=== PATIENT | female | born 1970 | race Caucasian/White ===

== ENCOUNTER 2020-07-01 17:31 | Emergency (ER) | payer MEDICAID, SELFPAY ==
--- NOTE | ~2020-07-01 | US_ITS ---
Examination: US transvaginal, US pelvic complete Indication: bleeding, large clots for 9 days, cm tenderness Comparison: No pertinent prior studies are currently available for comparison. Technique: Sonographic transabdominal and endovaginal views the pelvis were obtained. Endovaginal images were needed to better assess the anatomy. Findings: Uterus is retroverted measuring 8.6 x 4.8 x 4.9 cm in size with a 0.9 cm endometrial stripe. A small fundal fibroid measuring up to 1.5 cm in diameter is noted. Nabothian cysts seen in the cervix. The right ovary measures 4.0 x 2.8 x 2.2 cm for a volume of 12.9 mL with a slightly complex 2.1 cm follicle noted. The left ovary measures 3.4 x 3.2 x 2.1 cm for a volume of 12.0 mL. Likely complex follicle measuring up to 3.1 cm in maximal diameter. No significant fluid in the cul-de-sac. US/US transvaginal Impression: No definitive acute abnormality seen. Endometrial stripe measures 0.9 cm which is within normal limits for menstruating female.
--- NOTE | ~2020-07-01 | US_ITS ---
Examination: US transvaginal, US pelvic complete Indication: bleeding, large clots for 9 days, cm tenderness Comparison: No pertinent prior studies are currently available for comparison. Technique: Sonographic transabdominal and endovaginal views the pelvis were obtained. Endovaginal images were needed to better assess the anatomy. Findings: Uterus is retroverted measuring 8.6 x 4.8 x 4.9 cm in size with a 0.9 cm endometrial stripe. A small fundal fibroid measuring up to 1.5 cm in diameter is noted. Nabothian cysts seen in the cervix. The right ovary measures 4.0 x 2.8 x 2.2 cm for a volume of 12.9 mL with a slightly complex 2.1 cm follicle noted. The left ovary measures 3.4 x 3.2 x 2.1 cm for a volume of 12.0 mL. Likely complex follicle measuring up to 3.1 cm in maximal diameter. No significant fluid in the cul-de-sac. US/US pelvic complete Impression: No definitive acute abnormality seen. Endometrial stripe measures 0.9 cm which is within normal limits for menstruating female.
[2020-07-01 17:40] VITALS: BP 141/76; PULSE 107; RESP 16; O2SAT 96; BMI 29.2
--- NOTE | 2020-07-01 17:50 | ECG_ITS ---
Test Reason : DIZZYNESS Blood Pressure : / mmHG Vent. Rate : 098 BPM Atrial Rate : 098 BPM P-R Int : 138 ms QRS Dur : 084 ms QT Int : 346 ms P-R-T Axes : 038 061 047 degrees QTc Int : 441 ms Normal sinus rhythm Normal ECG When compared with ECG of 13-JAN-2020 18:25, No significant change was found Referred By: Анна Peñaloza Electronically Signed By:Toni Lopez
--- NOTE | 2020-07-01 17:50 | ED.FEMALEGU ---
HPI - Female Genitourinary General Chief complaint: Vaginal Bleeding Stated complaint: high bp, vaginal bleeding Source: patient Mode of arrival: ambulatory Limitations: language barrier History of Present Illness HPI Narrative: [age] year Czech female speaks some Greek with past medical history of diabetes, fibromyalgia, hypertension, and appendectomy presents with 9 days of lower abdominal and suprapubic pain accompanied by abnormal vaginal bleeding with large clots, going through at her heaviest x4 pads per hour. She was referred to emergency department by another provider for further evaluation. She states to be dizzy, nauseous, fatigued, and concerned about the large amount of bleeding. She does not describe chest pain or pressure, palpitations, abdominal distention, dysuria, hematuria, constipation, diarrhea, fevers or chills. MD elicited complaint: vaginal bleeding and pelvic pain Related Data Previous Rx's Medication Instructions Recorded ibuprofen 600 mg PO Q6H PRN #30 tab 07/01/20 oxycodone 5 mg PO Q8H PRN #4 tab 07/01/20 Allergies Allergy/AdvReac Type Severity Reaction Status Date / Time tramadol [TRAMADOL] Allergy Unknown RASH , rash Verified 07/01/20 17:44 Review of Systems Review of Systems: Constitutional: No Fever, No Chills ENT/Mouth: No sore throat, No Rhinorrhea Eyes: No Eye Pain, No Redness Cardiovascular: No Chest Pain, No SOB Respiratory: No Cough, No Sputum, No Wheezing Gastrointestinal: positive Nausea, No Vomiting, No Diarrhea, positive abdominal pain, Genitourinary: positive irregular bleeding, No Dysuria, No Urinary Frequency, positive pelvic pain Musculoskeletal: No Myalgias Skin: No rash Neuro: No Weakness, No Headache Psych: No Anxiety/Panic, No Depression Heme/Lymph: No bruising, No Lymphadenopathy Endocrine: No Polyuria, No Polydipsia Yes all other systems are reviewed and are negative [facility], LAT[facility] Past Medical History Attestation statement: The following information was validated with the patient. Source: old records reviewed Medical History (Updated 07/02/20 @ 00:01 by Frank Lee) Cholecystitis Diabetes Fibromyalgia HTN (hypertension) Surgical History (Updated 07/01/20 @ 18:44 by Анна Peñaloza NP) History of appendectomy Social History Social History Alcohol intake: never Smoking Status: Never smoker Use of substances other than those prescribed or required for medical reasons: No Advance Directives: No Advance Directives Information Provided: No Physical Exam Vital Signs: Vital Signs: Last Vital Signs Pulse 85 07/01/20 20:00 Resp 18 07/01/20 20:00 BP 110/80 07/01/20 20:00 Pulse Ox 97 07/01/20 20:00 Body Mass Index 29.2 Appearance: Alert. Oriented X3. Mild distress. Skin is slightly pale Eyes: Pupils equal, round and reactive to light. EOMI, sclera nonicteric, conjunctiva pale ENT: Pharynx normal. Moist mucous membranes tongue midline Neck: Normal inspection. Neck supple. CVS: Tachycardic heart rate and rhythm. Pulses normal. Respiratory: No respiratory distress. Breath sounds normal. Abdomen: Soft and suprapubic tenderness to palpation Skin: Skin warm and dry. Normal skin color. Normal skin turgor. Extremities: No lower extremity edema. Neuro: No motor deficit. No sensory deficit. Strength 5/5 to all extremities, cranial nerves 2 through 12 intact : General: Yes Bimanual renal exam normal bilaterally External Female Exam: normal external appearance and normal appearance of the urethra Speculum Exam - Vagina: normal appearance of the vagina, normal palpation, vaginal bleeding and No tissue present in vagina Speculum Exam - Cervix: normal appearance of the cervix and Cervical tenderness present Bimanual exam- vagina & uterus: normal palpation, Cervical tenderness present and cervical motion tenderness Bimanual Exam- Adnexa, other: normal adnexae and no masses OB/external & speculum: vaginal bleeding; no tissue noted in vagina Course Course Course Narrative: 50-year-old female with past medical history diabetes, fibromyalgia, hypertension, and appendectomy presents with 9 days of abnormal vaginal bleeding with large clots, suprapubic and lower abdominal pain. 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 Plan of care is for CBC, Chem 7, pelvic ultrasound, and EKG. Pelvic ultrasound shows uterine fibroids, CBC is unremarkable H&H 11.3/34.5 which is slightly lower than her normal values but not within the range needing emergent intervention or blood transfusion. Plan of care to discharge home, live truck operator utilized for all correspondence. Google translate utilized for discharge instructions. [facility] - Female Genitourinary MDM Narrative Medical decision making narrative: Fibroids Differential Diagnosis Differential diagnosis: Likely ovarian cyst, ruptured ovarian cyst and dysmenorrhea Medical Records Attestation: I reviewed the patient's medical records. Lab Data Attestation: I reviewed the patient's lab results. Result diagrams: 07/01/20 18:11 07/01/20 18:11 Labs: Lab Results 07/01/20 07/01/20 07/01/20 Range/Units 18:11 18:11 18:11 WBC 9.8 (4.8-10.8) X10*3/uL RBC 3.77 L (4.20-5.50) X10*6/uL Hgb 11.3 L (12.0-16.0) g/dl Hct 34.5 L (37-47) % MCV 91.5 (80-98) fL MCH 30.0 (27.0-33.0) pg MCHC 32.8 (31.0-35.0) g/dl RDW 14.2 (11.0-16.0) % Plt Count 346 (160-400) X10*3/uL MPV 11.5 (9.4-12.3) fL Immature Gran % (Auto) 0.2 (0.0-0.4) % Neut % (Auto) 58.0 (45-73) % Lymph % (Auto) 32.0 (20-40) % [place] % (Auto) 8.1 (2-11) % Eos % (Auto) 1.0 (0-4) % Baso % (Auto) 0.7 (0-2) % Lymph # (Auto) 3.1 (1.2-4.9) X10*3/uL [place] # (Auto) 0.8 (0.1-1.2) X10*3/uL Eos # (Auto) 0.1 (0.0-0.4) X10*3/uL Baso # (Auto) 0.1 (0.0-0.2) X10*3/uL Abs Immat Gran (auto) 0.02 (0.00-0.03) X10*3/uL Absolute Neuts (auto) 5.7 (2.0-8.3) X10*3/uL Absolute Nucleated RBC 0.000 (0.0-0.012) X10*3/uL Nucleated RBC % (auto) 0.0 (0.0-0.2) /100WBC PT 10.9 (10.8-13.0) SEC INR 0.9 (0.9-1.1) APTT 33.0 (24.1-38.0) SEC Sodium 140 (135-145) mmol/L Potassium 4.1 (3.3-5.1) mmol/L Chloride 104 (96-108) mmol/L Carbon Dioxide 26 (22-29) mmol/L Anion Gap 14 (12-20) BUN 10 (9-16) mg/dL Creatinine 0.68 (0.5-1.4) mg/dL Estim Creat Clear Calc 79.7 Estimated GFR > 60 Random Glucose 151 H (60-115) mg/dL Calcium 9.8 (8.4-10.2) mg/dL Magnesium 1.9 (1.6-2.6) mg/dL Troponin I High Sens (<3.5-17.0) ng/L 07/01/20 Range/Units 18:11 WBC (4.8-10.8) X10*3/uL RBC (4.20-5.50) X10*6/uL Hgb (12.0-16.0) g/dl Hct (37-47) % MCV (80-98) fL MCH (27.0-33.0) pg MCHC (31.0-35.0) g/dl RDW (11.0-16.0) % Plt Count (160-400) X10*3/uL MPV (9.4-12.3) fL Immature Gran % (Auto) (0.0-0.4) % Neut % (Auto) (45-73) % Lymph % (Auto) (20-40) % [place] % (Auto) (2-11) % Eos % (Auto) (0-4) % Baso % (Auto) (0-2) % Lymph # (Auto) (1.2-4.9) X10*3/uL [place] # (Auto) (0.1-1.2) X10*3/uL Eos # (Auto) (0.0-0.4) X10*3/uL Baso # (Auto) (0.0-0.2) X10*3/uL Abs Immat Gran (auto) (0.00-0.03) X10*3/uL Absolute Neuts (auto) (2.0-8.3) X10*3/uL Absolute Nucleated RBC (0.0-0.012) X10*3/uL Nucleated RBC % (auto) (0.0-0.2) /100WBC PT (10.8-13.0) SEC INR (0.9-1.1) APTT (24.1-38.0) SEC Sodium (135-145) mmol/L Potassium (3.3-5.1) mmol/L Chloride (96-108) mmol/L Carbon Dioxide (22-29) mmol/L Anion Gap (12-20) BUN (9-16) mg/dL Creatinine (0.5-1.4) mg/dL Estim Creat Clear Calc Estimated GFR Random Glucose (60-115) mg/dL Calcium (8.4-10.2) mg/dL Magnesium (1.6-2.6) mg/dL Troponin I High Sens < 3.5 (<3.5-17.0) ng/L Imaging Data Pelvic ultrasound: Attestation: I personally reviewed and interpreted this imaging study as follows: ECG Data Attestation: I personally reviewed and interpreted this ECG as follows: ECG interpretation date: 07/01/20 ECG interpretation time: 18:10 Prior ECG tracings: available for review Interpretation: Vent. rate 98 BPM MS interval 138 ms QRS duration 84 ms QT/QTc 346/441 ms P-R-T axes 38 61 47 Normal sinus rhythm Normal ECG When compared with ECG of 13-JAN-2020 18:25, No significant change was found Discharge Plan Discharge Clinical Impression: Vaginal bleeding Patient Disposition: Home, Self-Care Instructions: Dysfunctional Uterine Bleeding (ED) Additional Instructions: Te evaluaron para detectar sangrado vaginal anormal. La ecograf?a p?lvica muestra fibromas uterinos. Por favor, simin un seguimiento con OBGYN para mayor atenci?n. Llame al Dr. Jiang y solicite krys keshawn. Para el manejo del dolor, el ibuprofeno es el mejor medicamento para judge afecci?n. Prescribimos ibuprofeno 600 mg cada 6-8 horas seg?n sea necesario. Utilice ibuprofeno antes de usar oxicodona. Prescribimos pocos comprimidos de oxicodona para el dolor intenso. Pebbles medicamento es un narc?madelyn y tiene un alto riesgo de adicci?n y abuso. No conduzca ni opere maquinaria mientras tome pebbles medicamento. Pebbles medicamento puede aumentar el riesgo de ca?sigala, causar somnolencia y estre?imiento. Valentina abundantes l?quidos para usar MiraLax y/o Colace seg?n sea necesario para ayudar a suavizar las heces. Michaela por elegir pebbles departamento de emergencias para judge evaluaci?n. Por favor, simin un seguimiento con el m?dico de atenci?n primaria seg?n sea necesario. Regrese al servicio de emergencias para cualquier s?ntoma nuevo, preocupante o que empeore. You were evaluated for abnormal vaginal bleeding. Pelvic ultrasound shows uterine fibroids. Please follow-up with OBGYN for further care. Call Dr Jiang and request an appointment. For pain management, ibuprofen is the best medication for your condition. We prescribed ibuprofen 600 mg every 6-8 hours as needed. Please use ibuprofen before using oxycodone. We prescribed few tablets of oxycodone for severe pain. This medication is a narcotic and has high risk for addiction and abuse. Do not drive or operate machinery while taking this medication. This medication can increase risk for falls, cause drowsiness, and constipation. Drink plenty of fluids use MiraLax and/or Colace as needed to help soften stools. Thank you for choosing this emergency department for evaluation. Please follow-up with primary care physician as needed. Return to the emergency department for any new, concerning, or worsening symptoms. Prescriptions: New oxycodone 5 mg tablet 5 mg PO Q8H PRN (Reason: pain) Qty: 4 RF: 0 ibuprofen 600 mg tablet 600 mg PO Q6H PRN (Reason: pain) Qty: 30 RF: 0 Referrals: Joseph Jiang MD [Physician] - 2 days (Uterine fibroids, abnormal vaginal bleeding) Interventions: ED Discharge Assessment Last Done: 07/01/20 20:32 Discharge Date/Time: 07/01/20 20:33
[2020-07-01 18:12] VITALS: BP 108/83; PULSE 100; RESP 18; O2SAT 97
[2020-07-01] MEDS: 0.9 % Sodium Chloride 1,000 ML 999 ML IVCONT (18:15)
[2020-07-01 19:06] LABS: MANUAL DIFF FLAG NO
[2020-07-01 19:08] LABS: Basophils Absolute Auto 0.1 X10*3/uL (0.0-0.2); Basophils Percent Auto 0.7 % (0-2); Eosinophils Absolute Auto 0.1 X10*3/uL (0.0-0.4); Hematocrit 34.5 % (37-47); Hemoglobin 11.3 g/dl (12.0-16.0); Imm Gran Abs Auto 0.02 X10*3/uL (0.00-0.03); Imm Gran Pct Auto 0.2 % (0.0-0.4); Lymphocytes Absolute Auto 3.1 X10*3/uL (1.2-4.9); Mean Corpuscular HGB Conc 32.8 g/dl (31.0-35.0); Mean Corpuscular Volume 91.5 fL (80-98); Mean Platelet Volume 11.5 fL (9.4-12.3); Monocytes Absolute Auto 0.8 X10*3/uL (0.1-1.2); Monocytes Percent Auto 8.1 % (2-11); Neutrophils Absolute Auto 5.7 X10*3/uL (2.0-8.3); Platelet Count 346 X10*3/uL (160-400); Red Blood Count 3.77 X10*6/uL (4.20-5.50); Red Cell Distribution Width 14.2 % (11.0-16.0); White Blood Count 9.8 X10*3/uL (4.8-10.8)
[2020-07-01 19:15] LABS: INTERNATIONAL NORM RATIO 0.9 (0.9-1.1); Prothrombin Time 10.9 SEC (10.8-13.0)
--- NOTE | 2020-07-01 19:23 | PC.NURSE ---
family updated. Family states pt called and is having problem expressing herself and having a lot of pain and feeling anxiety. interpretor in room for re-eval of pt. will continue to monitor pt,
[2020-07-01 19:34] LABS: Anion Gap 14 (12-20); Blood Urea Nitrogen 10 mg/dL (9-16); Calcium 9.8 mg/dL (8.4-10.2); Carbon Dioxide 26 mmol/L (22-29); Chloride 104 mmol/L (96-108); Creatinine Clr Calc Pharmacy 79.7; Estimated Glomerular Filt Rate > 60; Glucose Random 151 mg/dL (60-115); Magnesium 1.9 mg/dL (1.6-2.6); Potassium 4.1 mmol/L (3.3-5.1); Sodium 140 mmol/L (135-145)
[2020-07-01 19:39] LABS: Troponin-I High Sensitivity < 3.5 ng/L (<3.5-17.0)
[2020-07-01 20:00] VITALS: BP 110/80; PULSE 85; RESP 18; O2SAT 97
--- NOTE | 2020-07-01 20:05 | PC.NURSE ---
PT'S FAMILY CONTINUES TO CALL AND STATE MY MOM IS IN PAIN SUSANNA LUTZ AWARE X 2.
== END 2020-07-01 20:33 | disposition home or self-care (01) ==
PROVIDERS: Nurse Practitioner Family; Emergency Provider Emergency Medicine; PCP Pediatrics
DX: N93.8 Other specified abnormal uterine and vaginal bleeding (principal); N92.0 Excessive and frequent menstruation with regular cycle; R10.10 Upper abdominal pain, unspecified; R42 Dizziness and giddiness; I10 Essential (primary) hypertension; Z79.899 Other long term (current) drug therapy
CPT/HCPCS: 36415; 76830; 76856; 80048; 83735; 84484; 85025; 85610; 85730; 93005; 96360; 99284

== ENCOUNTER 2020-07-02 14:14 | Outpatient (REF) | payer MEDICAID, SELFPAY ==
[2020-07-02 16:22] LABS: Hematocrit 32.2 % (37-47); Hemoglobin 10.3 g/dl (12.0-16.0); Mean Corpuscular Hemoglobin 29.3 pg (27.0-33.0); Mean Corpuscular Volume 91.7 fL (80-98); Mean Platelet Volume 11.4 fL (9.4-12.3); Platelet Count 338 X10*3/uL (160-400); Red Blood Count 3.51 X10*6/uL (4.20-5.50); Red Cell Distribution Width 14.2 % (11.0-16.0); White Blood Count 9.3 X10*3/uL (4.8-10.8)
[2020-07-02 17:12] LABS: HCG Quantitative < 2 mIU/mL; Thyroid Stimulating Hormone 1.83 uIU/mL (0.32-4.0)
[2020-07-03 09:56] LABS: CT PCR NOT DETECTED (Not Detect.); NG PCR NOT DETECTED (Not Detect.)
[2020-07-08 19:02] LABS: HPV mRNA E6/E7 rflx Not Detected (Not Detected)
== END 2020-07-02 14:15 | disposition home or self-care (01) ==
LOC: HO.LAB 14:14
PROVIDERS: PCP Pediatrics; Visit Provider Obstetrics & Gynecology
DX: N92.0 Excessive and frequent menstruation with regular cycle (principal); R10.2 Pelvic and perineal pain; Z11.51 Encounter for screening for human papillomavirus (HPV)
CPT/HCPCS: 36415; 84443; 84702; 85027; 87491; 87591; 87624; 88142; 99202

== ENCOUNTER 2020-07-03 01:37 | Emergency (ER) | payer MEDICAID, SELFPAY | END 2020-07-03 02:11 | disposition left against medical advice (07) | PROVIDERS: Emergency Provider Emergency Medicine | DX: N93.9 Abnormal uterine and vaginal bleeding, unspecified (principal) ==

== ENCOUNTER 2020-07-03 11:57 | Outpatient (REF) | payer MEDICAID, SELFPAY | END 2020-07-03 11:58 | disposition home or self-care (01) | LOC: HO.LAB 11:57 | PROVIDERS: Visit Provider Obstetrics & Gynecology | DX: Z13.89 Encounter for screening for other disorder (principal) ==

== ENCOUNTER 2020-07-08 15:45 | Outpatient (REF) | payer MEDICAID, SELFPAY | END 2020-07-08 15:46 | disposition home or self-care (01) | LOC: HO.US 15:45 | PROVIDERS: Visit Provider Obstetrics & Gynecology | DX: Z13.89 Encounter for screening for other disorder (principal) ==

== ENCOUNTER 2020-07-22 16:17 | Outpatient (REF) | payer MEDICAID, SELFPAY | END 2020-07-22 16:18 | disposition home or self-care (01) | LOC: HO.MAMMO 16:17 | PROVIDERS: Visit Provider Obstetrics & Gynecology | DX: Z13.89 Encounter for screening for other disorder (principal) ==

== ENCOUNTER 2020-11-08 19:29 | Emergency (ER) | payer MEDICAID, SELFPAY ==
--- NOTE | ~2020-11-08 | XR_ITS ---
EXAMINATION: XR CHEST CLINICAL INFORMATION: Shortness of breath. COMPARISON: None TECHNIQUE: Frontal view of the chest was obtained. FINDINGS: The lungs are clear. The cardiomediastinal silhouette is normal in size. There is no pleural effusion or pneumothorax. No acute osseous abnormality. XR/XR chest 1V IMPRESSION: No acute cardiopulmonary findings.
[2020-11-08 20:00] VITALS: BP 131/78; PULSE 123; RESP 20; TEMP 37.6; O2SAT 97; BMI 28.3
[2020-11-08 20:30] LABS: COVID-19 Test Negative (Negative)
[2020-11-08 21:22] VITALS: BP 135/78; PULSE 112; RESP 24; TEMP 36.9; O2SAT 96
--- NOTE | 2020-11-08 21:39 | ED.SOB ---
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 Patient states that she is only been using nebulizer treatments and only twice a day at that. Related Data Home Medications Medication Instructions Recorded Confirmed albuterol (refill) 90 mcg INHALATION 07/02/20 mcg/actuation aerosol inhaler cholecalciferol (vitamin D3) 10 10 mcg PO DAILY 07/02/20 mcg (400 unit) capsule naproxen 500 mg tablet 500 mg PO BID 07/02/20 omeprazole 20 mg capsule,delayed 20 mg PO DAILY 07/02/20 release pramipexole 0.25 mg tablet 0.25 mg PO BEDTIME 07/02/20 pregabalin 100 mg capsule 100 mg PO BID 07/02/20 Previous Rx's Medication Instructions Recorded ibuprofen 600 mg PO Q6H PRN #30 tab 07/01/20 oxycodone 5 mg PO Q8H PRN #4 tab 07/01/20 prednisone 40 mg PO DAILY 4 Days #8 tab 11/08/20 Allergies Allergy/AdvReac Type Severity Reaction Status Date / Time tramadol [TRAMADOL] Allergy Unknown RASH , rash Verified 11/08/20 20:00 Review of Systems Review of Systems: Pertinent positives and negatives as stated in HPI 10 point review of systems otherwise negative. [facility] Past Medical History Source: nursing notes reviewed Medical History Asthma Cholecystitis Diabetes Fibromyalgia HTN (hypertension) Surgical History History of appendectomy Social History Social History Alcohol intake: never Advance Directives: No Advance Directives Information Provided: No Gender identity: female Physical Exam Vital Signs: Vital Signs: Last Vital Signs Temp 98.5 F 11/08/20 21:22 Pulse 106 H 11/08/20 21:44 Resp 24 H 11/08/20 21:22 BP 135/78 11/08/20 21:22 Pulse Ox 96 11/08/20 21:22 Body Mass Index 28.3 VITAL SIGNS: Reviewed. GENERAL: Well developed, well nourished, in no acute distress. HEAD: Normocephalic/atraumatic EYES: PERRLA, EOMI OROPHARYNX: no oral lesions noted, posterior pharynx clear LUNGS: Trace expiratory wheeze, no rhonchi, tachypneic. SpO2<96> CARDIOVASCULAR: Regular rate and rhythm without noted murmurs, no JVD or lower extremity edema. ABDOMEN: Soft, non-tender, non-distended with bowel sounds. SKIN: Inspection of the skin reveals no rashes NEUROLOGIC: Alert and oriented x 4. Strength and sensation to light touch were grossly intact x 4. Course Course Course Narrative: 50-year-old female with history and clinical presentation suggestive of mild asthma exacerbation, low suspicion for COVID-19 and doubt pneumonia. Review of all investigations negative for acute findings other than likely mild asthma exacerbation. MDM - SOB/Dyspnea Lab Data Labs: Lab Results 11/08/20 Range/Units 20:08 COVID-19 (FRANKY) Negative (Negative) COVID-19 Clin Com See Note Discharge Plan Discharge Clinical Impression: Asthma exacerbation Patient Disposition: Home, Self-Care Instructions: Asthma (ED) Additional Instructions: 1. Reanude todos los medicamentos caseros seg?n lo prescrito. 2. Se le maradiaga administrado un ciclo corto de esteroides y esto aumentar? judge presi?n arterial, aumentar? ash niveles de az?car y aumentar? la producci?n de ?cido. 3. Realice un seguimiento con judge proveedor de atenci?n primaria en los pr?ximos 2-3 d?as para krys reevaluaci?n y un tratamiento ambulatorio adicional. 4. Beth las pr?ximas 24 horas, use judge inhalador de rescate cada 4 a 6 horas para un control continuo de judge asma. Regrese a la fernie de emergencias por un empeoramiento you de los s?ntomas. Prescriptions: New prednisone 20 mg tablet 40 mg PO DAILY 4 Days Qty: 8 RF: 0 No Action oxycodone 5 mg tablet 5 mg PO Q8H PRN (Reason: pain) Qty: 4 RF: 0 ibuprofen 600 mg tablet 600 mg PO Q6H PRN (Reason: pain) Qty: 30 RF: 0 pramipexole 0.25 mg tablet 0.25 mg PO BEDTIME RF: 0 albuterol (refill) 90 mcg/actuation aerosol inhalation RF: 0 pregabalin 100 mg capsule 100 mg PO BID RF: 0 naproxen 500 mg tablet 500 mg PO BID RF: 0 omeprazole 20 mg capsule,delayed release(DR/EC) 20 mg PO DAILY RF: 0 cholecalciferol (vitamin D3) 10 mcg (400 unit) capsule 10 mcg PO DAILY RF: 0 Referrals: Nikki Crain MD [Primary Care Provider] - 2 days (Re-evaluation for asthma) Print Language: Portuguese
[2020-11-08] MEDS: Acetaminophen 325 MG TABLET 650 MG PO (21:42)
[2020-11-08] MEDS: predniSONE 20 MG TABLET 40 MG PO (21:42)
[2020-11-08] MEDS: Acetaminophen 325 MG TABLET PO (21:43)
[2020-11-08 21:44] VITALS: PULSE 106; O2SAT 96
[2020-11-08 23:06] VITALS: BP 117/78; PULSE 107; RESP 22; O2SAT 96
== END 2020-11-08 23:07 | disposition home or self-care (01) ==
PROVIDERS: Emergency Provider Student in an Organized Health Care Education/Training Program; PCP Pediatrics
DX: J45.901 Unspecified asthma with (acute) exacerbation (principal); E11.9 Type 2 diabetes mellitus without complications; I10 Essential (primary) hypertension; Z79.899 Other long term (current) drug therapy; Z20.822 Contact with and (suspected) exposure to COVID-19
CPT/HCPCS: 36415; 71045; 87635; 94640; 99284

== ENCOUNTER 2021-05-18 19:48 | Emergency (ER) | payer MEDICAID, SELFPAY ==
[2021-05-18 20:00] VITALS: BP 116/71; PULSE 98; RESP 16; TEMP 36.9; O2SAT 98; BMI 28.3
[2021-05-18 20:25] LABS: COVID-19 Test Positive (Negative)
--- NOTE | 2021-05-18 20:43 | PC.NURSE ---
Called for patient in waiting room at 2029 and 2044 with no answers .
--- NOTE | 2021-05-18 21:06 | PC.NURSE ---
PT CALLED FOR 3RD TIME. NOT IN MWR. NOT OUTSIDE. NOT IN BR. LWT.
== END 2021-05-18 21:08 | disposition left against medical advice (07) ==
PROVIDERS: Emergency Provider Emergency Medicine
DX: U07.1 COVID-19 (principal); J02.9 Acute pharyngitis, unspecified; J45.909 Unspecified asthma, uncomplicated; I10 Essential (primary) hypertension; E11.9 Type 2 diabetes mellitus without complications
CPT/HCPCS: 87635; 99281; 99283

== ENCOUNTER 2021-10-14 14:51 | Outpatient (REF) | payer MEDICAID, SELFPAY ==
--- NOTE | ~2021-10-14 | MR_ITS ---
EXAMINATION: MR LUMBAR SPINE WITHOUT CONTRAST CLINICAL INFORMATION: 51-year-old with self-reported chronic low back pain and right leg pain. Intervertebral disc disorders with myelopathy. COMPARISON: None TECHNIQUE: MRI of the lumbar spine was obtained using routine sequences without contrast. FINDINGS: Coronal Alignment: Normal. Sagittal Alignment: Trace retrolisthesis at L3-L4. Otherwise normal lumbosacral alignment in the sagittal plane. Lumbosacral Junction: Normal. Five nonrib-bearing lumbar-type vertebral bodies. Vertebral Bodies: Normal height. Disc Spaces and Endplates: The intervertebral disc space heights are well maintained throughout the lumbar spine. [id number] degrees of disc desiccation are noted, most prominent at L4-L5 and L5-S1. Endplates appear intact. No significant spondylosis. Spinal Canal: No abnormal developmental findings. Bone Marrow: No marrow edema. Slightly heterogeneously low T1 signal throughout the osseous structures which is nonspecific. Conus Medullaris: Terminates at L1. Morphology and signal is normal. Intradural Nerve Roots: Within normal limits. L5-S1: Minor annular bulging noted with a tiny right lateral annular fissure without thecal sac or neural impingement. Minor facet arthrosis noted without significant canal or neural foraminal stenosis. L4-L5: Minor annular bulging noted with a tiny right lateral annular fissure. Mild facet arthropathy noted bilaterally with ligamentum flavum thickening with no significant canal or neural foraminal stenosis. L3-L4: Trace retrolisthesis, with no significant disc bulge or herniation. No significant facet arthrosis, canal or neural foraminal stenosis. L2-L3: Normal disc contour. No facet arthrosis, canal or neural foraminal stenosis. L1-L2: Normal disc contour. No facet arthrosis, canal or neuroforaminal stenosis. Paraspinal/Retroperitoneal: The paravertebral soft tissues are grossly unremarkable. MR/MR lumbar spine wo con IMPRESSION: 1. Minimal retrolisthesis at L3-L4 and [id number] disc desiccation at L4-L5 and L5-S1. 2. Minor annular bulging at L4-L5 and L5-S1 with tiny right lateral annular fissures at these levels without significant canal or neural foraminal stenosis. No neural impingement. Mild degrees of facet arthrosis are noted at L4-L5 and L5-S1. 3. Slightly heterogeneously low T1 signal throughout the osseous structures, which is a nonspecific finding. Suggest correlation with CBC and clinical history.
== END 2021-10-14 14:52 | disposition home or self-care (01) ==
LOC: HO.MRI 14:51
PROVIDERS: Visit Provider Pediatrics
DX: M51.06 Intervertebral disc disorders with myelopathy, lumbar region (principal)
CPT/HCPCS: 72148

== ENCOUNTER 2022-01-27 09:07 | Emergency (ER) | payer MEDICAID, SELFPAY ==
[2022-01-27 09:24] VITALS: BP 131/86; PULSE 112; RESP 19; TEMP 36.6; O2SAT 98; BMI 27.8
== END 2022-01-27 14:28 | disposition left against medical advice (07) ==
PROVIDERS: Emergency Provider Emergency Medicine
DX: R10.9 Unspecified abdominal pain (principal)
CPT/HCPCS: 99281

== ENCOUNTER 2022-07-03 09:46 | Emergency (ER) | payer MEDICAID, SELFPAY ==
--- NOTE | ~2022-07-03 | XR_ITS ---
EXAMINATION: XR WRIST, LEFT CLINICAL INFORMATION: Pain, patient states no injury. COMPARISON: None TECHNIQUE: Four views of the left wrist. FINDINGS: There is a 5 x 3 mm calcification/ossification in between the radial styloid process and the scaphoid. This has a chronic appearance. This could reflect sequela of remote trauma, loose body, dystrophic calcification. No acute fracture or dislocation is otherwise seen. Ulna negative variance. Joint spaces are maintained. XR/XR wrist LT 2V IMPRESSION: No radiographic evidence of acute fracture. Chronic appearing 5 x 3 mm density in between the radial styloid process-scaphoid, could be related to old trauma, loose body, dystrophic calcification/ossification. Clinically correlate.
[2022-07-03 09:50] VITALS: BP 151/92; PULSE 98; RESP 18; TEMP 36.2; O2SAT 98; BMI 31.3
--- NOTE | 2022-07-03 11:22 | ED_ITS ---
HPI - Extremity Problem General Chief complaint: Extremity Injury, Upper Stated complaint: L hand pain Time Seen by Provider: 07/03/22 10:40 Source: patient Mode of arrival: ambulatory Limitations: language barrier History of Present Illness HPI Narrative: 52 y.o female with a PMHx of arthritis, fibromyalgia, and diabetes on insulin, presents to the ED c/o L sided wrist pain/swelling x2 days without any known tra pricila/injury. Reports limited ROM due to pain, and some joint stiffness. Denies recent wounds, fevers, chills, numbness/tingling. Has taken OTC pain relievers without relief. MD Complaint: extremity pain Onset (ago): day(s) Related Data Home Medications Medication Instructions Recorded Confirmed albuterol (refill) 90 mcg inhalation 07/02/20 mcg/actuation aerosol inhaler cholecalciferol (vitamin D3) 10 10 mcg PO DAILY 07/02/20 mcg (400 unit) capsule naproxen 500 mg tablet 500 mg PO BID 07/02/20 omeprazole 20 mg capsule,delayed 20 mg PO DAILY 07/02/20 release pramipexole 0.25 mg tablet 0.25 mg PO BEDTIME 07/02/20 pregabalin 100 mg capsule 100 mg PO BID 07/02/20 Previous Rx's Medication Instructions Recorded ibuprofen 600 mg tablet 600 mg PO Q6H PRN pain #30 tabs 07/01/20 oxycodone 5 mg tablet 5 mg PO Q8H PRN pain #4 tabs 07/01/20 prednisone 20 mg tablet 40 mg PO DAILY 4 days #8 tabs 11/08/20 acetaminophen 500 mg tablet 500 mg PO Q6H PRN fever or pain 07/03/22 (Tylenol Extra Strength) #14 tabs naproxen 500 mg tablet 500 mg PO BID PRN pain 10 days #20 07/03/22 tabs Allergies Allergy/AdvReac Type Severity Reaction Status Date / Time tramadol [TRAMADOL] Allergy Unknown RASH , rash Verified 05/18/21 20:00 Review of Systems Review of Systems: Constitutional: No Fever, No Chills, ENT/Mouth: No sore throat, No Rhinorrhea, No Swallowing Difficulty Eyes: No Vision Changes Cardiovascular: No Chest Pain, No SOB, No Dyspnea Respiratory: No Cough, No Sputum Gastrointestinal: No Nausea, No Vomiting, No Diarrhea, No Constipation, No Abdominal pain Musculoskeletal: +joint pain L wrist, + Joint Swelling Skin: No Skin Lesions, No rash Neuro: No Weakness, No Numbness, No Paresthesias Yes all other systems are reviewed and are negative Constitutional: Constitutional: Reports as per [facility] Past Medical History Attestation statement: The following information was validated with the patient. Medical History Asthma Cholecystitis Diabetes Fibromyalgia HTN (hypertension) Surgical History History of appendectomy Social History Social History Alcohol intake: never Advance Directives: No Advance Directives Information Provided: Yes Gender identity: Female Physical Exam Vital Signs: Vital Signs: Last Vital Signs Temp 97.2 F 07/03/22 09:50 Pulse 98 07/03/22 09:50 Resp 18 07/03/22 09:50 BP 151/92 H 07/03/22 09:50 Pulse Ox 98 07/03/22 09:50 O2 Del Method 07/03/22 09:50 BMI result Body Mass Index 31.3 Const: General: cooperative, healthy appearing and no acute distress Orientation/consciousness: patient oriented x3 Limitations: no limitations HEENT: Head: Yes normal to inspection Ears: hearing grossly normal bilaterally General nose exam: Normal external nose present Face and sinus: Yes normal facial exam Eyes: General: appearance normal, both eyes and all related structures EOM: EOMs intact bilaterally Neck: Neck: Yes normal visual inspection and Yes no meningeal signs Resp: Effort & Inspection: normal respiratory effort Cardio: Rate: regular rate Heart sounds: S1 normal heart sound present and S2 normal heart sound present Peripheral pulses: radial pulses present and ulnar radial pulses present GI: Inspection: Yes normal to inspection Skin: Rashes: no rashes Wounds: no wounds Neuro: General: patient oriented x3, gait normal, tone normal and no meningeal signs Gait exam (Neuro): Normal gait present Extrem: Other: Mild swelling to left wrist and proximal thumb/MCP. +TTP to dorsal radial aspect of wrist with +snuffbox tenderness. No eccymosis or erythema. Finger to thumb opposition intact. NV intact General: Yes normal to inspection Left upper extremity: ROM limited (ROM limited to pain ) Course Course Course Narrative: XR wrist LT 2V IMPRESSION: No radiographic evidence of acute fracture. ? Chronic appearing 5 x 3 mm density in between the radial styloid process-scaphoid, could be related to old trauma, loose body, dystrophic calcification/ossification. Clinically correlate. ? >> thumb spica wrist splint applied due to patient's scaphoid tenderness, patient is to follow-up with orthopedics Results discussed with patient including worrisome signs and symptoms and strict return precautions, and when to return to the emergency department. They verbalized understanding and feel safe for discharge at this time. Medications Administered Discontinued Medications Generic Name Dose Route Start Last Admin Trade Name Freq PRN Reason Stop Dose Admin Ketorolac Tromethamine 30 mg 07/03/22 11:54 07/03/22 11:59 Ketorolac Tromethamine 30 Mg/Ml Vial IM 07/03/22 11:55 30 mg ONCE ONE Administration Medical Decision Making Medical Decision Making MDM Narrative: 52 y.o female with a PMHx of arthritis, fibromyalgia, and diabetes on insulin, presents to the ED c/o L sided wrist pain/swelling x2 days without any known trauma/injury. On physical exam patient is well-appearing with NAD, VSS. L wrist has limited ROS secondary to pain, mild swelling without erythema or warmth, and +ttp to radial aspect w/+snuffbox tenderness. Negative tinel test. Sensation and radial pulse intact. Concern for wrist sprain/strain/fracture vs scaphoid fracture vs arthritic pain. Low suspicion for carpal tunnel syndrome or septic joint/arthritis Plan: XR, thumb spica splint, Toradol for pain. Please refer to course for remaining clinical decision making, interpretation of labs/imaging results, and discussions with consultants and/or family members. Differential Diagnosis Differential Diagnoses: The differential diagnosis associated with the presentation includes as above Radiology Impression Discussion of test interpretation with radiology: I have reviewed the radiologist's reading. Prescription Management I considered prescription management with: Pain Medication Procedures Orthopedic Splinting/Casting Injury #1: Side: left Upper Extremity Immobilizer: thumb spica Discharge Plan Discharge Clinical Impression: Acute wrist pain Patient Disposition: Home, Self-Care Instructions: Wrist Injury (ED), Scapular Fracture (ED) Additional Instructions: Your x-rays did not show any acute findings. However due to where you are having pain please keep wrist splint on until you follow-up with wildland fire operations specialist, you may only take it off to shower. Ice and elevate Naproxen as an anti-inflammatory/pain medication, take with food. In addition take Tylenol If symptoms persist or worsen return to the ED Prescriptions: New acetaminophen [Tylenol Extra Strength] 500 mg tablet 500 mg PO Q6H PRN (Reason: fever or pain) Qty: 14 0RF naproxen 500 mg tablet 500 mg PO BID PRN (Reason: pain) 10 Days Qty: 20 0RF No Action prednisone 20 mg tablet 40 mg PO DAILY 4 Days Qty: 8 0RF oxycodone 5 mg tablet 5 mg PO Q8H PRN (Reason: pain) Qty: 4 0RF ibuprofen 600 mg tablet 600 mg PO Q6H PRN (Reason: pain) Qty: 30 0RF pramipexole 0.25 mg tablet 0.25 mg PO BEDTIME albuterol (refill) 90 mcg/actuation aerosol inhalation pregabalin 100 mg capsule 100 mg PO BID naproxen 500 mg tablet 500 mg PO BID omeprazole 20 mg capsule,delayed release(DR/EC) 20 mg PO DAILY cholecalciferol (vitamin D3) 10 mcg (400 unit) capsule 10 mcg PO DAILY Referrals: [facility] [place] [Provider Group] - 1 week Interventions: ED Discharge Assessment Last Done: 07/03/22 12:35 Discharge Date/Time: 07/03/22 12:35
[2022-07-03] MEDS: Ketorolac Tromethamine 30 MG/ML VIAL IM (11:59)
== END 2022-07-03 12:35 | disposition home or self-care (01) ==
PROVIDERS: Emergency Provider Emergency Medicine; PCP Pediatrics
DX: M25.532 Pain in left wrist (principal); E11.9 Type 2 diabetes mellitus without complications; Z79.4 Long term (current) use of insulin; I10 Essential (primary) hypertension
CPT/HCPCS: 29125; 73100; 96372; 99283; 99284; J1885

== ENCOUNTER → 2022-07-22 12:21 | Outpatient (BNVA) | payer MEDICAID, SELFPAY | PROVIDERS: PCP Pediatrics; Visit Provider Physician Assistant | DX: M18.12 Unilateral primary osteoarthritis of first carpometacarpal joint, left hand (principal) | CPT/HCPCS: 99202 ==

== ENCOUNTER → 2022-08-18 12:36 | Outpatient (BNVA) | payer MEDICAID, SELFPAY | PROVIDERS: PCP Pediatrics; Visit Provider Physician Assistant | DX: M18.12 Unilateral primary osteoarthritis of first carpometacarpal joint, left hand (principal); M18.11 Unilateral primary osteoarthritis of first carpometacarpal joint, right hand | CPT/HCPCS: 99212 ==

== ENCOUNTER 2022-09-03 10:00 | Outpatient (RCR) | payer MEDICAID, SELFPAY ==
--- NOTE | 2022-08-10 09:43 | MHC.OT.EP ---
[address] [phone] Occupational Therapy Plan of Care Patient Name: Esperanza Werner Date of Evaluation: 08/06/22 Diagnosis: OA CMC joint of left thumb Pain Location: 3-8 left thumb basal joint Pain Score: 8 Pain Scale Used: Numeric (0 - 10) Aggravating Factors: Left hand gripping and pinching Alleviating Factors: Brace Assessment: Pt is a 52 yo female with a recent onset of left thumb basal joint pain carrying something to her basement. She was seen in the ED , by her PCP , [facility] and now referred to OT for left thumb CMC OA. She reports benefit from the Cool Comfort thumb spica issued by Ortho. Pt has a ho IDDM, osteoporosis, Fibromyalgia and chronic back pain not improved with PT. She has 4 hours a day GRAIN SPOUTER support , 7 days a week due to back pain. Her GRAIN SPOUTER does the heavy housekeeping including cooking and shopping. Submax bilateral podiatric surgeon strength noted on testing She enjoys crafting [place]ña and reading the Bible. Frequency and Duration: The patient will be seen 2x wk x 4 wks Short Term Goals: Dec complaint of thumb pain with use of hand based thumb spica Demo indep in self ROM and thenar muscle strengthening Indep with use of thermal modalities for joint pain Dec complaint of pain to < 6/10 at worst with use of thumb protection techniques as needed Report awareness of AD for OA jt protection Asbestos Removal Supervisor Goals: Demo independence with self care techniques for hand OA jt pain Dec complaint of left thumb pain to occasional with use of jt protection as needed Left podiatric surgeon strength to 35 lb Treatment Plan: Therapeutic Exercise Therapeutic Activity Home Exercise Program Splinting Patient Education ADL Training Ultrasound Paraffin MHP Cold Packs Joint Mobilization Electronically Signed By: Sharon Nevarez OT CHT CLT Please Sign and return to therapist. Thank you once again for your referral.
== END 2022-10-05 15:33 | disposition home or self-care (01) ==
LOC: HO.OT 10:00
PROVIDERS: PCP Pediatrics; Visit Provider Physician Assistant
DX: M18.12 Unilateral primary osteoarthritis of first carpometacarpal joint, left hand (principal); M18.11 Unilateral primary osteoarthritis of first carpometacarpal joint, right hand
CPT/HCPCS: 97035; 97110; 97166

== ENCOUNTER 2022-12-01 10:07 | Outpatient (AMB) | payer MEDICAID, SELFPAY ==
[2022-12-01 11:08] VITALS: BMI 28.3
--- NOTE | 2022-12-01 11:08 | MHC.OFFVIS ---
Intake Vital Signs 12/01/22 11:08 Height 4 ft 11 in Weight 140 lb BMI 28.3 Intake Visit Reasons: o/v Arthritis of carpometacarpal rt thumb Intake Note: Esperanza 52 yr old femalep resents today for her B/L thumb CMC O.A pain. Last seen with Jeremy Mcmahan who gave pt B/L comfort cool brace and Rx'ed her O.T . Patient states she has completed her O.T with no improvement. States she continues to have pain radiating to her elbow. At times she has swelling by her CMC joint. Also mentioned she has numbness and tingling that worsens at night time and in the mornings. Allergies tramadol [TRAMADOL] Allergy (Unknown, Verified 12/01/22 11:14) RASH , rash HPI o/v Arthritis of carpometacarpal rt thumb HPI Details Esperanza is a 52 year old right hand dominant Croatian speaking woman who presents to discuss her bilateral basal joint OA. She has had pain in her left thumb and wrist for ~2 years now. She has been seen by SUSANNA Mcmahan, declined injections, and was fitted for bilateral comfort cool braces before being referred to OT. She complains of pain in the base of her thumbs, worse with pinching and gripping activities. She says her pain radiates rom the radial aspect of her wrist, up her arms and into her shoulders, and at times she has swelling at the base of her thumbs. She says she has completed OT without much improvement, and has been taking NSAIDs for pain relief. She also complains of numbness in her hands. Symptoms intermittent, but daily, worse at night. She has locking of the right middle finger [facility] Medical History Asthma Cholecystitis Diabetes Fibromyalgia HTN (hypertension) Surgical History History of appendectomy Social History Alcohol intake: never Gender identity: Female Female Reproductive History Menstrual Age of Menarche: 10 Review of Systems Const All systems reviewed & are unremarkable except as noted in HPI and below Physical Exam Vital Signs: BMI result Body Mass Index 28.3 Const General: cooperative, healthy appearing and no acute distress Orientation/consciousness: patient oriented x3 HEENT Head: Yes normocephalic and Yes atraumatic Eyes EOM: EOMs intact bilaterally Resp Effort & Inspection: normal respiratory effort and able to speak in complete sentences Cardio Jugular venous distension: no JVD Skin General skin exam: turgor normal Rashes: no rashes Neuro General: patient oriented x3 Extrem Other: Evaluation of Right Upper Extremity: The patient is alert, oriented, and in no acute distress Neuro: Median, Ulnar, Radial nerves motor and sensory grossly intact Vascular: Cap refill brisk ROM: She can make a fist and extend all her digits Visible and palpable locking and catching fo the middle finger Tender over the a1 ale of the middle finger Skin: No lacerations or abrasions. General: No Ecchymosis. No Erythema or evidence of infection. Mild tenderness over the right thumb MCP joint Mild tenderness in the 1st dorsal compartment More tender over the basal joint of the right thumb No tenderness over the a1 ale of the thumb Negative Devin test Radiographs: 3 views of the right hand were taken and viewed by me today in clinic. They show early basal joint OA with some peaking of the articular surface Psych Appearance: grossly normal Affect: normal affect Attitude: cooperative Office Procedures Fracture Care Details: No fracture, injection Fracture Billing Code: Fracture Billing Code Results Reviewed Results Reviewed: 12/01/22 11:32 Lidocaine HCl 1 % [Xylocaine 1 %] 2 ml .ROUTE .STK-MED ONE 12/01/22 11:33 methylPREDNISolone acetate [DEPO-MedroL] 40 mg .ROUTE .STK-MED ONE Assessment & Plan Assessment & Plan (1) Arthritis of carpometacarpal (CMC) joint of right thumb: Code(s): M18.11 - Unilateral primary osteoarthritis of first carpometacarpal joint, right hand (2) Arthritis of carpometacarpal (CMC) joint of left thumb: Code(s): M18.12 - Unilateral primary osteoarthritis of first carpometacarpal joint, left hand (3) Bilateral hand numbness: Code(s): R20.0 - Anesthesia of skin (4) Trigger finger, right middle finger: Code(s): M65.331 - Trigger finger, right middle finger Plan Assessment & Plan: 1. Right basal joint OA I educated her about these conditions I discussed operative and non-operative treatment options The patient would like to proceed with an injection, beginning with her right side today I discussed activity modification, she is to limit or avoid any heavy or repetitive pinching or gripping activities She will continue to wear her comfort cool splints with daily activity Injection #1 : The risks and benefits of a steroid injection including but not limited to risk of damage to blood vessels, nerve, tendon, infection, skin bleaching, persistent or worsening pain, and failure to improve symptoms were discussed with the patient and they wish to proceed with the steroid injection. Once consent was obtained the skin over the dorsum of the right basal joint was sterilely prepped. The joint was then injected with a combination of 1 mL of (40 mg/ml} Depo-Medrol and 1% plain Lidocaine. The patient appears to have tolerated the procedure well and with no complications. She had good early relief before leaving clinic today. She knows that they may not have another steroid injection into this joint for least 4 months. 2. Bilateral hand numbness Symptoms intermittent, but daily, worse at night I ordered a NCS to assess for peripheral neuropathy vs cervical radiculopathy She will follow up when completes for review 3. Right middle finger trigger finger No treatment today She may follow up to discuss treatment at a later date Please note that greater than 30 minutes was spent with this patient going over the history, evaluating the patient and radiographs, formulating possible treatment options, discussing them with the patient, and documenting the visit. Scribed for Angeles Resendez MD by Lenny Malik, director of graduate medical education, on 12/01/22 at 11:30 AM, EST. Orders: Orders XR hand RT min 3V Today M79.641 - Pain in right hand NE nerve conduction velocity Today R20.0 - Anesthesia of skin, R20.2 - Paresthesia of skin Coding Level of Care Code New Pt Level 3 (73609) Diagnoses Arthritis of carpometacarpal (CMC) joint of right thumb M18.11 Arthritis of carpometacarpal (CMC) joint of left thumb M18.12 Bilateral hand numbness R20.0 Trigger finger, right middle finger M65.331 CPT Codes Fracture Care - Fracture Billing Code: Fracture Billing Code ([id number])
== END 2022-12-01 11:54 | disposition home or self-care (01) ==
PROVIDERS: PCP Pediatrics; Visit Provider Orthopaedic Surgery
DX: M18.10 Unilateral primary osteoarthritis of first carpometacarpal joint, unspecified hand (principal); M65.331 Trigger finger, right middle finger; R20.0 Anesthesia of skin
CPT/HCPCS: 20600; 99214

== ENCOUNTER 2022-12-01 12:44 | Outpatient (REF) | payer MEDICAID, SELFPAY ==
--- NOTE | ~2022-12-01 | XR_ITS ---
EXAMINATION: XR HAND, RIGHT CLINICAL INFORMATION: Pain COMPARISON: None available. TECHNIQUE: PA, lateral, and oblique views of the right hand. FINDINGS: There is mild loss of PIP and DIP joint spaces without bony erosive changes. No loose bodies or soft tissue swelling. No visible acute fracture or dislocation seen. XR/XR hand RT min 3V IMPRESSION: Mild degenerative changes PIP and DIP joints. No visible acute fracture or dislocation seen.
== END 2022-12-01 12:45 | disposition home or self-care (01) ==
LOC: HO.HOSX 12:44
PROVIDERS: Visit Provider Orthopaedic Surgery
DX: M19.041 Primary osteoarthritis, right hand (principal); M65.331 Trigger finger, right middle finger; R20.0 Anesthesia of skin
CPT/HCPCS: 20600; 73130; J1020

== ENCOUNTER 2022-12-05 20:00 | Inpatient (IN) | payer MEDICAID, SELFPAY ==
--- NOTE | ~2022-12-05 | CT_ITS ---
EXAMINATION: CT ANGIOGRAM OF THE CHEST WITH AND WITHOUT CONTRAST (CT PULMONARY ANGIOGRAM FOR PE) CLINICAL INFORMATION: Dizzy, tachycardic, + dimer COMPARISON: None available. TECHNIQUE: Prior to contrast administration, noncontrast localization images were obtained. Subsequently, multidetector volumetric imaging was performed from the thoracic inlet to below the diaphragms following the administration of 80 mL Omnipaque 350 intravenous contrast. No contrast reaction reported Sagittal, coronal, and MIP oblique sagittal reformatted images were obtained on the CT workstation, uploaded to PACS, and reviewed. This CT examination was performed using dose optimization techniques as appropriate, variously including the following: *Automated exposure control *Adjustment of mA and/or kV according to patient size (this includes techniques or standardized protocols for targeted exams where dose is matched to indication/reason for exam; i.e. extremities or head) *Use of iterative reconstruction technique Total exam dose-length product 219 mGy-cm FINDINGS: QUALITY OF STUDY/CONTRAST BOLUS: Satisfactory. PULMONARY ARTERIES: No pulmonary emboli. THORACIC AORTA: No aneurysm. LUNG: There is posterior lung interstitial thickening/coarsening with associated groundglass opacities. The lungs are otherwise clear. PLEURA: No pleural effusion or pneumothorax. MEDIASTINUM: Normal heart size. No pericardial effusion. No hilar or mediastinal lymphadenopathy. No evidence of septal bowing or right heart strain. CORONARY ARTERY CALCIFICATION: None visualized on this study. CHEST WALL/AXILLA: No axillary or internal mammary lymphadenopathy. There is a 3.5 cm lipoma associated with the left scapula. OSSEOUS STRUCTURES: No acute or suspicious osseous abnormality. UPPER ABDOMEN: The liver is of diminished attenuation. No reflux of contrast into the hepatic veins to suggest elevated right heart pressures. CT/CT angio chest PE protocol IMPRESSION: No evidence for pulmonary embolism. Posterior interstitial prominence/coarsening with associated groundglass opacities possibly mild interstitial lung disease. No focal consolidation or pleural effusion. VTE: Negative for pulmonary embolism.
--- NOTE | ~2022-12-05 | XR_ITS ---
EXAMINATION: XR CHEST CLINICAL INFORMATION: Elevated white blood cells. COMPARISON: 11/08/2020 chest radiograph. TECHNIQUE: 2 views of the chest were obtained. FINDINGS: No significant abnormality is noted involving the heart, lungs, mediastinum, bony thorax or soft tissues. XR/XR chest 2V IMPRESSION: No acute cardiopulmonary process.
--- NOTE | ~2022-12-05 | CT_ITS ---
EXAMINATION: CT HEAD WITHOUT CONTRAST CT SINUS WITHOUT CONTRAST CLINICAL INFORMATION: Pain. COMPARISON: None available. TECHNIQUE: Contiguous axial imaging was performed from the skull base to vertex without intravenous administration of contrast. This CT examination was performed using dose optimization techniques as appropriate, variously including the following: *Automated exposure control *Adjustment of mA and/or kV according to patient size (this includes techniques or standardized protocols for targeted exams where dose is matched to indication/reason for exam; i.e. extremities or head) *Use of iterative reconstruction technique DLP: 645 mGy-cm FINDINGS: HEAD: The lateral, third and fourth ventricles are normally outlined. The cortical sulci and basal cisterns are normally outlined as well. There is no acute territorial defect, hemorrhage or midline shift. The extra-axial spaces are unremarkable. Calvarium: Intact. SINUSES: The maxillofacial sinuses are clear. The orbital structures are unremarkable. The bony structures and soft tissues are unremarkable. CT/CT head/brain wo IV con IMPRESSION: No significant abnormality seen.
--- NOTE | ~2022-12-05 | CT_ITS ---
EXAMINATION: CT ABDOMEN AND PELVIS WITHOUT CONTRAST CLINICAL INFORMATION: Periumbilical pain, diarrhea COMPARISON: Pelvic ultrasound 07/01/2020, renal ultrasound 08/23/2017 TECHNIQUE: Multidetector volumetric imaging was performed from the superior aspect of the liver through the pubic symphysis. Sagittal and coronal reformatted images were obtained on the technologist's workstation. This CT examination was performed using dose optimization techniques as appropriate, variously including the following: *Automated exposure control *Adjustment of mA and/or kV according to patient size (this includes techniques or standardized protocols for targeted exams where dose is matched to indication/reason for exam; i.e. extremities or head) *Use of iterative reconstruction technique DLP: 501 mGy-cm FINDINGS: LUNG BASES: Dependent bibasilar atelectasis. ABDOMINAL AND PELVIC WALL: Unremarkable. LIVER AND BILIARY TREE: Hypoattenuating hepatic parenchyma compatible with hepatic steatosis. Liver is enlarged measuring 18.9 cm in span. GALLBLADDER: Status post cholecystectomy. PANCREAS: Unremarkable. SPLEEN: Unremarkable. ADRENAL GLANDS: Unremarkable. KIDNEYS AND URETERS: Retained contrast is noted in the bilateral renal collecting systems. Bilateral nonobstructing renal stones measuring up to 6 mm in the right midpole. GASTROINTESTINAL TRACT: Colon is fluid-filled compatible with a diarrheal state. The ascending colon is decompressed though appears to be at least mildly thick-walled with significant surrounding pericolonic inflammatory stranding suspicious for colitis. Lack of intravenous contrast limits assessment for bowel wall enhancement. No pneumatosis or portal venous gas. VASCULAR: Circumaortic left renal vein. LYMPH NODES/PERITONEUM: No lymphadenopathy. FREE FLUID: None. BLADDER: Retained excreted contrast is noted in the urinary bladder. PELVIC VISCERA: Unremarkable. OSSEOUS STRUCTURES: Unremarkable. CT/CT abdomen pelvis wo IV con IMPRESSION: 1. The ascending colon is decompressed though appears to be at least mildly thick-walled with significant surrounding pericolonic inflammatory stranding suspicious for colitis, which may be infectious or inflammatory with ischemic not excluded as lack of intravenous contrast limits assessment for bowel wall enhancement. No pneumatosis or portal venous gas. Colon is fluid-filled compatible with a diarrheal state. 2. Bilateral nonobstructing renal stones measuring up to 6 mm in the right midpole. 3. Hepatic steatosis and hepatomegaly.
--- NOTE | ~2022-12-05 | CT_ITS ---
EXAMINATION: CT HEAD WITHOUT CONTRAST CT SINUS WITHOUT CONTRAST CLINICAL INFORMATION: Pain. COMPARISON: None available. TECHNIQUE: Contiguous axial imaging was performed from the skull base to vertex without intravenous administration of contrast. This CT examination was performed using dose optimization techniques as appropriate, variously including the following: *Automated exposure control *Adjustment of mA and/or kV according to patient size (this includes techniques or standardized protocols for targeted exams where dose is matched to indication/reason for exam; i.e. extremities or head) *Use of iterative reconstruction technique DLP: 645 mGy-cm FINDINGS: HEAD: The lateral, third and fourth ventricles are normally outlined. The cortical sulci and basal cisterns are normally outlined as well. There is no acute territorial defect, hemorrhage or midline shift. The extra-axial spaces are unremarkable. Calvarium: Intact. SINUSES: The maxillofacial sinuses are clear. The orbital structures are unremarkable. The bony structures and soft tissues are unremarkable. CT/CT sinus wo IV con IMPRESSION: No significant abnormality seen.
[2022-12-05 20:12] VITALS: BP 111/75; PULSE 125; RESP 18; TEMP 36.2; O2SAT 97; BMI 29.3
--- NOTE | 2022-12-05 20:16 | ECG_ITS ---
Test Reason : DIZZINESS Blood Pressure : / mmHG Vent. Rate : 126 BPM Atrial Rate : 126 BPM P-R Int : 134 ms QRS Dur : 080 ms QT Int : 302 ms P-R-T Axes : 033 074 040 degrees QTc Int : 437 ms Sinus tachycardia Otherwise normal ECG When compared with ECG of 01-JUL-2020 18:10, No significant change was found Referred By: Onofre Murray Electronically Signed By:MI ZEPEDA MD
--- NOTE | 2022-12-05 20:23 | ED.GENADULT ---
HPI - General Adult General Chief complaint: Headache Stated complaint: headache on temples Time Seen by Provider: 12/05/22 21:02 History of Present Illness HPI narrative: Seen by Dr. Duque Related Data Home Medications Medication Instructions Recorded Confirmed albuterol (refill) 90 mcg inhalation 07/02/20 mcg/actuation aerosol inhaler cholecalciferol (vitamin D3) 10 10 mcg PO DAILY 07/02/20 mcg (400 unit) capsule naproxen 500 mg tablet 500 mg PO BID 07/02/20 omeprazole 20 mg capsule,delayed 20 mg PO DAILY 07/02/20 release pramipexole 0.25 mg tablet 0.25 mg PO BEDTIME 07/02/20 pregabalin 100 mg capsule 100 mg PO BID 07/02/20 Previous Rx's Medication Instructions Recorded ibuprofen 600 mg tablet 600 mg PO Q6H PRN pain #30 tabs 07/01/20 oxycodone 5 mg tablet 5 mg PO Q8H PRN pain #4 tabs 07/01/20 prednisone 20 mg tablet 40 mg PO DAILY 4 days #8 tabs 11/08/20 acetaminophen 500 mg tablet 500 mg PO Q6H PRN fever or pain 07/03/22 (Tylenol Extra Strength) #14 tabs naproxen 500 mg tablet 500 mg PO BID PRN pain 10 days #20 07/03/22 tabs Allergies Allergy/AdvReac Type Severity Reaction Status Date / Time tramadol [TRAMADOL] Allergy Unknown RASH , rash Verified 12/01/22 11:14 PMFSH Past Medical History Medical History Asthma Cholecystitis Diabetes Fibromyalgia HTN (hypertension) Surgical History History of appendectomy Social History Social History Alcohol intake: current Alcohol intake frequency: holidays/special occasions only Smoked in Last 30 Days: No Use of substances other than those prescribed or required for medical reasons: No Advance Directives: No Advance Directives Information Provided: Yes Gender identity: Female Physical Exam ED Vital Signs: Vital Signs - 24 hr 12/05/22 20:12 12/05/22 22:46 12/05/22 22:54 Temperature 97.2 F 97.6 F Pulse Rate 125 H 110 H 112 H Respiratory Rate 18 15 Blood Pressure 111/75 97/57 L 97/58 L Pulse Oximetry 97 96 Oxygen Delivery Method Room Air Room Air 12/05/22 22:54 12/05/22 22:54 12/05/22 23:33 Temperature Pulse Rate 112 H 117 H 114 H Respiratory Rate 25 H Blood Pressure 98/62 94/61 103/62 Pulse Oximetry 93 Oxygen Delivery Method Room Air 12/06/22 00:34 12/06/22 00:49 12/06/22 02:32 Temperature Pulse Rate 112 H 110 H 121 H Respiratory Rate 16 24 H 17 Blood Pressure 102/60 110/63 126/77 Pulse Oximetry 94 93 97 Oxygen Delivery Method Room Air Room Air Room Air 12/06/22 07:26 12/06/22 09:13 12/06/22 11:56 Temperature Pulse Rate 124 H 135 H 136 H Respiratory Rate 15 22 H 21 H Blood Pressure 98/58 L 116/67 Pulse Oximetry 98 94 Oxygen Delivery Method Room Air Room Air BMI result Body Mass Index 29.3 Course Course Course Narrative: RME: 52 yold female presents to the ED for headace since this morning. patient feels fatigue also. Patient states no chest pain or Shortness of breath. Tachycardia on vitals. EKG and labs ordered. negative or any neuro deficits. Medications Administered Discontinued Medications Generic Name Dose Route Start Last Admin Trade Name Freq PRN Reason Stop Dose Admin Acetaminophen 650 mg 12/06/22 03:09 12/06/22 03:17 Acetaminophen 325 Mg Tablet PO 12/06/22 03:10 650 mg ONCE ONE Administration Diphenhydramine HCl 25 mg 12/05/22 21:09 12/05/22 21:31 Diphenhydramine Hcl 50 Mg/Ml Vial IVPUSH 12/05/22 21:10 25 mg ONCE ONE Administration Sodium Chloride 1,000 mls @ 999 mls/hr 12/05/22 21:09 12/05/22 22:43 Ns IVCONT 12/05/22 22:09 Infused .Q1H1M ONE Infusion Sodium Chloride 2,000 mls @ 999 mls/hr 12/05/22 23:45 12/06/22 02:14 Ns IV 12/06/22 01:45 Infused .Q2H1M SHERRIE Infusion Ceftriaxone Sodium 1 gm/ 50 mls @ 100 mls/hr 12/06/22 07:09 12/06/22 10:03 Sodium Chloride IV 12/06/22 07:38 Infused ONCE ONE Infusion Promethazine HCl 25 mg/ Sodium 51 mls @ 204 mls/hr 12/06/22 08:16 12/06/22 09:06 Chloride IV 12/06/22 08:17 Infused ONCE ONE Infusion Iohexol 75 ml 12/06/22 04:19 12/06/22 04:20 Iohexol 350 Mg/Ml 100 Ml Infus..Btl IV 12/06/22 04:20 75 ml ONCE ONE Administration Ketorolac Tromethamine 30 mg 12/05/22 21:09 12/05/22 21:32 Ketorolac Tromethamine 30 Mg/Ml Vial IVPUSH 12/05/22 21:10 30 mg ONCE ONE Administration Ketorolac Tromethamine 30 mg 12/06/22 08:16 12/06/22 08:24 Ketorolac Tromethamine 30 Mg/Ml Vial IVPUSH 12/06/22 08:17 30 mg ONCE ONE Administration Metoclopramide HCl 10 mg 12/05/22 21:09 12/05/22 21:32 Metoclopramide Hcl 10 Mg/2 Ml Vial IVPUSH 12/05/22 21:10 10 mg ONCE ONE Administration Morphine Sulfate 4 mg 12/06/22 06:17 12/06/22 06:34 Morphine Sulfate 4 Mg/Ml Cartridge IVPUSH 12/06/22 06:18 4 mg ONCE ONE Administration Protocol Medical Decision Making Medical Decision Making MDM Narrative: -patient's white blood cell count elevated 21.1. Chemistry unremarkable, ALT and alk-phos minimally elevated, patient does not have right upper quadrant pain or epigastric pain. -type is pending -patient came in complaining primarily of headache. Patient still having significant headache. -my interpretation of CT scan of the head: No intracranial abnormality or bleed It was noted patient is tachycardic despite 3 L of fluid. D-dimer positive, CT scan for pulmonary embolism negative. -discussed with the patient that given that she still has significant headache, elevated white blood cell count, we will go ahead a lumbar puncture -patient given IV morphine -meningitis not suspected at this time, patient has normal range of motion, no neck pain or rigidity Differential Diagnosis Differential Diagnoses: The differential diagnosis associated with the presentation includes (Tension headache, migraine headache, encephalitis, meningitis) Admission/Observation Consideration of admission/observation: Escalation of care including admission/observation considered (Admission has been considered given the above-mentioned differentials) Lab Data 12/05/22 20:47 12/05/22 20:47 Labs: Lab Results 12/05/22 12/05/22 12/05/22 Range/Units 20:47 20:47 20:47 WBC 21.1 H (4.8-10.8) X10*3/uL RBC 4.97 (4.20-5.50) X10*6/uL Hgb 14.5 (12.0-16.0) g/dl Hct 44.6 (37.0-47.0) % MCV 89.7 (80.0-98.0) fL MCH 29.2 (27.0-33.0) pg MCHC 32.5 (31.0-35.0) g/dl RDW 13.2 (11.0-16.0) % Plt Count 382 (160-400) X10*3/uL MPV 11.2 (9.4-12.3) fL Immature Gran % (Auto) 0.5 H (0.0-0.4) % Neut % (Auto) 87.5 H (45-73) % Lymph % (Auto) 8.2 L (20-40) % [place] % (Auto) 3.4 (2-11) % Eos % (Auto) 0.1 (0-4) % Baso % (Auto) 0.3 (0-2) % Lymph # (Auto) 1.7 (1.2-4.9) X10*3/uL [place] # (Auto) 0.7 (0.1-1.2) X10*3/uL Eos # (Auto) 0.0 (0.0-0.4) X10*3/uL Baso # (Auto) 0.1 (0.0-0.2) X10*3/uL Abs Immat Gran (auto) 0.10 H (0.00-0.03) X10*3/uL Absolute Neuts (auto) 18.4 H (2.0-8.3) x10*3/uL Absolute Nucleated RBC 0.000 (0.0-0.012) X10*3/uL Nucleated RBC % (auto) 0.0 (0.0-0.2) /100WBC PT 9.4 L (11.1-13.3) SEC INR 0.8 L (0.9-1.1) APTT 33.6 (26.0-36.4) SEC D-Dimer High Sensitivty NG/ML Sodium 141 (135-145) mmol/L Potassium 4.1 (3.3-5.1) mmol/L Chloride 104 (96-108) mmol/L Carbon Dioxide 25 (22-29) mmol/L Anion Gap 16 (12-20) BUN 13 (9-16) mg/dL Creatinine 0.64 (0.5-1.4) mg/dL Estim Creat Clear Calc 82.8 Estimated GFR > 60 Random Glucose 103 (60-115) mg/dL Calcium 10.0 (8.4-10.2) mg/dL Total Bilirubin 0.4 (0.0-1.0) mg/dL AST 18 (5-31) U/L ALT 32 H (0-31) U/L Alkaline Phosphatase 131 H (39-117) U/L Troponin I High Sens (<3.5-17.0) ng/L Total Protein 7.5 (6.5-8.0) g/dL Albumin 4.4 (3.5-5.0) g/dL Lipase 52 (8-78) U/L CSF Tube Number CSF Volume ML CSF Appearance CSF Color CSF WBC MM*3 CSF RBC MM*3 CSF Lymphocytes % CSF Appearance (b) CSF Glucose mg/dL CSF Total Protein (15-45) mg/dL COVID-19 (FRANKY) (Negative) COVID-19 Clin Com Influenza Type A (JEANNE) (Negative) Influenza Type B (JEANNE) (Negative) Influenza A & B Note 12/05/22 12/05/22 12/05/22 Range/Units 20:47 20:47 21:30 WBC (4.8-10.8) X10*3/uL RBC (4.20-5.50) X10*6/uL Hgb (12.0-16.0) g/dl Hct (37.0-47.0) % MCV (80.0-98.0) fL MCH (27.0-33.0) pg MCHC (31.0-35.0) g/dl RDW (11.0-16.0) % Plt Count (160-400) X10*3/uL MPV (9.4-12.3) fL Immature Gran % (Auto) (0.0-0.4) % Neut % (Auto) (45-73) % Lymph % (Auto) (20-40) % [place] % (Auto) (2-11) % Eos % (Auto) (0-4) % Baso % (Auto) (0-2) % Lymph # (Auto) (1.2-4.9) X10*3/uL [place] # (Auto) (0.1-1.2) X10*3/uL Eos # (Auto) (0.0-0.4) X10*3/uL Baso # (Auto) (0.0-0.2) X10*3/uL Abs Immat Gran (auto) (0.00-0.03) X10*3/uL Absolute Neuts (auto) (2.0-8.3) x10*3/uL Absolute Nucleated RBC (0.0-0.012) X10*3/uL Nucleated RBC % (auto) (0.0-0.2) /100WBC PT (11.1-13.3) SEC INR (0.9-1.1) APTT (26.0-36.4) SEC D-Dimer High Sensitivty NG/ML Sodium (135-145) mmol/L Potassium (3.3-5.1) mmol/L Chloride (96-108) mmol/L Carbon Dioxide (22-29) mmol/L Anion Gap (12-20) BUN (9-16) mg/dL Creatinine (0.5-1.4) mg/dL Estim Creat Clear Calc Estimated GFR Random Glucose (60-115) mg/dL Calcium (8.4-10.2) mg/dL Total Bilirubin (0.0-1.0) mg/dL AST (5-31) U/L ALT (0-31) U/L Alkaline Phosphatase (39-117) U/L Troponin I High Sens < 2.7 (<3.5-17.0) ng/L Total Protein (6.5-8.0) g/dL Albumin (3.5-5.0) g/dL Lipase (8-78) U/L CSF Tube Number CSF Volume ML CSF Appearance CSF Color CSF WBC MM*3 CSF RBC MM*3 CSF Lymphocytes % CSF Appearance (b) CSF Glucose mg/dL CSF Total Protein (15-45) mg/dL COVID-19 (FRANKY) Negative (Negative) COVID-19 Clin Com See Note Influenza Type A (JEANNE) Negative (Negative) Influenza Type B (JEANNE) Negative (Negative) Influenza A & B Note See Note 12/06/22 12/06/22 12/06/22 Range/Units 03:07 06:55 06:55 WBC (4.8-10.8) X10*3/uL RBC (4.20-5.50) X10*6/uL Hgb (12.0-16.0) g/dl Hct (37.0-47.0) % MCV (80.0-98.0) fL MCH (27.0-33.0) pg MCHC (31.0-35.0) g/dl RDW (11.0-16.0) % Plt Count (160-400) X10*3/uL MPV (9.4-12.3) fL Immature Gran % (Auto) (0.0-0.4) % Neut % (Auto) (45-73) % Lymph % (Auto) (20-40) % [place] % (Auto) (2-11) % Eos % (Auto) (0-4) % Baso % (Auto) (0-2) % Lymph # (Auto) (1.2-4.9) X10*3/uL [place] # (Auto) (0.1-1.2) X10*3/uL Eos # (Auto) (0.0-0.4) X10*3/uL Baso # (Auto) (0.0-0.2) X10*3/uL Abs Immat Gran (auto) (0.00-0.03) X10*3/uL Absolute Neuts (auto) (2.0-8.3) x10*3/uL Absolute Nucleated RBC (0.0-0.012) X10*3/uL Nucleated RBC % (auto) (0.0-0.2) /100WBC PT (11.1-13.3) SEC INR (0.9-1.1) APTT (26.0-36.4) SEC D-Dimer High Sensitivty 832 NG/ML Sodium (135-145) mmol/L Potassium (3.3-5.1) mmol/L Chloride (96-108) mmol/L Carbon Dioxide (22-29) mmol/L Anion Gap (12-20) BUN (9-16) mg/dL Creatinine (0.5-1.4) mg/dL Estim Creat Clear Calc Estimated GFR Random Glucose (60-115) mg/dL Calcium (8.4-10.2) mg/dL Total Bilirubin (0.0-1.0) mg/dL AST (5-31) U/L ALT (0-31) U/L Alkaline Phosphatase (39-117) U/L Troponin I High Sens (<3.5-17.0) ng/L Total Protein (6.5-8.0) g/dL Albumin (3.5-5.0) g/dL Lipase (8-78) U/L CSF Tube Number 4 2 CSF Volume 1.0 ML CSF Appearance CLEAR CSF Color COLORLESS CSF WBC 4 MM*3 CSF RBC 16 MM*3 CSF Lymphocytes 100 % CSF Appearance (b) Clear, Colorless CSF Glucose 73 mg/dL CSF Total Protein (15-45) mg/dL COVID-19 (FRANKY) (Negative) COVID-19 Clin Com Influenza Type A (JEANNE) (Negative) Influenza Type B (JEANNE) (Negative) Influenza A & B Note 12/06/22 12/06/22 Range/Units 06:55 10:04 WBC 14.0 H (4.8-10.8) X10*3/uL RBC 4.32 (4.20-5.50) X10*6/uL Hgb 12.7 (12.0-16.0) g/dl Hct 38.6 (37.0-47.0) % MCV 89.4 (80.0-98.0) fL MCH 29.4 (27.0-33.0) pg MCHC 32.9 (31.0-35.0) g/dl RDW 13.4 (11.0-16.0) % Plt Count 304 (160-400) X10*3/uL MPV 10.8 (9.4-12.3) fL Immature Gran % (Auto) 0.4 (0.0-0.4) % Neut % (Auto) 85.6 H (45-73) % Lymph % (Auto) 9.7 L (20-40) % [place] % (Auto) 3.8 (2-11) % Eos % (Auto) 0.1 (0-4) % Baso % (Auto) 0.4 (0-2) % Lymph # (Auto) 1.4 (1.2-4.9) X10*3/uL [place] # (Auto) 0.5 (0.1-1.2) X10*3/uL Eos # (Auto) 0.0 (0.0-0.4) X10*3/uL Baso # (Auto) 0.1 (0.0-0.2) X10*3/uL Abs Immat Gran (auto) 0.05 H (0.00-0.03) X10*3/uL Absolute Neuts (auto) 12.0 H (2.0-8.3) x10*3/uL Absolute Nucleated RBC 0.000 (0.0-0.012) X10*3/uL Nucleated RBC % (auto) 0.0 (0.0-0.2) /100WBC PT (11.1-13.3) SEC INR (0.9-1.1) APTT (26.0-36.4) SEC D-Dimer High Sensitivty NG/ML Sodium (135-145) mmol/L Potassium (3.3-5.1) mmol/L Chloride (96-108) mmol/L Carbon Dioxide (22-29) mmol/L Anion Gap (12-20) BUN (9-16) mg/dL Creatinine (0.5-1.4) mg/dL Estim Creat Clear Calc Estimated GFR Random Glucose (60-115) mg/dL Calcium (8.4-10.2) mg/dL Total Bilirubin (0.0-1.0) mg/dL AST (5-31) U/L ALT (0-31) U/L Alkaline Phosphatase (39-117) U/L Troponin I High Sens (<3.5-17.0) ng/L Total Protein (6.5-8.0) g/dL Albumin (3.5-5.0) g/dL Lipase (8-78) U/L CSF Tube Number 2 CSF Volume ML CSF Appearance CSF Color CSF WBC MM*3 CSF RBC MM*3 CSF Lymphocytes % CSF Appearance (b) Clear, Colorless CSF Glucose mg/dL CSF Total Protein 32.3 (15-45) mg/dL COVID-19 (FRANKY) (Negative) COVID-19 Clin Com Influenza Type A (JEANNE) (Negative) Influenza Type B (JEANNE) (Negative) Influenza A & B Note Discharge Plan Discharge Clinical Impression: Acute intractable headache, Tachycardia Patient Disposition: Still a Patient Prescriptions: No Action prednisone 20 mg tablet 40 mg PO DAILY 4 Days Qty: 8 0RF oxycodone 5 mg tablet 5 mg PO Q8H PRN (Reason: pain) Qty: 4 0RF ibuprofen 600 mg tablet 600 mg PO Q6H PRN (Reason: pain) Qty: 30 0RF acetaminophen [Tylenol Extra Strength] 500 mg tablet 500 mg PO Q6H PRN (Reason: fever or pain) Qty: 14 0RF naproxen 500 mg tablet 500 mg PO BID PRN (Reason: pain) 10 Days Qty: 20 0RF pramipexole 0.25 mg tablet 0.25 mg PO BEDTIME albuterol (refill) 90 mcg/actuation aerosol inhalation pregabalin 100 mg capsule 100 mg PO BID naproxen 500 mg tablet 500 mg PO BID omeprazole 20 mg capsule,delayed release(DR/EC) 20 mg PO DAILY cholecalciferol (vitamin D3) 10 mcg (400 unit) capsule 10 mcg PO DAILY
[2022-12-05 20:54] LABS: MANUAL DIFF FLAG NO
[2022-12-05 21:03] LABS: Basophils Absolute Auto 0.1 X10*3/uL (0.0-0.2); Basophils Percent Auto 0.3 % (0-2); Eosinophils Percent Auto 0.1 % (0-4); Hematocrit 44.6 % (37.0-47.0); Hemoglobin 14.5 g/dl (12.0-16.0); Imm Gran Pct Auto 0.5 % (0.0-0.4); Lymphocytes Absolute Auto 1.7 X10*3/uL (1.2-4.9); Lymphocytes Percent Auto 8.2 % (20-40); Mean Corpuscular HGB Conc 32.5 g/dl (31.0-35.0); Mean Corpuscular Hemoglobin 29.2 pg (27.0-33.0); Mean Corpuscular Volume 89.7 fL (80.0-98.0); Mean Platelet Volume 11.2 fL (9.4-12.3); Monocytes Absolute Auto 0.7 X10*3/uL (0.1-1.2); Monocytes Percent Auto 3.4 % (2-11); Neutrophils Absolute Auto 18.4 x10*3/uL (2.0-8.3); Neutrophils Percent Auto 87.5 % (45-73); Platelet Count 382 X10*3/uL (160-400); Red Blood Count 4.97 X10*6/uL (4.20-5.50); Red Cell Distribution Width 13.2 % (11.0-16.0); White Blood Count 21.1 X10*3/uL (4.8-10.8)
[2022-12-05 21:10] LABS: Alanine Aminotransferase 32 U/L (0-31); Albumin Level 4.4 g/dL (3.5-5.0); Alkaline Phosphatase 131 U/L (39-117); Anion Gap 16 (12-20); Aspartate Amino Transferase 18 U/L (5-31); Bilirubin Total 0.4 mg/dL (0.0-1.0); Blood Urea Nitrogen 13 mg/dL (9-16); Carbon Dioxide 25 mmol/L (22-29); Chloride 104 mmol/L (96-108); Creatinine Clr Calc Pharmacy 82.8; Estimated Glomerular Filt Rate > 60; Glucose Random 103 mg/dL (60-115); INTERNATIONAL NORM RATIO 0.8 (0.9-1.1); Potassium 4.1 mmol/L (3.3-5.1); Prothrombin Time 9.4 SEC (11.1-13.3); Sodium 141 mmol/L (135-145); Total Protein 7.5 g/dL (6.5-8.0)
--- NOTE | 2022-12-05 21:10 | ED_ITS ---
HPI - Headache General Chief Complaint: Headache Stated Complaint: headache on temples Time Seen by Provider: 12/05/22 21:02 Source: patient Mode of arrival: ambulatory Limitations: no limitations History of Present Illness HPI Narrative: Patient comes to the emergency room complaining headache and sinus pressure that started this morning. Patient states that she took naproxen, Tylenol without any relief. Patient denies fever chills. Patient denies any upper respiratory infections, no abdominal pain, nausea vomiting or UTI symptoms. Patient states that the pain is very intense, patient does have history of migraines. Patient denies neck rigidity MD elicited complaint: headache Related Data Home Medications Medication Instructions Recorded Confirmed albuterol (refill) 90 mcg inhalation 07/02/20 mcg/actuation aerosol inhaler cholecalciferol (vitamin D3) 10 10 mcg PO DAILY 07/02/20 mcg (400 unit) capsule naproxen 500 mg tablet 500 mg PO BID 07/02/20 omeprazole 20 mg capsule,delayed 20 mg PO DAILY 07/02/20 release pramipexole 0.25 mg tablet 0.25 mg PO BEDTIME 07/02/20 pregabalin 100 mg capsule 100 mg PO BID 07/02/20 Previous Rx's Medication Instructions Recorded ibuprofen 600 mg tablet 600 mg PO Q6H PRN pain #30 tabs 07/01/20 oxycodone 5 mg tablet 5 mg PO Q8H PRN pain #4 tabs 07/01/20 prednisone 20 mg tablet 40 mg PO DAILY 4 days #8 tabs 11/08/20 acetaminophen 500 mg tablet 500 mg PO Q6H PRN fever or pain 07/03/22 (Tylenol Extra Strength) #14 tabs naproxen 500 mg tablet 500 mg PO BID PRN pain 10 days #20 07/03/22 tabs Allergies Allergy/AdvReac Type Severity Reaction Status Date / Time tramadol [TRAMADOL] Allergy Unknown RASH , rash Verified 12/01/22 11:14 Review of Systems Review of Systems: Constitutional : No Weight loss, No Fever, No Chills, No Night Sweats, No Fatigue, No Malaise ENT/Mouth : No Hearing loss, No Ear Pain, No Nasal Congestion, No Sinus Pain, No Hoarseness, No sore throat, No Rhinorrhea, No Swallowing Difficulty Eyes: No Eye Pain, No Swelling, No Redness, No Foreign Body, No Discharge, No Vision Changes Cardiovascular : No Chest Pain, No SOB, No Dyspnea on Exertion, No Orthopnea, No Edema, No Palpitations Respiratory : No Cough, No Sputum, No Wheezing, No Smoke Exposure, No Dyspnea Gastrointestinal : No Nausea, No Vomiting, No Diarrhea, No Constipation, No abdominal Pain, No Hematochezia, No Melena Genitourinary : no irregular bleeding, No Dysuria, No Urinary Frequency, No Hematuria, No Urinary Incontinence, No Urgency, No Flank Pain, No Urinary Flow Changes, No Hesitancy Musculoskeletal : No joint pain, No Myalgias, No Joint Swelling Skin : No Skin Lesions, No rash Neuro : No Weakness, No Numbness, No Paresthesias, No Loss of Consciousness, No Dizziness, complaining of severe Headache Psych : No Anxiety/Panic, No Depression, No SI/HI/AH/VH, No Social Issues, Heme/Lymph: No Bruising, No Bleeding,No Lymphadenopathy Endocrine : No Polyuria, No Polydipsia, No Temperature Intolerance [facility] Past Medical History Medical History Asthma Cholecystitis Diabetes Fibromyalgia HTN (hypertension) Surgical History History of appendectomy Social History Social History Alcohol intake: current Alcohol intake frequency: holidays/special occasions only Smoked in Last 30 Days: No Use of substances other than those prescribed or required for medical reasons: No Advance Directives: No Advance Directives Information Provided: Yes Gender identity: Female Physical Exam Vital Signs: Vital Signs: Last Vital Signs Temp 97.6 F 12/05/22 22:46 Pulse 124 H 12/06/22 07:26 Resp 15 12/06/22 07:26 BP 98/58 L 12/06/22 07:26 Pulse Ox 98 12/06/22 07:26 O2 Del Method Room Air 12/06/22 07:26 BMI result Body Mass Index 29.3 Const: Other: Appearance: Alert. Oriented X3. No acute distress. Eyes: Pupils equal, round and reactive to light. No photophobia ENT: Pharynx normal. No exudates, no abscesses, no pain to palpation over the facial sinuses, Neck: Normal inspection. Neck supple. No lymph nodes noted. No crepitus, no neck rigidity, no pain with flexion extension, normal range of motion CVS: Normal heart rate and rhythm. Pulses normal. Normal S1 and S2 Respiratory: No respiratory distress. Breath sounds normal. No Wheezing. No rales Abdomen: Soft and nontender. No rigidity. No distention. Skin: Skin warm and dry. Normal skin color. Normal skin turgor. Extremities: No lower extremity edema. No Lacerations. No Rash Neuro: Oriented X 3. No motor deficit. No sensory deficit. Moving all extremities. No slurred speech. CN 2 through 12 grossly intact Psych: calm, cooperative, normal affect Course Course Course Narrative: -patient receiving IV fluids, Zofran, Toradol Medications Administered Discontinued Medications Generic Name Dose Route Start Last Admin Trade Name Freq PRN Reason Stop Dose Admin Acetaminophen 650 mg 12/06/22 03:09 12/06/22 03:17 Acetaminophen 325 Mg Tablet PO 12/06/22 03:10 650 mg ONCE ONE Administration Diphenhydramine HCl 25 mg 12/05/22 21:09 12/05/22 21:31 Diphenhydramine Hcl 50 Mg/Ml Vial IVPUSH 12/05/22 21:10 25 mg ONCE ONE Administration Sodium Chloride 1,000 mls @ 999 mls/hr 12/05/22 21:09 12/05/22 22:43 Ns IVCONT 12/05/22 22:09 Infused .Q1H1M ONE Infusion Sodium Chloride 2,000 mls @ 999 mls/hr 12/05/22 23:45 12/06/22 02:14 Ns IV 12/06/22 01:45 Infused .Q2H1M SHERRIE Infusion Iohexol 75 ml 12/06/22 04:19 12/06/22 04:20 Iohexol 350 Mg/Ml 100 Ml Infus..Btl IV 12/06/22 04:20 75 ml ONCE ONE Administration Ketorolac Tromethamine 30 mg 12/05/22 21:09 12/05/22 21:32 Ketorolac Tromethamine 30 Mg/Ml Vial IVPUSH 12/05/22 21:10 30 mg ONCE ONE Administration Metoclopramide HCl 10 mg 12/05/22 21:09 12/05/22 21:32 Metoclopramide Hcl 10 Mg/2 Ml Vial IVPUSH 12/05/22 21:10 10 mg ONCE ONE Administration Morphine Sulfate 4 mg 12/06/22 06:17 12/06/22 06:34 Morphine Sulfate 4 Mg/Ml Cartridge IVPUSH 12/06/22 06:18 4 mg ONCE ONE Administration Protocol Medical Decision Making Medical Decision Making [facility] Narrative: -patient's white blood cell count 21.1. Patient does not have a fever. There is no clear source of infection. -mentor position head CT: No intracranial abnormality, no intracranial bleed -CT scan of the head and neck and sinuses did not show any abnormality -patient remains tachycardic in the 120 is despite 3 L normal saline. Still no clear source of infection. D-dimer was ordered, positive, CT scan was ordered. -my interpretation of CTA for pulmonary embolism: No obvious pulmonary embolism, radiology report: Negative for PE -patient keeps complaining of severe headache. Patient has had a dose of Toradol and morphine. -urinalysis negative -initially patient started feeling better with IV medications, however, the headache returned again. Discussed with the patient that the next best option is to do a lumbar puncture, the procedure was explained to the patient, patient agreeable, consent signed. -although this may be a viral infection, low chance of this being bacterial Meningitis, patient was given prophylactic ceftriaxone IV -lumbar puncture CSF fluid results pending -sepsis is not suspected -sign-out given to Dr. Soto, unlikely that the patient will need to be admitted Differential Diagnosis Differential Diagnoses: The differential diagnosis associated with the presentation includes (Tension headache, migraine headache, encephalitis, meningitis) Admission/Observation Consideration of admission/observation: Escalation of care including admission/observation considered (Admission has been considered. Patient has intractable headache) Lab Data [facility] Lab Attestation statement: I reviewed the patient's lab results. 12/05/22 20:47 12/05/22 20:47 Labs: Lab Results 12/05/22 12/05/22 12/05/22 Range/Units 20:47 20:47 20:47 WBC 21.1 H (4.8-10.8) X10*3/uL RBC 4.97 (4.20-5.50) X10*6/uL Hgb 14.5 (12.0-16.0) g/dl Hct 44.6 (37.0-47.0) % MCV 89.7 (80.0-98.0) fL MCH 29.2 (27.0-33.0) pg MCHC 32.5 (31.0-35.0) g/dl RDW 13.2 (11.0-16.0) % Plt Count 382 (160-400) X10*3/uL MPV 11.2 (9.4-12.3) fL Immature Gran % (Auto) 0.5 H (0.0-0.4) % Neut % (Auto) 87.5 H (45-73) % Lymph % (Auto) 8.2 L (20-40) % [place] % (Auto) 3.4 (2-11) % Eos % (Auto) 0.1 (0-4) % Baso % (Auto) 0.3 (0-2) % Lymph # (Auto) 1.7 (1.2-4.9) X10*3/uL [place] # (Auto) 0.7 (0.1-1.2) X10*3/uL Eos # (Auto) 0.0 (0.0-0.4) X10*3/uL Baso # (Auto) 0.1 (0.0-0.2) X10*3/uL Abs Immat Gran (auto) 0.10 H (0.00-0.03) X10*3/uL Absolute Neuts (auto) 18.4 H (2.0-8.3) x10*3/uL Absolute Nucleated RBC 0.000 (0.0-0.012) X10*3/uL Nucleated RBC % (auto) 0.0 (0.0-0.2) /100WBC PT 9.4 L (11.1-13.3) SEC INR 0.8 L (0.9-1.1) APTT 33.6 (26.0-36.4) SEC D-Dimer High Sensitivty NG/ML Sodium 141 (135-145) mmol/L Potassium 4.1 (3.3-5.1) mmol/L Chloride 104 (96-108) mmol/L Carbon Dioxide 25 (22-29) mmol/L Anion Gap 16 (12-20) BUN 13 (9-16) mg/dL Creatinine 0.64 (0.5-1.4) mg/dL Estim Creat Clear Calc 82.8 Estimated GFR > 60 Random Glucose 103 (60-115) mg/dL Calcium 10.0 (8.4-10.2) mg/dL Total Bilirubin 0.4 (0.0-1.0) mg/dL AST 18 (5-31) U/L ALT 32 H (0-31) U/L Alkaline Phosphatase 131 H (39-117) U/L Troponin I High Sens (<3.5-17.0) ng/L Total Protein 7.5 (6.5-8.0) g/dL Albumin 4.4 (3.5-5.0) g/dL Lipase 52 (8-78) U/L COVID-19 (FRANKY) (Negative) COVID-19 Clin Com Influenza Type A (JEANNE) (Negative) Influenza Type B (JEANNE) (Negative) Influenza A & B Note 12/05/22 12/05/22 12/05/22 Range/Units 20:47 20:47 21:30 WBC (4.8-10.8) X10*3/uL RBC (4.20-5.50) X10*6/uL Hgb (12.0-16.0) g/dl Hct (37.0-47.0) % MCV (80.0-98.0) fL MCH (27.0-33.0) pg MCHC (31.0-35.0) g/dl RDW (11.0-16.0) % Plt Count (160-400) X10*3/uL MPV (9.4-12.3) fL Immature Gran % (Auto) (0.0-0.4) % Neut % (Auto) (45-73) % Lymph % (Auto) (20-40) % [place] % (Auto) (2-11) % Eos % (Auto) (0-4) % Baso % (Auto) (0-2) % Lymph # (Auto) (1.2-4.9) X10*3/uL [place] # (Auto) (0.1-1.2) X10*3/uL Eos # (Auto) (0.0-0.4) X10*3/uL Baso # (Auto) (0.0-0.2) X10*3/uL Abs Immat Gran (auto) (0.00-0.03) X10*3/uL Absolute Neuts (auto) (2.0-8.3) x10*3/uL Absolute Nucleated RBC (0.0-0.012) X10*3/uL Nucleated RBC % (auto) (0.0-0.2) /100WBC PT (11.1-13.3) SEC INR (0.9-1.1) APTT (26.0-36.4) SEC D-Dimer High Sensitivty NG/ML Sodium (135-145) mmol/L Potassium (3.3-5.1) mmol/L Chloride (96-108) mmol/L Carbon Dioxide (22-29) mmol/L Anion Gap (12-20) BUN (9-16) mg/dL Creatinine (0.5-1.4) mg/dL Estim Creat Clear Calc Estimated GFR Random Glucose (60-115) mg/dL Calcium (8.4-10.2) mg/dL Total Bilirubin (0.0-1.0) mg/dL AST (5-31) U/L ALT (0-31) U/L Alkaline Phosphatase (39-117) U/L Troponin I High Sens < 2.7 (<3.5-17.0) ng/L Total Protein (6.5-8.0) g/dL Albumin (3.5-5.0) g/dL Lipase (8-78) U/L COVID-19 (FRANKY) Negative (Negative) COVID-19 Clin Com See Note Influenza Type A (JEANNE) Negative (Negative) Influenza Type B (JEANNE) Negative (Negative) Influenza A & B Note See Note 12/06/22 Range/Units 03:07 WBC (4.8-10.8) X10*3/uL RBC (4.20-5.50) X10*6/uL Hgb (12.0-16.0) g/dl Hct (37.0-47.0) % MCV (80.0-98.0) fL MCH (27.0-33.0) pg MCHC (31.0-35.0) g/dl RDW (11.0-16.0) % Plt Count (160-400) X10*3/uL MPV (9.4-12.3) fL Immature Gran % (Auto) (0.0-0.4) % Neut % (Auto) (45-73) % Lymph % (Auto) (20-40) % [place] % (Auto) (2-11) % Eos % (Auto) (0-4) % Baso % (Auto) (0-2) % Lymph # (Auto) (1.2-4.9) X10*3/uL [place] # (Auto) (0.1-1.2) X10*3/uL Eos # (Auto) (0.0-0.4) X10*3/uL Baso # (Auto) (0.0-0.2) X10*3/uL Abs Immat Gran (auto) (0.00-0.03) X10*3/uL Absolute Neuts (auto) (2.0-8.3) x10*3/uL Absolute Nucleated RBC (0.0-0.012) X10*3/uL Nucleated RBC % (auto) (0.0-0.2) /100WBC PT (11.1-13.3) SEC INR (0.9-1.1) APTT (26.0-36.4) SEC D-Dimer High Sensitivty 832 NG/ML Sodium (135-145) mmol/L Potassium (3.3-5.1) mmol/L Chloride (96-108) mmol/L Carbon Dioxide (22-29) mmol/L Anion Gap (12-20) BUN (9-16) mg/dL Creatinine (0.5-1.4) mg/dL Estim Creat Clear Calc Estimated GFR Random Glucose (60-115) mg/dL Calcium (8.4-10.2) mg/dL Total Bilirubin (0.0-1.0) mg/dL AST (5-31) U/L ALT (0-31) U/L Alkaline Phosphatase (39-117) U/L Troponin I High Sens (<3.5-17.0) ng/L Total Protein (6.5-8.0) g/dL Albumin (3.5-5.0) g/dL Lipase (8-78) U/L COVID-19 (FRANKY) (Negative) COVID-19 Clin Com Influenza Type A (JEANNE) (Negative) Influenza Type B (JEANNE) (Negative) Influenza A & B Note Independent Interpretation I performed an independent interpretation of an: CT Scan Interpretation: CTA of the chest: IMPRESSION: No evidence for pulmonary embolism. ? Posterior interstitial prominence/coarsening with associated groundglass opacities possibly mild interstitial lung disease. ? No focal consolidation or pleural effusion. ? VTE: Negative for pulmonary embolism. Head CT and sinus CT: HEAD:? The lateral, third and fourth ventricles are normally outlined. The cortical sulci and basal cisterns are normally outlined as well. There is no acute territorial defect, hemorrhage or midline shift. The extra-axial spaces are unremarkable. Calvarium: Intact. SINUSES: The maxillofacial sinuses are clear. The orbital structures are unremarkable. The bony structures and soft tissues are unremarkable. ? CT/CT sinus wo IV con IMPRESSION: No significant abnormality seen. Radiology Impression Discussion of test interpretation with radiology: I have reviewed the radiologist's reading. Independent Historian Clinical information obtained from an independent historian. History obtained from or confirmed by: Spouse (Patient's has been contributing to history) Critical Care Time Critical Care Time Critical Care Time: Yes Total Critical Care Time: 75 Attestation: I have personally provided critical care time. Time includes review of lab data, radiology results, discussion with consultants, and monitoring for potential decompensation. Intervention performed as documented. Discharge Plan Discharge Clinical Impression: Acute intractable headache, Tachycardia Patient Disposition: Still a Patient Prescriptions: No Action prednisone 20 mg tablet 40 mg PO DAILY 4 Days Qty: 8 0RF oxycodone 5 mg tablet 5 mg PO Q8H PRN (Reason: pain) Qty: 4 0RF ibuprofen 600 mg tablet 600 mg PO Q6H PRN (Reason: pain) Qty: 30 0RF acetaminophen [Tylenol Extra Strength] 500 mg tablet 500 mg PO Q6H PRN (Reason: fever or pain) Qty: 14 0RF naproxen 500 mg tablet 500 mg PO BID PRN (Reason: pain) 10 Days Qty: 20 0RF pramipexole 0.25 mg tablet 0.25 mg PO BEDTIME albuterol (refill) 90 mcg/actuation aerosol inhalation pregabalin 100 mg capsule 100 mg PO BID naproxen 500 mg tablet 500 mg PO BID omeprazole 20 mg capsule,delayed release(DR/EC) 20 mg PO DAILY cholecalciferol (vitamin D3) 10 mcg (400 unit) capsule 10 mcg PO DAILY
[2022-12-05 21:13] LABS: Partial Thromboplastin Time 33.6 SEC (26.0-36.4)
[2022-12-05 21:16] LABS: COVID-19 Test Negative (Negative); IDNOW Serial# 08D9AD1C
[2022-12-05 21:25] LABS: Troponin-I High Sensitivity < 2.7 ng/L (<3.5-17.0)
[2022-12-05] MEDS: diphenhydrAMINE HCL 50 MG/ML VIAL 25 MG IVPUSH (21:31)
[2022-12-05] MEDS: Metoclopramide HCl 10 MG/2 ML VIAL IVPUSH (21:32)
[2022-12-05] MEDS: Ketorolac Tromethamine 30 MG/ML VIAL IVPUSH (21:32)
[2022-12-05] MEDS: 0.9 % Sodium Chloride 1,000 ML 999 ML IVCONT (21:32)
[2022-12-05 22:24] LABS: IDNOW Serial# 6674DD1D; Influenza A Negative (Negative); Influenza B2 Negative (Negative)
[2022-12-05 22:46] VITALS: BP 97/57; PULSE 110; RESP 15; TEMP 36.4; O2SAT 96
[2022-12-05 22:54] VITALS: BP 94/61; BP 97/58; BP 98/62; PULSE 112; PULSE 117
[2022-12-05 23:33] VITALS: BP 103/62; PULSE 114; RESP 25; O2SAT 93
[2022-12-05] MEDS: 0.9 % Sodium Chloride 2,000 ML 999 ML IV (23:35)
[2022-12-06] VITALS (15 sets, daily range): BP systolic 95–132; BP diastolic 56–77; PULSE 110–142; RESP 15–36; TEMP 36.8–38.7; O2SAT 91–98
--- NOTE | 2022-12-06 01:08 | MHC.EDTECH ---
pt soiled linens, all linens changed by t/w.
[2022-12-06] MEDS: Acetaminophen 325 MG TABLET 650 MG PO ×2 (03:17→22:16)
[2022-12-06 03:20] LABS: D Dimer High Sensitivity 832 NG/ML
[2022-12-06] MEDS: iohexoL 350 MG/ML 100 ML INFUS..BTL 75 ML IV (04:20)
[2022-12-06] MEDS: Morphine Sulfate 4 MG/ML CARTRIDGE IVPUSH (06:34)
[2022-12-06 06:48] LABS: Lipase 52 U/L (8-78)
--- NOTE | 2022-12-06 07:27 | PC.NURSE ---
Dr. vincent performed LP, patient tolerated well. Pt is now lying on back, respirations even and unlabored, skin pwd, no apparent distress. report given to HORACE Bhatt
--- NOTE | 2022-12-06 08:18 | PC.NURSE ---
Addendum entered by Dafne Garcia RN 12/06/22 08:36: awaiting blood cultures to be drawn before starting IV abx Original Note: assumed care of pt at 0700. pt a&o x4, pleasant, calm, and cooperative. pt mostly mac[place] speaking only. at bedside assists with interpreting. pt repositioned to back post lumbar puncture. pt reporting 9/10 pain to head and neck, no relief from morphine. provider aware, new orders in jun. rr even/unlabored. call khan within reach
[2022-12-06 08:19] LABS: CSF Appearance Clear, Colorless; CSF Tube # 2
[2022-12-06 08:20] LABS: CSF Appearance Clear, Colorless; CSF Tube # 2
[2022-12-06] MEDS: Ketorolac Tromethamine 30 MG/ML VIAL IVPUSH (08:24)
[2022-12-06 08:25] LABS: Appearance CSF CLEAR; CSF Tube # 4; Color CSF COLORLESS; Lymphocytes CSF 100 %; Red Blood Cell CSF 16 MM*3; White Blood Cell CSF 4 MM*3
[2022-12-06 08:37] LABS: Glucose CSF 73 mg/dL
[2022-12-06 08:42] LABS: Total Protein CSF 32.3 mg/dL (15-45)
[2022-12-06] MEDS: cefTRIAXone sodium 1 GM in 0.9 % Sodium Chloride 50 ML IV (09:11)
[2022-12-06 10:07] LABS: MANUAL DIFF FLAG NO
[2022-12-06 10:09] LABS: Basophils Absolute Auto 0.1 X10*3/uL (0.0-0.2); Basophils Percent Auto 0.4 % (0-2); Eosinophils Percent Auto 0.1 % (0-4); Hematocrit 38.6 % (37.0-47.0); Hemoglobin 12.7 g/dl (12.0-16.0); Imm Gran Abs Auto 0.05 X10*3/uL (0.00-0.03); Imm Gran Pct Auto 0.4 % (0.0-0.4); Lymphocytes Absolute Auto 1.4 X10*3/uL (1.2-4.9); Lymphocytes Percent Auto 9.7 % (20-40); Mean Corpuscular HGB Conc 32.9 g/dl (31.0-35.0); Mean Corpuscular Hemoglobin 29.4 pg (27.0-33.0); Mean Corpuscular Volume 89.4 fL (80.0-98.0); Mean Platelet Volume 10.8 fL (9.4-12.3); Monocytes Absolute Auto 0.5 X10*3/uL (0.1-1.2); Monocytes Percent Auto 3.8 % (2-11); Neutrophils Percent Auto 85.6 % (45-73); Platelet Count 304 X10*3/uL (160-400); Red Blood Count 4.32 X10*6/uL (4.20-5.50); Red Cell Distribution Width 13.4 % (11.0-16.0)
[2022-12-06 12:05] LABS: Appearance Urine Clear; Color Urine Yellow; Glucose Urine UA Negative (Negative); Leukocyte Esterase Urine Small (1+) (Negative); Nitrite Urine Negative (Negative); PH 5.5 (5.0-9.0); Specific Gravity - Urine >= 1.030 (1.005-1.025); UMIC TRIGGER UACC YES; Urine Blood Negative (Negative); Urine Ketones Negative (Negative); Urine Protein Negative (Neg-Trace)
[2022-12-06 12:20] LABS: Bacteria Urine None Seen (None Seen); Hyaline Casts Urine 0-2 /LPF (0-2); RBC Urine 0-2 /HPF (0-2); Squamous Epithelial Cell Urine 0-2 /HPF (0-2); UACC Culture Trigger YES
--- NOTE | 2022-12-06 12:38 | ECG_ITS ---
Test Reason : tachycardia Blood Pressure : / mmHG Vent. Rate : 142 BPM Atrial Rate : 142 BPM P-R Int : 134 ms QRS Dur : 080 ms QT Int : 268 ms P-R-T Axes : 038 060 032 degrees QTc Int : 412 ms Sinus tachycardia Otherwise normal ECG When compared with ECG of 05-DEC-2022 20:40, No significant change was found Referred By: Vivek Soto Electronically Signed By:MI ZEPEDA MD
[2022-12-06] MEDS: 0.9 % Sodium Chloride 1,000 ML 500 ML IVCONT (12:50)
[2022-12-06] MEDS: Azithromycin 500 MG in 0.9 % Sodium Chloride 250 ML 125 MG IV (13:01)
--- NOTE | 2022-12-06 13:12 | PC.NURSE ---
pt HR in 140s, BP stable. provider notified and ordered fluids/meds. pt medicated per jun. rr even/unlabored. family at bedside. awaiting admit orders. call khan within pt reach. all needs met at this time
--- NOTE | 2022-12-06 14:06 | P.HPHOSP_ITS ---
History of Present Illness Date of Service: 12/06/22 <SUSANNA Wren - Last Filed: 12/06/22 15:10> Attending physician on admission: Antony Fontanez <SUSANNA Wren - Last Filed: 12/06/22 15:10> Chief Complaint: headache <SUSANNA Wren - Last Filed: 12/06/22 15:10> 52-year-old female with history hypertension, [id number] type 2 diabetes, fibromyalgia, mild persistent asthma, and restless leg syndrome presented to the ED last night for evaluation of severe 10/10 headache with associated blurred vision. She has no also complaining of periumbilical pain and has had 3 episodes of watery diarrhea today. She denies any fevers at home, chills, sore throat, nasal congestion, sinus pressure, nausea, vomiting, urinary symptoms, melena, hematochezia, cough, shortness of breath, chest pain. Denies any sick contacts. No recent antibiotic use, bad foods, or recent travel. On arrival, patient afebrile but tachycardic to 125. Blood pressure is soft with systolic pressures in the 90s and low 100s. Patient has developed fever since arrival to 101.7 is tachycardic to 140. She is tachypneic to 24. No hypoxia or hypotension. On arrival had a leukocytosis of 21 which was repeated after IV fluids with improvement to 14. Renal function normal, electrolyte levels normal. Urinalysis showed 1+ leukocytes with some urinary sediment but no bacteria or nitrites. Given concern for meningitis with the severe headache, jayson mbar puncture was performed without abnormal finding. She is negative for COVID-19 and influenza. Chest x-ray negative for acute cardiopulmonary process. D-dimer was elevated greater than 800 so chest CTA was ordered and was negative for PE. There were posterior interstitial prominence/coarsening with associated ground-glass opacities possibly mild interstitial lung disease. There are no focal consolidations or pleural effusions. Head CT negative for any acute intracranial abnormality. CT of the sinuses also negative. CT abdomen/pelvis pending. In the ED, given IV ceftriaxone and azitrhomycin as well as morphine and tylenol and IVF. <SUSANNA Wren - Last Filed: 12/06/22 15:10> Review of Systems Review of Systems: General: No fevers, malaise, unintentional weight loss HEENT: No blurred vision, diplopia. No sore throat, nasal congestion, rhinorrhea, sinus pain, ear pain Cardiovascular: No chest pain, palpitations, or leg edema Respiratory: No shortness of breath, wheezing, cough GI: +abd pain, +diarrhea. No nausea, vomiting, constipation, melena, hemat ochezia : No dysuria, hematuria, increased urinary frequency, decreased urinary output MSK: No myalgia, back pain Neuro: No weakness, paresthesias. +headache Skin: No rashes or lesions <SUSANNA Wren - Last Filed: 12/06/22 15:10> [facility] Medical History: Medical History Asthma Cholecystitis Diabetes Fibromyalgia HTN (hypertension) Restless leg syndrome <SUSANNA Wren - Last Filed: 12/06/22 15:10> Surgical History: Surgical History History of appendectomy <SUSANNA Wren - Last Filed: 12/06/22 15:10> Social History: Social History Alcohol intake: current Alcohol intake frequency: holidays/special occasions only Smoked in Last 30 Days: No Use of substances other than those prescribed or required for medical reasons: No Advance Directives: No Advance Directives Information Provided: Yes Gender identity: Female <SUSANNA Wren - Last Filed: 12/06/22 15:10> Meds Allergies/Adverse reactions: Allergies Allergy/AdvReac Type Severity Reaction Status Date / Time tramadol [TRAMADOL] Allergy Unknown RASH , rash Verified 12/01/22 11:14 <SUSANNA Wren - Last Filed: 12/06/22 15:10> Active Medications: Current Medications Azithromycin 500 mg/ Sodium (Chloride) 250 mls @ 125 mls/hr IV ONCE ONE Stop: 12/06/22 14:41 Last Admin: 12/06/22 13:01 Dose: 125 mls/hr Sodium Chloride (Ns) 1,000 mls @ 500 mls/hr IVCONT .Q2H SHERRIE Stop: 12/06/22 14:44 Last Admin: 12/06/22 12:50 Dose: 500 mls/hr Pharmacy Consult (Consult Rx Perform Med Rec) 1 each MISCELLANE ONCE PRN PRN Reason: Consult order <SUSANNA Wren - Last Filed: 12/06/22 15:10> Home medications: Home Medications Medication Instructions Recorded Confirmed Last Taken Type albuterol sulfate 2.5 mg/3 mL 2.5 mg inhalation TID PRN 12/06/22 12/06/22 Unknown History (0.083 %) solution for nebulization Shortness Of Breath Or Wheezing albuterol sulfate 90 mcg/actuation 2 puff inhalation QID PRN 12/06/22 12/06/22 Unknown History aerosol inhaler (Ventolin HFA) Shortness Of Breath Or Wheezing ascorbic acid (vitamin C) 1,000 mg 1,000 mg PO BID 12/06/22 12/06/22 Unknown History tablet cholecalciferol (vitamin D3) 50 50 mcg PO BID 12/06/22 12/06/22 Unknown History mcg (2,000 unit) capsule dicyclomine 10 mg capsule 10 mg PO TID 12/06/22 12/06/22 Unknown History ferrous sulfate 325 mg (65 mg 325 mg PO QAM 12/06/22 12/06/22 Unknown History iron) tablet (FeroSul) fluticasone propionate 220 1 puff inhalation BID 12/06/22 12/06/22 Unknown History mcg/actuation HFA aerosol inhaler (Flovent HFA) glimepiride 4 mg tablet 4 mg PO QPM 12/06/22 12/06/22 Unknown History metformin 500 mg tablet,extended 1,000 mg PO BID 12/06/22 12/06/22 Unknown History release 24 hr naproxen 500 mg tablet 500 mg PO BID PRN Pain 12/06/22 12/06/22 Unknown History omeprazole 40 mg capsule,delayed 40 mg PO QAM 12/06/22 12/06/22 Unknown History release pramipexole 0.5 mg tablet 0.5 mg PO BEDTIME 12/06/22 12/06/22 Unknown History pregabalin 200 mg capsule 200 mg PO TID 12/06/22 12/06/22 Unknown History semaglutide 0.25 mg or 0.5 mg (2 0.5 mg subcut FR 12/06/22 12/06/22 12/03/22 History mg/3 mL) subcutaneous pen injector (Ozempic) <SUSANNA Wren - Last Filed: 12/06/22 15:10> Physical Exam Vital Signs and Narrative: Vital Signs: Last Vital Signs Temp 99.1 F 12/06/22 12:49 Pulse 142 H 12/06/22 12:49 Resp 21 H 12/06/22 12:49 BP 132/74 12/06/22 12:49 Pulse Ox 94 12/06/22 11:56 O2 Del Method Room Air 12/06/22 12:49 BMI result Body Mass Index 29.3 <SUSANNA Wren - Last Filed: 12/06/22 15:10> Constitutional - Awake and Alert, No apparent distress Eyes - PERRLA, EOMI Cardiovascular - S1S2, RRR, No edema Respiratory - Normal lung expansion, Normal respiratory effort, No respiratory distress, CTA bilaterally Gastrointestinal - RLQ/LLQ ttp without rebound or guarding. ND; +BS Extremities - no calf tenderness bilaterally, no swelling Skin - Warm/Dry Neurological - Alert & oriented x3, CN II-XII in tact, 5/5 strength BUE and BLE Psychological - Appropriate affect <SUSANNA Wren - Last Filed: 12/06/22 15:10> Results Labs CBC and Chem 7: 12/06/22 10:04 12/05/22 20:47 <SUSANNA Wren - Last Filed: 12/06/22 15:10> Labs: Laboratory Results - last 24 hr 12/05/22 12/05/22 12/05/22 20:47 20:47 20:47 MCV 89.7 MCH 29.2 MCHC 32.5 RDW 13.2 Plt Count 382 MPV 11.2 Immature Gran % (Auto) 0.5 H Neut % (Auto) 87.5 H Lymph % (Auto) 8.2 L [place] % (Auto) 3.4 Eos % (Auto) 0.1 Baso % (Auto) 0.3 Lymph # (Auto) 1.7 [place] # (Auto) 0.7 Eos # (Auto) 0.0 Baso # (Auto) 0.1 Abs Immat Gran (auto) 0.10 H Absolute Neuts (auto) 18.4 H Absolute Nucleated RBC 0.000 Nucleated RBC % (auto) 0.0 PT 9.4 L INR 0.8 L APTT 33.6 D-Dimer High Sensitivty Anion Gap 16 Estim Creat Clear Calc 82.8 Estimated GFR > 60 Random Glucose 103 Calcium 10.0 Total Bilirubin 0.4 AST 18 ALT 32 H Alkaline Phosphatase 131 H Total Protein 7.5 Albumin 4.4 Lipase 52 Urine Color Urine Appearance Urine pH Ur Specific [place] Urine Protein Urine Glucose (UA) Urine Ketones Urine Blood Urine Nitrite Ur Leukocyte Esterase Urine RBC Urine WBC Ur Squamous Epith Cells Urine Bacteria Hyaline Casts CSF Tube Number CSF Volume CSF Appearance CSF Color CSF WBC CSF RBC CSF Lymphocytes CSF Appearance (b) CSF Glucose CSF Total Protein COVID-19 (FRANKY) COVID-19 Clin Com Influenza Type A (JEANNE) Influenza Type B (JEANNE) Influenza A & B Note 12/05/22 12/05/22 12/06/22 20:47 21:30 03:07 MCV MCH MCHC RDW Plt Count MPV Immature Gran % (Auto) Neut % (Auto) Lymph % (Auto) [place] % (Auto) Eos % (Auto) Baso % (Auto) Lymph # (Auto) [place] # (Auto) Eos # (Auto) Baso # (Auto) Abs Immat Gran (auto) Absolute Neuts (auto) Absolute Nucleated RBC Nucleated RBC % (auto) PT INR APTT D-Dimer High Sensitivty 832 Anion Gap Estim Creat Clear Calc Estimated GFR Random Glucose Calcium Total Bilirubin AST ALT Alkaline Phosphatase Total Protein Albumin Lipase Urine Color Urine Appearance Urine pH Ur Specific [place] Urine Protein Urine Glucose (UA) Urine Ketones Urine Blood Urine Nitrite Ur Leukocyte Esterase Urine RBC Urine WBC Ur Squamous Epith Cells Urine Bacteria Hyaline Casts CSF Tube Number CSF Volume CSF Appearance CSF Color CSF WBC CSF RBC CSF Lymphocytes CSF Appearance (b) CSF Glucose CSF Total Protein COVID-19 (FRANKY) Negative COVID-19 Clin Com See Note Influenza Type A (JEANNE) Negative Influenza Type B (JEANNE) Negative Influenza A & B Note See Note 12/06/22 12/06/22 12/06/22 06:55 06:55 06:55 MCV MCH MCHC RDW Plt Count MPV Immature Gran % (Auto) Neut % (Auto) Lymph % (Auto) [place] % (Auto) Eos % (Auto) Baso % (Auto) Lymph # (Auto) [place] # (Auto) Eos # (Auto) Baso # (Auto) Abs Immat Gran (auto) Absolute Neuts (auto) Absolute Nucleated RBC Nucleated RBC % (auto) PT INR APTT D-Dimer High Sensitivty Anion Gap Estim Creat Clear Calc Estimated GFR Random Glucose Calcium Total Bilirubin AST ALT Alkaline Phosphatase Total Protein Albumin Lipase Urine Color Urine Appearance Urine pH Ur Specific [place] Urine Protein Urine Glucose (UA) Urine Ketones Urine Blood Urine Nitrite Ur Leukocyte Esterase Urine RBC Urine WBC Ur Squamous Epith Cells Urine Bacteria Hyaline Casts CSF Tube Number 4 2 2 CSF Volume 1.0 CSF Appearance CLEAR CSF Color COLORLESS CSF WBC 4 CSF RBC 16 CSF Lymphocytes 100 CSF Appearance (b) Clear, Colorless Clear, Colorless CSF Glucose 73 CSF Total Protein 32.3 COVID-19 (FRANKY) COVID-19 Clin Com Influenza Type A (JEANNE) Influenza Type B (JEANNE) Influenza A & B Note 12/06/22 12/06/22 10:04 11:58 MCV 89.4 MCH 29.4 MCHC 32.9 RDW 13.4 Plt Count 304 MPV 10.8 Immature Gran % (Auto) 0.4 Neut % (Auto) 85.6 H Lymph % (Auto) 9.7 L [place] % (Auto) 3.8 Eos % (Auto) 0.1 Baso % (Auto) 0.4 Lymph # (Auto) 1.4 [place] # (Auto) 0.5 Eos # (Auto) 0.0 Baso # (Auto) 0.1 Abs Immat Gran (auto) 0.05 H Absolute Neuts (auto) 12.0 H Absolute Nucleated RBC 0.000 Nucleated RBC % (auto) 0.0 PT INR APTT D-Dimer High Sensitivty Anion Gap Estim Creat Clear Calc Estimated GFR Random Glucose Calcium Total Bilirubin AST ALT Alkaline Phosphatase Total Protein Albumin Lipase Urine Color Yellow Urine Appearance Clear Urine pH 5.5 Ur Specific [place] >= 1.030 H Urine Protein Negative Urine Glucose (UA) Negative Urine Ketones Negative Urine Blood Negative Urine Nitrite Negative Ur Leukocyte Esterase Small (1+) H Urine RBC 0-2 Urine WBC 11-20 H Ur Squamous Epith Cells 0-2 Urine Bacteria None Seen Hyaline Casts 0-2 CSF Tube Number CSF Volume CSF Appearance CSF Color CSF WBC CSF RBC CSF Lymphocytes CSF Appearance (b) CSF Glucose CSF Total Protein COVID-19 (FRANKY) COVID-19 Clin Com Influenza Type A (JEANNE) Influenza Type B (JEANNE) Influenza A & B Note <SUSANNA Wren - Last Filed: 12/06/22 15:10> Imaging Radiologist's Impressions: Impressions Head CT 12/06/22 00:00 IMPRESSION: No significant abnormality seen. Sinuses CT 12/06/22 00:00 IMPRESSION: No significant abnormality seen. Chest CTA 12/06/22 04:15 IMPRESSION: No evidence for pulmonary embolism. Posterior interstitial prominence/coarsening with associated groundglass opacities possibly mild interstitial lung disease. No focal consolidation or pleural effusion. VTE: Negative for pulmonary embolism. Chest X-Ray 12/06/22 10:30 IMPRESSION: No acute cardiopulmonary process. <SUSANNA Wren - Last Filed: 12/06/22 15:10> Assessment and Plan (1) Acute intractable headache: Status: Acute <SUSANNA Wren - Last Filed: 12/06/22 15:10> (2) Sepsis: Status: Acute <SUSANNA Wren - Last Filed: 12/06/22 15:10> 52-year-old female with history hypertension, [id number] type 2 diabetes, fibromyalgia, mild persistent asthma, and restless leg syndrome to be admitted for sepsis of unclear etiology. #Sepsis of unclear etiology -leukocytosis 21, febrile to 101.7, tachycardic to 140, tachypneic to 28. Lactic acid pending. No other evidence of end-organ damage -CXR negative, CTA chest negative for focal abnormality, UA not indicative of unfection. Lumbar puncture not indicative of meningitis, but CSF gram stain/culture pending -?Viral etiology- negative for covid and influenza. Full viral respiratory panel pending -GI panel and CDiff PCR pending -given IV ceftriaxone, azithromycin -continue IVF -admit to telemetry # acute headache -question viral etiology -head CT negative # [id number]-[id number]-[id number] type 2 diabetes -Humalog on sliding scale -POC glucose -diabetic diet -hold oral antihyperglycemics # mild persistent asthma -continue Flovent, albuterol p.r.n. # fibromyalgia/restless leg syndrome -continue home meds DVT prophylaxis-Lovenox Full code Patient requires inpatient stay at least 2 midnights for management of sepsis with unclear etiology <SUSANNA Wren - Last Filed: 12/06/22 15:10> 52-year-old female with history hypertension, [id number] type 2 diabetes, fibromyalgia, mild persistent asthma, and restless leg syndrome to be admitted for sepsis of unclear etiology. #Sepsis of unclear etiology -leukocytosis 21, febrile to 101.7, tachycardic to 140, tachypneic to 28. Lactic acid pending. No other evidence of end-organ damage -CXR negative, CTA chest negative for focal abnormality, UA not indicative of unfection. Lumbar puncture not indicative of meningitis, but CSF gram stain/culture pending -?Viral etiology- negative for covid and influenza. Full viral respiratory panel pending -GI panel and CDiff PCR pending -given IV ceftriaxone, azithromycin -continue IVF -admit to telemetry # acute headache -question viral etiology -head CT negative # [id number]-[id number] type 2 diabetes -Humalog on sliding scale -POC glucose -diabetic diet -hold oral antihyperglycemics # mild persistent asthma -continue Flovent, albuterol p.r.n. # fibromyalgia/restless leg syndrome -continue home meds DVT prophylaxis-Lovenox Full code Patient requires inpatient stay at least 2 midnights for management of sepsis with unclear etiology Chart reviewed/patient examined. Agree with history and physical/assessment and plan as documented by Ms. Sharp. Aggressive volume repletion with good response to hemodynamic status. Will complete 4 L of normal saline and follow output. Broad-spectrum antibiotics and continue volume repletion. Further plan s based on forthcoming clinical data <Antony Fontanez DO - Last Filed: 12/06/22 16:29> Time Spent With Patient Time: Total time managing care of this patient today ____ minutes. <SUSANNA Wren - Last Filed: 12/06/22 15:10> Quality Stroke Does the patient have a stroke diagnosis?: No <SUSANNA Wren - Last Filed: 12/06/22 15:10> VTE Prior VTE?: No <SUSANNA Wren Last Filed: 12/06/22 15:10> VTE Risk Level:: Medical - moderate - high <SUSANNA Wren Last Filed: 12/06/22 15:10> VTE Device Contraindication: Treatment Not Indicated <SUSANNA Wren - Last Filed: 12/06/22 15:10> VTE Drug Contraindication: N/A - Med Ordered <SUSANNA Wren - Last Filed: 12/06/22 15:10>
[2022-12-06] MEDS: Acetaminophen 325 MG TABLET 975 MG PO (14:46)
[2022-12-06] MEDS: Morphine Sulfate 2 MG/ML CARTRIDGE IVPUSH ×3 (14:47→22:15)
[2022-12-06] MEDS: Enoxaparin Sodium 40 MG/0.4 ML SYRINGE SUBCUT (14:48)
--- NOTE | 2022-12-06 14:50 | PHA.MEDREC ---
Pharmacy Consult ? Medication Reconciliation Pharmacy has completed the medication reconciliation. spoke with patient to confirm medications.
[2022-12-06] MEDS: 0.9 % Sodium Chloride 1,000 ML 999 ML IV (15:00)
--- NOTE | 2022-12-06 15:31 | MHC.EDTECH ---
THIS PCT ASSUMED CARE OF PATIENT AT 1500 ,VITALS SIGN TAKEN AND LACTIC ACID DRAWN AND SENT TO LAB .
--- NOTE | 2022-12-06 15:42 | MHC.EDTECH ---
PATIENT BELONGING LIST DINE .
[2022-12-06] MEDS: Omeprazole 40 MG CAPSULE.DR PO (15:50)
[2022-12-06] MEDS: Ferrous Sulfate 324 MG TABLET.DR PO (15:50)
[2022-12-06] MEDS: Dicyclomine HCl 10 MG CAPSULE PO ×2 (15:50→19:53)
[2022-12-06 16:08] LABS: CDiff Gene PCR NEGATIVE (Negative)
[2022-12-06 16:19] LABS: Adenovirus PCR Not Detected (Not Detect.); Bordetella parapertussis PCR Not Detected (Not Detect.); Bordetella pertussis PCR Not Detected (Not Detect.); Chlamydia pneumoniae PCR Not Detected (Not Detect.); Coronavirus 229E PCR Not Detected (Not Detect.); Coronavirus HKU1 PCR Not Detected (Not Detect.); Coronavirus NL63 PCR Not Detected (Not Detect.); Coronavirus OC43 PCR Not Detected (Not Detect.); Human metapneumovirus PCR Not Detected (Not Detect.); Influenza A PCR Not Detected (Not Detect.); Influenza B PCR Not Detected (Not Detect.); Mycoplasma pneumoniae PCR Not Detected (Not Detect.); Parainfluenza 1 PCR Not Detected (Not Detect.); Parainfluenza 2 PCR Not Detected (Not Detect.); Parainfluenza 3 PCR Not Detected (Not Detect.); Parainfluenza 4 PCR Not Detected (Not Detect.); RSV PCR Not Detected (Not Detect.); Rhino/Enterovirus PCR Not Detected (Not Detect.); SARS-CoV-2 PCR Not Detected (Not Detect.)
[2022-12-06] MEDS: vancomycin HCL 1,000 MG, vancomycin HCL 750 MG in 0.9 % Sodium Chloride 500 ML 267.5 MG IV (16:56)
--- NOTE | 2022-12-06 17:05 | PHA.PROG ---
Admission Date/Time: December 06, 2022 14:36 Indication: Sepsis Weight in k.7 kg Adjusted body weight in Kg: [place] body weight in Kg: Obesity Dosing Indication % IBW: Serum Creatinine - Last 168 Hours 12/05/22 20:47 Creatinine 0.64 Estimated CrCl and GFR - Last 168 Hours 12/05/22 20:47 Estim Creat Clear Calc 82.8 Estimated GFR > 60 Vancomycin Loading Dose: 1750 mg Current Vancomycin Dosing Regimen: 1000 mg Q12H Date and Time for next Vancomycin Level to be drawn: 12/07 @ 1500 Pharmacist Comments on Vancomycin Plan: Patient received an adequate load dose for weight in the ER 12/06 @ 1657 Maintenance dose vancomycin 1000 mg Q12H is scheduled to start 12/07 @ 0500. Expected AUC 498 with a trough of 14.9 Level is be drawn prior to 3rd dose to have in house pharmacy evaluate for safety and efficacy Pharmacy will monitor renal fucntion daily Aster Hughes PharmD Vancomycin dosing will take advantage of [employer] as a clinical decision support tool that uses Bayesian modeling to calculate individual patient's pharmacokinetic parameters and forecast the patient's drug concentration time course with the target goal AUC 24 range of 400 - 600 mg/L/hr.
--- NOTE | 2022-12-06 17:06 | PC.NURSE ---
pt medicated per jun. resting on stretcher, sleeping. Lyrica not available in [facility], pharmacy notified and aware. report given to HORACE Gil. awaiting transport to pt room. Louise aware to give Lyrica once on floor
[2022-12-06 17:16] LABS: Glucose, Whole Blood 120 mg/dL (60-115)
[2022-12-06 17:44] LABS: Lactic Acid 1.9 mmol/L (0.5-2.0)
[2022-12-06] MEDS: Pregabalin 200 MG CAPSULE PO ×2 (18:35→19:53)
[2022-12-06] MEDS: Piperacillin Sodium/Tazobactam 4.5 GM in 0.9 % Sodium Chloride 100 ML IV (19:51)
[2022-12-06] MEDS: Cholecalciferol (Vitamin D3) 25 MCG TABLET 50 MCG PO (19:53)
[2022-12-06] MEDS: Ascorbic Acid 500 MG TABLET 1000 MG PO (19:53)
[2022-12-06] MEDS: Pramipexole Di-HCL 0.25 MG TABLET 0.5 MG PO (19:53)
[2022-12-06] MEDS: 0.9 % Sodium Chloride Flush 3 ML SYRINGE IVFLUSH (20:06)
[2022-12-06 20:19] LABS: Glucose, Whole Blood 153 mg/dL (60-115)
[2022-12-07] VITALS (13 sets, daily range): BP systolic 97–111; BP diastolic 58–68; PULSE 87–106; RESP 14–20; TEMP 36.2–36.9; O2SAT 92–99
[2022-12-07] MEDS: Piperacillin Sodium/Tazobactam 4.5 GM in 0.9 % Sodium Chloride 100 ML IV ×4 (00:27→17:09)
[2022-12-07] MEDS: Morphine Sulfate 2 MG/ML CARTRIDGE IVPUSH ×6 (01:19→20:32)
[2022-12-07] MEDS: vancomycin HCL 1,000 MG in 0.9 % Sodium Chloride 250 ML 270 MG IV (04:52)
[2022-12-07 05:49] LABS: MANUAL DIFF FLAG NO
[2022-12-07 05:52] LABS: Basophils Absolute Auto 0.1 X10*3/uL (0.0-0.2); Basophils Percent Auto 0.6 % (0-2); Eosinophils Percent Auto 0.3 % (0-4); Hematocrit 33.2 % (37.0-47.0); Hemoglobin 10.8 g/dl (12.0-16.0); Imm Gran Abs Auto 0.02 X10*3/uL (0.00-0.03); Imm Gran Pct Auto 0.2 % (0.0-0.4); Lymphocytes Absolute Auto 1.6 X10*3/uL (1.2-4.9); Lymphocytes Percent Auto 17.5 % (20-40); Mean Corpuscular HGB Conc 32.5 g/dl (31.0-35.0); Mean Corpuscular Hemoglobin 29.3 pg (27.0-33.0); Mean Corpuscular Volume 90.2 fL (80.0-98.0); Mean Platelet Volume 11.2 fL (9.4-12.3); Monocytes Absolute Auto 0.7 X10*3/uL (0.1-1.2); Monocytes Percent Auto 7.9 % (2-11); Neutrophils Absolute Auto 6.7 x10*3/uL (2.0-8.3); Neutrophils Percent Auto 73.5 % (45-73); Platelet Count 255 X10*3/uL (160-400); Red Blood Count 3.68 X10*6/uL (4.20-5.50); White Blood Count 9.1 X10*3/uL (4.8-10.8)
[2022-12-07] MEDS: Omeprazole 40 MG CAPSULE.DR PO (06:04)
[2022-12-07 06:15] LABS: Anion Gap 10 (12-20); Blood Urea Nitrogen 5 mg/dL (9-16); Calcium 8.2 mg/dL (8.4-10.2); Carbon Dioxide 21 mmol/L (22-29); Chloride 111 mmol/L (96-108); Creatinine Clr Calc Pharmacy 91.4; Estimated Glomerular Filt Rate > 60; Glucose Random 130 mg/dL (60-115); Sodium 139 mmol/L (135-145)
[2022-12-07] MEDS: Fluticasone Propionate 250 MCG BLST.W.DEV 1 PUFF INHALE ×2 (07:33→19:07)
[2022-12-07 07:43] LABS: Glucose, Whole Blood 115 mg/dL (60-115)
--- NOTE | 2022-12-07 08:47 | MHC.CM.PN ---
CM met with Patient and 2 family members at bedside. Patient lives in a house with her 30 year old Son and she required no DME [employer]. Home/resume [facility] 4 hours/day is the goal and CM has initiated and will follow for dc planning. PCP is Dr. Nikki Crain.
[2022-12-07] MEDS: Ascorbic Acid 500 MG TABLET 1000 MG PO ×2 (09:25→21:41)
[2022-12-07] MEDS: Cholecalciferol (Vitamin D3) 25 MCG TABLET 50 MCG PO ×2 (09:26→21:41)
[2022-12-07] MEDS: Acetaminophen 325 MG TABLET 650 MG PO ×2 (09:26→17:06)
[2022-12-07] MEDS: Ferrous Sulfate 324 MG TABLET.DR PO (09:26)
[2022-12-07] MEDS: Pregabalin 200 MG CAPSULE PO ×3 (09:26→21:40)
[2022-12-07] MEDS: Dicyclomine HCl 10 MG CAPSULE PO ×3 (09:26→21:41)
[2022-12-07] MEDS: 0.9 % Sodium Chloride Flush 3 ML SYRINGE IVFLUSH ×3 (09:27→21:41)
--- NOTE | 2022-12-07 10:24 | HO.PM.IMPN ---
Subjective Subjective Date of Service: 12/07/22 Interval History: has headache and abdominal discomfort, reviewed CT of abd and there is evidence of colitis Physical Exam Vital Signs: Vital Signs: Last Vital Signs Temp 97.6 F 12/07/22 07:13 Pulse 104 H 12/07/22 07:35 Resp 16 12/07/22 07:35 BP 111/67 12/07/22 07:13 Pulse Ox 96 12/07/22 07:13 O2 Del Method Room Air 12/07/22 07:13 BMI result Body Mass Index 29.3 Const: Other: General: AO X 3, no acute distress Resp: CTA bilateral CVS: S1,S2,RRR GI: +BS,mild tenderness, no distention Skin: No rash Neuro: motor grossly intact Psych: appropriate affect Objective Data Active Medications Acetaminophen (Acetaminophen 325 Mg Tablet) 650 mg PO Q6H PRN PRN Reason: Pain, Mild (Pain Scale 1-3) Last Admin: 12/07/22 09:26 Dose: 650 mg Documented By: LEXI Albuterol Sulfate (Albuterol Sulfate (0.083%) 2.5 Mg/3 Ml Vial.Neb) 2.5 mg INHALE TID PRN PRN Reason: Shortness Of Breath Or Wheezing Albuterol Sulfate (Albuterol Sulfate 90 Mcg 8 Gm Inhaler) 2 puff INHALE QID PRN PRN Reason: Shortness Of Breath Or Wheezing Ascorbic Acid (Ascorbic Acid 500 Mg Tablet) 1,000 mg PO BID [facility] Last Admin: 12/07/22 09:25 Dose: 1,000 mg Documented By: LEXI Dextrose (Dextrose 50 % 25 Gm/50 Ml Syringe) 25 gm IVPUSH Q15M PRN; Protocol PRN Reason: per Hypoglycemia Standing Ord. Dicyclomine HCl (Dicyclomine Hcl 10 Mg Capsule) 10 mg PO TID [facility] Last Admin: 12/07/22 09:26 Dose: 10 mg Documented By: LEXI Docusate Sodium (Docusate Sodium 100 Mg Capsule) 100 mg PO DAILY PRN PRN Reason: Constipation Enoxaparin Sodium (Enoxaparin Sodium 40 Mg/0.4 Ml Syringe) 40 mg SUBCUT Q24H [facility] Last Admin: 12/06/22 14:48 Dose: 40 mg Documented By: HODAN Ferrous Sulfate (Ferrous Sulfate 324 Mg Tablet.) 324 mg PO DAILY [facility] Last Admin: 12/07/22 09:26 Dose: 324 mg Documented By: LEXI Fluticasone Propionate (Fluticasone Propionate 250 Mcg Blst.W.Dev) 1 puff INHALE RBID [facility] Last Admin: 12/07/22 07:33 Dose: 1 puff Documented By: BERNADINE Glucose (Glucose Gel 15 Gm Gel..Gram.) 15 gm PO Q15M PRN; Protocol PRN Reason: per Hypoglycemia Standing Ord. Vancomycin HCl 1,000 mg/ (Sodium Chloride) 270 mls @ 270 mls/hr IV Q12H [facility] Last Infusion: 12/07/22 06:15 Dose: 0 mls/hr Documented By: OZZIE Piperacillin Sod/Tazobactam (Sod 4.5 gm/ Sodium Chloride) 100 mls @ 200 mls/hr IV Q6H [facility] Last Infusion: 12/07/22 06:46 Dose: 0 mls/hr Documented By: OZZIE Insulin Human Lispro (Insulin Lispro 100 Unit/Ml 3 Ml Vial) 0 unit SUBCUT QIDACHS [facility]; Protocol Last Admin: 12/07/22 09:25 Dose: Not Given Documented By: LEXI Non-Admin Reason: No Insulin Coverage Morphine Sulfate (Morphine Sulfate 2 Mg/Ml Cartridge) 2 mg IVPUSH Q2H PRN; Protocol PRN Reason: Pain, Severe (Pain Scale 7-10) Last Admin: 12/07/22 04:53 Dose: 2 mg Documented By: MIRIAM Omeprazole (Omeprazole 40 Mg Capsule.) 40 mg PO DAILY@0630 [facility] Last Admin: 12/07/22 06:04 Dose: 40 mg Documented By: OZZIE Ondansetron HCl (Ondansetron Hcl 4 Mg/2 Ml Vial) 4 mg IVPUSH Q8H PRN PRN Reason: Nausea and Vomiting Pharmacy Consult (Consult Rx Perform Med Rec) 1 each MISCELLANE ONCE PRN PRN Reason: Consult order Pharmacy Consult (Consult Rx Vancomycin Dosing) 1 each MISCELLANE DAILY PRN PRN Reason: Consult order Pramipexole Dihydrochloride (Pramipexole Di-Hcl 0.25 Mg Tablet) 0.5 mg PO BEDTIME [facility] Last Admin: 12/06/22 19:53 Dose: 0.5 mg Documented By: OZZIE Pregabalin (Pregabalin 200 Mg Capsule) 200 mg PO TID [facility] Last Admin: 12/07/22 09:26 Dose: 200 mg Documented By: LEXI Sodium Chloride (0.9 % Sodium Chloride Flush 3 Ml Syringe) 3 ml IVFLUSH QSHIFT [facility] Last Admin: 12/07/22 09:27 Dose: 3 ml Documented By: LEXI Vitamin D (Cholecalciferol (Vitamin D3) 25 Mcg Tablet) 50 mcg PO BID [facility] Last Admin: 12/07/22 09:26 Dose: 50 mcg Documented By: LEXI Labs 12/07/22 05:37 12/07/22 05:37 Labs: Laboratory Results - last 24 hr 12/06/22 12/06/22 12/06/22 11:58 13:01 14:03 MCV MCH MCHC RDW Plt Count MPV Immature Gran % (Auto) Neut % (Auto) Lymph % (Auto) Kimble % (Auto) Eos % (Auto) Baso % (Auto) Lymph # (Auto) Kimble # (Auto) Eos # (Auto) Baso # (Auto) Abs Immat Gran (auto) Absolute Neuts (auto) Absolute Nucleated RBC Nucleated RBC % (auto) Anion Gap Estim Creat Clear Calc Estimated GFR POC Glucose Random Glucose Lactic Acid Calcium Urine Color Yellow Urine Appearance Clear Urine pH 5.5 Ur Specific Guthrie >= 1.030 H Urine Protein Negative Urine Glucose (UA) Negative Urine Ketones Negative Urine Blood Negative Urine Nitrite Negative Ur Leukocyte Esterase Small (1+) H Urine RBC 0-2 Urine WBC 11-20 H Ur Squamous Epith Cells 0-2 Urine Bacteria None Seen Hyaline Casts 0-2 Respiratory Panel Martin See Note Adenovirus (Rapid PCR) Not Detected B.pert (TEM-PCR) Not Detected B.parapertussis DNA PCR Not Detected C. pneumoniae DNA (PCR) Not Detected C. difficile Tox B Gene NEGATIVE Coronavirus OC43 (PCR) Not Detected Coronavirus HKU1 (PCR) Not Detected Coronavirus 229E (PCR) Not Detected Coronavirus NL63 (PCR) Not Detected Human Metapneumovir PCR Not Detected Influenza A (RT-PCR) Not Detected Influenza B (RT-PCR) Not Detected M. pneumoniae (PCR) Not Detected Parainfluenza 1 (PCR) Not Detected Parainfluenza 2 (PCR) Not Detected Parainfluenza 3 (PCR) Not Detected Parainfluenza 4 (PCR) Not Detected RSV (PCR) Not Detected Entero/Rhino (PCR) Not Detected SARS-CoV-2 RNA (RT-PCR) Not Detected 12/06/22 12/06/22 12/06/22 15:17 17:08 20:16 MCV MCH MCHC RDW Plt Count MPV Immature Gran % (Auto) Neut % (Auto) Lymph % (Auto) Kimble % (Auto) Eos % (Auto) Baso % (Auto) Lymph # (Auto) Kimble # (Auto) Eos # (Auto) Baso # (Auto) Abs Immat Gran (auto) Absolute Neuts (auto) Absolute Nucleated RBC Nucleated RBC % (auto) Anion Gap Estim Creat Clear Calc Estimated GFR POC Glucose 120 H 153 H Random Glucose Lactic Acid 1.9 Calcium Urine Color Urine Appearance Urine pH Ur Specific Guthrie Urine Protein Urine Glucose (UA) Urine Ketones Urine Blood Urine Nitrite Ur Leukocyte Esterase Urine RBC Urine WBC Ur Squamous Epith Cells Urine Bacteria Hyaline Casts Respiratory Panel Martin Adenovirus (Rapid PCR) B.pert (TEM-PCR) B.parapertussis DNA PCR C. pneumoniae DNA (PCR) C. difficile Tox B Gene Coronavirus OC43 (PCR) Coronavirus HKU1 (PCR) Coronavirus 229E (PCR) Coronavirus NL63 (PCR) Human Metapneumovir PCR Influenza A (RT-PCR) Influenza B (RT-PCR) M. pneumoniae (PCR) Parainfluenza 1 (PCR) Parainfluenza 2 (PCR) Parainfluenza 3 (PCR) Parainfluenza 4 (PCR) RSV (PCR) Entero/Rhino (PCR) SARS-CoV-2 RNA (RT-PCR) 12/07/22 12/07/22 12/07/22 05:37 05:37 07:34 MCV 90.2 MCH 29.3 MCHC 32.5 RDW 14.0 Plt Count 255 MPV 11.2 Immature Gran % (Auto) 0.2 Neut % (Auto) 73.5 H Lymph % (Auto) 17.5 L Kimble % (Auto) 7.9 Eos % (Auto) 0.3 Baso % (Auto) 0.6 Lymph # (Auto) 1.6 Kimble # (Auto) 0.7 Eos # (Auto) 0.0 Baso # (Auto) 0.1 Abs Immat Gran (auto) 0.02 Absolute Neuts (auto) 6.7 Absolute Nucleated RBC 0.000 Nucleated RBC % (auto) 0.0 Anion Gap 10 L Estim Creat Clear Calc 91.4 Estimated GFR > 60 POC Glucose 115 Random Glucose 130 H Lactic Acid Calcium 8.2 L D Urine Color Urine Appearance Urine pH Ur Specific Guthrie Urine Protein Urine Glucose (UA) Urine Ketones Urine Blood Urine Nitrite Ur Leukocyte Esterase Urine RBC Urine WBC Ur Squamous Epith Cells Urine Bacteria Hyaline Casts Respiratory Panel Martin Adenovirus (Rapid PCR) B.pert (TEM-PCR) B.parapertussis DNA PCR C. pneumoniae DNA (PCR) C. difficile Tox B Gene Coronavirus OC43 (PCR) Coronavirus HKU1 (PCR) Coronavirus 229E (PCR) Coronavirus NL63 (PCR) Human Metapneumovir PCR Influenza A (RT-PCR) Influenza B (RT-PCR) M. pneumoniae (PCR) Parainfluenza 1 (PCR) Parainfluenza 2 (PCR) Parainfluenza 3 (PCR) Parainfluenza 4 (PCR) RSV (PCR) Entero/Rhino (PCR) SARS-CoV-2 RNA (RT-PCR) Microbiology Microbiology Results: Microbiology 12/06/22 06:55 Gram Stain - Final Cerebrospinal Fluid CSF Examination - Final Fluid Description - Final Assessment and Plan (1) Sepsis: Status: Acute (2) Colitis: Status: Acute Plan 52-year-old female with history hypertension, [id number] type 2 diabetes, fibromyalgia, mild persistent asthma, and restless leg syndrome to be admitted for sepsis of unclear etiology. #Sepsis due to colitis, clinically improving, fever resolved, continue Zosyn, stop Vanco # headache -question viral etiology -head CT negative, analgesic PRN # [id number] type 2 diabetes -Humalog on sliding scale -POC glucose -diabetic diet -hold oral antihyperglycemics # mild persistent asthma, no exacerbation -continue Flovent, albuterol p.r.n. # fibromyalgia/restless leg syndrome -continue home meds DVT prophylaxis-Lovenox Full code need for inpatient Time Spent With Patient Time: Total time managing care of this patient today ____ minutes. Quality Stroke Does the patient have a stroke diagnosis?: No VTE Prior VTE?: No VTE Risk Level:: Medical - moderate - high VTE Device Contraindication: Treatment Not Indicated VTE Drug Contraindication: N/A - Med Ordered
[2022-12-07 11:30] LABS: Glucose, Whole Blood 148 mg/dL (60-115)
[2022-12-07] MEDS: Enoxaparin Sodium 40 MG/0.4 ML SYRINGE SUBCUT (14:33)
[2022-12-07 15:53] LABS: Vancomycin Random 6.3 mcg/mL (15-20)
[2022-12-07 15:54] LABS: Glucose, Whole Blood 153 mg/dL (60-115)
[2022-12-07] MEDS: Insulin Lispro 100 UNIT/ML 3 ML VIAL SUBCUT (17:07)
[2022-12-07 21:19] LABS: Glucose, Whole Blood 110 mg/dL (60-115)
[2022-12-07] MEDS: Pramipexole Di-HCL 0.25 MG TABLET 0.5 MG PO (21:41)
[2022-12-08] VITALS (8 sets, daily range): BP systolic 101–135; BP diastolic 59–80; PULSE 68–96; RESP 16–20; TEMP 36–36.8; O2SAT 93–98
[2022-12-08] MEDS: Piperacillin Sodium/Tazobactam 4.5 GM in 0.9 % Sodium Chloride 100 ML IV ×4 (00:45→18:24)
[2022-12-08] MEDS: Morphine Sulfate 2 MG/ML CARTRIDGE IVPUSH ×2 (01:29→08:17)
[2022-12-08 06:14] LABS: Creatinine Clr Calc Pharmacy 86.9; Estimated Glomerular Filt Rate > 60
[2022-12-08] MEDS: Omeprazole 40 MG CAPSULE.DR PO (06:26)
[2022-12-08 07:26] LABS: Glucose, Whole Blood 143 mg/dL (60-115)
[2022-12-08] MEDS: Acetaminophen 325 MG TABLET 650 MG PO ×2 (07:36→15:46)
[2022-12-08] MEDS: Fluticasone Propionate 250 MCG BLST.W.DEV 1 PUFF INHALE ×2 (07:36→20:05)
[2022-12-08] MEDS: 0.9 % Sodium Chloride Flush 3 ML SYRINGE IVFLUSH ×2 (08:09→17:18)
[2022-12-08] MEDS: Dicyclomine HCl 10 MG CAPSULE PO ×3 (08:09→20:29)
[2022-12-08] MEDS: Pregabalin 200 MG CAPSULE PO ×3 (08:09→20:28)
[2022-12-08] MEDS: Ascorbic Acid 500 MG TABLET 1000 MG PO ×2 (08:09→20:29)
[2022-12-08] MEDS: Ferrous Sulfate 324 MG TABLET.DR PO (08:09)
[2022-12-08] MEDS: Cholecalciferol (Vitamin D3) 25 MCG TABLET 50 MCG PO ×2 (08:10→20:25)
--- NOTE | 2022-12-08 10:45 | HO.PM.IMPN ---
Subjective Subjective Date of Service: 12/08/22 Interval History: Persistent heqadache, no fever, no nuchal rigidity, abdominal pain, no n/v Physical Exam Vital Signs: Vital Signs: Last Vital Signs Temp 97.3 F 12/08/22 07:09 Pulse 84 12/08/22 07:38 Resp 16 12/08/22 07:38 BP 135/80 12/08/22 07:09 Pulse Ox 95 12/08/22 07:09 O2 Del Method Room Air 12/08/22 07:09 BMI result Body Mass Index 29.3 Const: Other: General: AO X 3, no acute distress Resp: CTA bilateral CVS: S1,S2,RRR GI: +BS,mild tenderness, no distention Skin: No rash Neuro: motor grossly intact Psych: appropriate affect Objective Data Active Medications Acetaminophen (Acetaminophen 325 Mg Tablet) 650 mg PO Q6H PRN PRN Reason: Pain, Mild (Pain Scale 1-3) Last Admin: 12/08/22 07:36 Dose: 650 mg Documented By: EDI Acetaminophen/Butalbital/Caffeine (Butalb/Acetamin/Caff 50/325/40 Tablet) 1 tab PO Q4H PRN PRN Reason: Headache Albuterol Sulfate (Albuterol Sulfate (0.083%) 2.5 Mg/3 Ml Vial.Neb) 2.5 mg INHALE TID PRN PRN Reason: Shortness Of Breath Or Wheezing Albuterol Sulfate (Albuterol Sulfate 90 Mcg 8 Gm Inhaler) 2 puff INHALE QID PRN PRN Reason: Shortness Of Breath Or Wheezing Ascorbic Acid (Ascorbic Acid 500 Mg Tablet) 1,000 mg PO BID [facility] Last Admin: 12/08/22 08:09 Dose: 1,000 mg Documented By: LADI Dextrose (Dextrose 50 % 25 Gm/50 Ml Syringe) 25 gm IVPUSH Q15M PRN; Protocol PRN Reason: per Hypoglycemia Standing Ord. Dicyclomine HCl (Dicyclomine Hcl 10 Mg Capsule) 10 mg PO TID [facility] Last Admin: 12/08/22 08:09 Dose: 10 mg Documented By: LADI Docusate Sodium (Docusate Sodium 100 Mg Capsule) 100 mg PO DAILY PRN PRN Reason: Constipation Enoxaparin Sodium (Enoxaparin Sodium 40 Mg/0.4 Ml Syringe) 40 mg SUBCUT Q24H [facility] Last Admin: 12/07/22 14:33 Dose: 40 mg Documented By: EVA Ferrous Sulfate (Ferrous Sulfate 324 Mg Tablet.) 324 mg PO DAILY [facility] Last Admin: 12/08/22 08:09 Dose: 324 mg Documented By: LADI Fluticasone Propionate (Fluticasone Propionate 250 Mcg Blst.W.Dev) 1 puff INHALE RBID [facility] Last Admin: 12/08/22 07:36 Dose: 1 puff Documented By: BERNADINE Glucose (Glucose Gel 15 Gm Gel..Gram.) 15 gm PO Q15M PRN; Protocol PRN Reason: per Hypoglycemia Standing Ord. Hydromorphone HCl (Hydromorphone Hcl 0.5 Mg/0.5 Ml Syringe) 0.5 mg IVPUSH Q4H PRN; Protocol PRN Reason: Pain, Severe (Pain Scale 7-10) Piperacillin Sod/Tazobactam (Sod 4.5 gm/ Sodium Chloride) 100 mls @ 200 mls/hr IV Q6H [facility] Last Infusion: 12/08/22 08:21 Dose: 0 mls/hr Documented By: LADI Insulin Human Lispro (Insulin Lispro 100 Unit/Ml 3 Ml Vial) 0 unit SUBCUT QIDACHS [facility]; Protocol Last Admin: 12/08/22 08:09 Dose: Not Given Documented By: LADI Non-Admin Reason: No Insulin Coverage Omeprazole (Omeprazole 40 Mg Capsule.) 40 mg PO DAILY@0630 [facility] Last Admin: 12/08/22 06:26 Dose: 40 mg Documented By: LILA Ondansetron HCl (Ondansetron Hcl 4 Mg/2 Ml Vial) 4 mg IVPUSH Q8H PRN PRN Reason: Nausea and Vomiting Pharmacy Consult (Consult Rx Perform Med Rec) 1 each MISCELLANE ONCE PRN PRN Reason: Consult order Pharmacy Consult (Consult Rx Vancomycin Dosing) 1 each MISCELLANE DAILY PRN PRN Reason: Consult order Pramipexole Dihydrochloride (Pramipexole Di-Hcl 0.25 Mg Tablet) 0.5 mg PO BEDTIME [facility] Last Admin: 12/07/22 21:41 Dose: 0.5 mg Documented By: LILA Pregabalin (Pregabalin 200 Mg Capsule) 200 mg PO TID [facility] Last Admin: 12/08/22 08:09 Dose: 200 mg Documented By: LADI Sodium Chloride (0.9 % Sodium Chloride Flush 3 Ml Syringe) 3 ml IVFLUSH QSHIFT [facility] Last Admin: 12/08/22 08:09 Dose: 3 ml Documented By: LADI Vitamin D (Cholecalciferol (Vitamin D3) 25 Mcg Tablet) 50 mcg PO BID [facility] Last Admin: 12/08/22 08:10 Dose: 50 mcg Documented By: LADI Labs 12/07/22 05:37 12/08/22 05:40 Labs: Laboratory Results - last 24 hr 12/06/22 12/07/22 12/07/22 14:03 11:25 15:04 Estim Creat Clear Calc Estimated GFR POC Glucose 148 H Stl C. cayetanensis PCR Cancelled Stool Rotavirus A PCR Cancelled Stl Adenov F PCR Cancelled Stool Astrovirus (PCR) Cancelled Stool Campylobacter PCR Cancelled Stool Cryptosporidium PCR Cancelled Stl Sh Tox Pr E STEC PCR Cancelled Stool E coli O157 PCR Cancelled Stl Enterotoxigenic E PCR Cancelled Stool EPEC (PCR) Cancelled Stool EAEC (PCR) Cancelled Stl E. histolytica PCR Cancelled Stool Giardia Lamblia PCR Cancelled Stl P. shigelloides PCR Cancelled Stool Salmonella PCR Cancelled Stool Sapovirus (PCR) Cancelled Stl Shigella/EIEC PCR Cancelled St Y.enterocolitica PCR Cancelled Stool Vibrio (PCR) Cancelled Stl Vibrio cholerae PCR Cancelled Stl Norovirus GI/GII PCR Cancelled Random Vancomycin 6.3 L 12/07/22 12/07/22 12/08/22 15:42 21:11 05:40 Estim Creat Clear Calc 86.9 Estimated GFR > 60 POC Glucose 153 H 110 Stl C. cayetanensis PCR Stool Rotavirus A PCR Stl Adenov F PCR Stool Astrovirus (PCR) Stool Campylobacter PCR Stool Cryptosporidium PCR Stl Sh Tox Pr E STEC PCR Stool E coli O157 PCR Stl Enterotoxigenic E PCR Stool EPEC (PCR) Stool EAEC (PCR) Stl E. histolytica PCR Stool Giardia Lamblia PCR Stl P. shigelloides PCR Stool Salmonella PCR Stool Sapovirus (PCR) Stl Shigella/EIEC PCR St Y.enterocolitica PCR Stool Vibrio (PCR) Stl Vibrio cholerae PCR Stl Norovirus GI/GII PCR Random Vancomycin 12/08/22 07:19 Estim Creat Clear Calc Estimated GFR POC Glucose 143 H Stl C. cayetanensis PCR Stool Rotavirus A PCR Stl Adenov F 40/41 PCR Stool Astrovirus (PCR) Stool Campylobacter PCR Stool Cryptosporidium PCR Stl Sh Tox Pr E STEC PCR Stool E coli O157 PCR Stl Enterotoxigenic E PCR Stool EPEC (PCR) Stool EAEC (PCR) Stl E. histolytica PCR Stool Giardia Lamblia PCR Stl P. shigelloides PCR Stool Salmonella PCR Stool Sapovirus (PCR) Stl Shigella/EIEC PCR St Y.enterocolitica PCR Stool Vibrio (PCR) Stl Vibrio cholerae PCR Stl Norovirus GI/GII PCR Random Vancomycin Microbiology Microbiology Results: Microbiology 12/06/22 08:33 Blood Culture - Preliminary Blood - Venous No growth after 48 hours. 12/06/22 06:55 Gram Stain - Final Cerebrospinal Fluid CSF Examination - Final Fluid Description - Final CSF Culture - Preliminary No growth after 2 days 12/06/22 Unknown Urine Culture - Final Urine clean catch - Urine frederick top No growth. 12/06/22 08:47 Blood Culture - Preliminary Blood - Venous No growth after 24 hours. Assessment and Plan (1) Colitis: Status: Acute (2) Sepsis: Status: Acute Plan 52-year-old female with history hypertension, [id number] type 2 diabetes, fibromyalgia, mild persistent asthma, and restless leg syndrome to be admitted for sepsis of unclear etiology. #Sepsis due to colitis, clinically improving, fever resolved, continue Zosyn, stop Vanco # headache -question viral etiology -head CT negative, analgesic PRN # [id number] type 2 diabetes -Humalog on sliding scale -POC glucose -diabetic diet -hold oral antihyperglycemics # mild persistent asthma, no exacerbation -continue Flovent, albuterol p.r.n. # fibromyalgia/restless leg syndrome -continue home meds DVT prophylaxis-Lovenox Full code need for inpatient Time Spent With Patient Time: Total time managing care of this patient today ____ minutes. Quality Stroke Does the patient have a stroke diagnosis?: No VTE Prior VTE?: No VTE Risk Level:: Medical - moderate - high VTE Device Contraindication: Treatment Not Indicated VTE Drug Contraindication: N/A - Med Ordered
--- NOTE | 2022-12-08 10:52 | HO.PM.IMPN ---
Subjective Subjective Date of Service: 12/08/22 Interval History: Persistent heqadache, no fever, no nuchal rigidity, abdominal pain, no n/v--says not better since yesterday Physical Exam Vital Signs: Vital Signs: Last Vital Signs Temp 97.3 F 12/08/22 07:09 Pulse 84 12/08/22 07:38 Resp 16 12/08/22 07:38 BP 135/80 12/08/22 07:09 Pulse Ox 95 12/08/22 07:09 O2 Del Method Room Air 12/08/22 07:09 BMI result Body Mass Index 29.3 Const: Other: General: AO X 3, no acute distress heent: no nuchal rigidity Resp: CTA bilateral CVS: S1,S2,RRR GI: +BS,mild tenderness, no distention Skin: No rash Neuro: motor grossly intact Psych: appropriate affect Objective Data Active Medications Acetaminophen (Acetaminophen 325 Mg Tablet) 650 mg PO Q6H PRN PRN Reason: Pain, Mild (Pain Scale 1-3) Last Admin: 12/08/22 07:36 Dose: 650 mg Documented By: EDI Acetaminophen/Butalbital/Caffeine (Butalb/Acetamin/Caff 50/325/40 Tablet) 1 tab PO Q4H PRN PRN Reason: Headache Albuterol Sulfate (Albuterol Sulfate (0.083%) 2.5 Mg/3 Ml Vial.Neb) 2.5 mg INHALE TID PRN PRN Reason: Shortness Of Breath Or Wheezing Albuterol Sulfate (Albuterol Sulfate 90 Mcg 8 Gm Inhaler) 2 puff INHALE QID PRN PRN Reason: Shortness Of Breath Or Wheezing Ascorbic Acid (Ascorbic Acid 500 Mg Tablet) 1,000 mg PO BID [facility] Last Admin: 12/08/22 08:09 Dose: 1,000 mg Documented By: LADI Dextrose (Dextrose 50 % 25 Gm/50 Ml Syringe) 25 gm IVPUSH Q15M PRN; Protocol PRN Reason: per Hypoglycemia Standing Ord. Dicyclomine HCl (Dicyclomine Hcl 10 Mg Capsule) 10 mg PO TID [facility] Last Admin: 12/08/22 08:09 Dose: 10 mg Documented By: LADI Docusate Sodium (Docusate Sodium 100 Mg Capsule) 100 mg PO DAILY PRN PRN Reason: Constipation Enoxaparin Sodium (Enoxaparin Sodium 40 Mg/0.4 Ml Syringe) 40 mg SUBCUT Q24H [facility] Last Admin: 12/07/22 14:33 Dose: 40 mg Documented By: EVA Ferrous Sulfate (Ferrous Sulfate 324 Mg Tablet.) 324 mg PO DAILY [facility] Last Admin: 12/08/22 08:09 Dose: 324 mg Documented By: LADI Fluticasone Propionate (Fluticasone Propionate 250 Mcg Blst.W.Dev) 1 puff INHALE RBID [facility] Last Admin: 12/08/22 07:36 Dose: 1 puff Documented By: BERNADINE Glucose (Glucose Gel 15 Gm Gel..Gram.) 15 gm PO Q15M PRN; Protocol PRN Reason: per Hypoglycemia Standing Ord. Hydromorphone HCl (Hydromorphone Hcl 0.5 Mg/0.5 Ml Syringe) 0.5 mg IVPUSH Q4H PRN; Protocol PRN Reason: Pain, Severe (Pain Scale 7-10) Piperacillin Sod/Tazobactam (Sod 4.5 gm/ Sodium Chloride) 100 mls @ 200 mls/hr IV Q6H [facility] Last Infusion: 12/08/22 08:21 Dose: 0 mls/hr Documented By: LADI Insulin Human Lispro (Insulin Lispro 100 Unit/Ml 3 Ml Vial) 0 unit SUBCUT QIDACHS [facility]; Protocol Last Admin: 12/08/22 08:09 Dose: Not Given Documented By: LADI Non-Admin Reason: No Insulin Coverage Omeprazole (Omeprazole 40 Mg Capsule.) 40 mg PO DAILY@0630 [facility] Last Admin: 12/08/22 06:26 Dose: 40 mg Documented By: LILA Ondansetron HCl (Ondansetron Hcl 4 Mg/2 Ml Vial) 4 mg IVPUSH Q8H PRN PRN Reason: Nausea and Vomiting Pharmacy Consult (Consult Rx Perform Med Rec) 1 each MISCELLANE ONCE PRN PRN Reason: Consult order Pharmacy Consult (Consult Rx Vancomycin Dosing) 1 each MISCELLANE DAILY PRN PRN Reason: Consult order Pramipexole Dihydrochloride (Pramipexole Di-Hcl 0.25 Mg Tablet) 0.5 mg PO BEDTIME [facility] Last Admin: 12/07/22 21:41 Dose: 0.5 mg Documented By: LILA Pregabalin (Pregabalin 200 Mg Capsule) 200 mg PO TID [facility] Last Admin: 12/08/22 08:09 Dose: 200 mg Documented By: LADI Sodium Chloride (0.9 % Sodium Chloride Flush 3 Ml Syringe) 3 ml IVFLUSH QSHIFT [facility] Last Admin: 12/08/22 08:09 Dose: 3 ml Documented By: LADI Vitamin D (Cholecalciferol (Vitamin D3) 25 Mcg Tablet) 50 mcg PO BID [facility] Last Admin: 12/08/22 08:10 Dose: 50 mcg Documented By: LADI Labs 12/07/22 05:37 12/08/22 05:40 Labs: Laboratory Results - last 24 hr 12/06/22 12/07/22 12/07/22 14:03 11:25 15:04 Estim Creat Clear Calc Estimated GFR POC Glucose 148 H Stl C. cayetanensis PCR Cancelled Stool Rotavirus A PCR Cancelled Stl Adenov F PCR Cancelled Stool Astrovirus (PCR) Cancelled Stool Campylobacter PCR Cancelled Stool Cryptosporidium PCR Cancelled Stl Sh Tox Pr E STEC PCR Cancelled Stool E coli O157 PCR Cancelled Stl Enterotoxigenic E PCR Cancelled Stool EPEC (PCR) Cancelled Stool EAEC (PCR) Cancelled Stl E. histolytica PCR Cancelled Stool Giardia Lamblia PCR Cancelled Stl P. shigelloides PCR Cancelled Stool Salmonella PCR Cancelled Stool Sapovirus (PCR) Cancelled Stl Shigella/EIEC PCR Cancelled St Y.enterocolitica PCR Cancelled Stool Vibrio (PCR) Cancelled Stl Vibrio cholerae PCR Cancelled Stl Norovirus GI/GII PCR Cancelled Random Vancomycin 6.3 L 12/07/22 12/07/22 12/08/22 15:42 21:11 05:40 Estim Creat Clear Calc 86.9 Estimated GFR > 60 POC Glucose 153 H 110 Stl C. cayetanensis PCR Stool Rotavirus A PCR Stl Adenov F PCR Stool Astrovirus (PCR) Stool Campylobacter PCR Stool Cryptosporidium PCR Stl Sh Tox Pr E STEC PCR Stool E coli O157 PCR Stl Enterotoxigenic E PCR Stool EPEC (PCR) Stool EAEC (PCR) Stl E. histolytica PCR Stool Giardia Lamblia PCR Stl P. shigelloides PCR Stool Salmonella PCR Stool Sapovirus (PCR) Stl Shigella/EIEC PCR St Y.enterocolitica PCR Stool Vibrio (PCR) Stl Vibrio cholerae PCR Stl Norovirus GI/GII PCR Random Vancomycin 12/08/22 07:19 Estim Creat Clear Calc Estimated GFR POC Glucose 143 H Stl C. cayetanensis PCR Stool Rotavirus A PCR Stl Adenov F 40/41 PCR Stool Astrovirus (PCR) Stool Campylobacter PCR Stool Cryptosporidium PCR Stl Sh Tox Pr E STEC PCR Stool E coli O157 PCR Stl Enterotoxigenic E PCR Stool EPEC (PCR) Stool EAEC (PCR) Stl E. histolytica PCR Stool Giardia Lamblia PCR Stl P. shigelloides PCR Stool Salmonella PCR Stool Sapovirus (PCR) Stl Shigella/EIEC PCR St Y.enterocolitica PCR Stool Vibrio (PCR) Stl Vibrio cholerae PCR Stl Norovirus GI/GII PCR Random Vancomycin Microbiology Microbiology Results: Microbiology 12/06/22 08:47 Blood Culture - Preliminary Blood - Venous No growth after 48 hours. 12/06/22 08:33 Blood Culture - Preliminary Blood - Venous No growth after 48 hours. 12/06/22 06:55 Gram Stain - Final Cerebrospinal Fluid CSF Examination - Final Fluid Description - Final CSF Culture - Preliminary No growth after 2 days 12/06/22 Unknown Urine Culture - Final Urine clean catch - Urine frederick top No growth. Assessment and Plan (1) Colitis: Status: Acute Plan 52-year-old female with history hypertension, [id number] type 2 diabetes, fibromyalgia, mild persistent asthma, and restless leg syndrome to be admitted for sepsis of unclear etiology. #Sepsis due to colitis, clinically improving, fever resolved, continue Zosyn, gi consult # headache -question viral etiology -head CT negative, analgesic PRN, neurology consult; if pesists neuro consult # [id number] type 2 diabetes -Humalog on sliding scale -POC glucose -diabetic diet -hold oral antihyperglycemics # mild persistent asthma, no exacerbation -continue Flovent, albuterol p.r.n. # fibromyalgia/restless leg syndrome -continue home meds DVT prophylaxis-Lovenox Full code need for inpatient colitis on iv Abx Time Spent With Patient Time: Total time managing care of this patient today ____ minutes. Quality Stroke Does the patient have a stroke diagnosis?: No VTE Prior VTE?: No VTE Risk Level:: Medical - moderate - high VTE Device Contraindication: Treatment Not Indicated VTE Drug Contraindication: N/A - Med Ordered
[2022-12-08 11:18] LABS: Glucose, Whole Blood 153 mg/dL (60-115)
[2022-12-08] MEDS: Butalb/Acetamin/Caff 50/325/40 TABLET 1 TAB PO ×2 (12:56→18:25)
[2022-12-08] MEDS: HYDROmorphone HCl 0.5 MG/0.5 ML SYRINGE IVPUSH ×2 (12:56→18:26)
[2022-12-08] MEDS: Insulin Lispro 100 UNIT/ML 3 ML VIAL SUBCUT ×2 (12:57→20:30)
--- NOTE | 2022-12-08 14:02 | PM.NEUROCN ---
History of Present Illness Data of Consult Service Date: 12/08/22 Primary Care Provider: Nikki Crain MD [facility] Reason for consult: Headache 52 years old woman with previous diagnosis of hypertension diabetes and fibromyalgia came to hospital with severe headache and blurred vision. She said that she did not have such headaches in the past. This was going on for few days. Initial evaluation also was suggestive of urinary tract infection. Now she was feeling better and when I saw her she was listening to loud music. Review of Systems Review of Systems: Blurred vision. [facility] Past Medical History Medical History Asthma Cholecystitis Diabetes Fibromyalgia HTN (hypertension) Restless leg syndrome Surgical History Surgical History History of appendectomy Social History Social History Alcohol intake: current Alcohol intake frequency: holidays/special occasions only Patient Tobacco Use Status: Never used Tobacco service: No Gender identity: Female Meds Allergies Allergy/AdvReac Type Severity Reaction Status Date / Time tramadol [TRAMADOL] Allergy Unknown RASH , rash Verified 12/01/22 11:14 Active Medications: Current Medications Acetaminophen (Acetaminophen 325 Mg Tablet) 650 mg PO Q6H PRN PRN Reason: Pain, Mild (Pain Scale 1-3) Last Admin: 12/08/22 07:36 Dose: 650 mg Acetaminophen/Butalbital/Caffeine (Butalb/Acetamin/Caff 50/325/40 Tablet) 1 tab PO Q4H PRN PRN Reason: Headache Last Admin: 12/08/22 12:56 Dose: 1 tab Albuterol Sulfate (Albuterol Sulfate (0.083%) 2.5 Mg/3 Ml Vial.Neb) 2.5 mg INHALE TID PRN PRN Reason: Shortness Of Breath Or Wheezing Albuterol Sulfate (Albuterol Sulfate 90 Mcg 8 Gm Inhaler) 2 puff INHALE QID PRN PRN Reason: Shortness Of Breath Or Wheezing Ascorbic Acid (Ascorbic Acid 500 Mg Tablet) 1,000 mg PO BID [facility] Last Admin: 12/08/22 08:09 Dose: 1,000 mg Dextrose (Dextrose 50 % 25 Gm/50 Ml Syringe) 25 gm IVPUSH Q15M PRN; Protocol PRN Reason: per Hypoglycemia Standing Ord. Dicyclomine HCl (Dicyclomine Hcl 10 Mg Capsule) 10 mg PO TID [facility] Last Admin: 12/08/22 08:09 Dose: 10 mg Docusate Sodium (Docusate Sodium 100 Mg Capsule) 100 mg PO DAILY PRN PRN Reason: Constipation Enoxaparin Sodium (Enoxaparin Sodium 40 Mg/0.4 Ml Syringe) 40 mg SUBCUT Q24H [facility] Last Admin: 12/07/22 14:33 Dose: 40 mg Ferrous Sulfate (Ferrous Sulfate 324 Mg Tablet.) 324 mg PO DAILY [facility] Last Admin: 12/08/22 08:09 Dose: 324 mg Fluticasone Propionate (Fluticasone Propionate 250 Mcg Blst.W.Dev) 1 puff INHALE RBID [facility] Last Admin: 12/08/22 07:36 Dose: 1 puff Glucose (Glucose Gel 15 Gm Gel..Gram.) 15 gm PO Q15M PRN; Protocol PRN Reason: per Hypoglycemia Standing Ord. Hydromorphone HCl (Hydromorphone Hcl 0.5 Mg/0.5 Ml Syringe) 0.5 mg IVPUSH Q4H PRN; Protocol PRN Reason: Pain, Severe (Pain Scale 7-10) Last Admin: 12/08/22 12:56 Dose: 0.5 mg Piperacillin Sod/Tazobactam (Sod 4.5 gm/ Sodium Chloride) 100 mls @ 200 mls/hr IV Q6H [facility] Last Infusion: 12/08/22 13:39 Dose: Infused Insulin Human Lispro (Insulin Lispro 100 Unit/Ml 3 Ml Vial) 0 unit SUBCUT QIDACHS [facility]; Protocol Last Admin: 12/08/22 12:57 Dose: 2 unit Omeprazole (Omeprazole 40 Mg Capsule.) 40 mg PO DAILY@0630 [facility] Last Admin: 12/08/22 06:26 Dose: 40 mg Ondansetron HCl (Ondansetron Hcl 4 Mg/2 Ml Vial) 4 mg IVPUSH Q8H PRN PRN Reason: Nausea and Vomiting Pharmacy Consult (Consult Rx Perform Med Rec) 1 each MISCELLANE ONCE PRN PRN Reason: Consult order Pharmacy Consult (Consult Rx Vancomycin Dosing) 1 each MISCELLANE DAILY PRN PRN Reason: Consult order Pramipexole Dihydrochloride (Pramipexole Di-Hcl 0.25 Mg Tablet) 0.5 mg PO BEDTIME [facility] Last Admin: 12/07/22 21:41 Dose: 0.5 mg Pregabalin (Pregabalin 200 Mg Capsule) 200 mg PO TID [facility] Last Admin: 12/08/22 08:09 Dose: 200 mg Sodium Chloride (0.9 % Sodium Chloride Flush 3 Ml Syringe) 3 ml IVFLUSH QSHIFT [facility] Last Admin: 12/08/22 08:09 Dose: 3 ml Vitamin D (Cholecalciferol (Vitamin D3) 25 Mcg Tablet) 50 mcg PO BID [facility] Last Admin: 12/08/22 08:10 Dose: 50 mcg Home Medications Medication Instructions Recorded Confirmed Last Taken Type albuterol sulfate 2.5 mg/3 mL 2.5 mg inhalation TID PRN 12/06/22 12/06/22 Unknown History (0.083 %) solution for nebulization Shortness Of Breath Or Wheezing albuterol sulfate 90 mcg/actuation 2 puff inhalation QID PRN 12/06/22 12/06/22 Unknown History aerosol inhaler (Ventolin HFA) Shortness Of Breath Or Wheezing ascorbic acid (vitamin C) 1,000 mg 1,000 mg PO BID 12/06/22 12/06/22 Unknown History tablet cholecalciferol (vitamin D3) 50 50 mcg PO BID 12/06/22 12/06/22 Unknown History mcg (2,000 unit) capsule dicyclomine 10 mg capsule 10 mg PO TID 12/06/22 12/06/22 Unknown History ferrous sulfate 325 mg (65 mg 325 mg PO QAM 12/06/22 12/06/22 Unknown History iron) tablet (FeroSul) fluticasone propionate 220 1 puff inhalation BID 12/06/22 12/06/22 Unknown History mcg/actuation HFA aerosol inhaler (Flovent HFA) glimepiride 4 mg tablet 4 mg PO QPM 12/06/22 12/06/22 Unknown History metformin 500 mg tablet,extended 1,000 mg PO BID 12/06/22 12/06/22 Unknown History release 24 hr naproxen 500 mg tablet 500 mg PO BID PRN Pain 12/06/22 12/06/22 Unknown History omeprazole 40 mg capsule,delayed 40 mg PO QAM 12/06/22 12/06/22 Unknown History release pramipexole 0.5 mg tablet 0.5 mg PO BEDTIME 12/06/22 12/06/22 Unknown History pregabalin 200 mg capsule 200 mg PO TID 12/06/22 12/06/22 Unknown History semaglutide 0.25 mg or 0.5 mg (2 0.5 mg subcut FR 12/06/22 12/06/22 12/03/22 History mg/3 mL) subcutaneous pen injector (Ozempic) Physical Exam Vital Signs: Vital Signs: Last Vital Signs Temp 97.4 F 12/08/22 11:09 Pulse 80 12/08/22 11:09 Resp 18 12/08/22 11:09 BP 124/79 12/08/22 11:09 Pulse Ox 95 12/08/22 11:09 O2 Del Method Room Air 12/08/22 11:09 BMI result Body Mass Index 29.3 Neuro: Other: She is alert and awake with normal spontaneity of speech fluency comprehension and affect. Visual maldonado are full to confrontation. Face is symmetrical. Neck is supple. Deep tendon reflexes are trace to absent with flexor plantars. Speech is normal. Results Labs 12/07/22 05:37 12/08/22 05:40 Labs: BMP 12/08/22 05:40 Creatinine 0.[address] was unremarkable Microbiology Microbiology Results: Microbiology 12/06/22 08:47 Blood - Venous Blood Culture - Preliminary No growth after 48 hours. 12/06/22 08:33 Blood - Venous Blood Culture - Preliminary No growth after 48 hours. 12/06/22 06:55 Cerebrospinal Fluid Gram Stain - Final 12/06/22 06:55 Cerebrospinal Fluid CSF Examination - Final 12/06/22 06:55 Cerebrospinal Fluid Fluid Description - Final 12/06/22 06:55 Cerebrospinal Fluid CSF Culture - Preliminary No growth after 2 days 12/06/22 Unknown Urine clean catch - Urine frederick top Urine Culture - Final No growth. Assessment and Plan (1) Acute intractable headache: Status: Acute 52 years old woman with severe headache probably related to infection or urinary tract infection. She might have underlying history of migraine but she was denying that but at the same time she carried diagnosis of fibromyalgia. In any case, my recommendation is to treat this headache with sumatriptan as needed. Time Spent With Patient Time: Total time managing care of this patient today ____ minutes. Procedures Date of Service Date of Service: 12/08/22
[2022-12-08] MEDS: Enoxaparin Sodium 40 MG/0.4 ML SYRINGE SUBCUT (15:45)
[2022-12-08 16:04] LABS: Glucose, Whole Blood 113 mg/dL (60-115)
--- NOTE | 2022-12-08 19:16 | PM.EVENT ---
Event Note Date of Service: 12/08/22 Event Note: GI Consult-Full note dictated-History from the patient with and daughter helping to interpret, as well as from the EMR Imp/Recs: I suspect her presentation with her systemic illness and abnormal CT scan not long after eating at a [employer] is most suggestive of an infectious colitis. I don't think this represents IBD nor Ischemic colitis. At this time I would continue supportive care, stop antibiotics as there does not appear to be a specific infection that has been isolated, advance diet as tolerated, and observe. I don't think a colonoscopy is presently required. If diarrhea and problems persist please try to obtain a specimen for culture and let me know. I did review with her that she should obtain a referral to see me from her PCP such that we can follow up in the office and discuss a screening colonoscopy. The patient and her family were comfortable with this plan. Thanks Time Spent With Patient Time: Total time managing care of this patient today ____ minutes.
[2022-12-08 19:43] LABS: Glucose, Whole Blood 175 mg/dL (60-115)
[2022-12-08] MEDS: Pramipexole Di-HCL 0.25 MG TABLET 0.5 MG PO (20:29)
--- NOTE | 2022-12-08 21:57 | CONS_ITS ---
DATE OF SERVICE: 12/08/2022 REASON FOR CONSULTATION: Diarrhea, abdominal pain, and abnormal CT scan of colon. HISTORY OF PRESENT ILLNESS: This has been obtained from the patient, as well as from her and daughter who helped with some interpreting, and from the medical record. The patient is a 52-year-old female who describes that she was in her usual state of health up until about 2 days before admission when she ate a meal at a [employer]. She describes that within 24 hours, she began having some low-grade headaches, abdominal discomfort, and some loose stool. This increased in severity the following day, and prompted her to come to the hospital. Prior to this episode, she really did not have any particular GI complaints. She typically has a good appetite without any significant heartburn or dysphagia. Her bowel movements are usually fairly regular and without any signs of bleeding. She has never had a colonoscopy. She denies any known family history of inflammatory bowel disease nor GI malignancy. Upon arrival at the hospital she was having a fairly severe headache and gave a history of some abdominal discomfort with associated loose stools. Her workup here in the hospital has thus far been negative for any specific infection. She does report that her symptoms have perhaps improved a little bit, but really she is still not feeling particularly well. However, she was able to tolerate some food today. She has been afebrile over at least the past 24 hours. She does report that she is still having some mid-abdominal discomfort with loose stools, upwards of about 5 times today. She denies any hematochezia nor melena. She has had no nausea nor vomiting. There has been no obvious jaundice. Her workup in the hospital has thus far revealed negative cultures of urine and blood. She did have a lumbar puncture due to the headache and fever. This was negative for any sign of infection as well. A stool for C diff was negative. COVID was negative. MEDICATIONS: At home include albuterol, vitamin, dicyclomine, iron, Flovent, glimepiride, metformin, naproxen, pramipexole, pregabalin and Ozempic. Medications here in the hospital include acetaminophen, albuterol, vitamin C, vitamin D, dicyclomine, Colace, Lovenox, iron, Flonase, Dilaudid p.r.n., insulin, omeprazole, Zofran, IV Zosyn, pramipexole, pregabalin and vancomycin. PAST MEDICAL HISTORY: Cholecystectomy and appendectomy. Fibromyalgia. Diabetes mellitus. Asthma. Restless legs syndrome. SOCIAL HISTORY: She is . She does not smoke nor use any significant amounts of alcohol. FAMILY HISTORY: Negative for GI malignancy nor inflammatory bowel disease. REVIEW OF SYSTEMS: CONSTITUTIONAL: Prior to becoming ill, she was feeling well with good energy and good appetite, although she does have some fibromyalgia causing fatigue at times. Since becoming ill she has had some anorexia, headaches, and overall not feeling well. SKIN: No rash. No pruritus. CARDIAC: No chest pain. PULMONARY: No coughing or hemoptysis. GI: As above. Urinary: No dysuria. No hematuria. NEUROLOGIC: No seizures, but she has had headaches. PHYSICAL EXAMINATION: GENERAL: The patient is a pleasant, alert, comfortable-appearing female in no distress. SKIN: Warm and dry. HEENT: Anicteric sclerae. NECK: Supple. CHEST: Clear. CARDIAC: Normal S1, S2. ABDOMEN: Soft, nondistended. Normal bowel sounds. She does have some mild diffuse tenderness but without mass, rebound, or guarding. EXTREMITIES: Without edema. NEUROLOGIC: She is alert and oriented. LABORATORY DATA: As above. White blood cell count was 14,000 two days ago and yesterday was 9.1. Initial white blood cell count was 21,000. Hemoglobin 10.8, platelets 255,000. Potassium yesterday was 3.0. BUN 5, creatinine 0.6. Lactic acid level was 1.9 on admission. Total bilirubin 0.4, AST 18, ALT 32, alkaline phosphatase 131, albumin 4.4. Lipase 52. Stool for C. diff was negative. She had a CT scan of her abdomen and pelvis from 2 days ago, describing a somewhat thickened wall of the ascending colon with some surrounding inflammatory changes, suspicious for colitis. There was no sign of any bowel obstruction nor free air. There were some small nonobstructing kidney stones. There is fatty liver. IMPRESSION: In regard to the patient's GI history, this seems consistent with a probable infectious colitis given her description of having been feeling well prior to her meal in the restaurant. Subsequent to that, she began having some systemic symptoms including diarrhea, fever, headache, and abdominal discomfort. Given the CT scan findings and her clinical history, I would think we are dealing with some type of infectious enteritis. Her abdominal exam seems to be benign at the present time, and for the most part she does seem stable and does seem to be improving. Her white blood cell count has been normal as of yesterday, and her fever has also resolved. At this point, I do not think this represents anything such as inflammatory bowel disease nor ischemic colitis. I do not think she requires a colonoscopy on an urgent basis during the hospitalization at this time. At this point, I would continue supportive care, advance her diet, and if all cultures remain negative, I would try to stop her antibiotics. I did review with her that if things continue to improve, then I do not think she would need any intervention on my part. However, we did review that given her age and never having had a colonoscopy, she should speak with her primary care provider for a referral to see me such that we can schedule her for an elective screening colonoscopy. At this point, I do not see any stool cultures that were sent, and at this point I would hold off on doing that as she has already been on antibiotics and the infection started about 4 or 5 days ago. Thank you for the consultation. MD ED Moncada/SARAY / [phone] HILARIA
[2022-12-09] MEDS: Piperacillin Sodium/Tazobactam 4.5 GM in 0.9 % Sodium Chloride 100 ML IV ×2 (00:37→06:23)
[2022-12-09 03:44] VITALS: BP 124/80; PULSE 74; RESP 18; TEMP 37; O2SAT 95
[2022-12-09] MEDS: HYDROmorphone HCl 0.5 MG/0.5 ML SYRINGE IVPUSH (06:23)
[2022-12-09] MEDS: Omeprazole 40 MG CAPSULE.DR PO (06:23)
[2022-12-09] MEDS: Butalb/Acetamin/Caff 50/325/40 TABLET 1 TAB PO (06:23)
[2022-12-09 07:06] VITALS: BP 125/67; PULSE 76; RESP 20; TEMP 36.2; O2SAT 94
[2022-12-09] MEDS: Fluticasone Propionate 250 MCG BLST.W.DEV 1 PUFF INHALE (07:38)
[2022-12-09 07:39] VITALS: PULSE 63; RESP 16; O2SAT 96
[2022-12-09 07:40] LABS: Glucose, Whole Blood 142 mg/dL (60-115)
--- NOTE | 2022-12-09 08:15 | P.DS_ITS ---
DS: Providers Provider Date of Service: 12/09/22 Date of admission: 12/06/22 14:36 Primary care physician: Nikki Crain MD Consults: 12/08/22 10:13 Consult to Gastroenterology Routine Consulting Provider: Neil Khanna Reason for consultation: colitis Has provider been notified: No Consult to Neurology Routine Consulting Provider: [facility] Reason for consultation: Headache Has provider been notified: No DS: Diagnosis Discharge Diagnosis (1) Acute intractable headache: Status: Acute DS: Summary Hospital Course Hospital Course: 52-year-old female with history hypertension, ceg-qxcfkzj-auqjdoive type 2 diabetes, fibromyalgia, mild persistent asthma, and restless leg syndrome presented to the ED last night for evaluation of severe 10/10 headache with associated blurred vision.? She has no also complaining of periumbilical pain and has had 3 episodes of watery diarrhea today.? She denies any fevers at home, chills, sore throat, nasal congestion, sinus pressure, nausea, vomiting, urinary symptoms, melena, hematochezia, cough, shortness of breath, chest pain.? Denies any sick contacts.? No recent antibiotic use, bad foods, or recent travel.? On arrival, patient afebrile but tachycardic to 125.? Blood pressure is soft with systolic pressures in the 90s and low 100s.? Patient has developed fever since arrival to 101.7 is tachycardic to 140.? She is tachypneic to 24.? No hypoxia or hypotension.? On arrival had a leukocytosis of 21 which was repeated after IV fluids with improvement to 14.? Renal function normal, electrolyte levels normal.? Urinalysis showed 1+ leukocytes with some urinary sediment but no bacteria or nitrites.? Given concern for meningitis with the severe headache, lumbar puncture was performed without abnormal finding.? She is negative for COVID-19 and influenza.? Chest x-ray negative for acute cardiopulmonary process.? D-dimer was elevated greater than 800 so chest CTA was ordered and was negative for PE.? There were posterior interstitial prominence/coarsening with associated ground-glass opacities possibly mild interstitial lung disease.? There are no focal consolidations or pleural effusions.? Head CT negative for any acute intracranial abnormality.? CT of the sinuses also negative.? CT abdomen/pelvis pending.? In the ED, given IV ceftriaxone and azitrhomycin as well as morphine and tylenol and IVF. Patient was admitted for what appeared to be sepsis due to colitis and was initiated on Zosyn, and IVF and pain medical by the next day fever resolved and WBC was normal, she was seen by serging machine operator and believed that she likely suffered acute food poisoning, pain is better and recommended stopping Abx, she is tolerating regular diet. As for her headache there were no meningeal sings, Neurologist saw her and recommended Sumatriptin if needed but has not needed, she does not complaint of headache this morning Time Spent with Patient Time attestation: Total time managing care of this patient today ____ minutes. Discharge coordination time: Greater than 30 minutes Quality: Safe Use of Opioids Does Pt have an Active Cancer Diagnosis on the Problem List?: No Quality: Stroke Does the patient have a stroke diagnosis?: No Physical Exam Vital Signs: Vital Signs: Last Vital Signs Temp 97.2 F 12/09/22 07:06 Pulse 63 12/09/22 07:39 Resp 16 12/09/22 07:39 BP 125/67 12/09/22 07:06 Pulse Ox 94 12/09/22 07:06 O2 Del Method Room Air 12/09/22 07:06 BMI result Body Mass Index 29.3 General: AO X 3, no acute distress Resp: CTA bilateral CVS: S1,S2,RRR GI: +BS, NT, no distention Skin: No rash Neuro: motor grossly intact Psych: appropriate affect DS: Data Data Completed and Pending Labs on day of discharge: Laboratory Results - last 24 hr 12/08/22 12/08/22 12/08/22 11:12 15:59 19:36 POC Glucose 153 H 113 175 H 12/09/22 07:32 POC Glucose 142 H Preliminary micro results at discharge 12/06/22 08:47 Blood Culture - Preliminary Blood - Venous No growth after 48 hours. 12/06/22 08:33 Blood Culture - Preliminary Blood - Venous No growth after 48 hours. Discharge Plan Discharge Anticipated Discharge Date/Time: 12/09/22 08:12 Patient Disposition: Home, Self-Care Discharge Diagnosis: Acute food poisoning Referrals: Nikki Crain MD [Primary Care Provider] - 1 Week Discharge Medications: Continued ascorbic acid (vitamin C) 1,000 mg tablet 1,000 mg PO BID albuterol sulfate 2.5 mg /3 mL (0.083 %) solution for nebulization 2.5 mg inhalation TID PRN (Reason: Shortness Of Breath Or Wheezing) omeprazole 40 mg capsule,delayed release(DR/EC) 40 mg PO QAM pramipexole 0.5 mg tablet 0.5 mg PO BEDTIME ferrous sulfate [FeroSul] 325 mg (65 mg iron) tablet 325 mg PO QAM glimepiride 4 mg tablet 4 mg PO QPM fluticasone propionate [Flovent HFA] 220 mcg/actuation HFA aerosol inhaler 1 puff INHALATION BID albuterol sulfate [Ventolin HFA] 90 mcg/actuation HFA aerosol inhaler 2 puff inhalation QID PRN (Reason: Shortness Of Breath Or Wheezing) metformin 500 mg tablet extended release 24 hr 1,000 mg PO BID dicyclomine 10 mg capsule 10 mg PO TID naproxen 500 mg tablet 500 mg PO BID PRN (Reason: Pain) Rx Instructions: take with food pregabalin 200 mg capsule 200 mg PO TID cholecalciferol (vitamin D3) 50 mcg (2,000 unit) capsule 50 mcg PO BID Ozempic 0.25 mg or 0.5 mg (2 mg/3 mL) pen injector 0.5 mg subcut FR Discharge Orders: Discharge Order (Routine); Ordered 12/09/22 Ordered By: Justin Muir Diet: Advance to usual diet Activity on Discharge: As tolerated Stand Alone Forms: Patient Portal Discharge page Care Plan Goals: recovery from abdominal pain, colitis, headache Health Concerns: food poisoning Plan of Treatment: There is nothing furthr treatment indicated, the condition is expected to resolved on its own, stay well, hydrated and follow up with your Doctor in a week to 2 Assessment: as above
--- NOTE | 2022-12-09 08:41 | MHC.CM.PN ---
Patient has been medically cleared for dc to home today, self care.
[2022-12-09] MEDS: Pregabalin 200 MG CAPSULE PO (09:03)
[2022-12-09] MEDS: Cholecalciferol (Vitamin D3) 25 MCG TABLET 50 MCG PO (09:03)
[2022-12-09] MEDS: Dicyclomine HCl 10 MG CAPSULE PO (09:03)
[2022-12-09] MEDS: Ascorbic Acid 500 MG TABLET 1000 MG PO (09:03)
[2022-12-09] MEDS: 0.9 % Sodium Chloride Flush 3 ML SYRINGE IVFLUSH (09:03)
[2022-12-09] MEDS: Ferrous Sulfate 324 MG TABLET.DR PO (09:03)
[2022-12-09 11:15] LABS: Glucose, Whole Blood 140 mg/dL (60-115)
== END 2022-12-09 13:12 | disposition home or self-care (01) | DRG 720 ==
LOC: HO.ED 12-06 12:00 → HO.EDOVER 12-06 14:43 → HO.IMC 12-06 16:25
PROVIDERS: Emergency Medicine; Hospitalist; Physician Assistant; Admitting Provider Physician Assistant; Emergency Provider Emergency Medicine; PCP Pediatrics; Visit Provider Internal Medicine
DX: A41.9 Sepsis, unspecified organism (principal); A09 Infectious gastroenteritis and colitis, unspecified; E11.9 Type 2 diabetes mellitus without complications; R51.9 Headache, unspecified; J45.30 Mild persistent asthma, uncomplicated; M79.7 Fibromyalgia; G25.81 Restless legs syndrome; Z20.822 Contact with and (suspected) exposure to COVID-19; Z79.51 Long term (current) use of inhaled steroids; Z79.84 Long term (current) use of oral hypoglycemic drugs; Z79.85 Long-term (current) use of injectable non-insulin antidiabetic drugs; Z79.899 Other long term (current) drug therapy
CPT/HCPCS: 36415; 70450; 70486; 71046; 71275; 74176; 80048; 80053; 80202; 81001; 81003; 82565; 82945; 82947; 83605; 83690; 84157; 84484; 85025; 85379; 85610; 85730; 87015; 87040; 87070; 87086; 87205; 87493; 87502; 87507; 87633; 87635; 89051; 93005; 94640; 99285; J0456; J0696; J1170; J1200; J1650; J1885; J2270; J2543; J2550; J2765; J3370; Q9967

== ENCOUNTER → 2022-12-05 20:16 | Outpatient (BNV) | payer MEDICAID, SELFPAY | PROVIDERS: Emergency Provider Emergency Medicine; PCP Pediatrics; Visit Provider Internal Medicine Cardiovascular Disease | DX: R00.0 Tachycardia, unspecified (principal) | CPT/HCPCS: 93010 ==

== ENCOUNTER → 2022-12-06 12:38 | Outpatient (BNV) | payer MEDICAID, SELFPAY | PROVIDERS: Admitting Provider Physician Assistant; Emergency Provider Emergency Medicine; PCP Pediatrics; Visit Provider Internal Medicine Cardiovascular Disease | DX: R00.0 Tachycardia, unspecified (principal) | CPT/HCPCS: 93010 ==

== ENCOUNTER → 2022-12-06 14:36 | Outpatient (BNV) | payer MEDICAID, SELFPAY | PROVIDERS: Admitting Provider Physician Assistant; Emergency Provider Emergency Medicine; PCP Pediatrics; Visit Provider Physician Assistant | DX: R51.9 Headache, unspecified (principal) | CPT/HCPCS: 99223; 99232; 99239 ==

== ENCOUNTER 2022-12-24 09:09 | Outpatient (REF) | payer MEDICAID, SELFPAY ==
--- NOTE | 2022-12-24 09:12 | EMG_ITS ---
Chief complaint: Bilateral hand numbness Reason for referral: Evaluate for Carpal Tunnel Syndrome Referred by: Dr. Resendez Procedure done: Bilateral upper extremities NCS/EMG Precautions and/or limitations: None The limb temperature was monitored continuously and remained between 32-36 degrees C during the performance of the NCS. Nerve Conduction Studies Anti Sensory Summary Table ?Stim Site NR Onset (ms) Norm Onset (ms) Peak (ms) Norm Peak (ms) O-P Amp (?V) Norm O-P Amp Site1 Site2 Delta-0 (ms) Dist (cm) Demario (m/s) Norm Demario (m/s) Left Median Anti Sensory Run (2nd Digit) Wrist ? 2.8 3.9 <3.6 61.1 >10 Wrist 2nd Digit 2.8 14.0 50 Right Median Anti Sensory (2nd Digit) Wrist ? 3.0 3.8 <3.6 52.1 >10 Wrist 2nd Digit 3.0 14.0 47 Right Radial Anti Sensory (Thumb) Forearm ? 1.9 2.3 <3.1 0.7 Forearm Thumb 1.9 0.0 Left Ulnar Anti Sensory (5th Digit) Wrist ? 2.7 3.5 <3.7 24.4 >15.0 Wrist 5th Digit 2.7 14.0 52 Right Ulnar Anti Sensory (5th Digit) Wrist ? 2.9 3.5 <3.7 18.1 >15.0 Wrist 5th Digit 2.9 14.0 48 Motor Summary Table ?Stim Site NR Onset (ms) Norm Onset (ms) O-P Amp (mV) Norm O-P Amp iAmp (mV) Amp (1st) (%) Site1 Site2 Delta-0 (ms) Dist (cm) Demario (m/s) Norm Demario (m/s) Left Median Motor (Abd Poll Brev) Wrist ? 4.5 <3.9 5.6 >4.5 7.4 100.0 Elbow Wrist 3.2 17.5 55 >45 Elbow ? 7.7 5.4 7.0 96.4 Right Median Motor (Abd Poll Brev) Wrist ? 4.0 <3.9 10.3 >4.5 12.6 100.0 Elbow Wrist 3.3 17.0 52 >45 Elbow ? 7.3 9.4 11.4 91.3 Left Ulnar Motor (Abd Dig Minimi) Wrist ? 2.6 <3.0 7.4 >5 7.4 100.0 B Elbow Wrist 3.0 16.5 55 >45 B Elbow ? 5.6 7.0 7.2 94.6 A Elbow B Elbow 1.6 10.0 62 >45 A Elbow ? 7.2 6.6 6.8 89.2 Right Ulnar Motor (Abd Dig Minimi) Wrist ? 3.0 <3.0 6.2 >5 6.7 100.0 B Elbow Wrist 2.9 16.5 57 >45 B Elbow ? 5.9 6.0 6.4 96.8 A Elbow B Elbow 1.4 10.0 71 >45 A Elbow ? 7.3 5.8 6.2 93.5 EMG ?Side Muscle Nerve Root Ins Act Fibs Psw Amp Dur Poly Recrt Int Pat Comment Right 1stDorInt Ulnar C8-T1 Nml Nml Nml Nml Nml 0 Nml Complete Right FlexCarRad Median C6-7 Nml Nml Nml Nml Nml 0 Nml Complete Right Biceps Musculocut C5-6 Nml Nml Nml Nml Nml 0 Nml Complete Right Triceps Radial C6-7-8 Nml Nml Nml Nml Nml 0 Nml Complete Right Deltoid Axillary C5-6 Nml Nml Nml Nml Nml 0 Nml Complete Left 1stDorInt Ulnar C8-T1 Nml Nml Nml Nml Nml 0 Nml Complete Left FlexCarRad Median C6-7 Nml Nml Nml Nml Nml 0 Nml Complete Left Biceps Musculocut C5-6 Nml Nml Nml Nml Nml 0 Nml Complete Left Triceps Radial C6-7-8 Nml Nml Nml Nml Nml 0 Nml Complete Left Deltoid Axillary C5-6 Nml Nml Nml Nml Nml 0 Nml Complete FINDINGS: Bilateral median motor nerves showed prolonged distal latency, normal amplitude and normal conduction velocity. Bilateral median sensory nerves showed prolonged peak latency. All other nerves tested were within normal. Concentric needle EMG was performed in selected muscles of the bilateral upper extremities. Study did not reveal signs of electric abnormalities as shown in the table below. IMPRESSION: 1. This is an abnormal study. 2. There is electrodiagnostic evidence for bilateral moderate-severe median neuropathy at the wrists, consistent with carpal tunnel syndrome. 3. There is no electrodiagnostic evidence for ulnar neuropathy, brachial plexopathy, or cervical radiculopathy. Thank you for your kind referral. Oliva Santiago MD, MILI Board Certified, [place] Board [employer] and Rehabilitation (ABPMR) Board Certified, [place] Board of Electrodiagnostic Medicine (ABEM) Codin [id number] x 2 MTDD
== END 2022-12-24 09:10 | disposition home or self-care (01) ==
LOC: HO.NEURO 09:09
PROVIDERS: PCP Pediatrics; Visit Provider Orthopaedic Surgery
DX: R20.0 Anesthesia of skin (principal); R20.2 Paresthesia of skin
CPT/HCPCS: 95886; 95911

== ENCOUNTER → 2022-12-24 09:12 | Outpatient (BNV) | payer MEDICAID, SELFPAY | PROVIDERS: PCP Pediatrics; Visit Provider Physical Medicine & Rehabilitation | DX: R20.2 Paresthesia of skin (principal); R20.0 Anesthesia of skin | CPT/HCPCS: 95886; 95911 ==

== ENCOUNTER 2023-02-01 08:52 | Outpatient (AMB) | payer MEDICAID, SELFPAY ==
--- NOTE | 2023-02-01 08:55 | MHC.OFFVIS ---
Intake Intake Visit Reasons: ov- EMG review Intake Note: Esperanza 52 yr old right hand dominant female presents today her follow up visit for her Arthritis of carpometacarpal (CMC) in bilateral hands S/P Right basal injection from 12/01/22 and for her EMG review of bilateral hands. States injection helped and would like to have injection in her left hand. Allergies tramadol [TRAMADOL] Allergy (Unknown, Verified 02/01/23 08:59) RASH , rash HPI ov- EMG review HPI Details Esperanza is a 53 year old right hand dominant Hungarian speaking woman who presents for a NCS review. She has Fibromyalgia and is currently out of work on Disability. She continues to complain of numbness in the median nerve distribution bilaterally, she says her hands feel swollen at times. Her symptoms are intermittent, but daily, worse at night. She has bilateral basal joint OA, she received a right basal joint injection on 12/01/22 which she says was very helpful. She also complains of bilateral radial-sided wrist pain, L>R. She says this pain in her right wrist improved following her basal joint injection. On the left side, she notes that she has more pain in the radial aspect of her wrist than the base of her thumb. She also continues to have locking and catching of her right middle finger, and complains of new locking of her left middle finger. [facility] Medical History (Updated 02/01/23 @ 09:35 by Lenny Malik) Restless leg syndrome Asthma Cholecystitis Fibromyalgia Diabetes HTN (hypertension) Surgical History History of appendectomy Social History (Reviewed 02/01/23 @ 08:59 by Beata Ann [facility]) Alcohol intake: current Alcohol intake frequency: holidays/special occasions only Patient Tobacco Use Status: Never used Tobacco service: No Gender identity: Female Female Reproductive History Menstrual Age of Menarche: 10 Physical Exam Const General: cooperative, healthy appearing and no acute distress Orientation/consciousness: patient oriented x3 HEENT Head: Yes normocephalic and Yes atraumatic Eyes EOM: EOMs intact bilaterally Resp Effort & Inspection: normal respiratory effort and able to speak in complete sentences Cardio Jugular venous distension: no JVD Skin General skin exam: turgor normal Rashes: no rashes Neuro General: patient oriented x3 Extrem Other: Evaluation of Bilateral Upper Extremity: The patient is alert, oriented, and in no acute distress Neuro: Median, Ulnar, Radial nerves motor and sensory intact and sensation is normal to the tips of all digits No thenar or intrinsic wasting Good APB muscle belly firing and good finger cross Vascular: Cap refill brisk ROM: She can make a fist and extend all her digits Visible and palpable locking and catching of the middle fingers bilaterally Tender over the a1 ale of the middle fingers bilaterally Tender over the left 1st dorsal compartment as it passes over the radial styloid Positive Devin test on the left Patient complains of similar pain on the right, but this was not tested on exam today Nerve Conduction Study: IMPRESSION: 1. This is an abnormal study. 2. There is electrodiagnostic evidence for bilateral moderate-severe median neuropathy at the wrists, consistent with carpal tunnel syndrome. 3. There is no electrodiagnostic evidence for ulnar neuropathy, brachial plexopathy, or cervical radiculopathy. Thank you for your kind referral. Oliva Santiago MD, MILI 12/24/22 Psych Appearance: grossly normal Affect: normal affect Attitude: cooperative Office Procedures Fracture Care Details: No fracture, injection Fracture Billing Code: Fracture Billing Code Results Reviewed Results Reviewed: 02/01/23 09:08 Lidocaine HCl 1 % [Xylocaine 1 %] 2 ml .ROUTE .STK-MED ONE methylPREDNISolone acetate [DEPO-MedroL] 40 mg .ROUTE .STK-MED ONE 02/01/23 09:21 Lidocaine HCl 1 % [Xylocaine 1 %] 2 ml .ROUTE .STK-MED ONE 02/01/23 09:31 Lidocaine HCl 1 % [Xylocaine 1 %] 2 ml .ROUTE .STK-MED ONE dexAMETHasone sod phosphate [Decadron] 4 mg .ROUTE .STK-MED ONE Assessment & Plan Assessment & Plan (1) Arthritis of carpometacarpal (CMC) joint of right thumb: Code(s): M18.11 - Unilateral primary osteoarthritis of first carpometacarpal joint, right hand (2) Arthritis of carpometacarpal (CMC) joint of left thumb: Code(s): M18.12 - Unilateral primary osteoarthritis of first carpometacarpal joint, left hand (3) Trigger finger, right middle finger: Code(s): M65.331 - Trigger finger, right middle finger (4) Trigger finger, left middle finger: Code(s): M65.332 - Trigger finger, left middle finger (5) Carpal tunnel syndrome of right wrist: Code(s): G56.01 - Carpal tunnel syndrome, right upper limb (6) Carpal tunnel syndrome of left wrist: Code(s): G56.02 - Carpal tunnel syndrome, left upper limb (7) De Quervain's tenosynovitis, right: Code(s): M65.4 - Radial styloid tenosynovitis [de Quervain] (8) De Quervain's tenosynovitis, left: Code(s): M65.4 - Radial styloid tenosynovitis [de Quervain] (9) Diabetes: Code(s): E11.9 - Type 2 diabetes mellitus without complications (10) Fibromyalgia: Code(s): M79.7 - Fibromyalgia Plan Assessment & Plan: 1. Left Carpal tunnel syndrome, mod-severe Symptoms intermittent, but daily, worse at night 2. Left middle finger trigger finger I educated her about these conditions I discussed operative and non-operative treatment options The patient would like to proceed with surgery, beginning with her right side The risks and benefits of operative treatment were discussed with the patient and the patient wishes to proceed with surgery. These risks include, but are not limited to risk of damage to blood vessels, nerves, tendons, infection, recurrence, incomplete relief of preoperative symptoms, persistent pain, possible need for further surgery and the risks associated with regional blocks and anesthesia. The plan is to take the patient to the operating room sometime in the next few weeks for the following procedures: 1. Left Carpal tunnel release, under local 2. Left middle trigger finger release, under local All of the preoperative paperwork including the consent was filled out today. All the patient's questions were answered. The patient understands that they will be contacted by our cops soon to schedule this procedure She denies blood thinners, asthma, heart, lung, kidney issues She is a Diabetic and says this is well-controlled. She says her recent HgA1c from last month was ~7.0%. 3. Right Carpal tunnel syndrome, mod-severe Symptoms intermittent, but daily, worse at night She will follow up to discuss treatment when she recovers from surgery 4. Left De Quervains Tenosynovitis Positive Devin test 5. Right De Quervains Tenosynovitis I educated her about this condition I discussed operative and non-operative treatment options The patient would like to proceed with an injection I discussed activity modification, she is to limit or avoid any heavy or repetitive pinching and gripping activities She will continue to wear her comfort cool braces with daily activity Injection #1: The risks and benefits of a steroid injection including but not limited to risk of damage to blood vessels, nerves, tendons, infection, skin bleaching, failure to improve symptoms, increased pain, and possible need for further injections or other intervention were discussed with the patient and the patient wishes to proceed with the steroid injection. Once consent was obtained, I sterilely prepped the area over the left 1st dorsal compartment . I then injected the 1st dorsal compartment with a combination of 1 mL of dexamethasone (4mg/ml), and 1% lidocaine. The patient tolerated the procedure well with no complications and good resolution of their symptoms prior to leaving clinic. She asked if this injection would help her pain she has just distal to the left lateral epicondyle. I explained this is not likely to help. She may also have lateral epicondylitis. If the patient continues to have pain 6-8 weeks following this injection, they may call to schedule appointment to discuss alternative treatment options 6. Right Basal joint OA, S/P injection Date of Injection: 12/01/22 With good relief following her injection 7. Left basal joint OA No complaints today 8. Right middle finger trigger finger We may address this at the same time as her right carpal tunnel if still symptomatic. Scribed for Angeles Resendez MD by Lenny Malik medical records coder, on 02/01/23 at 9:35 AM, EST. Coding Level of Care Code Est Pt Level 4 (83325) Diagnoses Arthritis of carpometacarpal (CMC) joint of right thumb M18.11 Arthritis of carpometacarpal (CMC) joint of left thumb M18.12 Trigger finger, right middle finger M65.331 Trigger finger, left middle finger M65.332 Carpal tunnel syndrome of right wrist G56.01 Carpal tunnel syndrome of left wrist G56.02 De Quervain's tenosynovitis, right M65.4 De Quervain's tenosynovitis, left M65.4 Diabetes E11.9 Fibromyalgia M79.7 CPT Codes Fracture Care - Fracture Billing Code: Fracture Billing Code ([id number])
== END 2023-02-01 09:43 | disposition home or self-care (01) ==
PROVIDERS: PCP Pediatrics; Visit Provider Orthopaedic Surgery
DX: M18.0 Bilateral primary osteoarthritis of first carpometacarpal joints (principal); M65.331 Trigger finger, right middle finger; M65.332 Trigger finger, left middle finger; G56.03 Carpal tunnel syndrome, bilateral upper limbs; M65.4 Radial styloid tenosynovitis [de Quervain]; E11.9 Type 2 diabetes mellitus without complications; M79.7 Fibromyalgia
CPT/HCPCS: 20550; 99214

== ENCOUNTER → 2023-02-01 08:52 | Outpatient (BNVA) | payer MEDICAID, SELFPAY | PROVIDERS: PCP Pediatrics; Visit Provider Orthopaedic Surgery | DX: M65.4 Radial styloid tenosynovitis [de Quervain] (principal); M18.0 Bilateral primary osteoarthritis of first carpometacarpal joints; M65.332 Trigger finger, left middle finger; M65.331 Trigger finger, right middle finger; G56.03 Carpal tunnel syndrome, bilateral upper limbs; E11.9 Type 2 diabetes mellitus without complications; M79.7 Fibromyalgia | CPT/HCPCS: 20550; 99212; J1020; J1100 ==

== ENCOUNTER 2023-03-10 10:57 | Day surgery (SDC) | payer MEDICAID, SELFPAY ==
[2023-03-10 11:47] VITALS: BP 127/77; PULSE 98; RESP 16; TEMP 36.6; O2SAT 97
[2023-03-10 11:58] VITALS: BMI 28.3
--- NOTE | 2023-03-10 12:45 | PC.NURSE ---
Addendum entered by Castro Kenny RN 03/10/23 13:25: patient denies chest pain upon reassessment, states I am more relaxed now . Dr. Resendez at bedside. Procedure to be done as scheduled. Original Note: patient complaining of 5/10 chest pain in burning sensation and palptations which is radiating to right arm, also c/o SOB. Dr. Resendez aware and Dr. Mcgee also at bedside to evaluate patient.
--- NOTE | 2023-03-10 14:16 | P.OP_ITS ---
Operative Note Operative Note Date of Service: 03/10/23 Narrative: Preop diagnosis: 1. left Carpal tunnel syndrome 2. Left middle finger trigger finger Postop diagnosis: same Procedure: 1. left Carpal tunnel release 2. Left middle finger A1 ale release Surgeon: Angeles Resendez MD Anesthesia: local block using 1% lidocaine with epinephrine Findings: Thickened transverse carpal ligament. EBL: Less than 5 mL Specimens: None Complications: None Disposition: Brought to recovery room in stable condition Plan: Follow-up for 10-14 days for wound check and suture removal Indications: The patient is 53 years old, with left carpal tunnel syndrome and a left middle finger that have been unresponsive to nonoperative management. The risks and benefits of operative treatment including but not limited to risk of damage to blood vessels, nerves, tendons, infection, persistent pain, persistent symptoms, or possible need for additional surgery were discussed with the patient and the patient wishes to proceed with surgery. Procedure: Once consent was obtained a local block was performed using a combination of 1% lidocaine with epinephrine. she was quite anxious and worried that she was having chest pain verses her heart beating fast. She was seen by Anesthesia and was found to be in normal sinus rhythm. We gave her little bit more time, as we thought it was likely the lidocaine with epinephrine making her a little tachycardic. She said she then felt fine and was happy to proceed with the procedure. The patient was then brought back to the operating suite and placed on the operative table in supine position. The Left upper e xtremity was prepped and draped in a standard surgical fashion. Once assured that we had a good block, a 2.0 cm longitudinal incision was made centered over the carpal tunnel. The incision was made through the skin to the subcutaneous tissues using a #15 blade. Dissection was made down to the level of the transverse carpal ligament with care being taken to protect the palmar cutaneous nerve. Once the transverse carpal ligament was clearly visualized, a longitudinal incision was made in the transverse carpal ligament 1st using a #15 blade, then using tenotomy scissors under direct visualization. Care was taken to look for and protect the motor branch of the median nerve. Once assured that we had a good block, a 1.5 cm oblique incision was made centered over the A1 ale of the Left middle finger . The incision was made through the skin to the subcutaneous tissues using a #15 blade. Careful dissection was made down to the level of the A1 ale using tenotomy scissors, with care being taken to protect the nearby neurovascular structures. A longitudinal incision was made in the A1 ale 1st using a #15 blade, then using tenotomy scissors under direct visualization. The A1 ale was noted to be thickened. Following our A1 ale release, we no longer saw any locking or catching of the digit with flexion and extension. Once satisfied with our carpal tunnel release and trigger release the wounds werecopiously irrigated with normal saline and hemostasis was obtained with a brief period of local pressure. The skin edges were reapproximated with some 5.0 nylon suture material and a sterile dressing was applied. The patient appears to have tolerated the procedure well and with no complications. All digits were well vascularized at the conclusion of the case.
--- NOTE | 2023-03-10 14:16 | MHC.SHP ---
Pre-Procedural Eval Section A Date of Service: 03/10/23 The patient is an INPATIENT: No Changes since office visit: No Cold of Flu in the past 2 weeks, No New Medical Problems, No Changes in Medication and No Patient answered all questions The History & Physical has been completed within 30 days and I have reviewed it.: Yes Section B Chief Complaint: Carpal tunnel syndrome, left upper limb Middle fi Allergies: Allergies Allergy/AdvReac Type Severity Reaction Status Date / Time tramadol [TRAMADOL] Allergy Unknown RASH , rash Verified 02/01/23 08:59 Plan I have reviewed the history and physical and performed a pertinent physical examination on my patient. No changes have occurred unless specified. Time Spent With Patient Time: Total time managing care of this patient today ____ minutes.
[2023-03-10 14:23] VITALS: BP 122/79; PULSE 100; RESP 18; O2SAT 95
== END 2023-03-10 14:36 | disposition home or self-care (01) ==
PROVIDERS: PCP Pediatrics; Visit Provider Orthopaedic Surgery
PROC: (CPT 64721; principal; 2023-03-10 12:30)
PROC: (CPT 26055; 2023-03-10 12:30)
DX: G56.02 Carpal tunnel syndrome, left upper limb (principal); M65.332 Trigger finger, left middle finger; E11.9 Type 2 diabetes mellitus without complications; I10 Essential (primary) hypertension; J45.909 Unspecified asthma, uncomplicated; M79.7 Fibromyalgia
CPT/HCPCS: 64721; 26055; J0171; J2795

== ENCOUNTER → 2023-03-10 10:57 | Outpatient (BNV) | payer MEDICAID, SELFPAY | PROVIDERS: PCP Pediatrics; Visit Provider Orthopaedic Surgery | DX: G56.02 Carpal tunnel syndrome, left upper limb (principal); M65.332 Trigger finger, left middle finger | CPT/HCPCS: 26055; 64721 ==

== ENCOUNTER 2023-03-11 10:18 | Outpatient (AMB) | payer MEDICAID, SELFPAY ==
--- NOTE | 2023-03-11 10:33 | MHC.OFFVIS ---
Intake Vital Signs 03/11/23 10:37 Height 4 ft 11 in Weight 140 lb BMI 28.3 Intake Visit Reasons: PO- LT MF trig release, CTR Intake Note: Esperanza a 53 year old male presents today for a post operative left MF and CTR, DOS 03/10/23. Patient reports painful blister at the tip of her middle finger. Allergies tramadol [TRAMADOL] Allergy (Unknown, Verified 03/11/23 10:37) RASH , rash HPI PO- LT MF trig release, CTR HPI Details 53 yo female returns to the office today s/p Left middle finger and left carpal tunnel release with Dr Resendez on 03/10/23. She states she got home from surgery around 2-230pm yesterday. The block was slightly active. She states around 5pm she noticed severe pain in the tip of the left middle finger. Around 9pm she noticed something that looked like a blister that appeared on the tip on the finger. She states the pain continued to worsen. She tried a warm compress to the finger to see if it would help but noticed no relief. She was moving the fingers in an attempt to find relief without success. This morning she contacted our office with concerns and presents to [facility] Medical History (Updated 03/11/23 @ 11:42 by Lety King PA-C) Restless leg syndrome Asthma Cholecystitis Fibromyalgia Diabetes HTN (hypertension) Surgical History History of appendectomy Social History Alcohol intake: current Alcohol intake frequency: holidays/special occasions only Patient Tobacco Use Status: Never used Tobacco service: No Gender identity: Female Female Reproductive History Menstrual Age of Menarche: 10 Review of Systems Const All systems reviewed & are unremarkable except as noted in HPI and below Physical Exam Vital Signs: BMI result Body Mass Index 28.3 Extrem Other: Left hand incisions are clean, dry and intact. There is an area along the distal half of the DIP of the left middle finger that is tense and has a demarcation of color. There is significant tenderness to palpation over this area. The skin proximal to this is warm and of good color. There is good cap refill which is consistent with the rest of her digits. There is good temperature. She is able to extend all digits, but can only flex the middle finger 90 mcp, 45 pip. She is NVI. Assessment & Plan Assessment & Plan (1) Carpal tunnel syndrome of left wrist: Code(s): G56.02 - Carpal tunnel syndrome, left upper limb (2) Trigger finger, left middle finger: Code(s): M65.332 - Trigger finger, left middle finger (3) Blister of finger: Code(s): S60.429A - Blister (nonthermal) of unspecified finger, initial encounter Qualifiers: Encounter type: initial encounter Qualified Code(s): S60.429A - Blister (nonthermal) of unspecified finger, initial encounter Plan I am uncertain the etiology of the discoloration to the finger. I did have a lengthy discussion with Dr Resendez over the phone while with the patient. One thought is the block that was used during surgery did contain epinephrine; therefore, it could have caused some vasoconstriction of the finger. At this time, the decision was made to send her to the ED for further evaluation and possible injection to help with vasodilatation. Reassurance was given to the patient there is good temperature and good cap refill . ED was directly made aware patient was on her way and they will contact Dr Resendez via cell phone once she arrives to discuss further care. Coding Level of Care Code Global (57080) Diagnoses Carpal tunnel syndrome of left wrist G56.02 Trigger finger, left middle finger M65.332 Blister of finger, initial encounter S60.429A Encounter type: initial encounter
[2023-03-11 10:37] VITALS: BMI 28.3
== END 2023-03-11 11:41 | disposition home or self-care (01) ==
PROVIDERS: PCP Pediatrics; Visit Provider Physician Assistant
DX: G56.02 Carpal tunnel syndrome, left upper limb (principal); M65.332 Trigger finger, left middle finger
CPT/HCPCS: 99024

== ENCOUNTER → 2023-03-11 10:18 | Outpatient (BNVA) | payer MEDICAID, SELFPAY | PROVIDERS: PCP Pediatrics; Visit Provider Physician Assistant ==

== ENCOUNTER 2023-03-11 11:35 | Emergency (ER) | payer MEDICAID, SELFPAY ==
[2023-03-11 11:44] VITALS: BP 137/89; PULSE 88; RESP 20; TEMP 36.6; O2SAT 99; BMI 29.3
--- NOTE | 2023-03-11 11:44 | ED.UPPEXIN ---
HPI - Extremity Injury (Upper) General Chief Complaint: Skin/Abscess/Foreign Body Stated Complaint: L Hand Finger Lac Swelling 03/10/23 Time Seen by Provider: 03/11/23 11:57 Source: patient and weather observer Limitations: language barrier History of Present Illness HPI narrative: Patient is a 53-year-old Maltese-speaking female presenting to the emergency department with complaint of left wrist pain and discoloration/swelling to distal tip of left 3rd finger which began last night. Patient had a left middle finger release and carpal tunnel release with Dr. Resendez on 03/10. Patient did contact the orthopedic office and was evaluated there this morning by jerry Davidson. Lety contacted Dr. Resendez and had discussion about patient's symptoms and patient was referred to the ED for further evaluation. States she has only taken Tylenol prior to arrival. She did use a warm compress without change in symptoms. complaint: injury to: left and finger Other Extremity Injury: left: fingers (3rd) Handedness: right Severity: severe Relieving factors: none Exacerbating factors: movement of extremity and other (palpation) Context: other (surgery ) Associated symptoms: denies other symptoms Treatments prior to arrival: other (Tylenol) Related Data Home Medications Medication Instructions Recorded Confirmed albuterol sulfate 2.5 mg/3 mL 2.5 mg inhalation TID PRN 12/06/22 12/06/22 (0.083 %) solution for nebulization Shortness Of Breath Or Wheezing albuterol sulfate 90 mcg/actuation 2 puff inhalation QID PRN 12/06/22 12/06/22 aerosol inhaler (Ventolin HFA) Shortness Of Breath Or Wheezing ascorbic acid (vitamin C) 1,000 mg 1,000 mg PO BID 12/06/22 12/06/22 tablet cholecalciferol (vitamin D3) 50 50 mcg PO BID 12/06/22 12/06/22 mcg (2,000 unit) capsule dicyclomine 10 mg capsule 10 mg PO TID 12/06/22 12/06/22 ferrous sulfate 325 mg (65 mg 325 mg PO QAM 12/06/22 12/06/22 iron) tablet (FeroSul) fluticasone propionate 220 1 puff inhalation BID 12/06/22 12/06/22 mcg/actuation HFA aerosol inhaler (Flovent HFA) glimepiride 4 mg tablet 4 mg PO QPM 12/06/22 12/06/22 metformin 500 mg tablet,extended 1,000 mg PO BID 12/06/22 12/06/22 release 24 hr naproxen 500 mg tablet 500 mg PO BID PRN Pain 12/06/22 12/06/22 omeprazole 40 mg capsule,delayed 40 mg PO QAM 12/06/22 12/06/22 release pramipexole 0.5 mg tablet 0.5 mg PO BEDTIME 12/06/22 12/06/22 pregabalin 200 mg capsule 200 mg PO TID 12/06/22 12/06/22 semaglutide 0.25 mg or 0.5 mg (2 0.5 mg subcut FR 12/06/22 12/06/22 mg/3 mL) subcutaneous pen injector (Ozempic) Previous Rx's Medication Instructions Recorded oxycodone-acetaminophen 5 mg-325 1 tab PO Q6H PRN pain #8 tabs 03/10/23 mg tablet cephalexin 500 mg capsule 500 mg PO TID 7 days #21 caps 03/11/23 Allergies Allergy/AdvReac Type Severity Reaction Status Date / Time tramadol [TRAMADOL] Allergy Unknown RASH , rash Verified 03/11/23 10:37 Review of Systems Review of Systems: As per HPI. Yes all other systems are reviewed and are negative Constitutional: Constitutional: Reports as per HPI [facility] Past Medical History Medical History (Updated 03/11/23 @ 13:51 by Drea Ramirez NP) Restless leg syndrome Asthma Cholecystitis Fibromyalgia Diabetes HTN (hypertension) Surgical History History of appendectomy Social History Social History Alcohol intake: current Alcohol intake frequency: holidays/special occasions only Patient Tobacco Use Status: Never used Tobacco Advance Directives: No Advance Directives Information Provided: Yes service: No Gender identity: Female Physical Exam Vital Signs: Vital Signs: Last Vital Signs Temp 98 F 03/11/23 11:44 Pulse 88 03/11/23 11:44 Resp 20 03/11/23 11:44 BP 137/89 03/11/23 11:44 Pulse Ox 99 03/11/23 11:44 O2 Del Method Room Air 03/11/23 11:44 BMI result Body Mass Index 29.3 Vital signs have been reviewed and appear to be correct. Blood pressure normal. Heart rate normal. Respiratory rate normal. Temperature normal. Oxygen saturation normal. Const: General: cooperative, healthy appearing and no acute distress Orientation/consciousness: oriented to person, oriented to place, oriented to time and patient oriented x3 Limitations: no limitations HEENT: Head: Yes normocephalic and Yes atraumatic Ears: external ears normal General nose exam: Normal external nose present Face and sinus: Yes face symmetric Mouth: oropharynx normal and moist mucous membranes Throat: Yes uvula midline Eyes: Pupils: Equal, round and reactive pupils present Neck: Neck: Yes normal visual inspection and Yes supple Resp: Effort & Inspection: normal respiratory effort and able to speak in complete sentences Auscultation: clear to auscultation bilaterally Cardio: Rate: regular rate Rhythm: regular rhythm Heart sounds: S1 normal heart sound present and S2 normal heart sound present GI: Palpation (GI): Soft to palpation and nontender Auscultation: normoactive bowel sounds : General: Yes no CVA tenderness Back/Spine/Pelvis: Back: no CVA tenderness Skin: General skin exam: elasticity normal and turgor normal Neuro: General: oriented to person, oriented to place, oriented to time, patient oriented x3, moves all extremities, no focal motor deficits and CN's II-XI intact bilaterally Cranial nerves: Yes Equal, round and reactive pupils present Cognition (Neuro): normal cognition Extrem: Other: General: Yes full ROM, Yes no pedal edema and Yes no calf tenderness Left upper extremity: wrist (bandaged) and hand Details: abnormal to inspection Details: other (see pictures), normal capillary refill, tenderness Location: of the 3rd digit Location: at the distal phalanx and abnormal ROM of finger Details: unable to flex Location: of the 3rd digit Hand/finger images: 1. mild swelling and blueish discoloration to distal tip of 3rd finger Psych: Mental Status: mental status grossly normal Affect: normal affect Thought process: Normal thought process present Course Course Course Narrative: This is an RME: Additional HPI, ROS, PE not included below will be deferred to primary provider. This is a [id number]-female presenting to the ER with complaints of left third finger pain and discoloration status post having surgery (trigger finger release, carpal tunnel surgery) yesterday. Expect with called in. I spoke to Dr. Resendez who is requesting pharmacy to obtain 5% phentolemine in the department. She is willing to come into the emergency room. I spoke and talked to pharmacist will reach out to Dr. Resendez to ensure we are able to obtain medication DEVON. Further ER evaluation needed. Medications Administered Discontinued Medications Generic Name Dose Route Start Last Admin Trade Name Cristopher PRN Reason Stop Dose Admin Nitroglycerin 0.5 inch 03/11/23 12:50 03/11/23 13:47 Nitroglycerin 2 % Oint 1 Gm Packet TRANSDERMA 03/11/23 12:51 0.5 inch ONCE ONE Administration Oxycodone HCl 5 mg 03/11/23 12:24 03/11/23 12:35 Oxycodone Hcl Immed Release 5 Mg Tablet PO 03/11/23 12:25 5 mg ONCE ONE Administration Phentolamine Mesylate 4.5 mg 03/11/23 12:30 03/11/23 13:46 Phentolamine Mesylate 5 Mg Vial SUBCUT 03/11/23 12:31 4.5 mg ONCE ONE Administration Medical Decision Making Medical Decision Making MDM Narrative: Patient is a 53-year-old Maltese-speaking female presenting to the emergency department with complaint of left wrist pain and discoloration/swelling to distal tip of left 3rd finger which began last night. On exam patient is awake, A+Ox3, tearful and appears uncomfortable, VS WNL, afebrile, normal neurological exam without focal deficits, physical exam findings as above. Given reported symptoms and physical exam findings, initial differential includes blister, vascular injury, cellulitis. Dr. Resendez contacted by triage provider and discussed the dose of phentolemine she would prefer. Dr. Resendez came to the ED and recommended topical nitroglycerine be applied while awaiting phentolemine from pharmacy. Dr. Resendez then injected the phentolemine at bedside. Patient reports decreased pain after injection. Dr. Resendez also recommends prophylactic antibiotics, cephalexin TID x 7 days. Patient to follow up with Dr. Resendez in the office next week. Return precautions discussed with patient bedside. Patient and family verbalized understanding of and agreement with plan. Photo of finger post treatment attached to this note. Differential Diagnosis Differential Diagnoses: The differential diagnosis associated with the presentation includes As per MDM. Consult Healthcare Provider Management of the patient was discussed with: Eyeglass Assembler (Dr. Resendez) External Record Review External record reviewed: Inpatient record, Office record and Outpatient record Prescription Management I considered prescription management with: Antibiotic Discharge Plan Discharge Clinical Impression: Pain of left middle finger Patient Disposition: Home, Self-Care Additional Instructions: Usted fue evaluado en el departamento de emergencias con quejas de dolor y decoloraci?n en groves dedo despu?s de la cirug?a. Groves cirujano de mano, el Dr. Resendez, lo evalu? en el departamento de emergencias. Mantenga la mano izquierda caliente y realice movimientos suaves (abrir y cerrar los dedos) abraham todo el d?a. Deber? mantener el vendaje colocado hasta el d?a 5 postoperatorio, momento en el que podr? comenzar a lavarse las cesar con agua y jab?n. Comun?quese con el Dr. Resendez a principios de la pr?xima semana para krys nueva evaluaci?n. Regrese al departamento de emergencias si desarrolla krys decoloraci?n adicional en la mano, aumento del enrojecimiento, hinchaz?n, secreci?n amarilla espesa, fiebre o cualquier otro s?ntoma preocupante. Le est?n recetando antibi?ticos para prevenir infecciones; complete el tratamiento completo seg?n lo prescrito. Prescriptions: New cephalexin 500 mg capsule 500 mg PO TID 7 Days Qty: 21 0RF No Action ascorbic acid (vitamin C) 1,000 mg tablet 1,000 mg PO BID albuterol sulfate 2.5 mg /3 mL (0.083 %) solution for nebulization 2.5 mg inhalation TID PRN (Reason: Shortness Of Breath Or Wheezing) omeprazole 40 mg capsule,delayed release(DR/EC) 40 mg PO QAM pramipexole 0.5 mg tablet 0.5 mg PO BEDTIME ferrous sulfate [FeroSul] 325 mg (65 mg iron) tablet 325 mg PO QAM glimepiride 4 mg tablet 4 mg PO QPM fluticasone propionate [Flovent HFA] 220 mcg/actuation HFA aerosol inhaler 1 puff INHALATION BID albuterol sulfate [Ventolin HFA] 90 mcg/actuation HFA aerosol inhaler 2 puff inhalation QID PRN (Reason: Shortness Of Breath Or Wheezing) metformin 500 mg tablet extended release 24 hr 1,000 mg PO BID dicyclomine 10 mg capsule 10 mg PO TID naproxen 500 mg tablet 500 mg PO BID PRN (Reason: Pain) Rx Instructions: take with food pregabalin 200 mg capsule 200 mg PO TID cholecalciferol (vitamin D3) 50 mcg (2,000 unit) capsule 50 mcg PO BID Ozempic 0.25 mg or 0.5 mg (2 mg/3 mL) pen injector 0.5 mg subcut FR oxycodone-acetaminophen 5-325 mg tablet 1 tab PO Q6H PRN (Reason: pain) Qty: 8 0RF Rx Instructions: Partial Fill upon patient request. Referrals: Angeles Resendez MD [Physician] - Print Language: Maltese
[2023-03-11] MEDS: oxyCODONE HCl Immed Release 5 MG TABLET PO (12:35)
--- NOTE | 2023-03-11 13:09 | P.CONOP_ITS ---
History of Present Illness HPI Consult date: 03/11/23 Chief complaint: L Hand Finger Lac Swelling 03/10/23 Narrative: The patient is a 53-year-old woman who was seen today in clinic complaining of significant pain in the fingertip of her left hand. The patient is status post a left carpal tunnel release and a left middle finger trigger release with yesterday under local anesthesia using 1% lidocaine with 1 100,000 epinephrine. When the patient left OR in recovery area she was doing well and all fingertips were pink and warm. The patient reports that the numbing medicine started wearing off about fiber 18:00 and she can start to feel some pain in the operative areas. However, by 21:00 she started to experience significant pain in the tip of her left middle finger. By morning she noticed some discoloration and what looked like a blister on the tip of her left middle finger. No complaints of pain or discoloration in any of the other digits. She called our clinic this morning and was given an appointment to be seen. She was seen this morning by our PA Lety who then called me at home to let me know it was going on. I had the patient sent to the emergency department, I called our inpatient pharmacy and asked for them to please draw up some phentolamine for possible vasoconstriction following lidocaine with epinephrine injection yesterday. Patient is seen in the emergency department with her . We used a director of market analysis. We obtained the above history. COUNT INCLUDES THE [facility] Past Medical History Medical History (Updated 03/11/23 @ 13:18 by Angeles Resendez MD) Restless leg syndrome Asthma Cholecystitis Fibromyalgia Diabetes HTN (hypertension) Surgical History Surgical History History of appendectomy Social History Social History Alcohol intake: current Alcohol intake frequency: holidays/special occasions only Patient Tobacco Use Status: Never used Tobacco Advance Directives: No Advance Directives Information Provided: Yes service: No Gender identity: Female Meds Allergies Allergy/AdvReac Type Severity Reaction Status Date / Time tramadol [TRAMADOL] Allergy Unknown RASH , rash Verified 03/11/23 10:37 Home Medications Medication Instructions Recorded Confirmed Last Taken Type albuterol sulfate 2.5 mg/3 mL 2.5 mg inhalation TID PRN 12/06/22 12/06/22 Unknown History (0.083 %) solution for nebulization Shortness Of Breath Or Wheezing albuterol sulfate 90 mcg/actuation 2 puff inhalation QID PRN 12/06/22 12/06/22 Unknown History aerosol inhaler (Ventolin HFA) Shortness Of Breath Or Wheezing ascorbic acid (vitamin C) 1,000 mg 1,000 mg PO BID 12/06/22 12/06/22 Unknown History tablet cholecalciferol (vitamin D3) 50 50 mcg PO BID 12/06/22 12/06/22 Unknown History mcg (2,000 unit) capsule dicyclomine 10 mg capsule 10 mg PO TID 12/06/22 12/06/22 Unknown History ferrous sulfate 325 mg (65 mg 325 mg PO QAM 12/06/22 12/06/22 Unknown History iron) tablet (FeroSul) fluticasone propionate 220 1 puff inhalation BID 12/06/22 12/06/22 Unknown History mcg/actuation HFA aerosol inhaler (Flovent HFA) glimepiride 4 mg tablet 4 mg PO QPM 12/06/22 12/06/22 Unknown History metformin 500 mg tablet,extended 1,000 mg PO BID 12/06/22 12/06/22 Unknown History release 24 hr naproxen 500 mg tablet 500 mg PO BID PRN Pain 12/06/22 12/06/22 Unknown History omeprazole 40 mg capsule,delayed 40 mg PO QAM 12/06/22 12/06/22 Unknown History release pramipexole 0.5 mg tablet 0.5 mg PO BEDTIME 12/06/22 12/06/22 Unknown History pregabalin 200 mg capsule 200 mg PO TID 12/06/22 12/06/22 Unknown History semaglutide 0.25 mg or 0.5 mg (2 0.5 mg subcut FR 12/06/22 12/06/22 12/03/22 History mg/3 mL) subcutaneous pen injector (Ozempic) Physical Exam Vital Signs: Vital Signs: Last Vital Signs Temp 98 F 03/11/23 11:44 Pulse 88 03/11/23 11:44 Resp 20 03/11/23 11:44 BP 137/89 03/11/23 11:44 Pulse Ox 99 03/11/23 11:44 O2 Del Method Room Air 03/11/23 11:44 BMI result Body Mass Index 29.3 Const: General: cooperative and healthy appearing Orientation/consciousne ss: oriented to person and oriented to place HEENT: Head: Yes normocephalic and Yes atraumatic Eyes: EOM: EOMs intact bilaterally Resp: Effort & Inspection: normal respiratory effort and able to speak in complete sentences Cardio: Jugular venous distension: no JVD Skin: Rashes: no rashes Neuro: General: oriented to person and oriented to place Extrem: Other: The patient was alert oriented and in no acute distress, though she did complain of significant pain in the tip of her left middle finger. She spent me that the pain the tip of her fingers more than over the trigger finger carpal tunnel operative sites. Evaluation of left Upper Extremity: The surgical wounds were clean dry and intact with no erythema or drainage. The left middle finger tip has an area that looks like it could be a blister verses an area fingertip necrosis at the distal 5-6 mm of the tip of the finger. This extends to the very distal aspect of the nail bed or hyponychium. It tip is also tender to palpation. Proximal to this area the pad and the rest of the finger is all pink with excellent cap refill and warmth. All of the other digits are pink and warm with good sensation. With encouragement I can get her to actively flex and extend her fingers including the middle finger. Psych: Appearance: grossly normal Affect: normal affect Attitude: cooperative Results Labs Labs: All other labs normal. Assessment and Plan (1) Pain of left middle finger: Status: Acute Plan Assessment and plan: 1. Left middle finger pain with some evidence of possible vaso constriction at the very tip of the digit. Patient status post left carpal tunnel release and left middle finger trigger release under local yesterday using 1% lidocaine with epinephrine 1 to [id number]. Again all fingers were pink and warm before leaving the OR and the hospital yesterday This is rather delayed onset and patient believes she began to have pain in the tip of the finger about 21:00 last night. She developed some decreased coloration and swelling to the very tip of the finger by this morning. I educated patient her about this condition Explained that this is very rare, especially with delayed onset. Just the same I believe we need to aggressively treat her for possible persistent basal constriction. We therefore initially placed some nitroglycerin cream about the finger from the PIP joint distally. I also talked to her about injecting some phentolamine at the base of the finger, in the area where we had injected lidocaine with epinephrine yesterday. I explained that this is another medication used to help increase the blood flow to the tip of the finger. She wished to proceed with this injection. I sterilely prepped the volar base of the left middle finger with some alcohol. I then carefully injected about 3 mL of phentolamine, 4.5mg/5mL, as prepared by the pharmacy. The injection was made just distal to the palmar digital crease, away from the operative site, but injecting in a proximal direction to allow infiltration in the area where the lidocaine with epinephrine had been injected yesterday. Some was directed at each of the neurovascular bundles on either side of incision. About 10 minutes following the injection she said she was feeling perhaps slightly less pain at the tip of her finger. I educated her about keeping her hand warm for the next few days. She may also work on gentle finger range of motion. I would like for her to keep the current dressing on until postop day 5, after which time she can begin washing with soap and water as we discussed earlier. Out of an abundance of caution I also asked the ED to give her a week of Keflex, as we have disturb the operative dressing and she will likely continue to do so over the next few days. She will follow-up in our clinic early next week. Procedures Date of Service Date of Service: 03/11/23
[2023-03-11] MEDS: Phentolamine Mesylate 5 MG VIAL 4.5 MG SUBCUT (13:46)
[2023-03-11] MEDS: Nitroglycerin 2 % Oint 1 GM Packet 0.5 INCH TRANSDERMA (13:47)
== END 2023-03-11 14:45 | disposition home or self-care (01) ==
PROVIDERS: Emergency Provider Emergency Medicine; PCP Pediatrics
DX: M79.645 Pain in left finger(s) (principal); Z79.899 Other long term (current) drug therapy
CPT/HCPCS: 99284; J2760

== ENCOUNTER → 2023-03-11 12:25 | Outpatient (BNV) | payer MEDICAID, SELFPAY | PROVIDERS: Emergency Provider Emergency Medicine; PCP Pediatrics; Visit Provider Orthopaedic Surgery | DX: M79.645 Pain in left finger(s) (principal) | CPT/HCPCS: 20600; 99024 ==

== ENCOUNTER 2023-03-15 09:14 | Outpatient (AMB) | payer MEDICAID, SELFPAY ==
[2023-03-15 09:47] VITALS: BMI 29.3
--- NOTE | 2023-03-15 09:47 | A.OFFVIS_ITS ---
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 Patient also has left hand Finger Lac Swelling 03/10/23 that has worsen per patient. 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 She is here for an ED follow-up concerning a blister that formed on the tip of her middle finger post-operatively. This was worrisome for some ischemia at the tip of the digit. She was seen in office on 03/11/23 by SUSANNA Mcmahan, and sent to the ED where she was then seen by me and the emergency department. We treated her with some top ical nitroglycerin cream, which is frequently use in the emergency department following accidental EpiPen injection. I injected her with Phentolamine, for reversal of the affects of epinephrine, and prescribed a 7-day course of PO Keflex. She felt some improvement of her pain following this injection, before being discharged. She says this swelling has worsened since she was in the ED and continues to be painful. [facility] Medical History (Updated 03/11/23 @ 13:51 by Drea Ramirez NP) Restless leg syndrome Asthma Cholecystitis Fibromyalgia Diabetes HTN (hypertension) Surgical History History of appendectomy (Reviewed 03/15/23 @ 09:50 by Beata Ann [facility] Alcohol intake: current Alcohol intake frequency: holidays/special occasions only Patient Tobacco Use Status: Never used Tobacco service: No Gender identity: Female Female Reproductive History Menstrual Age of Menarche: 10 Review of Systems Const All systems reviewed & are unremarkable except as noted in HPI and below Physical Exam Vital Signs: BMI result Body Mass Index 29.3 Const General: no acute distress and alert Orientation/consciousness: patient oriented x3 Neuro General: patient oriented x3 Extrem Other: The patient was alert oriented and in no acute distress The incision is healing well with no erythema drainage or evidence of infection. The tip of the left middle finger has a discrete area of discoloration and swelling. It is somewhat purple in color and the swelling is similar to that of a blister. Definitely worrisome for an area that suffered a period of decreased blood flow. Today I do see some pink within this area. She is also much more comfortable and not in pain. She says the pain improved following the treatment in the emergency department. Proximal to this area the finger is pink and well vascularized. All other digits were well vascularized. She says she has some sensation to the tip and not normal. She does have some mild generalized swelling to all of the digits, which may be more related to having had a carpal tunnel release and a trigger finger release and her not moving her fingers. With encouragement I can get her to bring all of her fingers close to a fist and back into extension. Sensation is intact Cap refill is brisk Psych Appearance: grossly normal Affect: normal affect Attitude: cooperative Assessment & Plan Assessment & Plan (1) Blister of finger: Code(s): S60.429A - Blister (nonthermal) of unspecified finger, initial encounter Qualifiers: Encounter type: initial encounter Qualified Code(s): S60.429A - Blister (nonthermal) of unspecified finger, initial encounter (2) Pain of left middle finger: Code(s): M79.645 - Pain in left finger(s) (3) Diabetes: Code(s): E11.9 - Type 2 diabetes mellitus without complications (4) Carpal tunnel syndrome of left wrist: Code(s): G56.02 - Carpal tunnel syndrome, left upper limb (5) Trigger finger, left middle finger: Code(s): M65.332 - Trigger finger, left middle finger (6) De Quervain's tenosynovitis, left: Code(s): M65.4 - Radial styloid tenosynovitis [de Quervain] (7) Arthritis of carpometacarpal (CMC) joint of left thumb: Code(s): M18.12 - Unilateral primary osteoarthritis of first carpometacarpal joint, left hand (8) Fibromyalgia: Code(s): M79.7 - Fibromyalgia Plan Assessment & Plan: 1. Left middle fingertip focal area of ischemia, S/P trigger release and carpal tunnel release under local anesthesia with epinephrine DOS: 03/10/23 Seen in office & ED: 03/11/23 This appears to be an area of ischemia on the tip of her middle finger, which developed several hours post-operatively. She was treated in the ED with topical Nitroglycerine & a Phentolamine injection, which gave her some immediate pain relief. She has been taking her PO Keflex as instructed. 2. Left Carpal tunnel syndrome, S/P release DOS: 03/10/23 Pre-operative symptoms intermittent, but daily, worse at night 3. Left middle finger trigger finger, S/P release DOS: 03/10/23 I do believe that regarding the middle finger tip ischemia the treatments in the emergency department where helpful. I educated her about this condition. She appears to be doing well postoperatively from the carpal tunnel release and middle finger trigger release. I encouraged her to work on gentle range of motion and talked about the importance of activity modification. At this point we will wait to see how the tissue heals at the tip of the finger. Do not think there is anything else to do other than to be careful with the digit and not exposed to cold temperatures. She will follow-up on 03/24/2023 as scheduled for wound check and removal of sutures. 4. Right Carpal tunnel syndrome, mod-severe Symptoms intermittent, but daily, worse at night She will follow up to discuss treatment when she recovers from surgery 5. Left De Quervains Tenosynovitis Positive Devin test 6. Right De Quervains Tenosynovitis 7. Right Basal joint OA, S/P injection Date of Injection: 12/01/22 With good relief following her injection 8. Left basal joint OA No complaints today 9. Right middle finger trigger finger We may address this at the same time as her right carpal tunnel if still symptomatic. Coding Level of Care Code Global (40966) Diagnoses Blister of finger, initial encounter S60.429A Encounter type: initial encounter Pain of left middle finger M79.645 Diabetes E11.9 Carpal tunnel syndrome of left wrist G56.02 Trigger finger, left middle finger M65.332 De Quervain's tenosynovitis, left M65.4 Arthritis of carpometacarpal (CMC) joint of left thumb M18.12 Fibromyalgia M79.7
== END 2023-03-15 10:38 | disposition home or self-care (01) ==
PROVIDERS: PCP Pediatrics; Visit Provider Orthopaedic Surgery
DX: S60.429A Blister (nonthermal) of unspecified finger, initial encounter (principal); M79.645 Pain in left finger(s); E11.9 Type 2 diabetes mellitus without complications; G56.02 Carpal tunnel syndrome, left upper limb; M65.332 Trigger finger, left middle finger; M65.4 Radial styloid tenosynovitis [de Quervain]; M18.12 Unilateral primary osteoarthritis of first carpometacarpal joint, left hand; M79.7 Fibromyalgia
CPT/HCPCS: 99024

== ENCOUNTER → 2023-03-15 09:14 | Outpatient (BNVA) | payer MEDICAID, SELFPAY | PROVIDERS: PCP Pediatrics; Visit Provider Orthopaedic Surgery ==

== ENCOUNTER 2023-03-24 08:53 | Outpatient (AMB) | payer MEDICAID, SELFPAY ==
--- NOTE | 2023-03-24 08:57 | A.OFFVIS_ITS ---
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 Patient reports the middle finger on the left hand has worsened, no drainage reported and she is feeling numbness. She has pain in her palm and by the CMC joint. Allergies tramadol [TRAMADOL] Allergy (Unknown, Verified 03/24/23 09:00) RASH , rash Medication List - Last Reconciled 03/24/23 by Clarisse Riojas, HORACE albuterol sulfate 90 mcg/actuation (Ventolin HFA) 2 puffs inhalation QID PRN albuterol sulfate 2.5 mg inhalation TID PRN ascorbic acid (vitamin C) 1,000 mg PO BID cephalexin 500 mg PO TID 7 days cholecalciferol (vitamin D3) 50 mcg PO BID dicyclomine 10 mg PO TID ferrous sulfate (FeroSul) 325 mg PO QAM fluticasone propionate 220 mcg/actuation (Flovent HFA) 1 puff inhalation BID glimepiride 4 mg PO QPM metformin ER 1,000 mg PO BID naproxen 500 mg PO BID PRN omeprazole 40 mg PO QAM oxycodone-acetaminophen 5-325 mg 1 tab PO Q6H PRN pramipexole 0.5 mg PO BEDTIME pregabalin 200 mg PO TID semaglutide (Ozempic) 0.5 mg subcut FR HPI 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 Resendez. The patient reports the middle finger on the left hand has worsened. She denies drainage. She claims to have numbness. She also reports pain in her palm and by the CMC joint. [facility] Medical History (Updated 03/11/23 @ 13:51 by Drea Ramirez NP) Restless leg syndrome Asthma Cholecystitis Fibromyalgia Diabetes HTN (hypertension) Surgical History History of appendectomy Social History Alcohol intake: current Alcohol intake frequency: holidays/special occasions only Patient Tobacco Use Status: Never used Tobacco service: No Gender identity: Female Female Reproductive History Menstrual Age of Menarche: 10 Review of Systems Const All systems reviewed & are unremarkable except as noted in HPI and below Physical Exam Const General: cooperative, healthy appearing and no acute distress Resp Effort & Inspection: normal respiratory effort and able to speak in complete sentences Cardio Rate: regular rate Peripheral pulses: Peripheral pulses 2+ throughout GI Palpation (GI): Soft to palpation Skin Lesions: no lesions Rashes: no rashes Extrem Other: Left hand incision sites are clean, dry, intact. Sutures intact. Able to make a full fist. Middle finger discoloration as seen in attached photos. Pain with palpation of the DIP distally. Assessment & Plan Assessment & Plan (1) Blister of finger: Code(s): S60.429A - Blister (nonthermal) of unspecified finger, initial encounter Qualifiers: Encounter type: initial encounter Qualified Code(s): S60.429A - Blister (nonthermal) of unspecified finger, initial encounter (2) Pain of left middle finger: Code(s): M79.645 - Pain in left finger(s) (3) Diabetes: Code(s): E11.9 - Type 2 diabetes mellitus without complications (4) Carpal tunnel syndrome of left wrist: Code(s): G56.02 - Carpal tunnel syndrome, left upper limb (5) Trigger finger, left middle finger: Code(s): M65.332 - Trigger finger, left middle finger (6) De Quervain's tenosynovitis, left: Code(s): M65.4 - Radial styloid tenosynovitis [de Quervain] (7) Arthritis of carpometacarpal (CMC) joint of left thumb: Code(s): M18.12 - Unilateral primary osteoarthritis of first carpometacarpal joint, left hand (8) Fibromyalgia: Code(s): M79.7 - Fibromyalgia Plan Ms. Werner is a 53-year-old female, who is Czech speaking, presents in the office today 2 weeks status post left carpal tunnel release and middle finger trigger finger release, which was performed on 03/10/[address] Resendez. The patient reports the middle finger on the left hand has worsened. She denies drainage. She claims to have numbness. She also reports pain in her palm and by the CMC joint. Dr. Resendez was available to discuss the case with me a collaborative treatment plan was made. She advised to watchful waiting. The patient was educated that should she have any of the following included but not limited to increased in erythema, edema, drainage, warmth, or increased discoloration, she should contact the office immediately or present to the emergency department for further evaluation and treatment. Follow up will be on 03/29/2023, next week with Dr. Resendez for further discussion and monitoring, or sooner if needed. Patient Instructions: Scribed for Rachel Lees PA-C by Gayle Mathis medical oncology physician, on 03/24/2023 at 8:57 am, EST. Coding Level of Care Code Global (06126) Diagnoses Blister of finger, initial encounter S60.429A Encounter type: initial encounter Pain of left middle finger M79.645 Diabetes E11.9 Carpal tunnel syndrome of left wrist G56.02 Trigger finger, left middle finger M65.332 De Quervain's tenosynovitis, left M65.4 Arthritis of carpometacarpal (CMC) joint of left thumb M18.12 Fibromyalgia M79.7
== END 2023-03-24 09:40 | disposition home or self-care (01) ==
PROVIDERS: PCP Pediatrics; Visit Provider Physician Assistant
DX: G56.02 Carpal tunnel syndrome, left upper limb (principal); M65.332 Trigger finger, left middle finger; S60.429A Blister (nonthermal) of unspecified finger, initial encounter; M79.645 Pain in left finger(s); E11.9 Type 2 diabetes mellitus without complications; M65.4 Radial styloid tenosynovitis [de Quervain]; M18.12 Unilateral primary osteoarthritis of first carpometacarpal joint, left hand; M79.7 Fibromyalgia
CPT/HCPCS: 99024

== ENCOUNTER → 2023-03-24 08:53 | Outpatient (BNVA) | payer MEDICAID, SELFPAY | PROVIDERS: PCP Pediatrics; Visit Provider Physician Assistant ==

== ENCOUNTER 2023-03-29 11:17 | Outpatient (AMB) | payer MEDICAID, SELFPAY ==
--- NOTE | 2023-03-29 11:49 | MHC.OFFVIS ---
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 States she has concerns due to the tip of her finger continuing to darken. States she has sensation. 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 She was seen postop day 1 complaining of pain at the tip of the middle finger and found to have some evidence of early necrosis. I saw her in the emergency department and we treated the digit with nitropaste and also I injected phentolamine to reverse any remaining effects of the epinephrine. She was seen by Rachel a few days ago and the tip of the finger was noted to be turning black. I had this is not unexpected. She is seen today with her . She says she does have improved sensation to the other digits following her carpal tunnel release. She no longer has the nighttime symptoms. She has not noticed any locking or catching of the middle finger, but feels like she still has some swelling in her hand and middle finger. Please see my note from 03/15/23 for more information [facility] Medical History (Updated 03/11/23 @ 13:51 by Drea Ramirez NP) Restless leg syndrome Asthma Cholecystitis Fibromyalgia Diabetes HTN (hypertension) Surgical History History of appendectomy Social History Alcohol intake: current Alcohol intake frequency: holidays/special occasions only Patient Tobacco Use Status: Never used Tobacco service: No Gender identity: Female Female Reproductive History Menstrual Age of Menarche: 10 Physical Exam Vital Signs: BMI result Body Mass Index 29.3 Const General: no acute distress and alert Orientation/consciousness: patient oriented x3 Neuro General: patient oriented x3 Extrem Other: The patient was alert oriented and in no acute distress The incisions are healing well with no erythema drainage or evidence of infection. The tip of the left middle finger has a discrete area of discoloration consistent with fingertip necrosis. This involves the very tip of the finger and perhaps 1-2 mm of the nail bed. She is also much more comfortable and not in pain. She says the pain improved following the treatment in the emergency department. Proximal to this area the finger is pink and well vascularized. All other digits were well vascularized. She does have some mild swelling of the middle finger and perhaps some over the A1 ale areas in the palm. This may be more related to having had a carpal tunnel release and a trigger finger release and her not moving her fingers as much.. With encouragement I can get her to bring all of her fingers close to a fist and back into extension. Sensation is intact Cap refill is brisk to all digits other than as noted above. Psych Appearance: grossly normal Affect: normal affect Attitude: cooperative Assessment & Plan Assessment & Plan (1) Blister of finger: Code(s): S60.429A - Blister (nonthermal) of unspecified finger, initial encounter Qualifiers: Encounter type: initial encounter Qualified Code(s): S60.429A - Blister (nonthermal) of unspecified finger, initial encounter (2) Pain of left middle finger: Code(s): M79.645 - Pain in left finger(s) (3) Diabetes: Code(s): E11.9 - Type 2 diabetes mellitus without complications (4) Carpal tunnel syndrome of left wrist: Code(s): G56.02 - Carpal tunnel syndrome, left upper limb (5) Trigger finger, left middle finger: Code(s): M65.332 - Trigger finger, left middle finger (6) De Quervain's tenosynovitis, left: Code(s): M65.4 - Radial styloid tenosynovitis [de Quervain] (7) Arthritis of carpometacarpal (CMC) joint of left thumb: Code(s): M18.12 - Unilateral primary osteoarthritis of first carpometacarpal joint, left hand (8) Fibromyalgia: Code(s): M79.7 - Fibromyalgia Plan Assessment & Plan: 1. Left middle fingertip focal area of ischemia, S/P trigger release and carpal tunnel release under local anesthesia with epinephrine DOS: 03/10/23 Seen in office & ED: 03/11/23, where she was treated with nitro paste and phentolamine injection. However, this was about 20 hours postop, and she began to have pain about 21:00 on the date of surgery. 2. Left Carpal tunnel syndrome, S/P release DOS: 03/10/23 Pre-operative symptoms intermittent, but daily, worse at night Now with improved sensation and improvement of nighttime symptoms 3. Left middle finger trigger finger, S/P release DOS: 03/10/23 She no longer has locking and catching This appears to be an area of ischemia on the tip of her middle finger, which developed several hours post-operatively. This has darkened in color but has not increased in size She was treated in the ED with topical Nitroglycerine & a Phentolamine injection, which gave her some immediate pain relief. She has completed her PO Abx as instructed. I explained the signs and symptoms of infection, if the patient develops any new or worsening erythema, drainage, pain, or warmth they should contact the clinic or attend the ED. I educated her about this condition. She appears to be doing well postoperatively from the carpal tunnel release and middle finger trigger release. I encouraged her continue to work on ROM exercises, and I talked about the importance of activity modification. At this point we will wait to see how the tissue heals at the tip of the finger. We will need to see the depth of this injury. I am hopeful that beneath the eschar there will be some healing tissue. However I did talk to the patient today about the worst case scenario where, if we do not have any healing tissue to cover bone, she may end up needing a revision amputation of the tip of the digit to obtain soft tissue coverage. I am hopeful that will not be necessary. She should be careful with the digit and not exposed to cold temperatures. She will follow up in 2 weeks with a PA, sooner if her symptoms worsen. 4. Right Carpal tunnel syndrome, mod-severe Symptoms intermittent, but daily, worse at night She will follow up to discuss treatment when she recovers from surgery 5. Left De Quervains Tenosynovitis No mention today 6. Right De Quervains Tenosynovitis No mention today 7. Right Basal joint OA, S/P injection Date of Injection: 12/01/22 With good relief following her injection No mention today 8. Left basal joint OA No mention today 9. Right middle finger trigger finger No mention today Scribed for Angeles Resendez MD by Lenny Malik, expert medical writer, on 03/29/23 at 12:10 PM, EST. Coding Level of Care Code Global (65290) Diagnoses Blister of finger, initial encounter S60.429A Encounter type: initial encounter Pain of left middle finger M79.645 Diabetes E11.9 Carpal tunnel syndrome of left wrist G56.02 Trigger finger, left middle finger M65.332 De Quervain's tenosynovitis, left M65.4 Arthritis of carpometacarpal (CMC) joint of left thumb M18.12 Fibromyalgia M79.7
[2023-03-29 11:55] VITALS: BMI 29.3
== END 2023-03-29 12:25 | disposition home or self-care (01) ==
PROVIDERS: PCP Pediatrics; Visit Provider Orthopaedic Surgery
DX: S60.429A Blister (nonthermal) of unspecified finger, initial encounter (principal); M79.645 Pain in left finger(s); E11.9 Type 2 diabetes mellitus without complications; G56.02 Carpal tunnel syndrome, left upper limb; M65.332 Trigger finger, left middle finger; M65.4 Radial styloid tenosynovitis [de Quervain]; M18.12 Unilateral primary osteoarthritis of first carpometacarpal joint, left hand; M79.7 Fibromyalgia
CPT/HCPCS: 99024

== ENCOUNTER → 2023-03-29 11:17 | Outpatient (BNVA) | payer MEDICAID, SELFPAY | PROVIDERS: PCP Pediatrics; Visit Provider Orthopaedic Surgery | DX: Z48.811 Encounter for surgical aftercare following surgery on the nervous system (principal); M79.645 Pain in left finger(s); M65.4 Radial styloid tenosynovitis [de Quervain]; M18.12 Unilateral primary osteoarthritis of first carpometacarpal joint, left hand; M79.7 Fibromyalgia; E11.9 Type 2 diabetes mellitus without complications; Z86.69 Personal history of other diseases of the nervous system and sense organs | CPT/HCPCS: 99212 ==

== ENCOUNTER 2023-04-07 13:31 | Outpatient (AMB) | payer MEDICAID, SELFPAY ==
--- NOTE | 2023-04-07 13:44 | MHC.OFFVIS ---
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 States she has concerns due to increase of pain. 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 Resendez. She was last seen in the office on 03/29/[address] Resendez where she appeared to be doing well postoperatively from the carpal tunnel release and middle finger trigger release. There appeared to be an area of ischemia on the tip of her middle finger, which developed several hours post-operatively. This has darkened in color but has not increased in size. She was encouraged to continue to work on ROM exercises, and they spoke about the importance of activity modification. They did discuss the worse case scenario where, if we do not have any healing tissue to cover bone, she may end up needing a revision amputation of the tip of the digit to obtain soft tissue coverage. Dr. Resendez and I have had multiple conversations about the patient?s care. We have discussed that we will closely monitor the patient for any circumscribed area of necrotic tissue development. While in the office today the patient expresses a concern for increased pain in the left middle digit. [facility] Medical History (Updated 03/11/23 @ 13:51 by Drea Ramirez NP) Restless leg syndrome Asthma Cholecystitis Fibromyalgia Diabetes HTN (hypertension) Surgical History History of appendectomy Social History Alcohol intake: current Alcohol intake frequency: holidays/special occasions only Patient Tobacco Use Status: Never used Tobacco service: No Gender identity: Female Female Reproductive History Menstrual Age of Menarche: 10 Review of Systems Const All systems reviewed & are unremarkable except as noted in HPI and below Physical Exam Vital Signs: BMI result Body Mass Index 29.3 Const General: cooperative, healthy appearing and no acute distress Orientation/consciousness: patient oriented x3 Resp Effort & Inspection: normal respiratory effort and able to speak in complete sentences Cardio Rate: regular rate Peripheral pulses: Peripheral pulses 2+ throughout GI Palpation (GI): Soft to palpation Skin Lesions: no lesions Rashes: no rashes Neuro General: patient oriented x3 Extrem Other: The patient was alert oriented and in no acute distress The incisions are healing well with no erythema drainage or evidence of infection. The tip of the left middle finger has a discrete area of discoloration consistent with fingertip necrosis. This involves the very tip of the finger and perhaps 1-2 mm of the nail bed. Proximal to this area the finger is pink and well vascularized. All other digits were well vascularized. Incision sites at the A1 Ale middle finger and carpal tunnel are clean, dry, intact with no sins of infection. Sensation is intact Cap refill is brisk to all digits other than as noted above. Psych Appearance: grossly normal Affect: normal affect Attitude: cooperative Assessment & Plan Assessment & Plan (1) Blister of finger: Code(s): S60.429A - Blister (nonthermal) of unspecified finger, initial encounter Qualifiers: Encounter type: initial encounter Qualified Code(s): S60.429A - Blister (nonthermal) of unspecified finger, initial encounter (2) Pain of left middle finger: Code(s): M79.645 - Pain in left finger(s) (3) Diabetes: Code(s): E11.9 - Type 2 diabetes mellitus without complications (4) Carpal tunnel syndrome of left wrist: Code(s): G56.02 - Carpal tunnel syndrome, left upper limb (5) Trigger finger, left middle finger: Code(s): M65.332 - Trigger finger, left middle finger (6) De Quervain's tenosynovitis, left: Code(s): M65.4 - Radial styloid tenosynovitis [de Quervain] (7) Arthritis of carpometacarpal (CMC) joint of left thumb: Code(s): M18.12 - Unilateral primary osteoarthritis of first carpometacarpal joint, left hand (8) Fibromyalgia: Code(s): M79.7 - Fibromyalgia Plan Ms. Werner is a 53-year-old female, who is Norwegian speaking, presents in the office today 1 month status post left carpal tunnel release and left middle finger A1 ale release, which was performed on 03/10/[address] Resendez. She was last seen in the office on 03/29/[address] Resendez where she appeared to be doing well postoperatively from the carpal tunnel release and middle finger trigger release. There appeared to be an area of ischemia on the tip of her middle finger, which developed several hours post-operatively. This has darkened in color but has not increased in size. She was encouraged to continue to work on ROM exercises, and they spoke about the importance of activity modification. They did discuss the worse case scenario where, if we do not have any healing tissue to cover bone, she may end up needing a revision amputation of the tip of the digit to obtain soft tissue coverage. Dr. Resendez and I have had multiple conversations about this patient?s care. We have discussed that we will closely monitor the patient for development of circumscribed area of necrotic tissue. While in the office today the patient expresses a concern for increased pain in the left middle digit. I reached out to Dr. Resendez via phone and a collaborative treatment plan was made. I have placed a prescription for sulfamethoxazole-trimethoprim 800-160 mg (Bactrim DS) PO BID for 7 days to cover for any possibility of infection. She was instructed for pain management to take OTC Tylenol or ibuprofen. Follow up will be in one week for a wound check, or sooner if needed. Medications: New sulfamethoxazole-trimethoprim 800-160 mg (Bactrim DS) 1 tab PO BID 7 days 14 tabs 0RF Patient Instructions: Scribed for Rachel Lees PA-C by Gayle Mathis director biomedical engineering, on 04/07/2023 at 1:33 pm, EST. Coding Level of Care Code Global (09458) Diagnoses Blister of finger, initial encounter S60.429A Encounter type: initial encounter Pain of left middle finger M79.645 Diabetes E11.9 Carpal tunnel syndrome of left wrist G56.02 Trigger finger, left middle finger M65.332 De Quervain's tenosynovitis, left M65.4 Arthritis of carpometacarpal (CMC) joint of left thumb M18.12 Fibromyalgia M79.7
[2023-04-07 13:52] VITALS: BMI 29.3
== END 2023-04-07 14:52 | disposition home or self-care (01) ==
PROVIDERS: PCP Pediatrics; Visit Provider Physician Assistant
DX: M65.332 Trigger finger, left middle finger (principal); S60.422A Blister (nonthermal) of right middle finger, initial encounter; G56.02 Carpal tunnel syndrome, left upper limb; M79.645 Pain in left finger(s); M65.4 Radial styloid tenosynovitis [de Quervain]; M18.12 Unilateral primary osteoarthritis of first carpometacarpal joint, left hand
CPT/HCPCS: 99024

== ENCOUNTER → 2023-04-07 13:31 | Outpatient (BNVA) | payer MEDICAID, SELFPAY | PROVIDERS: PCP Pediatrics; Visit Provider Physician Assistant | DX: Z48.811 Encounter for surgical aftercare following surgery on the nervous system (principal); Z47.89 Encounter for other orthopedic aftercare; S60.423A Blister (nonthermal) of left middle finger, initial encounter; M79.645 Pain in left finger(s); M18.12 Unilateral primary osteoarthritis of first carpometacarpal joint, left hand; M65.4 Radial styloid tenosynovitis [de Quervain]; M79.7 Fibromyalgia; E11.9 Type 2 diabetes mellitus without complications; Z98.890 Other specified postprocedural states | CPT/HCPCS: 99212 ==

== ENCOUNTER 2023-04-14 13:07 | Outpatient (AMB) | payer MEDICAID, SELFPAY ==
--- NOTE | 2023-04-14 13:17 | A.OFFVIS_ITS ---
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 States no pain, however she is feeling pressure on the tip of her finger. 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 Resendez. I last saw the patient in the office on 04/07/2023 and at that time she was prescribed sulfamethoxazole-trimethoprim 800-160 mg (Bactrim DS) PO BID for 7 days to cover for any possibility of infection. She was instructed for pain management to take OTC Tylenol or ibuprofen. While in the office today the patient reports no pain, however she reports pressure at the tip of her finger. [facility] Medical History (Updated 03/11/23 @ 13:51 by Drea Ramirez NP) Restless leg syndrome Asthma Cholecystitis Fibromyalgia Diabetes HTN (hypertension) Surgical History (Reviewed 03/11/23 @ 10:37 by Nidhi Kim [facility]) History of appendectomy Social History Alcohol intake: current Alcohol intake frequency: holidays/special occasions only Patient Tobacco Use Status: Never used Tobacco service: No Gender identity: Female Female Reproductive History Menstrual Age of Menarche: 10 Review of Systems Const All systems reviewed & are unremarkable except as noted in HPI and below Physical Exam Const General: cooperative, healthy appearing and no acute distress Resp Effort & Inspection: normal respiratory effort and able to speak in complete sentences Cardio Rate: regular rate Peripheral pulses: Peripheral pulses 2+ throughout GI Palpation (GI): Soft to palpation Skin Lesions: no lesions Rashes: no rashes Extrem Other: The patient was alert oriented and in no acute distress The incisions are healing well with no erythema drainage or evidence of infection. The tip of the left middle finger has a discrete area of discoloration consistent with fingertip necrosis. This involves the very tip of the finger and perhaps 1-2 mm of the nail bed. There appears to be healthy tissue under the necrotic tissue. Proximal to this area the finger is pink and well vascularized. All other digits were well vascularized. Incision sites at the A1 Ale middle finger and carpal tunnel are clean, dry, intact with no sins of infection. Sensation is intact Cap refill is brisk to all digits other than as noted above. Assessment & Plan Assessment & Plan (1) Blister of finger: Code(s): S60.429A - Blister (nonthermal) of unspecified finger, initial encounter Qualifiers: Encounter type: initial encounter Qualified Code(s): S60.429A - Blister (nonthermal) of unspecified finger, initial encounter (2) Pain of left middle finger: Code(s): M79.645 - Pain in left finger(s) (3) Diabetes: Code(s): E11.9 - Type 2 diabetes mellitus without complications (4) Carpal tunnel syndrome of left wrist: Code(s): G56.02 - Carpal tunnel syndrome, left upper limb (5) Trigger finger, left middle finger: Code(s): M65.332 - Trigger finger, left middle finger (6) De Quervain's tenosynovitis, left: Code(s): M65.4 - Radial styloid tenosynovitis [de Quervain] (7) Arthritis of carpometacarpal (CMC) joint of left thumb: Code(s): M18.12 - Unilateral primary osteoarthritis of first carpometacarpal joint, left hand (8) Fibromyalgia: Code(s): M79.7 - Fibromyalgia Plan Ms. Werner is a 53-year-old female, who is Welsh speaking, presents in the office today for a wound check; 1 month status post left carpal tunnel release and left middle finger A1 ale release, which was performed on 03/10/[address] Resendez. I last saw the patient in the office on 04/07/2023 and at that time she was prescribed sulfamethoxazole-trimethoprim 800-160 mg (Bactrim DS) PO BID for 7 days to cover for any possibility of infection. She was instructed for pain management to take OTC Tylenol or ibuprofen. While in the office today the patient reports no pain, however she reports pressure at the tip of her finger. The patient confirms she has been taking her antibiotic as prescribed. She reports no increase in erythema, drainage, and her pain has been subsiding. She was educated on signs of infection, which are as follows but not limited to erythema, edema, drainage, or warmth. If she is to experience any of these symptoms she is to contact the office immediately or present to the ED. Due to the holidays her follow up will be in [address] Resendez and will contact the office should she need to, or sooner if needed. Patient Instructions: Scribed for Rachel Lees PA-C by Gayle Mathis medical/surgery registered nurse, on 04/14/2023 at 1:10 pm, EST. Coding Level of Care Code Global (23820) Diagnoses Blister of finger, initial encounter S60.429A Encounter type: initial encounter Pain of left middle finger M79.645 Diabetes E11.9 Carpal tunnel syndrome of left wrist G56.02 Trigger finger, left middle finger M65.332 De Quervain's tenosynovitis, left M65.4 Arthritis of carpometacarpal (CMC) joint of left thumb M18.12 Fibromyalgia M79.7
== END 2023-04-14 13:44 | disposition home or self-care (01) ==
PROVIDERS: PCP Pediatrics; Visit Provider Physician Assistant
DX: S60.429A Blister (nonthermal) of unspecified finger, initial encounter (principal); M79.645 Pain in left finger(s); E11.9 Type 2 diabetes mellitus without complications; G56.02 Carpal tunnel syndrome, left upper limb; M65.332 Trigger finger, left middle finger; M65.4 Radial styloid tenosynovitis [de Quervain]; M18.12 Unilateral primary osteoarthritis of first carpometacarpal joint, left hand; M79.7 Fibromyalgia; Z48.89 Encounter for other specified surgical aftercare
CPT/HCPCS: 99024

== ENCOUNTER → 2023-04-14 13:07 | Outpatient (BNVA) | payer MEDICAID, SELFPAY | PROVIDERS: PCP Pediatrics; Visit Provider Physician Assistant | DX: Z48.811 Encounter for surgical aftercare following surgery on the nervous system (principal); E11.52 Type 2 diabetes mellitus with diabetic peripheral angiopathy with gangrene; I96 Gangrene, not elsewhere classified; M79.645 Pain in left finger(s); M65.4 Radial styloid tenosynovitis [de Quervain]; M18.12 Unilateral primary osteoarthritis of first carpometacarpal joint, left hand; M79.7 Fibromyalgia; Z86.69 Personal history of other diseases of the nervous system and sense organs; Z87.39 Personal history of other diseases of the musculoskeletal system and connective tissue; Z98.890 Other specified postprocedural states | CPT/HCPCS: 99212 ==

== ENCOUNTER 2023-06-08 14:38 | Outpatient (AMB) | payer MEDICAID, SELFPAY ==
--- NOTE | 2023-06-08 14:42 | MHC.OFFVIS ---
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 States that she is having some discomfort in her palm, yet is still having pain in her wrist since her last appointment. Allergies tramadol [TRAMADOL] Allergy (Unknown, Verified 06/08/23 14:46) RASH , rash HPI PO-Lt ENAMELER, Lt MF TF Release 03/10 AR/ Confirmed HPI Details 53-year-old female, who is French speaking, presents in the office today 3 month status post left carpal tunnel release and left middle finger A1 ale release, which was performed on 03/10/[address] Resendez. I last saw the patient in the office on 04/14/2023 where she was instructed to complete her course of antibiotics and monitor for signs of infection. While in the office today the patient states she is having some discomfort in her palm. She also states she is having pain in her wrist that has been present since her last encounter on 04/14/2023. [facility] Medical History (Updated 03/11/23 @ 13:51 by Drea Ramirez NP) Restless leg syndrome Asthma Cholecystitis Fibromyalgia Diabetes HTN (hypertension) Surgical History History of appendectomy Social History Alcohol intake: current Alcohol intake frequency: holidays/special occasions only Patient Tobacco Use Status: Never used Tobacco service: No Gender identity: Female Female Reproductive History Menstrual Age of Menarche: 10 Review of Systems Const All systems reviewed & are unremarkable except as noted in HPI and below Physical Exam Const General: cooperative, healthy appearing and no acute distress Resp Effort & Inspection: normal respiratory effort and able to speak in complete sentences Cardio Rate: regular rate Peripheral pulses: Peripheral pulses 2+ throughout GI Palpation (GI): Soft to palpation Skin Lesions: no lesions Rashes: no rashes Extrem Other: Left hand: Prior incision site over the trigger finger as well as the carpal tunnel are completely healed. No signs of infection. Phalanx has some necrotic tissue that has completely healed with healthy tissue. There is hypersensitivity over that area as well as hypersensitivity at the A1 ale incision site and carpal tunnel incision site. Tenderness to palpation over the first dorsal compartment. Able to make a closed fist. Full finger extension, abduction, adduction, finger cross, okay sign, and thumbs up without deficit. Assessment & Plan Assessment & Plan (1) Blister of finger: Code(s): S60.429A - Blister (nonthermal) of unspecified finger, initial encounter Qualifiers: Encounter type: initial encounter Qualified Code(s): S60.429A - Blister (nonthermal) of unspecified finger, initial encounter (2) Pain of left middle finger: Code(s): M79.645 - Pain in left finger(s) (3) Diabetes: Code(s): E11.9 - Type 2 diabetes mellitus without complications (4) Carpal tunnel syndrome of left wrist: Code(s): G56.02 - Carpal tunnel syndrome, left upper limb (5) Trigger finger, left middle finger: Code(s): M65.332 - Trigger finger, left middle finger (6) De Quervain's tenosynovitis, left: Code(s): M65.4 - Radial styloid tenosynovitis [de Quervain] (7) Arthritis of carpometacarpal (CMC) joint of left thumb: Code(s): M18.12 - Unilateral primary osteoarthritis of first carpometacarpal joint, left hand (8) Fibromyalgia: Code(s): M79.7 - Fibromyalgia Plan Ms. Werner is a 53-year-old female, who is French speaking, presents in the office today 3 month status post left carpal tunnel release and left middle finger A1 ale release, which was performed on 03/10/[address] Resendez. I last saw the patient in the office on 04/14/2023 where she was instructed to complete her course of antibiotics and monitor for signs of infection. While in the office today the patient states she is having some discomfort in her palm. She also states she is having pain in her wrist that has been present since her last encounter on 04/14/2023. Dr. Resendez was available to see the patient with me while in the office today and a collaborative treatment plan was made. It was recommended for the patient to attend occupational therapy to work on desensitization over the middle finger distal phalanx and A1 ale incision site, as well as the carpal tunnel incision site. It was also recommended for her to work on exercises to help with de quervain?s tenosynovitis. An order was placed while in the office today. Follow up will be in [address] Resendez, or sooner if needed. Orders: Orders OT Evaluation and Treatment 06/08/23 G56.02 - Carpal tunnel syndrome, left upper limb, M65.332 - Trigger finger, left middle finger, M65.4 - Radial styloid tenosynovitis [de Quervain], M79.645 - Pain in left finger(s) Patient Instructions: Scribed by Gayle Mathis medical technologist generalist, for Rachel Lees PA-C on 06/08/2023 at 2:41 pm, EST. Coding Level of Care Code Est Pt Level 3 (52001) Diagnoses Blister of finger, initial encounter S60.429A Encounter type: initial encounter Pain of left middle finger M79.645 Diabetes E11.9 Carpal tunnel syndrome of left wrist G56.02 Trigger finger, left middle finger M65.332 De Quervain's tenosynovitis, left M65.4 Arthritis of carpometacarpal (CMC) joint of left thumb M18.12 Fibromyalgia M79.7
== END 2023-06-08 15:27 | disposition home or self-care (01) ==
PROVIDERS: PCP Pediatrics; Visit Provider Physician Assistant
DX: G56.02 Carpal tunnel syndrome, left upper limb (principal); M65.332 Trigger finger, left middle finger; S60.429A Blister (nonthermal) of unspecified finger, initial encounter; E11.9 Type 2 diabetes mellitus without complications; M65.4 Radial styloid tenosynovitis [de Quervain]; M18.12 Unilateral primary osteoarthritis of first carpometacarpal joint, left hand; M79.7 Fibromyalgia
CPT/HCPCS: 99024

== ENCOUNTER → 2023-06-08 14:38 | Outpatient (BNVA) | payer MEDICAID, SELFPAY | PROVIDERS: PCP Pediatrics; Visit Provider Physician Assistant | DX: S60.42 Blister (nonthermal) of fingers (principal); M65.332 Trigger finger, left middle finger; M79.645 Pain in left finger(s); M65.4 Radial styloid tenosynovitis [de Quervain]; M18.12 Unilateral primary osteoarthritis of first carpometacarpal joint, left hand; E11.9 Type 2 diabetes mellitus without complications; M79.7 Fibromyalgia; Z86.69 Personal history of other diseases of the nervous system and sense organs | CPT/HCPCS: 99212 ==

== ENCOUNTER 2023-06-15 08:15 | Outpatient (REF) | payer MEDICAID, SELFPAY ==
[2023-06-15 15:19] LABS: Alanine Aminotransferase 25 U/L (0-31); Albumin Level 4.4 g/dL (3.5-5.0); Alkaline Phosphatase 89 U/L (39-117); Aspartate Amino Transferase 19 U/L (5-31); Bilirubin Direct 0.2 mg/dL (0.0-0.5); Bilirubin Total 0.4 mg/dL (0.0-1.0); Cholesterol 132 mg/dL (<200); HDL Cholesterol 37 mg/dL (>40); LDL Cholesterol Calculated 73 mg/dL (<100); Total Protein 7.2 g/dL (6.5-8.0); Triglycerides 110 mg/dL (<150)
== END 2023-06-15 08:16 | disposition home or self-care (01) ==
LOC: HO.CHCLDS 08:15
PROVIDERS: Visit Provider Pediatrics
DX: E11.9 Type 2 diabetes mellitus without complications (principal)
CPT/HCPCS: 36415; 80061; 80076; 82550

== ENCOUNTER 2023-07-15 10:06 | Day surgery (SDC) | payer MEDICAID, SELFPAY ==
--- NOTE | 2023-07-13 14:42 | P.CONAN_ITS ---
Documented by User: Patrica Goetz NP 07/13/23 14:43 HPI - Anesthesia Eval Consult details Narrative: 53yo F for Upper Endoscopy and Colonoscopy Anesthesia Pre-Procedure Meds Is the patient on any of the following meds?: Semaglutide (Ozempic) PMFSH Active Problems Active Problems: All Active Problems (Updated 03/11/23 @ 13:51 by Drea Ramirez NP) Pain of left middle finger (Acute) Blister of finger (Acute) Diabetes (Acute) Fibromyalgia (Acute) De Quervain's tenosynovitis, left (Acute) De Quervain's tenosynovitis, right (Acute) Carpal tunnel syndrome of left wrist (Acute) Carpal tunnel syndrome of right wrist (Acute) Trigger finger, left middle finger (Acute) Trigger finger, right middle finger (Acute) Bilateral hand numbness (Acute) Arthritis of carpometacarpal (CMC) joint of right thumb (Acute) Arthritis of carpometacarpal (CMC) joint of left thumb (Acute) Menorrhagia (Acute) Well woman exam (Acute) Screening mammogram, encounter for (Acute) Past Medical History Medical History (Updated 03/11/23 @ 13:51 by Drea Ramirez NP) Restless leg syndrome Asthma Cholecystitis Fibromyalgia Diabetes HTN (hypertension) Surgical History Surgical History History of appendectomy Social History Social History Alcohol intake: current Alcohol intake frequency: holidays/special occasions only Patient Tobacco Use Status: Never used Tobacco Advance Directives: No Advance Directives Information Provided: Yes service: No Gender identity: Female Meds Allergies Allergy/AdvReac Type Severity Reaction Status Date / Time tramadol [TRAMADOL] Allergy Unknown RASH , rash Verified 06/08/23 14:46 Home Medications Medication Instructions Recorded Confirmed Last Taken Type albuterol sulfate 2.5 mg/3 mL 2.5 mg inhalation TID PRN 12/06/22 07/15/23 Unknown History (0.083 %) solution for nebulization Shortness Of Breath Or Wheezing albuterol sulfate 90 mcg/actuation 2 puff inhalation QID PRN 12/06/22 07/15/23 Unknown History aerosol inhaler (Ventolin HFA) Shortness Of Breath Or Wheezing ascorbic acid (vitamin C) 1,000 mg 1,000 mg PO BID 12/06/22 07/15/23 Unknown History tablet cholecalciferol (vitamin D3) 50 50 mcg PO BID 12/06/22 07/15/23 Unknown History mcg (2,000 unit) capsule dicyclomine 10 mg capsule 10 mg PO TID 12/06/22 07/15/23 Unknown History ferrous sulfate 325 mg (65 mg 325 mg PO QAM 12/06/22 07/15/23 Unknown History iron) tablet (FeroSul) fluticasone propionate 220 1 puff inhalation BID 12/06/22 07/15/23 Unknown History mcg/actuation HFA aerosol inhaler (Flovent HFA) glimepiride 4 mg tablet 4 mg PO QPM 12/06/22 07/15/23 Unknown History metformin 500 mg tablet,extended 1,000 mg PO BID 12/06/22 07/15/23 Unknown History release 24 hr naproxen 500 mg tablet 500 mg PO BID PRN Pain 12/06/22 07/15/23 Unknown History omeprazole 40 mg capsule,delayed 40 mg PO QAM 12/06/22 07/15/23 Unknown History release pramipexole 0.5 mg tablet 0.5 mg PO BEDTIME 12/06/22 07/15/23 Unknown History pregabalin 200 mg capsule 200 mg PO TID 12/06/22 07/15/23 07/15/23 History semaglutide 0.25 mg or 0.5 mg (2 0.5 mg subcut FR 12/06/22 07/15/23 07/08/23 History mg/3 mL) subcutaneous pen injector (Ozempic) Assessment and Plan Assessment Anesthesia Assessment: Chart Reviewed Documented by User: Barrie Pathak MD 07/15/23 10:37 HPI - Anesthesia Eval Anesthesia Pre-Procedure Meds If Yes to any meds - educate patient: Pt education - increased risk of aspiration PMFSH Past Medical History Medical History (Updated 03/11/23 @ 13:51 by Drea Ramirez NP) Restless leg syndrome Asthma Cholecystitis Fibromyalgia Diabetes HTN (hypertension) Family History Family history of problems with anesthesia: No Surgical History Surgical History History of appendectomy History of Problems with Anesthesia: No Social History Social History Alcohol intake: current Alcohol intake frequency: holidays/special occasions only Patient Tobacco Use Status: Never used Tobacco Advance Directives: No Advance Directives Information Provided: Yes service: No Gender identity: Female Meds Allergies Allergy/AdvReac Type Severity Reaction Status Date / Time tramadol [TRAMADOL] Allergy Unknown RASH , rash Verified 06/08/23 14:46 Home Medications Medication Instructions Recorded Confirmed Last Taken Type albuterol sulfate 2.5 mg/3 mL 2.5 mg inhalation TID PRN 12/06/22 07/15/23 Unknown History (0.083 %) solution for nebulization Shortness Of Breath Or Wheezing albuterol sulfate 90 mcg/actuation 2 puff inhalation QID PRN 12/06/22 07/15/23 Unknown History aerosol inhaler (Ventolin HFA) Shortness Of Breath Or Wheezing ascorbic acid (vitamin C) 1,000 mg 1,000 mg PO BID 12/06/22 07/15/23 Unknown History tablet cholecalciferol (vitamin D3) 50 50 mcg PO BID 12/06/22 07/15/23 Unknown History mcg (2,000 unit) capsule dicyclomine 10 mg capsule 10 mg PO TID 12/06/22 07/15/23 Unknown History ferrous sulfate 325 mg (65 mg 325 mg PO QAM 12/06/22 07/15/23 Unknown History iron) tablet (FeroSul) fluticasone propionate 220 1 puff inhalation BID 12/06/22 07/15/23 Unknown History mcg/actuation HFA aerosol inhaler (Flovent HFA) glimepiride 4 mg tablet 4 mg PO QPM 12/06/22 07/15/23 Unknown History metformin 500 mg tablet,extended 1,000 mg PO BID 12/06/22 07/15/23 Unknown History release 24 hr naproxen 500 mg tablet 500 mg PO BID PRN Pain 12/06/22 07/15/23 Unknown History omeprazole 40 mg capsule,delayed 40 mg PO QAM 12/06/22 07/15/23 Unknown History release pramipexole 0.5 mg tablet 0.5 mg PO BEDTIME 12/06/22 07/15/23 Unknown History pregabalin 200 mg capsule 200 mg PO TID 12/06/22 07/15/23 07/15/23 History semaglutide 0.25 mg or 0.5 mg (2 0.5 mg subcut FR 12/06/22 07/15/23 07/08/23 History mg/3 mL) subcutaneous pen injector (Ozempic) Exam Airway Mallampati Class: II TM Dist: >3cm Neck ROM: Full Assessment and Plan Assessment Anesthesia Assessment: Anesthesia Plan Discussed Final Anesthetic Review Family History of Problems with Anesthesia: No History of Problems with Anesthesia: No NPO: Yes ASA Class: II Final Preanesthetic Review: No Changes in Pt Med Stat, Meds/Allgs Chart Reviewed, Consent Obtained/Reviewed and Anes Risks/Benef Reviewed Patient Risk: Intermediate Procedure Risk: Low Anesthetic Plan Anesthetic Plan: TIVA Disposition: Standard PACU
[2023-07-15 10:37] VITALS: BP 114/80; PULSE 88; RESP 18; TEMP 36.3; O2SAT 98
[2023-07-15 10:38] VITALS: BMI 21.6
[2023-07-15 10:51] LABS: Glucose, Whole Blood 112 mg/dL (60-115)
[2023-07-15] MEDS: Lactated Ringers 1,000 ML 100 ML IVCONT (11:04)
[2023-07-15] MEDS: Sodium Phosphate,Mono-Dibasic 133 ML ENEMA PR (11:05)
[2023-07-15 12:17] VITALS: BP 109/68; PULSE 85; RESP 15; TEMP 36.6; O2SAT 98
--- NOTE | 2023-07-15 12:21 | P.BOP_ITS ---
Brief Operative Note Date of Service: 07/15/23 Pre-op diagnosis: GERD, Screening Post-op diagnosis: other (Gastric polyp, Diverticulosis) Procedure: EGD with biopsies, Colonoscopy to the cecum Surgeon: Neil Khanna MD Anesthesia: MAC Was an Retail Department Reset used for this Procedure?: No Estimated blood loss (mL): 2.0 Pathology: other (A. Gastric polyp) Condition: stable Disposition: PACU
[2023-07-15 12:32] VITALS: BP 108/75; PULSE 84; RESP 16; TEMP 36.6; O2SAT 99
--- NOTE | 2023-07-15 13:05 | OP_ITS ---
DATE OF SERVICE: 07/15/2023 SURGEON: Neil Khanna MD INDICATIONS: The patient presents for evaluation of gastroesophageal reflux, colorectal cancer screening. Full consent obtained from her for this, including risks of bleeding and perforation. PREOPERATIVE DIAGNOSIS: Gastroesophageal reflux and colorectal cancer screening. POSTOPERATIVE DIAGNOSIS: PROCEDURE PERFORMED: ESTIMATED BLOOD LOSS: COMPLICATIONS: ANESTHESIA: Monitored anesthesia care. ASSISTANTS: SPECIMENS: POSTOPERATIVE DIAGNOSES: Gastroesophageal reflux and colorectal cancer screening, small gastric polyp, mild sigmoid diverticulosis, small internal hemorrhoids. PROCEDURES PERFORMED: Esophagogastroduodenoscopy with biopsy, and colonoscopy to the cecum. DESCRIPTION OF PROCEDURE: The patient was placed in the left lateral decubitus position. The Olympus video gastroscope was passed in the posterior oropharynx and upper esophagus under direct vision. The scope was passed slowly into the distal esophagus. The gastroesophageal junction appeared normal at 35 cm. There was no sign of any esophagitis, Grace mucosa nor mass. The scope easily entered the stomach. There was a minimal hiatal hernia. The scope was advanced to the pylorus and the duodenum was cannulated to the descending portion. The duodenum including the bulb appeared normal without mass or ulceration. The scope was withdrawn back into the stomach. The gastric antrum and body appeared normal. The scope was retroflexed, visualizing the proximal stomach carefully, which appeared normal, without mass or ulceration, other than some minimal, less than 5 mm hyperplastic appearing polyps. One of these was biopsied. The scope was withdrawn back into the esophagus. The esophageal mucosa appeared normal. The scope was withdrawn the patient. She was turned around for the colonoscopy. The digital rectal exam revealed no abnormalities. The Olympus video pediatric colonoscope was entered into the rectum and advanced easily to the cecum. Once in the cecum, I did identify normal-appearing cecal pouch with appendiceal orifice and a normal-appearing ileocecal valve. The entire cecum and ileocecal valve appeared normal. There was transillumination of light deep in the right lower quadrant. The scope was slowly withdrawn assessing all mucosal surfaces carefully. Preparation was excellent. I did not visualize any sign of polyps, colitis, nor angiodysplasia. There was a mild amount of sigmoid diverticulosis. In the rectum, scope was retroflexed; visualizing small internal hemorrhoids, but no other pathology. The rectal mucosa appeared normal. The scope was straightened and withdrawn from the patient. She tolerated both procedures well and was returned to the recovery area in stable condition. IMPRESSION: 1. Small gastric polyp. 2. Minimal hiatal hernia. 3. Sigmoid diverticulosis. 4. Internal hemorrhoids. PLAN: Given the negative colonoscopy, I would recommend a followup coloscopy in 10 years for further screening. She will continue her omeprazole for relief of her reflux. She was advised not to use any aspirin, NSAIDs, nor fish oil for 1 more week. She was advised to resume her usual diabetes medication regimen including Ozempic. She will otherwise see me on a p.r.n. basis. MD ED Moncada/SARAY / [phone]
== END 2023-07-15 13:00 | disposition home or self-care (01) ==
PROVIDERS: PCP Pediatrics; Visit Provider Internal Medicine
PROC: (CPT 45378; principal; 2023-07-15 12:00)
DX: Z12.11 Encounter for screening for malignant neoplasm of colon (principal); K57.30 Diverticulosis of large intestine without perforation or abscess without bleeding; K64.8 Other hemorrhoids; K21.9 Gastro-esophageal reflux disease without esophagitis; K31.7 Polyp of stomach and duodenum; K44.9 Diaphragmatic hernia without obstruction or gangrene; J45.909 Unspecified asthma, uncomplicated; E11.9 Type 2 diabetes mellitus without complications; Z79.85 Long-term (current) use of injectable non-insulin antidiabetic drugs; Z79.84 Long term (current) use of oral hypoglycemic drugs; Z79.899 Other long term (current) drug therapy; Z90.49 Acquired absence of other specified parts of digestive tract
CPT/HCPCS: 45378; 43239; 82947; 88305; 88313; 88342; J2704

== ENCOUNTER 2023-07-19 10:23 | Outpatient (AMB) | payer MEDICAID, SELFPAY ==
[2023-07-19 10:32] VITALS: BMI 21.6
--- NOTE | 2023-07-19 10:32 | A.OFFVIS_ITS ---
Intake Vital Signs 07/19/23 10:32 Height 5 ft 4 in Weight 126 lb BMI 21.6 Intake Visit Reasons: O/V LT CTR,LT MF release 03/10 Intake Note: Esperanza is a 53 year old female who presents today for her follow up visit of left hand s/p CTR and middle finger trigger release, wound check from DOS 03/10/23 AR. States her finger is improving and is no longer black. She cont's to have sensitivity. Also states she has pain at her left CMC joint and would like to discuss injection. Allergies tramadol [TRAMADOL] Allergy (Unknown, Verified 07/19/23 10:38) RASH , rash HPI O/V LT CTR,LT MF release 03/10 HPI Details Esperanza is a 53 year old [place]raini speaking woman who presents S/P left middle finger trigger release, and carpal tunnel release, DOS: 03/10/23. Her chief complaint today is of left radial sided wrist pain, worse with pinching and gripping activities. She also has a history of left basal joint osteoarthritis. The patient is status post a left carpal tunnel release and left middle finger trigger release with va on 03/10/2023. In short, she did develop some fingertip necrosis involving the left middle finger. With time the small eschar on the tip of the finger fell off, and revealed pink healed skin with good coverage of the tip of the middle finger. With regards to the tip of the finger she says it can still be a little sensitive but it is feeling much better. Please see my note from 03/15/23 & 03/29/23 for more information if necessary. [facility] Medical History (Updated 03/11/23 @ 13:51 by Drea Ramirez NP) Restless leg syndrome Asthma Cholecystitis Fibromyalgia Diabetes HTN (hypertension) Surgical History History of appendectomy Social History Alcohol intake: current Alcohol intake frequency: holidays/special occasions only Patient Tobacco Use Status: Never used Tobacco service: No Gender identity: Female Female Reproductive History Menstrual Age of Menarche: 10 Review of Systems Const All systems reviewed & are unremarkable except as noted in HPI and below Physical Exam Vital Signs: BMI result Body Mass Index 21.6 Const General: no acute distress and alert Orientation/consciousness: patient oriented x3 Neuro General: patient oriented x3 Extrem Other: Evaluation of Left Upper Extremity: The patient is alert, oriented, and in no acute distress Neuro: Median, Ulnar, Radial nerves motor and sensory intact and sensation is normal to the tips of all digits Vascular: Cap refill brisk ROM: She can make a fist and extend all her digits No locking or catching She is most Tender over the left 1st dorsal compartment Positive Devin test on the left, negative on the right No tenderness over the basal joint No tenderness over the MCP joint or IP joint today Her middle fingertip appears pink today, and the eschar is no longer present. The tip of the finger is no longer tender to palpation. Full active range of motion between a fist and full extension without pain. Psych Appearance: grossly normal Affect: normal affect Attitude: cooperative Office Procedures Fracture Care Details: No fracture, injection Fracture Billing Code: Fracture Billing Code Assessment & Plan Assessment & Plan (1) Diabetes: Code(s): E11.9 - Type 2 diabetes mellitus without complications (2) De Quervain's tenosynovitis, left: Code(s): M65.4 - Radial styloid tenosynovitis [de Quervain] (3) Arthritis of carpometacarpal (CMC) joint of left thumb: Code(s): M18.12 - Unilateral primary osteoarthritis of first carpometacarpal joint, left hand (4) Fibromyalgia: Code(s): M79.7 - Fibromyalgia Plan Assessment & Plan: 1. Left De Quervains Tenosynovitis Positive Devin test I educated her about this condition I discussed operative and non-operative treatment options The patient would like to proceed with an injection I discussed activity modification, she should limit or avoid any heavy or repetitive pinching or gripping activities She was fitted for a comfort cool splint to wear with daily activity Injection #1: The risks and benefits of a steroid injection including but not limited to risk of damage to blood vessels, nerves, tendons, infection, skin bleaching, failure to improve symptoms, increased pain, and possible need for further injections or other intervention were discussed with the patient and the patient wishes to proceed with the steroid injection. Once consent was obtained, I sterilely prepped the area over the 1st dorsal compartment of the Left thumb. I then injected the 1st dorsal compartment with a combination of 1 mL of dexamethasone (4mg/ml), and 1% lidocaine. The patient tolerated the procedure well with no complications and good resolution of their symptoms prior to leaving clinic. If the patient continues to have pain 6-8 weeks following this injection, they may call to schedule appointment to discuss alternative treatment options She will follow up prn 2. Left middle fingertip focal area of ischemia, S/P trigger release and carpal tunnel release under local anesthesia with epinephrine DOS: 03/10/23 Seen in office & ED: 03/11/23, where she was treated with nitro paste and phentolamine injection. However, this was about 20 hours postop, and she began to have pain about 21:00 on the date of surgery. This has improved & resolved since she was last seen The fingertip is pink & her eschar has fallen off Nontender to the tip of the finger today, and full and painless range of motion of the digit. 3. Right Carpal tunnel syndrome, mod-severe Symptoms intermittent, but daily, worse at night She understands she will likely need surgery soon, but she wants to have her left De Quervain's managed before considering treatment She will follow up to discuss treatment options prn 4. Left Carpal tunnel syndrome, S/P release DOS: 03/10/23 Pre-operative symptoms intermittent, but daily, worse at night Now with improved sensation and improvement of nighttime symptoms 5. Left middle finger trigger finger, S/P release DOS: 03/10/23 Good resolution of symptoms 6. Right De Quervains Tenosynovitis No mention today 7. Right Basal joint OA, S/P injection Date of Injection: 12/01/22 With good relief following her injection No mention today 8. Left basal joint OA No mention today 9. Right middle finger trigger finger No mention today Scribed for Angeles Resendez MD by Lenny Malik medical cost consultant, on 07/19/23 at 11:05 AM, EST. Coding Level of Care Code Est Pt Level 3 (67583) Diagnoses Diabetes E11.9 De Quervain's tenosynovitis, left M65.4 Arthritis of carpometacarpal (CMC) joint of left thumb M18.12 Fibromyalgia M79.7 CPT Codes Fracture Care - Fracture Billing Code: Fracture Billing Code ([id number])
== END 2023-07-19 11:22 | disposition home or self-care (01) ==
PROVIDERS: PCP Pediatrics; Visit Provider Orthopaedic Surgery
DX: E11.9 Type 2 diabetes mellitus without complications (principal); M65.4 Radial styloid tenosynovitis [de Quervain]; M18.12 Unilateral primary osteoarthritis of first carpometacarpal joint, left hand; M79.7 Fibromyalgia
CPT/HCPCS: 20550; 99213

== ENCOUNTER → 2023-07-19 10:23 | Outpatient (BNVA) | payer MEDICAID, SELFPAY | PROVIDERS: PCP Pediatrics; Visit Provider Orthopaedic Surgery | DX: M65.4 Radial styloid tenosynovitis [de Quervain] (principal); M18.12 Unilateral primary osteoarthritis of first carpometacarpal joint, left hand; M79.7 Fibromyalgia; E11.9 Type 2 diabetes mellitus without complications | CPT/HCPCS: 20550; 99212; J1100 ==

== ENCOUNTER 2023-11-12 19:04 | Emergency (ER) | payer MEDICAID, SELFPAY ==
--- NOTE | ~2023-11-12 | XR_ITS ---
EXAMINATION: XR CHEST CLINICAL INFORMATION: Chest pain COMPARISON: None available. TECHNIQUE: 2 views of the chest were obtained. FINDINGS: No significant abnormality is noted involving the heart, lungs, mediastinum, bony thorax or soft tissues. XR/XR chest 2V IMPRESSION: Unremarkable examination.
--- NOTE | ~2023-11-12 | CT_ITS ---
EXAMINATION: CT ANGIOGRAM OF THE CHEST WITH AND WITHOUT CONTRAST (CT PULMONARY ANGIOGRAM FOR PE) CLINICAL INFORMATION: Reason for Exam dyspnea, chest pain elevated ddimer - 315 COMPARISON: None available. TECHNIQUE: Prior to contrast administration, noncontrast localization images were obtained. Subsequently, multidetector volumetric imaging was performed from the thoracic inlet to below the diaphragms following the administration of 65 mL Omnipaque 350 intravenous contrast. No contrast reaction reported Sagittal, coronal, and MIP oblique sagittal reformatted images were obtained on the CT workstation, uploaded to PACS, and reviewed. This CT examination was performed using dose optimization techniques as appropriate, variously including the following: *Automated exposure control *Adjustment of mA and/or kV according to patient size (this includes techniques or standardized protocols for targeted exams where dose is matched to indication/reason for exam; i.e. extremities or head) *Use of iterative reconstruction technique Total exam dose-length product 244 mGy-cm FINDINGS: QUALITY OF STUDY/CONTRAST BOLUS: Satisfactory. PULMONARY ARTERIES: No pulmonary emboli. THORACIC AORTA: No aneurysm. LUNG: There is scattered groundglass attenuation. No focal consolidation, nodules or masses. PLEURA: No pleural effusion or pneumothorax. MEDIASTINUM: Normal heart size. No pericardial effusion. No hilar or mediastinal lymphadenopathy. No evidence of septal bowing or right heart strain. CORONARY ARTERY CALCIFICATION: None visualized on this study. CHEST WALL/AXILLA: No axillary or internal mammary lymphadenopathy. OSSEOUS STRUCTURES: No acute or suspicious osseous abnormality. UPPER ABDOMEN: Unremarkable. No reflux of contrast into the hepatic veins to suggest elevated right heart pressures. CT/CT angio chest PE protocol IMPRESSION: 1. No evidence of pulmonary embolism. 2. Scattered groundglass attenuation in the lungs, nonspecific. This is likely related to hypoaeration. VTE: Negative
--- NOTE | 2023-11-12 19:06 | ECG_ITS ---
Test Reason : CHEST PAIN Blood Pressure : / mmHG Vent. Rate : 097 BPM Atrial Rate : 097 BPM P-R Int : 148 ms QRS Dur : 084 ms QT Int : 354 ms P-R-T Axes : 032 059 049 degrees QTc Int : 449 ms Normal sinus rhythm Normal ECG When compared with ECG of 06-DEC-2022 12:41, No significant change was found Referred By: Dina Kaplan Electronically Signed By:MI ZEPEDA MD
--- NOTE | 2023-11-12 19:17 | ED_ITS ---
HPI - General Adult General Chief complaint: Chest Pain Stated complaint: Chest pain Time Seen by Provider: 11/12/23 21:03 Source: patient, family, old records reviewed and night order selector Mode of arrival: ambulatory Limitations: no limitations History of Present Illness ED Provider: CECILIO ALONZO narrative: 53 yo female with PMH of asthma, DM, anemia, HTN here with c/o chest tightness and dyspnea with exertion. NO fevers, cough, no travel or procedures has no known problems with heart. She denies leg edema. Pain is not pleuritic. MD complaint: chest pain Onset (ago): day(s) (3) Location: chest Radiation: non-radiation Severity: moderate Quality: other (tightness) Pain Consistency: intermittent Relieving factors: rest Exacerbating factors: movement Associated symptoms: shortness of breath Treatments prior to arrival: none Related Data Home Medications ?Medication ?Instructions ?Recorded ?Confirmed albuterol sulfate 2.5 mg/3 mL 2.5 mg inhalation TID PRN 12/06/22 07/15/23 (0.083 %) solution for nebulization Shortness Of Breath Or Wheezing albuterol sulfate 90 mcg/actuation 2 puff inhalation QID PRN 12/06/22 07/15/23 aerosol inhaler (Ventolin HFA) Shortness Of Breath Or Wheezing ascorbic acid (vitamin C) 1,000 mg 1,000 mg PO BID 12/06/22 07/15/23 tablet cholecalciferol (vitamin D3) 50 50 mcg PO BID 12/06/22 07/15/23 mcg (2,000 unit) capsule dicyclomine 10 mg capsule 10 mg PO TID 12/06/22 07/15/23 ferrous sulfate 325 mg (65 mg 325 mg PO QAM 12/06/22 07/15/23 iron) tablet (FeroSul) fluticasone propionate 220 1 puff inhalation BID 12/06/22 07/15/23 mcg/actuation HFA aerosol inhaler (Flovent HFA) glimepiride 4 mg tablet 4 mg PO QPM 12/06/22 07/15/23 metformin 500 mg tablet,extended 1,000 mg PO BID 12/06/22 07/15/23 release 24 hr naproxen 500 mg tablet 500 mg PO BID PRN Pain 12/06/22 07/15/23 omeprazole 40 mg capsule,delayed 40 mg PO QAM 12/06/22 07/15/23 release pramipexole 0.5 mg tablet 0.5 mg PO BEDTIME 12/06/22 07/15/23 pregabalin 200 mg capsule 200 mg PO TID 12/06/22 07/15/23 semaglutide 0.25 mg or 0.5 mg (2 0.5 mg subcut FR 12/06/22 07/15/23 mg/3 mL) subcutaneous pen injector (Ozempic) Previous Rx's ?Medication ?Instructions ?Recorded sulfamethoxazole 800 1 tab PO BID 7 days #14 tabs 04/07/23 mg-trimethoprim 160 mg tablet (Bactrim DS) azithromycin 250 mg tablet See Rx Instructions PO .COMPLEX #6 11/12/23 tabs prednisone 20 mg tablet 40 mg (2 x 20 mg) PO DAILY 3 days 11/12/23 #6 tabs Allergies Allergy/AdvReac Type Severity Reaction Status Date / Time tramadol [TRAMADOL] Allergy Unknown RASH , rash Verified 11/12/23 19:20 Review of Systems 2 Review of Systems: Constitutional : No Weight loss, No Fever, No Chills ENT/Mouth : No sore throat, No Rhinorrhea Eyes: No Eye Pain, No Swelling Cardiovascular : pos Chest Pain, pos SOB, no Dyspnea on Exertion, No Orthopnea, No Edema, No Palpitations Respiratory : No Cough, No Sputum Gastrointestinal : no Nausea, No Vomiting, No Diarrhea, No abdominal Pain, No Hematochezia, No Melena Genitourinary : No Dysuria, No Urinary Frequency Musculoskeletal : No joint pain, No Myalgias, No Joint Swelling Skin : No Skin Lesions, No rash Neuro : No Weakness, No Numbness, No Dizziness, No Headache Psych : No Anxiety/Panic, No Depression Heme/Lymph: No Bruising, No Lymphadenopathy Endocrine : No Polyuria, No Polydipsia All other systems reviewed and are negative [facility] Past Medical History Attestation statement: The following information was validated with the patient. Source: old records reviewed Medical History Restless leg syndrome Asthma Cholecystitis Fibromyalgia Diabetes HTN (hypertension) Surgical History History of appendectomy Social History Social History Alcohol intake: current Alcohol intake frequency: does not drink Patient Tobacco Use Status: Never used Tobacco Smoked in Last 30 Days: No Use of substances other than those prescribed or required for medical reasons: No Advance Directives: No Advance Directives Information Provided: No Do you have a plan to hurt others: No Plan service: No Gender identity: Female Physical Exam ED Vital Signs: Vital Signs - 24 hr 11/12/23 19:18 11/12/23 22:18 Temperature 97.3 F 98.2 F Pulse Rate 102 H 91 Respiratory Rate 14 20 Blood Pressure 102/81 109/68 Pulse Oximetry 94 97 Oxygen Delivery Method Room Air Room Air BMI result Body Mass Index 29.0 Course Course Course Narrative: RME performed by Dina Kaplan PA-C. Patient is a 53 year old assigned female at presenting to the emergency department with chest pain. Patient states over the last 3 days she has had chest pain. Detailed physical exam and review of systems are deferred to the cardio clinician. EKG, labs, imaging, and swabs ordered. Patient placed back in the waiting room pending room availability and results. Medications Administered Discontinued Medications Generic Name Dose Route Start Last Admin Trade Name Freq PRN Reason Stop Dose Admin Iohexol 65 ml 11/12/23 22:55 11/12/23 22:56 Iohexol 350 Mg/Ml 100 Ml Infus..Btl IV 11/12/23 22:56 65 ml ONCE ONE Administration Ketorolac Tromethamine 15 mg 11/12/23 23:36 11/12/23 23:43 Ketorolac Tromethamine 15 Mg/Ml Vial IVPUSH 11/12/23 23:37 15 mg ONCE ONE Administration Ondansetron HCl 4 mg 11/12/23 23:36 11/12/23 23:43 Ondansetron Hcl 4 Mg/2 Ml Vial IVPUSH 11/12/23 23:37 4 mg ONCE ONE Administration Medical Decision Making Medical Decision Making MDM Narrative: 53 yo female with PMH of asthma, DM, anemia, HTN here with c/o chest tightness and dyspnea with movements and exertion no travel or procedures / recent infections but she is tachycardia - ddimer ordered, EKG ordered and troponin x 1 given 3 days of symptom she has no known CAD did discuss calling cards and PCP this week go get stress test. She has never had cardiac work up before. She has no chest pain at rest. Differential Diagnosis Differential Diagnoses: The differential diagnosis associated with the presentation includes atypical chest pain, ACS, VTE Admission/Observation Consideration of admission/observation: Escalation of care including admission/observation considered EKG nonischemic trop flat VTE negative on PE study Lab Data MDM Lab Attestation statement: I reviewed the patient's lab results. ddimer elevated CTA ordered 11/12/23 19:30 11/12/23 19:30 Labs: Lab Results 11/12/23 11/12/23 Range/Units 19:30 21:33 WBC 10.3 (4.8-10.8) X10*3/uL RBC 4.55 D (4.20-5.50) X10*6/uL Hgb 13.6 D (12.0-16.0) g/dl Hct 40.6 D (37.0-47.0) % MCV 89.2 (80.0-98.0) fL MCH 29.9 (27.0-33.0) pg MCHC 33.5 (31.0-35.0) g/dl RDW 13.5 (11.0-16.0) % Plt Count 315 (160-400) X10*3/uL MPV 11.2 (9.4-12.3) fL Immature Gran % (Auto) 0.3 (0.0-0.4) % Neut % (Auto) 61.3 (45-73) % Lymph % (Auto) 29.5 (20-40) % [facility] % (Auto) 6.5 (2-11) % Eos % (Auto) 1.7 (0-4) % Baso % (Auto) 0.7 (0-2) % Lymph # (Auto) 3.0 (1.2-4.9) X10*3/uL [facility] # (Auto) 0.7 (0.1-1.2) X10*3/uL Eos # (Auto) 0.2 (0.0-0.4) X10*3/uL Baso # (Auto) 0.1 (0.0-0.2) X10*3/uL Abs Immat Gran (auto) 0.03 (0.00-0.03) X10*3/uL Absolute Neuts (auto) 6.3 (2.0-8.3) x10*3/uL Absolute Nucleated RBC 0.000 (0.0-0.012) X10*3/uL Nucleated RBC % (auto) 0.0 (0.0-0.2) /100WBC D-Dimer High Sensitivty 315 NG/ML Sodium 142 (135-145) mmol/L Potassium 3.7 (3.3-5.1) mmol/L Chloride 108 (96-108) mmol/L Carbon Dioxide 24 (22-29) mmol/L Anion Gap 14 (12-20) BUN 12 (9-16) mg/dL Creatinine 0.66 (0.5-1.4) mg/dL Estim Creat Clear Calc 79.1 Estimated GFR > 60 Random Glucose 194 H (60-115) mg/dL Calcium 9.4 D (8.4-10.2) mg/dL Magnesium 1.9 (1.6-2.6) mg/dL Total Bilirubin 0.2 (0.0-1.0) mg/dL AST 14 (5-31) U/L ALT 23 (0-31) U/L Alkaline Phosphatase 97 (39-117) U/L Troponin I High Sens < 2.7 (<3.5-17.0) ng/L Total Protein 7.2 (6.5-8.0) g/dL Albumin 4.5 (3.5-5.0) g/dL Urine Color Yellow Urine Appearance Clear Urine pH 5.5 (5.0-9.0) Ur Specific [place] >= 1.030 H (1.005-1.025) Urine Protein Negative (Neg-Trace) mg/dL Urine Glucose (UA) Negative (Negative) mg/dL Urine Ketones 15 (Negative) mg/dL Urine Blood Negative (Negative) Urine Nitrite Negative (Negative) Ur Leukocyte Esterase Trace H (Negative) Urine RBC 0-2 (0-2) /HPF Urine WBC 6-10 H (0-5) /HPF Ur Squamous Epith Cells 6-10 (0-2) /HPF Urine Bacteria None Seen (None Seen) Hyaline Casts 0-2 (0-2) /LPF Influenza Type A (PCR) NEGATIVE (Negative) Influenza Type B (PCR) NEGATIVE (Negative) RSV RNA Qual (PCR) NEGATIVE (Negative) SARS-CoV-2 RNA (RT-PCR) NEGATIVE (Negative) Independent Interpretation I performed an independent interpretation of an: EKG, Plain X-Ray (normal ) and CT Scan Interpretation: Rate: 97 Rhythm: NSR [place]: normal Normal P waves. Normal [place]. Normal QRS complex. ST T wave : normal no [place] qTC: 449 prior studies: no acute ischemia The study has been interpreted contemporaneously by me. . Radiology Impression Discussion of test interpretation with radiology: I have reviewed the radiologist's reading. Independent Historian Clinical information obtained from an independent historian. History obtained from or confirmed by: Other (son) External Record Review External record reviewed: Inpatient record Prescription Management I considered prescription management with: Antibiotic and Other Discharge Plan Discharge Clinical Impression: Atypical chest pain, Bronchitis Patient Disposition: Home, Self-Care Instructions: Chest Pain (ED), Acute Bronchitis (ED) Additional Instructions: labs reassuring CT scan inflammation in lungs but no blood clots, no fluid around the heart, no pneumonia and issue with aorta return for worsening symptoms, pain or any other concerns talk to your doctor this week about outpatient stress test. Prescriptions: New azithromycin 250 mg tablet See Rx Instructions .ROUTE .COMPLEX Qty: 6 0RF Rx Instructions: For 250 mg dose pack: take 500 mg today (day 1), then 250 mg for 4 days (days 2-5) prednisone 20 mg tablet 40 mg PO DAILY 3 Days Qty: 6 0RF No Action ascorbic acid (vitamin C) 1,000 mg tablet 1,000 mg PO BID albuterol sulfate 2.5 mg /3 mL (0.083 %) solution for nebulization 2.5 mg inhalation TID PRN (Reason: Shortness Of Breath Or Wheezing) omeprazole 40 mg capsule,delayed release(DR/EC) 40 mg PO QAM pramipexole 0.5 mg tablet 0.5 mg PO BEDTIME ferrous sulfate [FeroSul] 325 mg (65 mg iron) tablet 325 mg PO QAM glimepiride 4 mg tablet 4 mg PO QPM fluticasone propionate [Flovent HFA] 220 mcg/actuation HFA aerosol inhaler 1 puff INHALATION BID albuterol sulfate [Ventolin HFA] 90 mcg/actuation HFA aerosol inhaler 2 puff inhalation QID PRN (Reason: Shortness Of Breath Or Wheezing) metformin 500 mg tablet extended release 24 hr 1,000 mg PO BID dicyclomine 10 mg capsule 10 mg PO TID naproxen 500 mg tablet 500 mg PO BID PRN (Reason: Pain) Rx Instructions: take with food pregabalin 200 mg capsule 200 mg PO TID cholecalciferol (vitamin D3) 50 mcg (2,000 unit) capsule 50 mcg PO BID Ozempic 0.25 mg or 0.5 mg (2 mg/3 mL) pen injector 0.5 mg subcut FR sulfamethoxazole-trimethoprim [Bactrim DS] 800-160 mg tablet 1 tab PO BID 7 Days Qty: 14 0RF Print Language: [place]
[2023-11-12 19:18] VITALS: BP 102/81; PULSE 102; RESP 14; TEMP 36.3; O2SAT 94; BMI 29.0
[2023-11-12 19:36] LABS: MANUAL DIFF FLAG NO
[2023-11-12 19:37] LABS: Basophils Absolute Auto 0.1 X10*3/uL (0.0-0.2); Basophils Percent Auto 0.7 % (0-2); Eosinophils Absolute Auto 0.2 X10*3/uL (0.0-0.4); Eosinophils Percent Auto 1.7 % (0-4); Hematocrit 40.6 % (37.0-47.0); Hemoglobin 13.6 g/dl (12.0-16.0); Imm Gran Abs Auto 0.03 X10*3/uL (0.00-0.03); Imm Gran Pct Auto 0.3 % (0.0-0.4); Lymphocytes Percent Auto 29.5 % (20-40); Mean Corpuscular HGB Conc 33.5 g/dl (31.0-35.0); Mean Corpuscular Hemoglobin 29.9 pg (27.0-33.0); Mean Corpuscular Volume 89.2 fL (80.0-98.0); Mean Platelet Volume 11.2 fL (9.4-12.3); Monocytes Absolute Auto 0.7 X10*3/uL (0.1-1.2); Monocytes Percent Auto 6.5 % (2-11); Neutrophils Absolute Auto 6.3 x10*3/uL (2.0-8.3); Neutrophils Percent Auto 61.3 % (45-73); Platelet Count 315 X10*3/uL (160-400); Red Blood Count 4.55 X10*6/uL (4.20-5.50); Red Cell Distribution Width 13.5 % (11.0-16.0); White Blood Count 10.3 X10*3/uL (4.8-10.8)
[2023-11-12 19:38] LABS: Appearance Urine Clear; Color Urine Yellow; Glucose Urine UA Negative (Negative); Leukocyte Esterase Urine Trace (Negative); Nitrite Urine Negative (Negative); PH 5.5 (5.0-9.0); Specific Gravity - Urine >= 1.030 (1.005-1.025); UMIC TRIGGER UACC YES; Urine Blood Negative (Negative); Urine Ketones 15 mg/dL (Negative); Urine Protein Negative (Neg-Trace)
[2023-11-12 19:40] LABS: Bacteria Urine None Seen (None Seen); Hyaline Casts Urine 0-2 /LPF (0-2); RBC Urine 0-2 /HPF (0-2); UACC Culture Trigger YES
[2023-11-12 20:03] LABS: Alanine Aminotransferase 23 U/L (0-31); Albumin Level 4.5 g/dL (3.5-5.0); Alkaline Phosphatase 97 U/L (39-117); Anion Gap 14 (12-20); Aspartate Amino Transferase 14 U/L (5-31); Bilirubin Total 0.2 mg/dL (0.0-1.0); Blood Urea Nitrogen 12 mg/dL (9-16); Calcium 9.4 mg/dL (8.4-10.2); Carbon Dioxide 24 mmol/L (22-29); Chloride 108 mmol/L (96-108); Creatinine Clr Calc Pharmacy 79.1; Estimated Glomerular Filt Rate > 60; Glucose Random 194 mg/dL (60-115); Magnesium 1.9 mg/dL (1.6-2.6); Potassium 3.7 mmol/L (3.3-5.1); Sodium 142 mmol/L (135-145); Total Protein 7.2 g/dL (6.5-8.0)
[2023-11-12 20:13] LABS: Influenza A PCR NEGATIVE (Negative); Influenza B PCR NEGATIVE (Negative); Resp Syncy Virus RNA Qual PCR NEGATIVE (Negative); SARS COV2 PCR INHOUSE NEGATIVE (Negative); Troponin-I High Sensitivity < 2.7 ng/L (<3.5-17.0)
[2023-11-12 21:45] LABS: D Dimer High Sensitivity 315 NG/ML
[2023-11-12 22:18] VITALS: BP 109/68; PULSE 91; RESP 20; TEMP 36.8; O2SAT 97
[2023-11-12] MEDS: iohexoL 350 MG/ML 100 ML INFUS..BTL 65 ML IV (22:56)
[2023-11-12 23:36] VITALS: PULSE 90
[2023-11-12] MEDS: ondansetron HCL 4 MG/2 ML VIAL IVPUSH (23:43)
[2023-11-12] MEDS: Ketorolac Tromethamine 15 MG/ML VIAL IVPUSH (23:43)
[2023-11-13] VITALS: BP 102/72; PULSE 88; RESP 18; TEMP 36.6; O2SAT 96
[2023-11-13 00:11] VITALS: BP 102/72; PULSE 88; RESP 18; TEMP 36.6; O2SAT 96
== END 2023-11-13 00:12 | disposition home or self-care (01) ==
PROVIDERS: Physician Assistant Medical; Emergency Provider Emergency Medicine; PCP Pediatrics
DX: R07.89 Other chest pain (principal); J20.9 Acute bronchitis, unspecified; Z03.818 Encounter for observation for suspected exposure to other biological agents ruled out; E11.9 Type 2 diabetes mellitus without complications; I10 Essential (primary) hypertension; Z79.899 Other long term (current) drug therapy; Z79.84 Long term (current) use of oral hypoglycemic drugs
CPT/HCPCS: 0241U; 36415; 71046; 71275; 80053; 81001; 83735; 84484; 85025; 85379; 87086; 93005; 96374; 96375; 99284; 99285; J1885; J2405; Q9967

== ENCOUNTER → 2023-11-12 19:06 | Outpatient (BNV) | payer MEDICAID, SELFPAY | PROVIDERS: Emergency Provider Emergency Medicine; PCP Pediatrics; Visit Provider Internal Medicine Cardiovascular Disease | DX: R07.9 Chest pain, unspecified (principal) | CPT/HCPCS: 93010 ==

== ENCOUNTER 2024-09-20 11:00 | Outpatient (REF) | payer MEDICAID, SELFPAY ==
--- NOTE | ~2024-09-20 | XR_ITS ---
CLINICAL HISTORY: chronic left shoulder pain 4 view left shoulder Comparison: None Findings: No fractures or dislocations. No significant loss of joint space or osteophytes. No erosions. No radiopaque foreign body. IMPRESSION: 1. No acute findings This document has been electronically signed by: Constantine Diane MD on 09/21/2024 09:34:37
--- OUTSIDE RECORDS SUMMARY | 2024-09-20 11:29 | XMS_ITS | Encounter Summary ---
Author Organization [employer] Address [address] [place] [address] Care Team Providers Care Clinical Laboratory Director Name Role Phone Nikki Crain MD Primary Care Provider [phone] Reason for Visit * Reason Onset Date Comments Medication Question 06/20/2024 Encounter Details Date Type Department Care Team ([facility] Contact Info) Description 06/20/2024 Telephone [facility] MEDICINE [address] [place] [address] Nikki Crain MD [address] [place] [address] Medication Question Social History Tobacco Use Types Packs/Day Years Used Date Smoking Tobacco: Never Smokeless Tobacco: Never Alcohol Use Standard Drinks/Week Comments Never 0 (1 standard drink = 0.6 oz pur e alcohol) Depression Answer Date Recorded Patient Health Questionnaire-9 Score 6 06/02/2023 Patient Health Questionnaire-9 Score 6 06/02/2023 Last PHQ-9: Questionnaire Data Not on file 0 06/02/2023 Housing Stability Answer Date Recorded What is your housing situation today? I do not have housing (Staying with others, in a hotel, in a longterm, living outside on the street, on a beach, in a car, or in a park 05/15/[address] you li ve. Do you have problems with any of the following? None of the above 05/15/2024 Food Insecurity Answer Date Recorded Within the past 12 months, y ou worried that your food would run out before you got money to buy more: Often true 05/15/2024 Within the past 12 months,th e food you bought just didn't last and you didn't have enough money to get more: Often true Transportation Answer Date Recorded In the past 12 months, has l ack of transportation kept you from medical appts, meetings, work or from getting things needed for daily living? No 05/15/2024 Utilities Answer Date Recorded In the past 12 months, has t he electric, gas, oil or water company threatened to shut off services in your home? No 02/18/2023 Depression Answer Date Recorded Patient Health Questionnaire-2 Score 2 06/02/2023 Internet Access Answer Date Recorded Internet Access Q1 Yes 12/23/2023 Internet Access Q2 Not on file 12/23/2023 Comments Unknown Sex and Gender Information Value Date Recorded Sex Assigned at Female 02/22/2022 10:16 AM EDT Legal Sex Female 10:16 AM EDT Gender Identity Female 02/22/2022 10:16 AM EDT Sexual Orientation Straight 02/22/2022 10 :16 AM EDT documented as of this encounter Miscellaneous Notes * Telephone Encounter - Natasha Isabel - 06/20/2024 10:34 AM EST Tc from pt states PA needed for Ozempic, 0.25 or 0.5 MG/DOSE, 2 MG/3ML solution pen-injector. documented in this encounter Plan of Treatment Upcoming Encounters Date Type Department Care Team (Late st Contact Info) Description 11/02/2024 11:15 AM EDT Office Visit [facility] OPTOMETRY [address] [place] [address] Danita Gillette, OD [address] [place] [address] documented as of this encounter Visit Diagnoses Not on filedocumented in this encounter Additional Health Concerns Assessment Noted Time PHQ-9 Depression Total Score: 6 06/02/19 24 10:53 AM EST documented as of this encounter Care Teams Clinical Laboratory Director Relationship Specialty Start Date End Date Nikki Crain MD [address] [place] [address] PCP - General Family Medicine 04/25/18 documented as of this encounter
== END 2024-09-20 11:01 | disposition home or self-care (01) ==
LOC: HO.XRAY 11:00
PROVIDERS: PCP Pediatrics; Visit Provider Pediatrics
DX: M25.512 Pain in left shoulder (principal); G89.29 Other chronic pain
CPT/HCPCS: 73030

== ENCOUNTER → 2024-09-20 11:04 | Outpatient (BNV) | payer MEDICAID, SELFPAY | PROVIDERS: PCP Pediatrics; Visit Provider Specialist | DX: M25.512 Pain in left shoulder (principal) | CPT/HCPCS: 73030 ==

== ENCOUNTER 2024-10-19 08:23 | Outpatient (REF) | payer MEDICAID, SELFPAY ==
--- OUTSIDE RECORDS SUMMARY | 2024-10-19 08:32 | XMS_ITS | Encounter Summary ---
Author Organization [employer] Address [address] [place] [address] Care Team Providers Care [employer] Name Role Phone Nikki Crain MD Primary Care Provider [phone] Reason for Visit * Reason Onset Date Comments Medication Question 06/20/2024 Encounter Details Date Type Department Care Team ([facility] Contact Info) Description 06/20/2024 Telephone [facility] MEDICINE [address] [place] [address] Nikki Crain MD [address] [place] [address] Medication Question Social History Tobacco Use Types [...] with others, in a hotel, in a half-way, living outside on the street, on a [...] Care Team (Late st Contact Info) Description 10/30/2024 10:00 AM EDT Procedure Visit [facility] MED[facility]INE [address] [place] [address] Charito Marlow MD [address] [place] [address] 11/02/2024 11:15 AM EDT Office Visit [facility] OPTOMETRY [address] [place] [address] Danita Gillette, OD [address] [place] [address] documented as of this encounter Visit Diagnoses Not on filedocumented in this encounter Additional Health Concerns Assessment Noted Time PHQ-9 Depression Total Score: 6 02/08/20 24 10:53 AM EST documented as of this encounter Care Teams [employer] Relationship Specialty Start Date End Date Nikki Crain MD [address] [place] [address] PCP - General Family Medicine 04/25/18 documented as of this encounter
[2024-10-19 11:55] LABS: TSH reflex Free T4 3.05 uIU/mL (0.32-4.0); Vitamin D 25-OH Total 82.4 ng/mL (>30)
[2024-10-19 12:05] LABS: Erythrocyte Sedimentation Rate 10 MM/HR (0-20)
[2024-10-19 12:12] LABS: Folate 11.9 ng/mL (> or = 4.0); Vitamin B12 263 pg/mL (200-900)
[2024-10-25 06:09] LABS: Vitamin B1 16 nmol/L (8-30)
[2024-10-29 01:33] LABS: Vitamin B6 18.9 ng/mL (2.1-21.7)
== END 2024-10-19 08:24 | disposition home or self-care (01) ==
LOC: HO.HHCL 08:23
PROVIDERS: PCP Pediatrics; Visit Provider Pediatrics
DX: M62.9 Disorder of muscle, unspecified (principal); E11.9 Type 2 diabetes mellitus without complications; E55.9 Vitamin D deficiency, unspecified
CPT/HCPCS: 36415; 82306; 82607; 82746; 84207; 84425; 84443; 85652

== ENCOUNTER → 2024-10-29 03:38 | Outpatient (BNV) | payer MEDICAID, SELFPAY | PROVIDERS: PCP Pediatrics; Visit Provider Specialist | DX: R51.9 Headache, unspecified (principal); R06.02 Shortness of breath; R07.9 Chest pain, unspecified | CPT/HCPCS: 70450; 71045 ==

== ENCOUNTER 2024-10-29 03:45 | Emergency (ER) | payer MEDICAID, SELFPAY ==
--- OUTSIDE RECORDS SUMMARY | 2023-07-15 07:20 | XMS_ITS ---
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 confirmed Problem Gastroesophageal reflux disease (disorder) (591532718) Chronic GERD (K21.9) Active confirmed Encounters Encounter Location Date Provider Diagnosis [facility] [place] [address], [place] [phone] 07/15/2023 Neil Khanna Encounter for scre ening [...] Notes * CLARE LEVINEDOB:1970 (54 yo F)Acc No.[id number]:07/15/2023 EGD and COL/MAC Patient: CLARE DEGROOT Provider: Carly Khanna MD :1970 A ge:53 Y S ex:Female Date:07/15/2023 Address:[address] [place] [address] , [facility] Pcp:Nikki Crain MD Subjective: * Chief Complaints: [...] * Procedure Codes: 4 5378 DIAGNOSTIC COLONOSCOPY, 59948 UPPER GI ENDOSCOPY, BIOPSY * * The named appointment provid er may or may not be the originator of this progress note, and it is not deemed complete until electronically signed by the appointment provider. Sign off status: Pending * Provider: Carly Khanna MD Date: 0 07/15/2023 Generated for Obed roque/Angelita/eTransmitting on: 0 10/29/2024 04:06 AM EDT
--- NOTE | ~2024-10-29 | CT_ITS ---
EXAMINATION: CT HEAD WITHOUT IV CONTRAST HISTORY: YAN. TECHNIQUE: Unenhanced helical CT of the head was performed per standard departmental protocol. Coronal and sagittal reformats of the head were also evaluated. One or more of the following techniques was used for dose reduction: Automated exposure control, adjustment of the mA and/or kV according to patient size, use of iterative reconstruction technique. DLP: 609 mGy-cm COMPARISON: Comparison is made with the prior examination dated 12/05/2022. FINDINGS: BRAIN: The brain parenchyma is unremarkable. There is normal frederick/white differentiation. The ventricular system is normal in size and configuration. There is no mass effect or midline shift. No intra- or extra-axial fluid collections are identified. SINUSES: The visualized paranasal sinuses are clear. The mastoid air cells and middle ear cavities are well pneumatized. ORBITS: The visualized orbits are unremarkable. BONES/SOFT TISSUES: The extracranial soft tissues are unremarkable. The calvarium is intact. No suspicious lytic or sclerotic lesions. CT/CT head/brain wo IV con IMPRESSION: No acute intracranial abnormality. Electronically signed by: Neil Ruiz MD 10/29/2024 08:28 AM EDT
--- NOTE | ~2024-10-29 | XR_ITS ---
CLINICAL HISTORY: chest pain sob 1 view chest x-ray Comparison: 11/12/2023 Findings: Portions of the exam are obscured by overlying material. No consolidation or effusion. Normal size heart. No acute fracture. IMPRESSION: 1. No acute findings. This document has been electronically signed by: Constantine Diane MD on 10/29/2024 05:19:05
--- NOTE | 2024-10-29 03:48 | ECG_ITS ---
Test Reason : chest pain Blood Pressure : */* mmHG Vent. Rate : 118 BPM Atrial Rate : 118 BPM P-R Int : 130 ms QRS Dur : 80 ms QT Int : 340 ms P-R-T Axes : 35 80 44 degrees QTcB Int : 476 ms Sinus tachycardia Otherwise normal ECG When compared with ECG of 12-Nov-2023 19:04, No significant change was found Referred By: Generic ED Physician Electronically Signed By: Toni Lopez
[2024-10-29 03:58] VITALS: BP 113/68; PULSE 114; RESP 16; TEMP 36.8; O2SAT 94; BMI 27.3
--- OUTSIDE RECORDS SUMMARY | 2024-10-29 04:06 | XMS_ITS | Clinical Summary ---
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 Name Role Phone Unavailable Primary Care Provider Unavailabl e Social History Tobacco Use Types Packs/Day Years Used Date Smoking Tobacco: Never Assessed Comments Unknown Sex and Gender Information Value Date Recorded Sex Assigned at Not on file Legal Sex Female 1:33 AM EST Gender Identity Not on file Sexual Orientation Not on file Plan of Treatment Health Maintenance Due Date Last Done Comments DTaP,Tdap,and Td Vaccines (1 - Tdap) 01/25/1987 Hepatitis B Vaccines (1 of 3 - 19+ 3-dose series) 01/25/1987 Cervical Cancer Screening: P ap Smear 01/25/1989 Pneumococcal Vaccine: 50+ Years (1 of 1 - PCV) 01/25/2018 Zoster Vaccines (1 of 2) 01/25/2018 Colorectal Cancer Screening: Colonoscopy 03/28/2022 Depression Screening 03/28/2022 HIV Screening 03/28/2022 Hepatitis C Screening 03/28/2022 Social Influencers of Health Screening 03/28/2022 Breast Cancer Screening 09/12/2023 09/12/19 22, 12/14/2019, 07/12/2018 COVID-19 Vaccine (2023-2 5 season) 2023 Influenza Vaccine (#1) 2024 HIB Vaccines Aged Out No longer eligi ble based on patient's age to complete this topic HPV Vaccines Aged Out No longer eligi ble based on patient's age to complete this topic Hepatitis A Vaccines Aged Out No long er eligible based on patient's age to complete this topic IPV Vaccines Aged Out No longer eligi ble based on patient's age to complete this topic MMR Vaccines Aged Out No longer eligi ble based on patient's age to complete this topic Meningococcal ACWY Vaccine Aged Out N o longer eligible based on patient's age to complete this topic Meningococcal B Vaccine Aged Out No l onger eligible based on patient's age to complete this topic Pneumococcal Vaccine: Pediatrics (0 to 5 Years) and At-Risk Patients (6 to 64 Years) Aged Out No longer eligible b ased on patient's age to complete this topic RSV Immunization Patients Under 20 months Aged Out No longer eligible b ased on patient's age to complete this topic Varicella Vaccines Aged Out No longer eligible based on patient's age to complete this topic Procedures Procedure Name Priority Date/Time Associated Diagnosis Comments [facility] SCREENING DIGITAL Routine 09/11/2021 2:35 PM EDT Encounter for screening mammogram for malignant neoplasm of breast from Last 3 Months or Most Recently Relevant to Health Maintenance Results * [facility] SCREENING DIGITAL (09/11/2021 2:35 PM EDT) Anatomical Region Laterality Modality Mammography 09/11/2021 12:5 0 PM EDT Narrative 09/11/2021 2:35 PM EDT [facility] Diagnostic Imaging Department [address] [place] [address] Patient: ABNERESPERANZA WEST./Age/Sex: 1970 - 51 - F Unit#: [id number] [facility]Ordering Site: [facility] Ordering Physician: RILEY CRAIN [facility] Screening Digital - 09/11/21 - 1315 EXAM: [facility] Screening Digital EXAM DATE AND TIME: 09/11/2021 1:15 PM HISTORY: Annual screening mammography COMPARISON: 12/14/2019 through 10/16/2012 TECHNIQUE: CC and MLO views of both breasts were obtained using full field digital mammography. Bilateral digital breast tomosynthesis was performed in the MLO projection. Computer aided detection with the [employer] 7.2-H was employed. TISSUE DENSITY: c. The breasts are heterogeneously dense, which may obscure small masses. FINDINGS: No suspicious masses, grouped microcalcifications, or areas of architectural distortion are seen. Stable benign calcifications and asymmetries. The skin and vascularity are unremarkable. IMPRESSION: Stable mammographic appearance of the breasts. No evidence of malignancy is seen. A negative mammogram in the presence of a clinically suspicious palpable abnormality does not preclude the possibility of malignancy or alter the indications for biopsy. BI-RADS: Category 2: Benign RECOMMENDATION(S): 1: Routine screening mammogram BILATERAL in 1 year. [id number], [id number], [id number] Dictating Physician: ALICIA BOWEN MD Electronically Signed by: ALICIA BOWEN MD Dic Date/Time: 09/11/21 1431 Sign date/Time: 09/11/21 1435 Procedure Note Radha Bowen MD - 04/14/2022 [facility] Diagnostic Imaging Department [address] [place] [id number] Patient: ESPERANZA LEVINE./Age/Sex: 1970 - 51 - F Unit#: [id number] Location/Status[facility] Mnemonic/Ordering Site: [facility] Ordering Physician: RILEY CRAIN [facility] Screening Digital - 09/11/21 - 1315 EXAM: [facility] Screening Digital EXAM DATE AND TIME: 09/11/2021 1:15 PM HISTORY: Annual screening mammography COMPARISON: 12/14/2019 through 10/16/2012 TECHNIQUE: CC and MLO views of both breasts were obtained using fullfield digital mammography. Bilateral digital breast tomosynthesis was performedin the MLO projection. Computer aided detection with the [employer] employed. TISSUE DENSITY: c. The breasts are heterogeneously dense, which mayobscure small masses. FINDINGS: No suspicious masses, grouped microcalcifications, or areas ofarchitectural distortion are seen. Stable benign calcifications and asymmetries. Theskin and vascularity are unremarkable. IMPRESSION: Stable mammographic appearance of the breasts. No evidence of malignancyis seen. A negative mammogram in the presence of a clinically suspicious palpable abnormality does not preclude the possibility of malignancy or alter the indications for biopsy. BI-RADS: Category 2: Benign RECOMMENDATION(S): 1: Routine screening mammogram BILATERAL in 1 year. [id number], [id number] 3342F, 7025F Dictating Physician: ALICIA BOWEN MD Electronically Signed by: ALICIA BOWEN MD Dic Date/Time: 09/11/21 1431 Sign date/Time: 09/11/21 1435 us Riley Crain MD IMG BI PROCEDURES Final Resul t from Last 3 Months or Most Recently Relevant to Health Maintenance
[2024-10-29 04:32] VITALS: BP 113/68; PULSE 114; RESP 16; TEMP 36.8; O2SAT 94; O2SAT 96
[2024-10-29 04:35] LABS: Hematocrit 39.7 % (37.0-47.0); Hemoglobin 13.3 g/dl (12.0-16.0); Imm Gran Abs Auto 0.03 X10*3/uL (0.00-0.03); Imm Gran Pct Auto 0.3 % (0.0-0.4); Lymphocytes Absolute Auto 1.9 X10*3/uL (1.2-4.9); MANUAL DIFF FLAG NO; Mean Corpuscular HGB Conc 33.5 g/dl (31.0-35.0); Mean Corpuscular Hemoglobin 28.8 pg (27.0-33.0); Mean Corpuscular Volume 85.9 fL (80.0-98.0); NRBC Abs Auto 0.000 X10*3/uL (0.0-0.012); NRBC Pct Auto 0.0 /100WBC (0.0-0.2); Platelet Count 298 X10*3/uL (160-400); Red Blood Count 4.62 X10*6/uL (4.20-5.50); White Blood Count 10.9 X10*3/uL (4.8-10.8)
[2024-10-29 04:52] LABS: Alanine Aminotransferase 62 U/L (0-31); Albumin Level 4.7 g/dL (3.5-5.0); Alkaline Phosphatase 124 U/L (39-117); Anion Gap 16 (12-20); Aspartate Amino Transferase 34 U/L (5-31); Blood Urea Nitrogen 11 mg/dL (9-16); Calcium 9.3 mg/dL (8.4-10.2); Carbon Dioxide 21 mmol/L (22-29); Chloride 105 mmol/L (96-108); Creatinine Clr Calc Pharmacy 92.6; Estimated Glomerular Filt Rate > 60; Potassium 4.0 mmol/L (3.3-5.1); Sodium 138 mmol/L (135-145); Total Protein 7.3 g/dL (6.5-8.0)
[2024-10-29 05:00] LABS: Troponin-I High Sensitivity < 2.7 ng/L (<3.5-17.0)
[2024-10-29 05:11] LABS: Resp Syncy Virus RNA Qual PCR NEGATIVE (Negative); SARS COV2 PCR INHOUSE NEGATIVE (Negative)
[2024-10-29 06:19] LABS: IDNOW Serial# 6674DD1D; Strep A Nucleic Acid Negative (Negative)
--- NOTE | 2024-10-29 07:31 | ED.GENADULT ---
HPI - General Adult General Chief complaint: Upper Respiratory Symptoms Stated complaint: Headache, neck pain, chest pain Time Seen by Provider: 10/29/24 07:08 Source: patient Mode of arrival: ambulatory Limitations: no limitations History of Present Illness HPI narrative: This is a 54 years old the patient with a history of diabetes fibromyalgia presented to the emergency department with multiple somatic complaints which include cough chest pain with cough headache sore throat. Symptoms have been ongoing for about 5 days. Onset (ago): day(s) (5) Location: head and chest Radiation: non-radiation Severity: mild Quality: burning Pain Consistency: constant Relieving factors: none Exacerbating factors: other (cough) Treatments prior to arrival: none Related Data Home Medications ?Medication ?Instructions ?Recorded ?Confirmed albuterol sulfate 2.5 mg/3 mL 2.5 mg inhalation TID PRN 12/06/22 07/15/23 (0.083 %) solution for nebulization Shortness Of Breath Or Wheezing albuterol sulfate 90 mcg/actuation 2 puff inhalation QID PRN 12/06/22 07/15/23 aerosol inhaler (Ventolin HFA) Shortness Of Breath Or Wheezing ascorbic acid (vitamin C) 1,000 mg 1,000 mg PO BID 12/06/22 07/15/23 tablet cholecalciferol (vitamin D3) 50 50 mcg PO BID 12/06/22 07/15/23 mcg (2,000 unit) capsule dicyclomine 10 mg capsule 10 mg PO TID 12/06/22 07/15/23 ferrous sulfate 325 mg (65 mg 325 mg PO QAM 12/06/22 07/15/23 iron) tablet (FeroSul) fluticasone propionate 220 1 puff inhalation BID 12/06/22 07/15/23 mcg/actuation HFA aerosol inhaler (Flovent HFA) glimepiride 4 mg tablet 4 mg PO QPM 12/06/22 07/15/23 metformin 500 mg tablet,extended 1,000 mg PO BID 12/06/22 07/15/23 release 24 hr naproxen 500 mg tablet 500 mg PO BID PRN Pain 12/06/22 07/15/23 omeprazole 40 mg capsule,delayed 40 mg PO QAM 12/06/22 07/15/23 release pramipexole 0.5 mg tablet 0.5 mg PO BEDTIME 12/06/22 07/15/23 pregabalin 200 mg capsule 200 mg PO TID 12/06/22 07/15/23 semaglutide 0.25 mg or 0.5 mg (2 0.5 mg subcut FR 12/06/22 07/15/23 mg/3 mL) subcutaneous pen injector (Ozempic) Previous Rx's ?Medication ?Instructions ?Recorded sulfamethoxazole 800 1 tab PO BID 7 days #14 tabs 04/07/23 mg-trimethoprim 160 mg tablet (Bactrim DS) azithromycin 250 mg tablet See Rx Instructions PO .COMPLEX #6 11/12/23 tabs prednisone 20 mg tablet 40 mg (2 x 20 mg) PO DAILY 3 days 11/12/23 #6 tabs amoxicillin 500 mg capsule 500 mg PO Q8H #20 caps 10/29/24 benzonatate 200 mg capsule 200 mg PO BID PRN cough #14 caps 10/29/24 Allergies Allergy/AdvReac Type Severity Reaction Status Date / Time tramadol (TRAMADOL) Allergy Unknown RASH , rash Verified 10/29/24 04:01 Review of Systems Constitutional: Constitutional: Reports no additional constitutional complaints ENT: Reports system reviewed and no additional complaints, except as documented Cardiovascular: Cardiovascular: Reports as per [facility] Past Medical History Attestation statement: The following information was validated with the patient. Medical History Restless leg syndrome Asthma Cholecystitis Fibromyalgia Diabetes HTN (hypertension) Surgical History History of appendectomy Social History Social History Alcohol intake: current Alcohol intake frequency: does not drink Patient Tobacco Use Status: Never used Tobacco Smoked in Last 30 Days: No Use of substances other than those prescribed or required for medical reasons: No Advance Directives: No Advance Directives Information Provided: No Do you have a plan to hurt others: No Plan Patient : No service: No Gender identity: Female Physical Exam ED Vital Signs: Vital Signs - 24 hr 10/29/24 03:58 10/29/24 04:32 10/29/24 04:32 Temperature 98.2 F 98.2 F Pulse Rate 114 H 114 H Respiratory Rate 16 16 Blood Pressure 113/68 113/68 Pulse Oximetry 94 96 94 Oxygen Delivery Method Room Air Room Air Room Air 10/29/24 07:41 10/29/24 10:12 Temperature 98.4 F 98.4 F Pulse Rate 109 H 109 H Respiratory Rate 23 H 23 H Blood Pressure 117/76 117/76 Pulse Oximetry 93 93 Oxygen Delivery Method Room Air Room Air BMI result Body Mass Index 27.3 No acute distress looks well not toxic appearing Const General: cooperative Nutritional Appearance: average body habitus Orientation/consciousness: oriented to time and patient oriented x3 HENMT Head: Yes normal to inspection General nose exam: Normal external nose present Face and sinus: Yes normal facial exam Throat: Yes other (Redness pharynx) Neck Neck: Yes normal visual inspection Chest Chest palpation & inspection: normal inspection of the chest Resp Effort & Inspection: normal respiratory effort Auscultation: clear to auscultation bilaterally Cardio Jugular venous distension: no JVD Rate: regular rate Rhythm: regular rhythm GI Inspection: Yes normal to inspection Palpation (GI): Soft to palpation Auscultation: normal bowel sounds Skin General skin exam: no rashes or lesions noted Neuro General: oriented to time and patient oriented x3 Cranial nerves: Yes CN's II-XII intact bilaterally Course Reevaluation(s) Reevaluation #1: Workup completed a CT negative delta trop is flat anticipate discharge Time: 09:36 Medications Administered Discontinued Medications Generic Name Dose Route Start Last Admin Trade Name Freq PRN Reason Stop Dose Admin Ibuprofen 800 mg 10/29/24 07:30 10/29/24 07:42 Ibuprofen 800 Mg Tablet PO 10/29/24 07:31 800 mg ONCE ONE Administration Medical Decision Making Medical Decision Making [facility] Narrative: Patient is here with multiple somatic complaint headache chest pain neck pain reasonable to take electrocardiogram and chest x-ray and labs 09:36 clear picture is more consistent with viral syndrome/bronchitis, delta trop is flat no evidence of ACS head CT is negative we will discharge her home on p.o. antibiotic we will treat as a bronchitis and cough medicine Differential Diagnosis Differential Diagnoses: The differential diagnosis associated with the presentation includes ACS/pneumonia/viral syndrome Admission/Observation Consideration of admission/observation: Escalation of care including admission/observation considered Lab Data [facility] Lab Attestation statement: I reviewed the patient's lab results. 10/29/24 04:29 10/29/24 04:29 Labs: Lab Results 10/29/24 10/29/24 10/29/24 Range/Units 04:29 05:56 07:50 WBC 10.9 H (4.8-10.8) X10*3/uL RBC 4.62 (4.20-5.50) X10*6/uL Hgb 13.3 (12.0-16.0) g/dl Hct 39.7 (37.0-47.0) % MCV 85.9 (80.0-98.0) fL MCH 28.8 (27.0-33.0) pg MCHC 33.5 (31.0-35.0) g/dl RDW 14.1 (11.0-16.0) % Plt Count 298 (160-400) X10*3/uL MPV 10.8 (9.4-12.3) fL Immature Gran % (Auto) 0.3 (0.0-0.4) % Neut % (Auto) 70.1 (45-73) % Lymph % (Auto) 17.1 L (20-40) % Lanier % (Auto) 8.9 (2-11) % Eos % (Auto) 3.1 (0-4) % Baso % (Auto) 0.5 (0-2) % Lymph # (Auto) 1.9 (1.2-4.9) X10*3/uL Lanier # (Auto) 1.0 (0.1-1.2) X10*3/uL Eos # (Auto) 0.3 (0.0-0.4) X10*3/uL Baso # (Auto) 0.1 (0.0-0.2) X10*3/uL Abs Immat Gran (auto) 0.03 (0.00-0.03) X10*3/uL Absolute Neuts (auto) 7.7 (2.0-8.3) x10*3/uL Absolute Nucleated RBC 0.000 (0.0-0.012) X10*3/uL Nucleated RBC % (auto) 0.0 (0.0-0.2) /100WBC Sodium 138 (135-145) mmol/L Potassium 4.0 (3.3-5.1) mmol/L Chloride 105 (96-108) mmol/L Carbon Dioxide 21 L (22-29) mmol/L Anion Gap 16 (12-20) BUN 11 (9-16) mg/dL Creatinine 0.54 (0.5-1.4) mg/dL Estim Creat Clear Calc 92.6 Estimated GFR > 60 Random Glucose 215 H (60-115) mg/dL Calcium 9.3 (8.4-10.2) mg/dL Total Bilirubin 0.2 (0.0-1.0) mg/dL AST 34 H (5-31) U/L ALT 62 H (0-31) U/L Alkaline Phosphatase 124 H (39-117) U/L Troponin I High Sens < 2.7 < 2.7 (<3.5-17.0) ng/L Total Protein 7.3 (6.5-8.0) g/dL Albumin 4.7 (3.5-5.0) g/dL Influenza Type A (PCR) NEGATIVE (Negative) Influenza Type B (PCR) NEGATIVE (Negative) RSV RNA Qual (PCR) NEGATIVE (Negative) SARS-CoV-2 RNA (RT-PCR) NEGATIVE (Negative) S. pyogenes GrpA JEANNE Negative (Negative) Discharge Plan Discharge Clinical Impression: Bronchitis, Chest wall pain Patient Disposition: Home, Self-Care Instructions: Acute Bronchitis (ED) Additional Instructions: Follow-up with your primary care physician we sent a prescription for antibiotic to your pharmacy return if worse Prescriptions: New amoxicillin 500 mg capsule 500 mg PO Q8H Qty: 20 0RF benzonatate 200 mg capsule 200 mg PO BID PRN (Reason: cough) Qty: 14 0RF No Action azithromycin 250 mg tablet See Rx Instructions .ROUTE .COMPLEX Qty: 6 0RF Rx Instructions: For 250 mg dose pack: take 500 mg today (day 1), then 250 mg for 4 days (days 2-5) prednisone 20 mg tablet 40 mg PO DAILY 3 Days Qty: 6 0RF ascorbic acid (vitamin C) 1,000 mg tablet 1,000 mg PO BID albuterol sulfate 2.5 mg /3 mL (0.083 %) solution for nebulization 2.5 mg inhalation TID PRN (Reason: Shortness Of Breath Or Wheezing) omeprazole 40 mg capsule,delayed release(DR/EC) 40 mg PO QAM pramipexole 0.5 mg tablet 0.5 mg PO BEDTIME ferrous sulfate [FeroSul] 325 mg (65 mg iron) tablet 325 mg PO QAM glimepiride 4 mg tablet 4 mg PO QPM fluticasone propionate [Flovent HFA] 220 mcg/actuation HFA aerosol inhaler 1 puff INHALATION BID albuterol sulfate [Ventolin HFA] 90 mcg/actuation HFA aerosol inhaler 2 puff inhalation QID PRN (Reason: Shortness Of Breath Or Wheezing) metformin 500 mg tablet extended release 24 hr 1,000 mg PO BID dicyclomine 10 mg capsule 10 mg PO TID naproxen 500 mg tablet 500 mg PO BID PRN (Reason: Pain) Rx Instructions: take with food pregabalin 200 mg capsule 200 mg PO TID cholecalciferol (vitamin D3) 50 mcg (2,000 unit) capsule 50 mcg PO BID Ozempic 0.25 mg or 0.5 mg (2 mg/3 mL) pen injector 0.5 mg subcut FR sulfamethoxazole-trimethoprim [Bactrim DS] 800-160 mg tablet 1 tab PO BID 7 Days Qty: 14 0RF Interventions: ED Discharge Assessment Last Done: 10/29/24 10:12 Discharge Date/Time: 10/29/24 10:13 Print Language: Danish
[2024-10-29 07:41] VITALS: BP 117/76; PULSE 109; RESP 23; TEMP 36.9; O2SAT 93
--- NOTE | 2024-10-29 07:51 | PC.NURSE ---
Pt is calm, cooperative. A+OX4. pt c/o headache, throat pain, chest pain when coughing, cough, and has had body aches. RR even and unlabored. Pt denies CP at this time.
[2024-10-29 08:29] LABS: Troponin-I High Sensitivity < 2.7 ng/L (<3.5-17.0)
[2024-10-29 10:12] VITALS: BP 117/76; PULSE 109; RESP 23; TEMP 36.9; O2SAT 93
== END 2024-10-29 10:13 | disposition home or self-care (01) ==
PROVIDERS: Emergency Provider Emergency Medicine; PCP Pediatrics
DX: J40 Bronchitis, not specified as acute or chronic (principal); R51.9 Headache, unspecified; M54.2 Cervicalgia; R07.89 Other chest pain; R05.9 Cough, unspecified; Z79.899 Other long term (current) drug therapy; Z03.818 Encounter for observation for suspected exposure to other biological agents ruled out
CPT/HCPCS: 36415; 70450; 71045; 80053; 84484; 85025; 87637; 87651; 93005; 99284; 99285

== ENCOUNTER → 2024-10-29 03:48 | Outpatient (BNV) | payer MEDICAID, SELFPAY | PROVIDERS: Emergency Provider Emergency Medicine; PCP Pediatrics; Visit Provider Internal Medicine Cardiovascular Disease | DX: R00.0 Tachycardia, unspecified (principal) | CPT/HCPCS: 93010 ==

== ENCOUNTER 2024-11-18 07:51 | Emergency (ER) | payer MEDICAID, SELFPAY ==
--- OUTSIDE RECORDS SUMMARY | 2023-07-15 07:20 | XMS_ITS ---
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 confirmed Problem Gastroesophageal reflux disease (disorder) (727037690) Chronic GERD (K21.9) Active confirmed Encounters Encounter Location Date Provider Diagnosis [facility] [place] [address], [place] [id number] 07/15/2023 Neil Khanna Encounter for scre ening colonoscopy Z12.11 ; Diverticulosis of large intestine without perforation or abscess without bleeding K57.30 ; Other hemorrhoids K64.8 ; Hiatal hernia K44.9 ; Polyp of stomach and duodenum K31.7 and Chronic GERD K21.9 Assessments Encounter Date Diagnosis (ICD Code) Assessment Notes Treatment Notes Treatment Clinical Notes Section Notes 07/15/2023 Encounter for screening colonoscopy (ICD-10 - Z12.11) 07/15/2023 Diverticulosis of large intestine without perforation or abscess without bleeding (ICD-10 - K57.30) 07/15/2023 Other hemorrhoids (ICD-10 - K64.8) 07/15/2023 Hiatal hernia (ICD-10 - K44.9) 07/15/2023 Polyp of stomach and duodenum (ICD-10 - K31.7) 07/15/2023 Chronic GERD (ICD-10 - K21.9) Plan Of Treatment No Information Progress Notes * CLARE LEVINEDOB:1970 (54 yo F)Acc No.[id number]:07/15/2023 EGD and COL/MAC Patient: CLARE DEGROOT Provider: Carly Khanna MD :1970 A ge:53 Y S ex:Female Date:07/15/2023 Address:[address] [place] [address] , [facility] Pcp:Nikki Crain MD Subjective: * Chief Complaints: * 1 . Gerd,screening. * Medical History: Objective: * Vitals: Assessment: * Assessment: 1. E ncounter for screening colonoscopy - Z12.11 (Primary) 2 . D iverticulosis of large intestine without perforation or abscess without bleeding - K57.30 3 .?Other hemorrhoids - K64.8 4 . H iatal hernia - K44.9 5 . Polyp of stomach and duodenum - K31.7 6 . C hronic GERD - K21.9 ? Plan: * Treatment: * Procedure Codes: 4 5378 DIAGNOSTIC COLONOSCOPY, 68459 UPPER GI ENDOSCOPY, BIOPSY * * The named appointment provid er may or may not be the originator of this progress note, and it is not deemed complete until electronically signed by the appointment provider. Sign off status: Pending * Provider: Carly Khanna MD Date: 0 07/15/2023 Generated for Obed roque/Angelita/eTransmitting on: 0 11/18/2024 08:16 AM EDT
--- NOTE | ~2024-11-18 | US_ITS ---
CLINICAL HISTORY: post menopausal bleding, pelvic pain US pelvis transabdominal and transvaginal Comparison: None provided Findings: Transabdominal scanning performed for overall anatomy. Transvaginal scanning performed for additional detail. Retroverted uterus is 7.6 cm length. Normal myometrium. Endometrium 9 mm thickness. No lesions. Right ovary 2 x 1.7 x 2 cm. Left ovary 2 x 2.2 x 1.2 cm. Normal grayscale morphology of both ovaries. No free fluid. IMPRESSION: 1. Abnormal postmenopausal endometrial thickening measuring up to 9 mm. Differential includes hyperplasia or malignancy. Recommend gynecological consult and consideration for endometrial biopsy. This document has been electronically signed by: Bora Perez MD on 11/18/2024 10:58:48
[2024-11-18 07:54] VITALS: BP 124/85; PULSE 94; RESP 16; TEMP 36.2; O2SAT 98; BMI 27.3
--- NOTE | 2024-11-18 08:03 | ED.FEMALEGU ---
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 Patient reports using 5-8 pads in a 24 hour period. Bleeding is heavy, bright red with clots. It is painful despite using ibuprofen for pain. She denies any urinary symptoms, fevers, chills, vomiting, weakness, dizziness. She is not sexually active. She does not have any concern for STI. She last saw [facility] in 2022. She reports that she had a normal Pap smear at that time. She is currently taking progesterone daily and using estrogen patches which are prescribed by her primary care doctor for postmenopausal symptoms. She does report 1 week ago her dose of estrogen patches were increased. No other recent medication changes. She is not on aspirin or any blood thinning medication. Related Data Home Medications ?Medication ?Instructions ?Recorded ?Confirmed albuterol sulfate 2.5 mg/3 mL 2.5 mg inhalation TID PRN 12/06/22 07/15/23 (0.083 %) solution for nebulization Shortness Of Breath Or Wheezing albuterol sulfate 90 mcg/actuation 2 puff inhalation QID PRN 12/06/22 07/15/23 aerosol inhaler (Ventolin HFA) Shortness Of Breath Or Wheezing ascorbic acid (vitamin C) 1,000 mg 1,000 mg PO BID 12/06/22 07/15/23 tablet cholecalciferol (vitamin D3) 50 50 mcg PO BID 12/06/22 07/15/23 mcg (2,000 unit) capsule dicyclomine 10 mg capsule 10 mg PO TID 12/06/22 07/15/23 ferrous sulfate 325 mg (65 mg 325 mg PO QAM 12/06/22 07/15/23 iron) tablet (FeroSul) fluticasone propionate 220 1 puff inhalation BID 12/06/22 07/15/23 mcg/actuation HFA aerosol inhaler (Flovent HFA) glimepiride 4 mg tablet 4 mg PO QPM 12/06/22 07/15/23 metformin 500 mg tablet,extended 1,000 mg PO BID 12/06/22 07/15/23 release 24 hr naproxen 500 mg tablet 500 mg PO BID PRN Pain 12/06/22 07/15/23 omeprazole 40 mg capsule,delayed 40 mg PO QAM 12/06/22 07/15/23 release pramipexole 0.5 mg tablet 0.5 mg PO BEDTIME 12/06/22 07/15/23 pregabalin 200 mg capsule 200 mg PO TID 12/06/22 07/15/23 semaglutide 0.25 mg or 0.5 mg (2 0.5 mg subcut FR 12/06/22 07/15/23 mg/3 mL) subcutaneous pen injector (Ozempic) Previous Rx's ?Medication ?Instructions ?Recorded sulfamethoxazole 800 1 tab PO BID 7 days #14 tabs 04/07/23 mg-trimethoprim 160 mg tablet (Bactrim DS) azithromycin 250 mg tablet See Rx Instructions PO .COMPLEX #6 11/12/23 tabs prednisone 20 mg tablet 40 mg (2 x 20 mg) PO DAILY 3 days 11/12/23 #6 tabs amoxicillin 500 mg capsule 500 mg PO Q8H #20 caps 10/29/24 benzonatate 200 mg capsule 200 mg PO BID PRN cough #14 caps 10/29/24 oxycodone 5 mg tablet 5 mg PO Q8H PRN pain #9 tabs 11/18/24 Allergies Allergy/AdvReac Type Severity Reaction Status Date / Time tramadol (TRAMADOL) Allergy Unknown RASH , rash Verified 11/18/24 07:55 Review of Systems Review of Systems: Yes all other systems are reviewed and are negative Constitutional: Constitutional: Reports no additional constitutional complaints, Denies body ache(s), Denies chills, Denies fever(s), Denies headache(s) and Denies weakness Eyes: Eyes: Reports no additional eye complaints and Denies change in vision ENT: Reports system reviewed and no additional complaints, except as documented, Denies dizziness, Denies headache(s), Denies nasal congestion, Denies nasal discharge and Denies neck pain Cardiovascular: Cardiovascular: Reports no additional cardiovascular complaints, Denies chest pain, Denies leg edema and Denies dyspnea Respiratory: Respiratory: Reports no additional respiratory complaints, Denies cough and Denies dyspnea Gastrointestinal: Gastrointestinal: Reports no additional gastrointestinal complaints, Denies abdominal pain, Denies diarrhea, Denies nausea and Denies vomiting Genitourinary: Genitourinary: Reports no additional female genitourinary complaints, Reports abnormal vaginal bleeding, Denies dysuria, Reports pelvic pain, Denies urinary incontinence, Denies urinary hesitancy, Denies urinary urgency and Denies vaginal discharge Musculoskeletal: Musculoskeletal: Reports no additional musculoskeletal complaints, Denies back pain, Denies arthralgias, Denies joint swelling, Denies neck pain, Denies numbness and Denies tingling Integumentary/Breasts: Skin/Breast: Reports system reviewed and no additional complaints, except as docu and Denies rash Neurologic: Reports system reviewed and no additional complaints, except as documented, Denies Abnormal speech present, Denies dizziness, Denies headache(s), Denies numbness, Denies tingling and Denies weakness PMFSH Past Medical History Attestation statement: The following information was validated with the patient. Source: old records reviewed and nursing notes reviewed Medical History Restless leg syndrome Asthma Cholecystitis Fibromyalgia Diabetes HTN (hypertension) Surgical History History of appendectomy Social History Social History Alcohol intake: current Alcohol intake frequency: does not drink Patient Tobacco Use Status: Never used Tobacco Smoked in Last 30 Days: No Use of substances other than those prescribed or required for medical reasons: No Advance Directives: No Advance Directives Information Provided: No Do you have a plan to hurt others: No Plan Patient : No service: No Gender identity: Female Physical Exam Vital Signs: Vital Signs: Last Vital Signs Temp 98 F 11/18/24 09:46 Pulse 81 11/18/24 09:46 Resp 16 11/18/24 09:46 BP 98/62 11/18/24 09:46 Pulse Ox 96 11/18/24 09:46 O2 Del Method Room Air 11/18/24 09:46 BMI result Body Mass Index 27.3 Const: General: cooperative, healthy appearing, comfortable and no acute distress Orientation/consciousness: patient oriented x3 Limitations: no limitations HEENT: Head: Yes normal to inspection Ears: hearing grossly normal bilaterally General nose exam: Normal external nose present Face and sinus: Yes normal facial exam Mouth: Normal oral and palatal mucosa present Throat: Yes posterior oropharynx normal Eyes: General: appearance normal, both eyes and all related structures Pupils: Equal, round and reactive pupils present Neck: Neck: Yes normal visual inspection Chest: Chest palpation & inspection: normal inspection of the chest Resp: Effort & Inspection: normal respiratory effort Auscultation: clear to auscultation bilaterally Cardio: Rate: regular rate Rhythm: regular rhythm Peripheral pulses: Peripheral pulses 2+ throughout GI: Inspection: Yes normal to inspection Palpation (GI): Soft to palpation and nontender Auscultation: normal bowel sounds : 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 External Female Exam: normal external appearance Speculum Exam - Vagina: normal appearance of the vagina and vaginal bleeding (moderate) Speculum Exam - Cervix: normal appearance of the cervix Bimanual exam- vagina & uterus: normal bimanual exam and no cervical motion tenderness Bimanual Exam- Adnexa, other: normal adnexae and no tenderness OB/external & speculum: vaginal bleeding (moderate) Back/Spine/Pelvis: Thoracic/Lumbar Spine: thoracic and lumbar spine normal to inspection Skin: General skin exam: no rashes or lesions noted Neuro: General: patient oriented x3, no focal motor deficits and normal sensation to monofilament Cranial nerves: Yes Equal, round and reactive pupils present Cognition (Neuro): normal cognition Speech: No Abnormal speech present Gait exam (Neuro): Normal gait present Motor exam (neuro): 5/5 motor strength present throughout Extrem: General: Yes normal to inspection Course Course Course Narrative: Ultrasound shows abnormal postmenopausal endometrial thickening measuring up to 9 mm. Differential includes hyperplasia or malignancy. Patient's hemoglobin is stable. Her urine shows no signs of infection. Her vaginal swabs are negative for infection. I spoke to the patient with a farm equipment engine mechanic. I recommend that she follow-up with her material engineer this week and that she will likely need an endometrial biopsy. I also provided her with the report of the ultrasound. Reviewed worrisome signs and symptoms of when to return to the emergency room. Comfortable plan for discharge home Medications Administered Discontinued Medications Generic Name Dose Route Start Last Admin Trade Name Freq PRN Reason Stop Dose Admin Oxycodone HCl 5 mg 11/18/24 08:42 11/18/24 08:48 Oxycodone Hcl Immed Release 5 Mg Tablet PO 11/18/24 08:43 5 mg ONCE ONE Administration Medical Decision Making Medical Decision Making [facility] Narrative: This is a 54-year-old female with a history of asthma, diabetes, fibromyalgia who is currently 3 years postmenopausal who presents to the emergency room with 3 days of heavy, painful vaginal bleeding. Patient reports using 5-8 pads in a 24 hour period. Bleeding is heavy, bright red with clots. It is painful despite using ibuprofen for pain. She denies any urinary symptoms, fevers, chills, vomiting, weakness, dizziness. She is not sexually active. She does not have any concern for STI. She last saw [facility] in 2022. She reports that she had a normal Pap smear at that time. She is currently taking progesterone daily and using estrogen patches which are prescribed by her primary care doctor for postmenopausal symptoms. She does report 1 week ago her dose of estrogen patches were increased. No other recent medication changes. She is not on aspirin or any blood thinning medication. Abdomen is soft and nontender Vitals are stable exam shows moderate vaginal bleeding. There is no cervical motion tenderness or adnexal tenderness. The cervical os is normal in appearance Will obtain labs, UA, send BV and STI panel. Patient has low concern for STIs so I would defer treatment until her results are back. Will obtain a pelvic ultrasound. If workup in the emergency room is unremarkable feel I will have patient follow-up outpatient with her gynecology for postmenopausal bleeding workup Differential Diagnosis Differential Diagnoses: The differential diagnosis associated with the presentation includes Postmenopausal bleed, menorrhagia Admission/Observation Consideration of admission/observation: Escalation of care including admission/observation considered Lab Data [facility] Lab Attestation statement: I reviewed the patient's lab results. 11/18/24 08:21 11/18/24 08:21 Labs: Lab Results 11/18/24 11/18/24 11/18/24 Range/Units 08:21 08:23 08:41 WBC 9.2 (4.8-10.8) X10*3/uL RBC 4.46 (4.20-5.50) X10*6/uL Hgb 13.1 (12.0-16.0) g/dl Hct 38.7 (37.0-47.0) % MCV 86.8 (80.0-98.0) fL MCH 29.4 (27.0-33.0) pg MCHC 33.9 (31.0-35.0) g/dl RDW 14.5 (11.0-16.0) % Plt Count 348 (160-400) X10*3/uL MPV 11.2 (9.4-12.3) fL Immature Gran % (Auto) 0.2 (0.0-0.4) % Neut % (Auto) 62.9 (45-73) % Lymph % (Auto) 27.1 (20-40) % [place] % (Auto) 8.6 (2-11) % Eos % (Auto) 0.7 (0-4) % Baso % (Auto) 0.5 (0-2) % Lymph # (Auto) 2.5 (1.2-4.9) X10*3/uL [place] # (Auto) 0.8 (0.1-1.2) X10*3/uL Eos # (Auto) 0.1 (0.0-0.4) X10*3/uL Baso # (Auto) 0.1 (0.0-0.2) X10*3/uL Abs Immat Gran (auto) 0.02 (0.00-0.03) X10*3/uL Absolute Neuts (auto) 5.8 (2.0-8.3) x10*3/uL Absolute Nucleated RBC 0.000 (0.0-0.012) X10*3/uL Nucleated RBC % (auto) 0.0 (0.0-0.2) /100WBC Sodium 140 (135-145) mmol/L Potassium 3.8 (3.3-5.1) mmol/L Chloride 106 (96-108) mmol/L Carbon Dioxide 25 (22-29) mmol/L Anion Gap 13 (12-20) BUN 11 (9-16) mg/dL Creatinine 0.55 (0.5-1.4) mg/dL Estim Creat Clear Calc 90.9 Estimated GFR > 60 Random Glucose 170 H (60-115) mg/dL Calcium 9.1 (8.4-10.2) mg/dL Total Bilirubin 0.4 (0.0-1.0) mg/dL Direct Bilirubin 0.2 (0.0-0.5) mg/dL AST 18 (5-31) U/L ALT 30 (0-31) U/L Alkaline Phosphatase 101 (39-117) U/L Total Protein 7.2 (6.5-8.0) g/dL Albumin 4.7 (3.5-5.0) g/dL Urine Color Red A Urine Appearance Hazy Urine pH 6.0 (5.0-9.0) Ur Specific [place] 1.020 (1.005-1.025) Urine Protein 30 (1+) H (Neg-Trace) mg/dL Urine Glucose (UA) Negative (Negative) mg/dL Urine Ketones Negative (Negative) mg/dL Urine Blood Large (3+) H (Negative) Urine Nitrite Negative (Negative) Ur Leukocyte Esterase Moderate (2+) H (Negative) Urine RBC >20 H (0-2) /HPF Urine WBC 11-20 H (0-5) /HPF Ur Squamous Epith Cells 0-2 (0-2) /HPF Urine Bacteria None Seen (None Seen) Hyaline Casts 0-2 (0-2) /LPF Chlam trachomat DNA PCR NOT DETECTED (Not Detect.) N.gonorrhoeae DNA (PCR) NOT DETECTED (Not Detect.) T. vaginalis (PCR) NOT DETECTED (Not Detect) Bact vaginosis (PCR) NEGATIVE (Negative) C. krusei/glabrata (PCR) NOT DETECTED (Not Detect) Ariana group (PCR) NOT DETECTED (Not Detect) Independent Interpretation I performed an independent interpretation of an: Ultrasound Interpretation: I independently viewed the ultrasound agree with the radiology report Radiology Impression Discussion of test interpretation with radiology: I have reviewed the radiologist's reading. Radiologist Impression: [address] [address] Ultrasound Report Signed Patient: Esperanza Werner MR#: [id number] : 1970 Acct:[id number] Age/Sex: 54 / F ADM Date: 11/18/24 Loc: .ED Attending Dr: Ordering Physician: Toma Tobin NP Date of Service: 11/18/24 Procedure(s): US pelvic and transvaginal Accession Number(s): [id number] cc: Nikki Crain MD; Toma Tobin NP~ CLINICAL HISTORY: post menopausal bleding, pelvic pain US pelvis transabdominal and transvaginal Comparison: None provided Findings: Transabdominal scanning performed for overall anatomy. Transvaginal scanning performed for additional detail. Retroverted uterus is 7.6 cm length. Normal myometrium. Endometrium 9 mm thickness. No lesions. Right ovary 2 x 1.7 x 2 cm. Left ovary 2 x 2.2 x 1.2 cm. Normal grayscale morphology of both ovaries. No free fluid. IMPRESSION: 1. Abnormal postmenopausal endometrial thickening measuring up to 9 mm. Differential includes hyperplasia or malignancy. Recommend gynecological consult and consideration for endometrial biopsy. Independent Historian Clinical information obtained from an independent historian. History obtained from or confirmed by: Other (son) Discharge Plan Discharge Clinical Impression: Post-menopausal bleeding, Abnormal ultrasound Patient Disposition: Home, Self-Care Instructions: Abnormal (Dysfunctional) Uterine Bleeding (ED), Endometrial Biopsy (DC) Additional Instructions: Your blood work is still Your urine shows no signs of infection Your vaginal swabs are negative for Your ultrasound is abnormal. I have attached a report. It is very important that tomorrow you call your material engineer ([facility] POWER BARKER OPERATOR) and schedule a follow-up appointment because you will need to have a biopsy to rule out endometrial cancer. Pelvic US Findings: Transabdominal scanning performed for overall anatomy. Transvaginal scanning performed for additional detail. Retroverted uterus is 7.6 cm length. Normal myometrium. Endometrium 9 mm thickness. No lesions. Right ovary 2 x 1.7 x 2 cm. Left ovary 2 x 2.2 x 1.2 cm. Normal grayscale morphology of both ovaries. No free fluid. IMPRESSION: 1. Abnormal postmenopausal endometrial thickening measuring up to 9 mm. Differential includes hyperplasia or malignancy. Recommend gynecological consult and consideration for endometrial biopsy. Prescriptions: New oxycodone 5 mg tablet 5 mg PO Q8H PRN (Reason: pain) Qty: 9 0RF Rx Instructions: Partial Fill upon patient request. No Action azithromycin 250 mg tablet See Rx Instructions .ROUTE .COMPLEX Qty: 6 0RF Rx Instructions: For 250 mg dose pack: take 500 mg today (day 1), then 250 mg for 4 days (days 2-5) prednisone 20 mg tablet 40 mg PO DAILY 3 Days Qty: 6 0RF amoxicillin 500 mg capsule 500 mg PO Q8H Qty: 20 0RF benzonatate 200 mg capsule 200 mg PO BID PRN (Reason: cough) Qty: 14 0RF ascorbic acid (vitamin C) 1,000 mg tablet 1,000 mg PO BID albuterol sulfate 2.5 mg /3 mL (0.083 %) solution for nebulization 2.5 mg inhalation TID PRN (Reason: Shortness Of Breath Or Wheezing) omeprazole 40 mg capsule,delayed release(DR/EC) 40 mg PO QAM pramipexole 0.5 mg tablet 0.5 mg PO BEDTIME ferrous sulfate [FeroSul] 325 mg (65 mg iron) tablet 325 mg PO QAM glimepiride 4 mg tablet 4 mg PO QPM fluticasone propionate [Flovent HFA] 220 mcg/actuation HFA aerosol inhaler 1 puff INHALATION BID albuterol sulfate [Ventolin HFA] 90 mcg/actuation HFA aerosol inhaler 2 puff inhalation QID PRN (Reason: Shortness Of Breath Or Wheezing) metformin 500 mg tablet extended release 24 hr 1,000 mg PO BID dicyclomine 10 mg capsule 10 mg PO TID naproxen 500 mg tablet 500 mg PO BID PRN (Reason: Pain) Rx Instructions: take with food pregabalin 200 mg capsule 200 mg PO TID cholecalciferol (vitamin D3) 50 mcg (2,000 unit) capsule 50 mcg PO BID Ozempic 0.25 mg or 0.5 mg (2 mg/3 mL) pen injector 0.5 mg subcut FR sulfamethoxazole-trimethoprim [Bactrim DS] 800-160 mg tablet 1 tab PO BID 7 Days Qty: 14 0RF Referrals: [facility] ACTUARIAL DIRECTOR, [place] [Outside] - 5 days Print Language: Amharic
--- OUTSIDE RECORDS SUMMARY | 2024-11-18 08:16 | XMS_ITS | Clinical Summary ---
Author Organization [facility] ity Address [address] [place] [address] Care Team Providers Care Supervisor Harvesting Name Role Phone Unavailable Primary Care Provider [...] 2) 01/25/2018 Colorectal Cancer Screening: Colonoscopy 03/28/2022 HIV Screening 03/28/2022 Hepatitis C Screening 03/28/2022 Social Influencers of Health Screening 03/28/2022 Breast Cancer Screening 09/12/2023 09/12/19 22, 12/14/2019, 07/12/2018 COVID-19 Vaccine ( - 2023-2 5 season) 2023 Depression Screening 04/25/2024 Influenza Vaccine (#1) 2024 HIB Vaccines Aged [...] Procedure Name Priority Date/Time Associated Diagnosis Comments [facility] SCREENING DIGITAL Routine 09/11/2021 2:35 PM EDT Encounter for screening mammogram for malignant neoplasm of breast from Last 3 Months or Most Recently Relevant to Health Maintenance Results * [facility] SCREEN[facility]ITAL (09/11/2021 2:35 PM EDT) Anatomical Region Laterality Modality Mammography 09/11/2021 12:5 0 PM EDT Narrative 09/11/2021 2:35 PM EDT [facility] Diagnostic Imaging Department [address] [place] [address] Patient: ESPERANZA LEVINE./Age/Sex: 1970 - 51 - F Unit#: [id number] [facility]ing [facility] Ordering Physician: RILEY CRAIN [facility] Screening Digital - 09/11/21 - 1315 EXAM: [facility] Screening Digital EXAM DATE AND TIME: 09/11/2021 1:15 PM HISTORY: Annual screening mammography COMPARISON: 12/14/2019 through 10/16/2012 TECHNIQUE: CC and MLO views of both breasts were obtained using full field digital mammography. Bilateral digital breast tomosynthesis was performed in the MLO projection. Computer aided detection with the [employer] 7.2-H was employed. TISSUE DENSITY: c. The [...] Routine screening mammogram BILATERAL in 1 year. [id number], [id number], [id number] Dictating Physician: ALICIA BOWEN MD Electronically Signed by: ALICIA BOWEN MD Dic Date/Time: 09/11/21 143 Sign date/Time: 09/11/21 143 Procedure Note Radha Bowen MD - 04/14/2022 [facility] Diagnostic Imaging Department [address] [place], [place] [id number] Patient: ESPERANZA LEVINE./Age/Sex: 1970 - 51 - F Unit#: [id number] Location/Status: [facility] CLI Mnemonic/Ordering Site: [facility] Ordering Physician: RILEY CRAIN [facility] Screening Digital - 09/11/21 - 1315 EXAM: [facility] Screening Digital EXAM DATE AND TIME: 09/11/2021 1:15 PM HISTORY: Annual screening mammography COMPARISON: 12/14/2019 through 10/16/2012 TECHNIQUE: CC and MLO views of both breasts were obtained using fullfield digital mammography. Bilateral digital breast tomosynthesis was performedin the MLO projection. Computer aided detection with the [employer] Proteomicsas employed. TISSUE DENSITY: c. The breasts are [...] Routine screening mammogram BILATERAL in 1 year. [id number], [id number], [id number] Dictating Physician: ALICIA BOWEN MD Electronically Signed by: ALICIA BOWEN MD Dic Date/Time: 09/11/21 1431 Sign date/Time: 09/11/21 1435 us Riley Crain MD IMG BI PROCEDURES Final Resul t from Last 3 Months or Most Recently Relevant to Health Maintenance
--- OUTSIDE RECORDS SUMMARY | 2024-11-18 08:16 | XMS_ITS | Clinical Summary ---
Author Organization [facility] Address [address] [address] Phone Care Team Providers Care Slat Basket [employer] Machine Name Role Phone Nikki Crain MD Primary Care Provider [phone] Allergies Active Allergy Reactions Criticality Noted Date Comments Tramadol Rash Low 07/02/2016 Other reaction(s): Hives / Skin Rash Medications semaglutide (OZEMPIC) 0.25 mg or 0.5 mg (2 mg/3 mL) subcutaneous injection pen Inject 1 Dose under the skin daily. 3 Active albuterol 2.5 mg /3 mL (0.083 %) nebulizer solution Inhale 3 mL into the lungs 3 (three) times a day as needed. 2 Active ascorbic acid, vitamin C, (VITAMIN C) 1000 MG tablet TAKE ONE TABLET IN THE MORNING AND EVENING FOR iron absorbtion 3 Active cholecalciferol (VITAMIN D3) 2,000 unit capsule TAKE ONE CAPSULE IN THE MORNING AND EVENING 3 Active dicyclomine (BENTYL) 10 MG capsule TAKE ONE CAPSULE THREE TIMES DAILY IN THE MORNING, EVENING AND BEDTIME 3 Active FEROSUL 325 mg (65 mg iron) tablet 1 tablet every morning. 3 Active glimepiride (AMARYL) 4 MG tablet TAKE ONE TABLET EVERY EVENING 3 Active metFORMIN (GLUCOPHAGE-XR) 500 MG 24 hr tablet TAKE TWO TABLETS TWICE DAILY IN THE MORNING AND EVENING WITH MEALS 3 Active omeprazole (PRILOSEC) 40 MG capsule TAKE ONE CAPSULE EVERY MORNING 3 Active pregabalin (LYRICA) 200 MG capsule TAKE ONE CAPSULE THREE TIMES DAILY IN THE MORNING, EVENING AND BEDTIME Active Social History Tobacco Use Types Packs/Day Years Used Date Smoking Tobacco: Never Assessed Education Answer Date Recorded Are you interested in more education? Not on kong e 03/11/2023 Are you concerned about learning? Not on file 03/11/2023 No 03/11/2023 No 03/11/2023 Digital Access Answer Date Recorded No 03/11/2023 No 03/11/2023 Reliable internet access at home? Not on file 03/11/2023 Device with a working camera? Not on file Comments Unknown Sex and Gender Information Value Date Recorded Sex Assigned at Not on file Legal Sex Female 9:37 PM EDT Gender Identity Not on file Sexual Orientation Not on file Last Filed Vital Signs Vital Sign Reading Time Taken Comments Blood Pressure 109/75 03/11/2023 7:41 PM EST Pulse 92 03/11/2023 7:41 PM EST Temperature 36.4 C (97.5 F) 03/11/2023 7:41 PM EST Respiratory Rate 18 03/11/2023 7:41 PM EST Oxygen Saturation 94% 03/11/2023 7:41 PM EST Inhaled Oxygen Concentration - - Weight 62.6 kg (138 lb) 03/11/2023 7:41 PM EST Height 149.9 cm (4' 11 ) 03/11/2023 7:41 PM EST Body Mass Index 27.87 03/11/2023 7:41 PM EST Plan of Treatment Health Maintenance Due Date Last Done Comments CREATININE LEVEL 1968 LIPID PANEL 1968 DEPRESSION SCREENING 1980 SMOKING Hx and SMOKELESS TOB ACCO SCREENING 01/25/1981 HEPATITIS C SCREENING 01/25/1986 HIV ONE-TIME SCREENING (18-6 5 YEARS) 01/25/1986 PAP SMEAR 01/25/1989 SCREENING FOR DIABETES 01/25/2003 MAMMOGRAM 2008 COLOGUARD 01/25/2013 COLONOSCOPY 01/25/2013 COLORECTAL CANCER SCREENING 01/25/2013 FIT TEST 01/25/2013 FOBT 01/25/2013 SIGMOIDOSCOPY 01/25/2013 VIRTUAL COLONOSCOPY 01/25/2013 PNEUMOCOCCAL VACCINES (50+ y ears) (1 of 1 - PCV) 01/25/2018 ZOSTER VACCINES (1 of 2) 01/25/2018 COVID-19 VACCINE (2023-2 5 season) 2023 Adult Td,Tdap Booster 06/16/2026 06/16/2016 HEPATITIS A VACCINES Aged Out No long er eligible based on patient's age to complete this topic HIB VACCINES Aged Out No longer eligi ble based on patient's age to complete this topic MENINGOCOCCAL VACCINES (ACWY) Aged Out No longer eligible based on patient's age to complete this topic MENINGOCOCCAL VACCINES (B) Aged Out N o longer eligible based on patient's age to complete this topic Medical Devices Not on file Care Teams 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 It is not the complete legal health record.[facility]
[2024-11-18 08:30] LABS: MANUAL DIFF FLAG NO
[2024-11-18 08:31] LABS: Hematocrit 38.7 % (37.0-47.0); Hemoglobin 13.1 g/dl (12.0-16.0); Imm Gran Abs Auto 0.02 X10*3/uL (0.00-0.03); Imm Gran Pct Auto 0.2 % (0.0-0.4); Lymphocytes Absolute Auto 2.5 X10*3/uL (1.2-4.9); Mean Corpuscular HGB Conc 33.9 g/dl (31.0-35.0); Mean Corpuscular Hemoglobin 29.4 pg (27.0-33.0); Mean Corpuscular Volume 86.8 fL (80.0-98.0); NRBC Abs Auto 0.000 X10*3/uL (0.0-0.012); NRBC Pct Auto 0.0 /100WBC (0.0-0.2); Platelet Count 348 X10*3/uL (160-400); Red Blood Count 4.46 X10*6/uL (4.20-5.50); White Blood Count 9.2 X10*3/uL (4.8-10.8)
[2024-11-18 08:36] LABS: Appearance Urine Hazy; Glucose Urine UA Negative (Negative); PH 6.0 (5.0-9.0)
[2024-11-18 08:37] LABS: Specific Gravity - Urine 1.020 (1.005-1.025); UMIC TRIGGER UACC YES
[2024-11-18 08:39] LABS: UACC Culture Trigger YES
[2024-11-18 08:46] LABS: Alanine Aminotransferase 30 U/L (0-31); Albumin Level 4.7 g/dL (3.5-5.0); Alkaline Phosphatase 101 U/L (39-117); Anion Gap 13 (12-20); Aspartate Amino Transferase 18 U/L (5-31); Blood Urea Nitrogen 11 mg/dL (9-16); Calcium 9.1 mg/dL (8.4-10.2); Carbon Dioxide 25 mmol/L (22-29); Chloride 106 mmol/L (96-108); Creatinine Clr Calc Pharmacy 90.9; Estimated Glomerular Filt Rate > 60; Potassium 3.8 mmol/L (3.3-5.1); Sodium 140 mmol/L (135-145); Total Protein 7.2 g/dL (6.5-8.0)
[2024-11-18] MEDS: oxyCODONE HCl Immed Release 5 MG TABLET PO (08:48)
[2024-11-18 09:45] LABS: Bacterial Vaginosis PCR NEGATIVE (Negative); Candida Group PCR NOT DETECTED (Not Detect); Candida glab krusei PCR NOT DETECTED (Not Detect); Trichomonas vaginalis PCR NOT DETECTED (Not Detect)
[2024-11-18 09:46] VITALS: BP 98/62; PULSE 81; RESP 16; TEMP 36.6; O2SAT 96
[2024-11-18 10:15] LABS: CT PCR NOT DETECTED (Not Detect.); NG PCR NOT DETECTED (Not Detect.)
[2024-11-18 11:31] VITALS: BP 98/62; PULSE 81; RESP 16; TEMP 36.6; O2SAT 96
== END 2024-11-18 11:31 | disposition home or self-care (01) ==
PROVIDERS: Nurse Practitioner Family; Emergency Provider Emergency Medicine; PCP Pediatrics
DX: N95.0 Postmenopausal bleeding (principal); R93.5 Abnormal findings on diagnostic imaging of other abdominal regions, including retroperitoneum; E11.9 Type 2 diabetes mellitus without complications; I10 Essential (primary) hypertension; Z79.899 Other long term (current) drug therapy; Z79.84 Long term (current) use of oral hypoglycemic drugs
CPT/HCPCS: 36415; 76830; 76856; 80048; 80076; 81001; 81515; 85025; 87086; 87491; 87591; 99284

== ENCOUNTER → 2024-11-18 08:32 | Outpatient (BNV) | payer MEDICAID, SELFPAY | PROVIDERS: Emergency Provider Emergency Medicine; PCP Pediatrics; Visit Provider Radiology Diagnostic Radiology | DX: R10.2 Pelvic and perineal pain (principal); N95.0 Postmenopausal bleeding | CPT/HCPCS: 76830; 76856 ==

== ENCOUNTER 2024-12-17 16:21 | Emergency (ER) | payer MEDICAID, SELFPAY ==
--- OUTSIDE RECORDS SUMMARY | 2023-07-15 07:20 | XMS_ITS ---
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) Active confirmed Problem Gastroesophageal reflux disease (disorder) (637664370) Chronic GERD (K21.9) Active confirmed Encounters Encounter Location Date Provider Diagnosis [facility] [place] [address], [place] [phone] 07/15/2023 Neil Khanna Encounter for scre ening [...] Notes * CLARE LEVINEDOB:1970 (54 yo F)Acc No.[id number]:07/15/2023 EGD and COL/MAC Patient: CLARE DEGROOT Provider: Carly Khanna MD :1970 A ge:53 Y S ex:Female Date:07/15/2023 Address:[address] [place], [place] [id number] Pcp:Nikki Crain MD Subjective: * Chief Complaints: [...] * Procedure Codes: 4 5378 DIAGNOSTIC COLONOSCOPY, [address]3941 UPPER GI ENDOSCOPY, BIOPSY * * The named appointment provid er may or may not be the originator of this progress note, and it is not deemed complete until electronically signed by the appointment provider. Sign off status: Pending * Provider: Carly Khanna MD Date: 0 07/15/2023 Generated for Obed roque/Angelita/Alessandroitting on: 0 12/17/2024 07:06 PM EDT
[2024-12-17 16:24] VITALS: BP 114/71; PULSE 94; RESP 14; TEMP 36.1; O2SAT 96; BMI 26.3
--- NOTE | 2024-12-17 16:25 | ED.GENADULT ---
HPI - General Adult General Chief complaint: Headache Stated complaint: headache, burning sensation Time Seen by Provider: 12/17/24 19:12 Related Data Home Medications ?Medication ?Instructions ?Recorded ?Confirmed albuterol sulfate 2.5 mg/3 mL 2.5 mg inhalation TID PRN 12/06/22 07/15/23 (0.083 %) solution for nebulization Shortness Of Breath Or Wheezing albuterol sulfate 90 mcg/actuation 2 puff inhalation QID PRN 12/06/22 07/15/23 aerosol inhaler (Ventolin HFA) Shortness Of Breath Or Wheezing ascorbic acid (vitamin C) 1,000 mg 1,000 mg PO BID 12/06/22 07/15/23 tablet cholecalciferol (vitamin D3) 50 50 mcg PO BID 12/06/22 07/15/23 mcg (2,000 unit) capsule dicyclomine 10 mg capsule 10 mg PO TID 12/06/22 07/15/23 ferrous sulfate 325 mg (65 mg 325 mg PO QAM 12/06/22 07/15/23 iron) tablet (FeroSul) fluticasone propionate 220 1 puff inhalation BID 12/06/22 07/15/23 mcg/actuation HFA aerosol inhaler (Flovent HFA) glimepiride 4 mg tablet 4 mg PO QPM 12/06/22 07/15/23 metformin 500 mg tablet,extended 1,000 mg PO BID 12/06/22 07/15/23 release 24 hr naproxen 500 mg tablet 500 mg PO BID PRN Pain 12/06/22 07/15/23 omeprazole 40 mg capsule,delayed 40 mg PO QAM 12/06/22 07/15/23 release pramipexole 0.5 mg tablet 0.5 mg PO BEDTIME 12/06/22 07/15/23 pregabalin 200 mg capsule 200 mg PO TID 12/06/22 07/15/23 semaglutide 0.25 mg or 0.5 mg (2 0.5 mg subcut FR 12/06/22 07/15/23 mg/3 mL) subcutaneous pen injector (Ozempic) Previous Rx's ?Medication ?Instructions ?Recorded sulfamethoxazole 800 1 tab PO BID 7 days #14 tabs 04/07/23 mg-trimethoprim 160 mg tablet (Bactrim DS) azithromycin 250 mg tablet See Rx Instructions PO .COMPLEX #6 11/12/23 tabs prednisone 20 mg tablet 40 mg (2 x 20 mg) PO DAILY 3 days 11/12/23 #6 tabs amoxicillin 500 mg capsule 500 mg PO Q8H #20 caps 10/29/24 benzonatate 200 mg capsule 200 mg PO BID PRN cough #14 caps 10/29/24 oxycodone 5 mg tablet 5 mg PO Q8H PRN pain #9 tabs 11/18/24 Allergies Allergy/AdvReac Type Severity Reaction Status Date / Time tramadol (TRAMADOL) Allergy Unknown RASH , rash Verified 12/17/24 16:28 [facility] Past Medical History Medical History Restless leg syndrome Asthma Cholecystitis Fibromyalgia Diabetes HTN (hypertension) Surgical History History of appendectomy Social History Social History Alcohol intake: current Alcohol intake frequency: does not drink Patient Tobacco Use Status: Never used Tobacco Advance Directives: No Advance Directives Information Provided: No Do you have a plan to hurt others: No Plan service: No Gender identity: Female Physical Exam ED Vital Signs: Vital Signs - 24 hr 12/17/24 16:24 Temperature 96.9 F Pulse Rate 94 Respiratory Rate 14 Blood Pressure 114/71 Pulse Oximetry 96 Oxygen Delivery Method Room Air BMI result Body Mass Index 26.3 Course Course Course Narrative: Rapid medical examination performed in triage by Dina Kaplan PA-C. Patient is a 54 year old assigned female at presenting to the emergency department with a headache and burning pain in her head. Detailed physical exam and review of systems are deferred to the primary products inspectors. Labs ordered. Patient placed back in the waiting room pending room availability and results. Patient's limited physical exam performed in triage showed a non-toxic individual who was able to freely converse and ambulate. Patient left the department without completing treatment. Patient left before myself or any of the emergency department clinicians could review tests, recommend treatment options, or thoroughly examine the patient. Medical Decision Making Lab Data 12/17/24 17:01 12/17/24 17:01 Labs: Lab Results 12/17/24 Range/Units 17:01 WBC 9.8 (4.8-10.8) X10*3/uL RBC 4.46 (4.20-5.50) X10*6/uL Hgb 13.0 (12.0-16.0) g/dl Hct 40.2 (37.0-47.0) % MCV 90.1 (80.0-98.0) fL MCH 29.1 (27.0-33.0) pg MCHC 32.3 (31.0-35.0) g/dl RDW 14.8 (11.0-16.0) % Plt Count 370 (160-400) X10*3/uL MPV 11.3 (9.4-12.3) fL Immature Gran % (Auto) 0.4 (0.0-0.4) % Neut % (Auto) 62.7 (45-73) % Lymph % (Auto) 27.9 (20-40) % Castro % (Auto) 7.4 (2-11) % Eos % (Auto) 0.9 (0-4) % Baso % (Auto) 0.7 (0-2) % Lymph # (Auto) 2.7 (1.2-4.9) X10*3/uL Castro # (Auto) 0.7 (0.1-1.2) X10*3/uL Eos # (Auto) 0.1 (0.0-0.4) X10*3/uL Baso # (Auto) 0.1 (0.0-0.2) X10*3/uL Abs Immat Gran (auto) 0.04 H (0.00-0.03) X10*3/uL Absolute Neuts (auto) 6.1 (2.0-8.3) x10*3/uL Absolute Nucleated RBC 0.000 (0.0-0.012) X10*3/uL Nucleated RBC % (auto) 0.0 (0.0-0.2) /100WBC Sodium 140 (135-145) mmol/L Potassium 4.2 (3.3-5.1) mmol/L Chloride 106 (96-108) mmol/L Carbon Dioxide 22 (22-29) mmol/L Anion Gap 16 (12-20) BUN 11 (9-16) mg/dL Creatinine 0.55 (0.5-1.4) mg/dL Estim Creat Clear Calc 89.3 Estimated GFR > 60 Random Glucose 136 H (60-115) mg/dL Calcium 9.9 D (8.4-10.2) mg/dL Magnesium 2.0 (1.6-2.6) mg/dL Total Bilirubin 0.2 (0.0-1.0) mg/dL AST 24 (5-31) U/L ALT 32 H (0-31) U/L Alkaline Phosphatase 103 (39-117) U/L Total Protein 7.3 (6.5-8.0) g/dL Albumin 4.7 (3.5-5.0) g/dL Discharge Plan Discharge Clinical Impression: Headache Patient Disposition: Left W/O Completing Treatment Prescriptions: No Action azithromycin 250 mg tablet See Rx Instructions .ROUTE .COMPLEX Qty: 6 0RF Rx Instructions: For 250 mg dose pack: take 500 mg today (day 1), then 250 mg for 4 days (days 2-5) prednisone 20 mg tablet 40 mg PO DAILY 3 Days Qty: 6 0RF amoxicillin 500 mg capsule 500 mg PO Q8H Qty: 20 0RF benzonatate 200 mg capsule 200 mg PO BID PRN (Reason: cough) Qty: 14 0RF oxycodone 5 mg tablet 5 mg PO Q8H PRN (Reason: pain) Qty: 9 0RF Rx Instructions: Partial Fill upon patient request. ascorbic acid (vitamin C) 1,000 mg tablet 1,000 mg PO BID albuterol sulfate 2.5 mg /3 mL (0.083 %) solution for nebulization 2.5 mg inhalation TID PRN (Reason: Shortness Of Breath Or Wheezing) omeprazole 40 mg capsule,delayed release(DR/EC) 40 mg PO QAM pramipexole 0.5 mg tablet 0.5 mg PO BEDTIME ferrous sulfate [FeroSul] 325 mg (65 mg iron) tablet 325 mg PO QAM glimepiride 4 mg tablet 4 mg PO QPM fluticasone propionate [Flovent HFA] 220 mcg/actuation HFA aerosol inhaler 1 puff INHALATION BID albuterol sulfate [Ventolin HFA] 90 mcg/actuation HFA aerosol inhaler 2 puff inhalation QID PRN (Reason: Shortness Of Breath Or Wheezing) metformin 500 mg tablet extended release 24 hr 1,000 mg PO BID dicyclomine 10 mg capsule 10 mg PO TID naproxen 500 mg tablet 500 mg PO BID PRN (Reason: Pain) Rx Instructions: take with food pregabalin 200 mg capsule 200 mg PO TID cholecalciferol (vitamin D3) 50 mcg (2,000 unit) capsule 50 mcg PO BID Ozempic 0.25 mg or 0.5 mg (2 mg/3 mL) pen injector 0.5 mg subcut FR sulfamethoxazole-trimethoprim [Bactrim DS] 800-160 mg tablet 1 tab PO BID 7 Days Qty: 14 0RF Discharge Date/Time: 12/17/24 19:20
[2024-12-17 17:10] LABS: MANUAL DIFF FLAG NO
[2024-12-17 17:14] LABS: Hematocrit 40.2 % (37.0-47.0); Hemoglobin 13.0 g/dl (12.0-16.0); Imm Gran Abs Auto 0.04 X10*3/uL (0.00-0.03); Imm Gran Pct Auto 0.4 % (0.0-0.4); Lymphocytes Absolute Auto 2.7 X10*3/uL (1.2-4.9); Mean Corpuscular HGB Conc 32.3 g/dl (31.0-35.0); Mean Corpuscular Hemoglobin 29.1 pg (27.0-33.0); Mean Corpuscular Volume 90.1 fL (80.0-98.0); NRBC Abs Auto 0.000 X10*3/uL (0.0-0.012); NRBC Pct Auto 0.0 /100WBC (0.0-0.2); Platelet Count 370 X10*3/uL (160-400); Red Blood Count 4.46 X10*6/uL (4.20-5.50); White Blood Count 9.8 X10*3/uL (4.8-10.8)
[2024-12-17 17:28] LABS: Alanine Aminotransferase 32 U/L (0-31); Albumin Level 4.7 g/dL (3.5-5.0); Alkaline Phosphatase 103 U/L (39-117); Anion Gap 16 (12-20); Aspartate Amino Transferase 24 U/L (5-31); Blood Urea Nitrogen 11 mg/dL (9-16); Calcium 9.9 mg/dL (8.4-10.2); Carbon Dioxide 22 mmol/L (22-29); Chloride 106 mmol/L (96-108); Creatinine Clr Calc Pharmacy 89.3; Estimated Glomerular Filt Rate > 60; Magnesium 2.0 mg/dL (1.6-2.6); Potassium 4.2 mmol/L (3.3-5.1); Sodium 140 mmol/L (135-145); Total Protein 7.3 g/dL (6.5-8.0)
--- OUTSIDE RECORDS SUMMARY | 2024-12-17 19:07 | XMS_ITS | Clinical Summary ---
Author Organization [facility] Address [address] [address] Phone Care Team Providers Care Director Of [employer] Name Role Phone Nikki Crain MD Primary Care Provider [phone] Allergies Active Allergy Reactions Criticality Noted Date [...] Medical Devices Not on file Care Teams Director Of [employer] Relationship Specialty Start Date End Date Nikki Crain MD [address] [place] [id number] PCP - General Internal Medicine 03/11/23 Additional Source Comments The information contained in this document represents components of the legal health record. It is not the complete legal health record.[facility]
--- OUTSIDE RECORDS SUMMARY | 2024-12-17 19:07 | XMS_ITS | Clinical Summary ---
Author Organization [employer] Address [address] [facility] [address] [place] [address] Care Team Providers Care Dry Mixer Name Role Phone Nikki Crain MD Primary Care Provider [phone] Allergies Active Allergy Reactions Criticality Noted Date Comments Tramadol Rash Low 07/02/2016 Other reaction(s): Hives / Skin Rash Medications Flovent HFA 220 MCG/ACT inhaler INHALE 1 PUFF TWICE DAILY. RINSE MOUTH AFTER USE 12 g 5 09/07/19 23 Active witch marco a-glycerin (Tucks) pad Apply topically if needed for irritation. 50 each 3 06/02/19 24 Active FREESTYLE LITE test stripIndications :Diabetes mellitus without complication ([facility]) TEST BLOOD SUGAR TWICE DAILY 100 strip 11 12/24/19 24 Active Ventolin HFA 108 (90 Base) MCG/ACT inhaler INHALE TWO PUFFS EVERY 4 HOURS NEEDED 18 g 11 12/24/19 24 Active cholecalciferol VITAMIN D (Vitamin D-3) 50 MCG (2000 UT) capsuleIndicatio ns:Vitamin D deficiency TAKE ONE CAPSULE IN THE MORNING AND EVENING 180 capsule 3 02/14/20 24 Active naproxen (Naprosyn) 500 MG tablet TAKE ONE TABLET TWICE DAILY WITH FOOD NEEDED 60 tablet 11 02/23/20 24 Active progesterone 100 MG capsule Take 1 capsule (100 mg) by mouth Once per day. 30 capsule 11 02/23/20 24 025 Active estradiol (Climara) 0.05 MG/24HR APPLY 1 PATCH TOPICALLY EVERY WEEK,X90 DAYS 02/07/20 24 Active acetaminophen (Tylenol) 500 MG tablet Take 2 tablets (1,000 mg) by mouth every 6 (six) hours if needed for moderate pain or fever for up to 25 doses. 40 tablet 04/02/20 24 Active pramipexole (Mirapex) 0.25 MG tablet 1 tablet in the morning. Active pramipexole (Mirapex) 0.5 MG tablet TAKE ONE TABLET EVERY NIGHT AT BEDTIME 90 tablet 1 07/21/19 25 Active omeprazole (PriLOSEC) [address] capsuleIndicatio ns:Gastroesophag eal reflux disease without esophagitis,Diab etes mellitus without complication (CMS/HCC) Take 1 capsule (40 mg) by mouth in the morning. 90 capsule 2 09/14/19 25 Active dicyclomine (Bentyl) 10 MG capsuleIndicatio ns:Gastroesophag eal reflux disease without esophagitis,Diab etes mellitus without complication (CMS/HCC) TAKE ONE CAPSULE THREE TIMES DAILY IN THE MORNING, EVENING AND BEDTIME 90 capsule 3 10/10/19 25 Active Arnuity Ellipta 200 MCG/ACT inhaler INHALE 1 PUFF DAILY AT THE SAME TIME EACH DAY, RINSE MOUTH AFTER USE 30 each 5 10/10/19 25 Active glimepiride (Amaryl) 4 MG tabletIndication s:Gastroesophage al reflux disease without esophagitis,Diab etes mellitus without complication (CMS/HCC) TAKE ONE TABLET EVERY EVENING 90 tablet 1 10/16/19 25 Active estradiol (Climara) 0.0375 MG/24HR Place 1 patch on the skin 1 (one) time per week. 4 patch 10/17/19 25 026 Active semaglutide (Ozempic) 2 MG/1.5ML solution pen-injector Inject 1 mg under the skin 1 (one) time per week. 2 each 10/17/19 25 Active meloxicam (Mobic) 15 MG tablet Take 1 tablet (15 mg) by mouth Once per day. 30 tablet 10/17/19 25 026 Active triamcinolone (Kenalog) 0.1 % oral paste Apply to tongue lesion bid prn. 5 g 10/17/19 25 Active cyanocobalamin (Vitamin B-12) 1000 MCG/ML injectionIndicat ions:B12 deficiency Inject 1 mL (1,000 mcg) into the muscle every 30 (thirty) days. 1 mL 10/24/19 25 Active rosuvastatin (Crestor) 5 MG tablet TAKE ONE TABLET EVERY MORNING 90 tablet 1 11/10/19 25 Active Ascorbic Acid (vitamin C) 1000 MG tablet TAKE ONE TABLET IN THE MORNING AND EVENING WITH iron 180 tablet 1 11/10/19 25 Active metFORMIN XR (Glucophage-XR) 500 MG 24 hr tabletIndication s:Diabetes mellitus without complication (CMS/HCC) TAKE TWO TABLETS TWICE DAILY IN THE MORNING AND EVENING 360 tablet 1 11/10/19 25 Active albuterol (2.5 MG/3ML) 0.083% nebulizer solution USE ONE AMPULE USING A NEBULIZER THREE TIMES DAILY NEEDED 90 mL 3 11/22/19 25 Active pregabalin (Lyrica) 200 MG capsule TAKE ONE CAPSULE THREE TIMES DAILY IN THE MORNING, EVENING AND BEDTIME 90 capsule 3 12/05/19 25 Active albuterol (2.5 MG/3ML) 0.083% nebulizer solution Inhale 3 mL if needed in the morning, at noon, and at bedtime. 01/06/20 22 025 Discontinued pregabalin (Lyrica) 200 MG capsule Take 1 capsule (200 mg) by mouth 3 times daily. 90 capsule 5 05/22/19 25 025 Discontinued Hospital, Clinic, or Other Facility Administered Medication Ordered Dose Route Frequency Start Date End Date Status cyanocobalamin (Vitamin B-12) injection 1,000 mcgIndications:B12 deficiency 1000 mcg IM Every 30 days 10/24/2024 Active cyanocobalamin (Vitamin B-12) injection 1,000 mcgIndications:Vitamin D deficiency 1000 mcg IM Once 12/03/2024 12/03/2024 Ended Active Problems Problem Noted Date Diagnosed Date Postmenopausal disorder 06/02/2023 Cortical senile cataract of right eye 03/29/2022 Diabetes mellitus without complication 0 Kidney stone 09/28/2017 Anxiety 03/11/2015 Gastric reflux 03/11/2015 Primary fibromyalgia syndrome 03/11/2015 Rosacea 03/11/2015 Protruded lumbar disc 08/02/2013 Mixed anxiety and depressive disorder 08/01/2012 Constipation 11/05/2011 Disorder of skeletal muscle 11/05/2011 Gastroesophageal reflux disease 11/05/2011 Chronic laryngitis 11/05/2011 Seasonal allergic rhinitis 11/05/2011 Encounters Date Type Department Care Team Description 12/06/2024 11:15 AM EDT Office Visit [facility] [address] [place] [address] Nikki Crain MD DUB (dysfunctional uterine bleeding) (Primary Dx); Endometrial thickening on ultrasound 12/06/2024 Travel 12/04/[address] [address] Nikki Crain MD 12/03/2024 10:15 AM EDT Clinical Support [facility] [address] [place] [address] Sarai Mir, HORACE Vitamin D deficiency 12/03/2024 Travel 11/27/2024 Patient Outreach [address] [address] Nikki Crain MD Pre-visit Planning (SDOH screening completed on 05/15/24 ) 11/21/[address] [address] Nikki Crain MD Appointment Request 11/21/2024 Refill [facility] [address] [place] [address] Nikki Crain MD 11/19/2024 Results Follow-Up [address] [address] Umu Porter MD CBC auto differential, Urinalysis, Complete, with Reflex to Culture, Hepatic Function Panel, Additional followed-up results: 5 11/19/2024 Telephone [facility] [address] [place] [address] Nikki Crain MD Referral 11/19/2024 Telephone [facility] [address] [place] [address] Nikki Crain MD Nurse Triage 11/18/2024 Orders Only GENERIC EXTERNAL DATA DEPARTMENT Provider, Generic External Data 11/09/2024 Refill [facility] [address] [place] [address] Nikki Crain MD Diabetes mellitus without complication (CMS/HCC) 11/05/2024 6:20 PM EDT Office Visit [facility] [address] [place] [address] Cornell Millan MD Bronchitis (Primary Dx) 11/05/2024 Travel 11/02/2024 11:15 AM EDT Office Visit [facility] [address] [place] [address] Tarka, Danita, OD Dry eyes, bilateral (Primary Dx); Blepharitis of upper and lower eyelids of both eyes, unspecified type; Meibomian gland disease of upper and lower eyelids of both eyes 11/02/2024 Travel 10/30/2024 3:00 PM EDT Clinical Support [facility] [address] [place] [address] Sarai Mir RN Routine general medical examination at a health care facility 10/30/2024 10:00 AM EDT Procedure Visit [facility] [address] [place] [phone] Charito Marlow MD Chronic left shoulder pain (Primary Dx); Diabetes mellitus without complication (CMS/HCC) 10/30/2024 Travel 10/29/2024 Orders Only GENERIC EXTERNAL DATA DEPARTMENT Provider, Generic External Data 10/23/2024 Results Follow-Up [facility] [address] [place] [address] Nikki Crain MD POCT A1C, POCT glucose manually resulted, Vitamin D, 25-Hydroxy, Total, Immunoassay, Additional followed-up results: 3 10/23/2024 Orders Only [facility] [address] [place] [address] Nikki Crain MD B12 deficiency (Primary Dx) 10/16/2024 9:45 AM EDT Office Visit [facility] [address] [place] [address] Nikki Crain MD Disorder of skeletal muscle (Primary Dx); Diabetes mellitus without complication (CMS/HCC); Vitamin D deficiency; Chronic pain in left shoulder 10/16/2024 Travel 10/13/2024 Refill [facility] [address] [place] [address] Nikki Crain MD Gastroesophageal reflux disease without esophagitis; Diabetes mellitus without complication (CMS/HCC) 10/12/2024 Telephone [facility] [address] [place] [address] Nikki Crain MD Chart Prep 10/09/2024 Telephone [facility] [address] [place] [phone] Nikki Crain MD Nurse Triage 10/08/2024 Refill [facility] [address] [place] [address] Nikki Crain MD Gastroesophageal reflux disease without esophagitis; Diabetes mellitus without complication (CMS/HCC) from Last 3 Months Immunizations Immunization Administration Dates Next Due Influenza Injectable Quadriv alant Preservative Free IIV4 MDCK 04/02/2021 Influenza injectable quadrivalent preservative f ree 01/22/2022,03/25/2020 Influenza, IIV3, injectable 01/23/2014, 2 Influenza, Split (incl. purified surface antigen ) 12/29/2012 Influenza, intradermal, quad rivalent, preservative free 02/10/2012 Pfizer Covid-19 Vaccine 12+ 12/18/2020, Tdap 06/16/2016 Zoster, Recombinant 04/02/2021,10/17/2020 Social History Tobacco Use Types Packs/Day Years Used Date Smoking Tobacco: Never Passive Smoke Exposure: Never Smokeless Tobacco: Never Tobacco Cessation:Counseling Given: Not Answered Alcohol Use Standard Drinks/Week Comments Never 0 [...] Orientation Straight 02/22/2022 10 :16 AM EDT Last Filed Vital Signs Vital Sign Reading Time Taken Comments Blood Pressure 106/70 12/06/2024 11:13 AM EDT Pulse 80 12/06/2024 11:13 AM EDT Temperature 36.5 C (97.7 F) 12/06/2024 11:13 AM EDT Respiratory Rate 16 12/06/2024 11:13 AM EDT Oxygen Saturation 100% 11/05/2024 5:35 PM EDT Inhaled Oxygen Concentration - - Weight 59 kg (130 lb) 12/06/2024 11:13 AM EDT Height 149.9 cm (4' 11 ) 11/05/2024 5:35 PM EDT Body Mass Index 26.26 11/05/2024 5:35 PM EDT Plan of Treatment Upcoming Encounters Date Type Department Care Team (Late st Contact Info) Description 12/18/2024 1:15 PM EDT Office Visit [facility] [address] [place] [phone] Danita Gillette OD [address] [place] [address] 01/04/2025 11:00 AM EDT Clinical Support [facility] [address] [place] [address] Health Maintenance Due Date Last Done Comments CT Colonography 1968 FIT DNA/Cologuard 1968 FIT 1968 FOBT 1968 Sigmoidoscopy 1968 Disability Screening 1968 Alcohol/Substance Use Screening 1980 Hepatitis B Vaccines (1 of 3 - 19+ 3-dose series) 01/25/1987 Pneumococcal Vaccine: 50+ Years (1 of 2 - PCV) 01/25/1987 Mammogram 2008 Diabetes: Urine Protein Screening 08/24/2022 08/24/2021 COVID-19 Vaccine ( season) 2023 12/18/2020, 10/21/2020 Depression Screening 06/02/2024 06/02/2023, 06/02/19 24 Diabetes: Foot Exam 06/02/2024 06/02/2023, 06/02/2023, 06/02/2023, Additional history exists Lipid Panel 06/15/2024 06/15/2023, 08/24/2021 Influenza Vaccine (#1) 2024 , 04/02/2021, 03/25/2020, Additional history exists Diabetes: Hemoglobin A1C 04/17/2025 025, 05/22/2024, 12/08/2023, Additional history exists SDOH Screening 05/15/2025 05/15/2024 Cervical Cancer Screening 09/09/2025 HPV/Cotest 09/09/2025 07/02/2020, 07/02/2020 Pap Smear 09/09/2025 09/09/2020 Tobacco Screening 12/06/2025 12/06/2024 DTaP/Tdap/Td Vaccines (2 - Td or Tdap) 06/16/2026 06/16/2016 Eye Exam 11/02/2026 11/02/2024 Colonoscopy 07/14/2033 07/15/2023 Colorectal Cancer Screening 07/14/2033 RSV Patients and Patients Aged 60 years or older (1 - 1-dose 75+ series) 01/25/2043 Zoster Vaccines Completed 04/02/2021, 10/17/2020 HIV Screening Completed 10/08/2022 Hepatitis C Screening Completed 10/08/2022 HIB Vaccines Aged Out No longer eligi [...] patient's age to complete this topic Meningococcal Vaccine Aged Out No prince [place] eligible based on patient's age to complete this topic RSV under 20 months Aged Out No longe r eligible based on patient's age to complete this topic Rotavirus Vaccines Aged Out No longer eligible based on patient's age to complete this topic Procedures Procedure Name Priority Date/Time Associated Diagnosis Comments US PELVIS TRANSVAGINAL Routine 10:58 AM EDT CHLAMYDIA/N. GONORRHOEAE RNA, TMA, UROGENITAL Routine 11/18/2024 8:41 AM EDT BACTERIAL VAGINOSIS PANEL Routine 11/18/2024 8:41 AM EDT URINALYSIS, COMPLETE, WITH REFLEX TO CULTURE Routine 11/18/2024 8:23 AM EDT BASIC METABOLIC PANEL Routine 11/18/2024 8:21 AM EDT HEPATIC FUNCTION PANEL Routine 8:21 AM EDT CBC WITH AUTO DIFFERENTIAL Routine 11/18/2024 8:21 AM EDT CULTURE, URINE, ROUTINE Routine 11/18/2024 12:00 AM EDT POCT GLUCOSE Routine 10/30/2024 10:09 AM EDT Diabetes mellitus without complication (CMS/HCC) CT ARTHROCENTESIS ASPIR&/INJ MAJOR JT/BURSA W/O US Routine 10/30/2024 9:55 AM EDT Chronic left shoulder pain HIGH SENSITIVITY TROPONIN I Routine 10/29/2024 7:[address] HEAD WO CONTRAST Routine 10/29/2024 7 :04 AM EDT STREP A NUCLEIC ACID Routine 10/29/2024 5:56 AM EDT XR CHEST 1 VIEW Routine 10/29/2024 5:19 AM EDT HIGH SENSITIVITY TROPONIN I Routine 10/29/2024 4:29 AM EDT COMPREHENSIVE METABOLIC PANEL Routine 10/29/2024 4:29 AM EDT CBC WITH AUTO DIFFERENTIAL Routine 10/29/2024 4:29 AM EDT SARS COV2/INFLUENZA A/B AND RSV RNA QL NAAT Routine 10/29/2024 4:29 AM EDT TSH W/REFLEX TO FT4 Routine 10/19/2024 8 :34 AM EDT Diabetes mellitus without complication (CMS/HCC) Disorder of skeletal muscle Vitamin D deficiency SED RATE BY MODIFIED WESTERGREN Routine 10/19/2024 8:34 AM EDT Diabetes mellitus without complication (CMS/HCC) Disorder of skeletal muscle Vitamin D deficiency VITAMIN B1 Routine 10/19/2024 8:34 AM EDT Diabetes mellitus without complication (CMS/HCC) Disorder of skeletal muscle Vitamin D deficiency VITAMIN B6 Routine 10/19/2024 8:34 AM EDT Diabetes mellitus without complication (CMS/HCC) Disorder of skeletal muscle Vitamin D deficiency VITAMIN B12/FOLATE, SERUM PANEL Routine 10/19/2024 8:34 AM EDT Diabetes mellitus without complication (CMS/HCC) Disorder of skeletal muscle Vitamin D deficiency VITAMIN D,25-OH,TOTAL,IA Routine 10/19/2024 8:34 AM EDT Diabetes mellitus without complication (CMS/HCC) Disorder of skeletal muscle Vitamin D deficiency POCT GLYCATED HEMOGLOBIN, TOTAL Routine 10/16/2024 9:53 AM EDT Diabetes mellitus without complication (CMS/HCC) POCT GLUCOSE Routine 10/16/2024 9:51 AM EDT Diabetes mellitus without complication (CMS/HCC) XR SHOULDER 2+ VIEWS LEFT Routine 09/21/2024 9:34 AM EDT Chronic pain in left shoulder HM COLONOSCOPY Routine 07/15/2023 LIPID PANEL, STANDARD Routine 06/15/2023 8:17 AM EST Diabetes mellitus without complication (CMS/HCC) HEPATITIS PANEL, GENERAL Routine 10/08/2022 8:53 AM EDT Routine screening for STI (sexually transmitted infection) HIV 1 RNA, QN PCR W/RFL BRENDA (RTI,PI,INTEGRASE) Routine 10/08/2022 8:53 AM EDT Routine screening for STI (sexually transmitted infection) ALBUMIN, RANDOM URINE W/CREATININE Routine 08/24/2021 8:02 AM EDT THINPREP PAP Routine 09/09/2020 3:04 PM EDT ZZZ HISTORICAL HPV E6/E7 RFLX BRENDA 16 18/45 Routine 07/02/2020 3:05 PM EST from Last 3 Months or Most Recently Relevant to Health Maintenance Results * US Pelvis Transvaginal (11/18/2024 10:58 AM EDT) Anatomical Region Laterality Modality Pelvis Ultrasound 11/18/2024 10:5 8 AM EDT Narrative 11/18/2024 11:00 AM EDT [address] [address] Ultrasound Report Signed Patient: Esperanza Werner MR#: [id number] 9 : 1970 Acct:[id number] Age/Sex: 54 / F ADM Date: 11/18/24 Loc: HO.ED Attending Dr: Ordering Physician: Toma Tobin NP Date of Service: 11/18/24 Procedure(s): US pelvic and transvaginal Accession Number(s): [id number] cc: Nikki Crain MD; Toma Tobin NP CLINICAL HISTORY: post menopausal bleding, pelvic pain US pelvis transabdominal and transvaginal Comparison: None provided Findings: Transabdominal scanning performed for overall anatomy. Transvaginal scanning performed for additional detail. Retroverted uterus is 7.6 cm length. Normal myometrium. Endometrium 9 mm thickness. No lesions. Right ovary 2 x 1.7 x 2 cm. Left ovary 2 x 2.2 x 1.2 cm. Normal grayscale morphology of both ovaries. No free fluid. IMPRESSION: 1. Abnormal postmenopausal endometrial thickening measuring up to 9 mm. Differential includes hyperplasia or malignancy. Recommend gynecological consult and consideration for endometrial biopsy. This document has been electronically signed by: Bora Perez MD on 11/18/2024 10:58:48 Dictated By: Bora Perez MD Signed By: <Electronically signed by Bora Perez MD in OV> 11/18/24 1059 DD/ 1058 TD/TT: 11/18/24 1058 Partition Making Machine Operator: Procedure Note Donotuseinterpreter, Image - 11/18/[address] [address] Ultrasound Report Signed Patient: Esperanza WernerMR#: [id number] 9 : 1970Acct:[id number] Age/Sex: 54 / FADM Date: 11/18/24 Loc: HO.ED Attending Dr: Ordering Physician: Toma Tobin NP Date of Service: 11/18/24 Procedure(s): US pelvic and transvaginal Accession Number(s): [id number] cc: Nikki Crain MD; Toma Tobin NP CLINICAL HISTORY: post menopausal bleding, pelvic pain US pelvis transabdominal and transvaginal Comparison: None provided Findings: Transabdominal scanning performed for overall anatomy. Transvaginal scanning performed for additional detail. Retroverted uterus is 7.6 cm length. Normal myometrium. Endometrium 9 mm thickness. No lesions. Right ovary 2 x 1.7 x 2 cm. Left ovary 2 x 2.2 x 1.2 cm. Normal grayscale morphology of both ovaries. No free fluid. IMPRESSION: 1. Abnormal postmenopausal endometrial thickening measuring up to 9 mm. Differential includes hyperplasia or malignancy. Recommend gynecological consult and consideration for endometrial biopsy. This document has been electronically signed by: Bora Perez MD on 11/18/2024 10:58:48 Dictated By: Bora Perez MD Signed By: <Electronically signed by Bora Perez MD in OV> 11/18/24 1059 DD/ 1058 TD/TT: 11/18/24 1058 Partition Making Machine Operator: [facility] External Provider IMG US PROCEDURES Edited Result - Final * Bacterial Vaginosis (11/18/2024 8:41 AM EDT) TRICHOMONAS VAGINALIS DETECTION BY PCR NOT DETECTED Not Detect [facility] BACTERIAL VAGINOSIS DETECTION BY PCR NEGATIVE Negative [facility] Comment:The BV organism targ ets of the Xpert Xpress MVP test can becommensal in women; Xpert Xpress MVP positive results forbacterial vaginosis should be considered in conjunction withother clinical and patient information to determine thedisease status. Organisms that are not detected by the XpertXpress MVP test have also been reported to be associatedwith BV and aerobic vaginitis.The Xpert Xpress MVP test performance has not been evaluatedin patients under the age of 14. ARIANA GROUP DETECTION BY PCR NOT DETECTED Not Detect [facility] Ariana glab krusei PCR NOT DETECTED Not Detect [facility] 11/18/2024 8:41 AM EDT 11/18/2024 8:44 AM EDT us Generic External Data Provider LAB MICROBIOLOGY - GENERAL ORDERABLES Final Result [facility] [address] [place] [phone] [phone] * Chlamydia/N. Gonorrhoeae RNA, TMA, Urogenitial (11/18/2024 8:41 AM EDT) CT PCR NOT DETECTED Not Detect. [facility] Comment:A not detected test result does not exclude the possibilityof infection because test results can be affected byimproper specimen collection, concurrent antibiotic therapy,or the number of organisms in the specimen which may bebelow the sensitivity of the test. As with many diagnostictests, results from the Xpert CT/NG assay should beinterpreted in conjunction with other laboratory andclinical data available to the clinician.Xpert CT/NG performance has not been evaluated in patientsless than 14 years of age. The assay should not be used forthe evaluationof suspected sexual abuse or for other medico-legalindications. Additional testing is recommended in anycircumstance when false positive or false negative resultscould lead to adverse medical, social or psychologicalconsequences. NG PCR NOT DETECTED Not Detect. [facility] Comment:A not detected test result does not exclude the possibilityof infection because test results can be affected byimproper specimen collection, concurrent antibiotic therapy,or the number of organisms in the specimen which may bebelow the sensitivity of the test. As with many diagnostictests, results from the Xpert CT/NG assay should beinterpreted in conjunction with other laboratory andclinical data available to the clinician.Xpert CT/NG performance has not been evaluated in patientsless than 14 years of age. The assay should not be used forthe evaluationof suspected sexual abuse or for other medico-legalindications. Additional testing is recommended in anycircumstance when false positive or false negative resultscould lead to adverse medical, social or psychologicalconsequences. 11/18/2024 8:41 AM EDT 11/18/2024 8:44 AM EDT Generic External Data Provider LAB MICROBIOLOGY - GENERAL ORDERABLES Final Result Performing Organization Address City/[facility]/ZIP Co de Phone Number [facility] [address] [place] [phone] * (ABNORMAL) Urinalysis, Complete, with Reflex to Culture (11/18/2024 8:23 AM EDT) Color Urine Red(A) [facility] Appearance Urine Hazy [facility] PH 6.0 5.0 - 9.0 [facility] Glucose Urine UA Negative Negative mg/dL [facility] Urine Blood Large (3+)(A) Negative [facility] Specific [place] - Urine 1.020 1.005 - 1.025 [facility] Urine Protein 30 (1+)(A) Neg-Trace mg/dL [facility] Urine Ketones Negative Negative mg/dL [facility] Nitrite Urine Negative Negative [facility] Leukocyte Esterase Urine Moderate (2+)(A) Negative [facility] RBC Urine >20(A) 0 - 2 /HPF [facility] Urine WBC 11-20(A) 0 - 5 /HPF [facility] Urine Squamous Epithelial Cell 0-2 0 - 2 /HPF [facility] Urine Bacteria None Seen None Seen [facility] Hyaline Casts, Urine 0-2 0 - 2 /LPF [facility] 11/18/2024 8:23 AM EDT 11/18/2024 8:27 AM EDT Narrative [facility] - 11/18/2024 8:41 AM EDT [id number], Clean Catch us Generic External Data Provider LAB URINE ORDERAB LES Final Result Performing Organization Address City/[facility]/ZIP Co de Phone Number [facility] [address] [place] [address] [phone] * CBC auto differential (11/18/2024 8:21 AM EDT) Only the most recent of2 resultswithin the time period is included. White Blood Count 9.2 4.8 - 10.8 X10*3/uL [facility] Red Blood Count 4.46 4.20 - 5.50 X10*6/uL [facility] Hemoglobin 13.1 12.0 - 16.0 g/dl [facility] Hematocrit 38.7 37.0 - 47.0 % [facility] Mean Corpuscular Volume 86.8 80.0 - 98.0 fL [facility] Mean Corpuscular Hemoglobin 29.4 27.0 - 33.0 pg [facility] Mean Corpuscular HGB Conc 33.9 31.0 - 35.0 g/dl [facility] Red Cell Distribution Width 14.5 11.0 - 16.0 % [facility] Platelet Count 348 160 - 400 X10*3/uL [facility] Mean Platelet Volume 11.2 9.4 - 12.3 fL [facility] Neutrophils Percent Auto 62.9 45 - 73 % [facility] Imm Gran Pct Auto 0.2 0.0 - 0.4 % [facility] Lymphocytes Percent Auto 27.1 20 - 40 % [facility] Monocytes Percent Auto 8.6 2 - 11 % [facility] Eosinophils Percent Auto 0.7 0 - 4 % [facility] Basophils Percent Auto 0.5 0 - 2 % [facility] NRBC Pct Auto 0.0 0.0 - 0.2 /100WBC [facility] Neutrophils Absolute Auto 5.8 2.0 - 8.3 x10*3/uL [facility] Imm Gran Abs Auto 0.02 0.00 - 0.03 X10*3/uL [facility] Lymphocytes Absolute Auto 2.5 1.2 - 4.9 X10*3/uL [facility] Monocytes Absolute Auto 0.8 0.1 - 1.2 X10*3/uL [facility] Eosinophils Absolute Auto 0.1 0.0 - 0.4 X10*3/uL [facility] Basophils Absolute Auto 0.1 0.0 - 0.2 X10*3/uL [facility] NRBC Abs Auto 0.000 0.0 - 0.012 X10*3/uL [facility] 11/18/2024 8:21 AM EDT 11/18/2024 8:27 AM EDT Generic External Data Provider LAB BLOOD ORDERAB LES Final Result Performing Organization Address [facility] de Phone Number [facility] [address] [place] [phone] * Hepatic Function Panel (11/18/2024 8:21 AM EDT) Bilirubin, Total 0.4 0.0 - 1.0 mg/dL [facility] Bilirubin, Direct 0.2 0.0 - 0.5 mg/dL [facility] Aspartate Amino Transferase 18 5 - 31 U/L [facility] Alanine Aminotransferase 30 0 - 31 U/L [facility] Total Protein 7.2 6.5 - 8.0 g/dL [facility] Albumin Level 4.7 3.5 - 5.0 g/dL [facility] Alkaline Phosphatase 101 39 - 117 U/L [facility] 11/18/2024 8:21 AM EDT 11/18/2024 8:27 AM EDT Generic External Data Provider LAB BLOOD ORDERAB LES Final Result Performing Organization Address [facility] de Phone Number [facility] [address] [place] [phone] * (ABNORMAL) Basic Metabolic Panel (11/18/2024 8:21 AM EDT) Sodium 140 135 - 145 mmol/L [facility] Potassium 3.8 3.3 - 5.1 mmol/L [facility] Chloride 106 96 - 108 mmol/L [facility] Carbon Dioxide 25 22 - 29 mmol/L [facility] Anion Gap 13 12 - 20 [facility] Urea Nitrogen (BUN) 11 9 - 16 mg/dL [facility] Creatinine, Serum 0.55 0.5 - 1.4 mg/dL [facility] Creatinine Clr Calc Pharmacy 90.9 [facility] Comment:Provided height and weight: 149.86 cm,61.3 kg.eGFR (calculated from the MDRD study equation) and eCrCl(calculated from the Cockcroft-Gault equation) are based ondifferent parameters and may not yield comparable results.If eCrCl result is absurd, please check patient'sheight/weight. Estimated Glomerular Filt Rate >60 [facility] Comment:Chronic Kidney Disea se: Estimated GFR < 60 mL/min/1.33e9Lufasb Kidney Disease: Estimated GFR < 15 mL/min/1.73m2 Glucose 170(H) 60 - 115 mg/dL [facility] Calcium 9.1 8.4 - 10.2 mg/dL [facility] 11/18/2024 8:21 AM EDT 11/18/2024 8:27 AM EDT us Generic External Data Provider LAB BLOOD ORDERAB LES Final Result [facility] [address] [place] [address] [phone] * Culture, Urine, Routine (11/18/2024 12:00 AM EDT) Urine Urine specimen obtained by clean catch procedure / Unknown 11/18/2024 11/18/2024 Comment:UACC Narrative [facility] - 11/19/2024 8:49 AM EDT Urine Culture Report Result Urine Culture 10,000 to 50,000 cfu/ml Urine Culture Mixed bacterial jayashree characteristic of Urine Culture urogenital contamination. Specimen Source: Urine clean catch us Generic External Data Provider LAB MICROBIOLOGY - GENERAL ORDERABLES Final Result [facility] [address] [place] [phone] * (ABNORMAL) POCT Glucose (10/30/2024 10:09 AM EDT) Only the most recent of2 resultswithin the time period is included. Glucose Blood, POC 285(A) 60 - 200 mg/dL QC Media Lot # [id number] Lot# Expiration Date ,885 Blood Capillary blood specimen / Unknown 10/30/2024 10:09 AM EDT Result [facility] Charito Marlow MD POINT OF CARE TEST ENTER/EDIT OR DERABLES Final Result * CT ARTHROCENTESIS ASPIR&/INJ MAJOR JT/BURSA W/O US (10/30/2024 9:55 AM EDT) Narrative Charito Marlow MD - 10/30/2024 9:55 AM EDT Charito Marlow MD 10/30/2024 9:58 AM Arthrocentesis Date/Time: 10/30/2024 9:55 AM Performed by: Charito Marlow MD Authorized by: Charito Marlow MD Consent: Consent obtained: Verbal and written Consent given by: Patient Risks, benefits, and alternatives were discussed: yes Risks discussed: Pain Alternatives discussed: Referral [place] protocol: Procedure explained and questions answered to patient or proxy's satisfaction: yes Relevant documents present and verified: yes Test results available: yes Imaging studies available: yes Required blood products, implants, devices, and special equipment available: yes Site/side marked: yes Immediately prior to procedure, a time out was called: yes Patient identity confirmed: Verbally with patient Location: Location: Shoulder Shoulder: L glenohumeral Anesthesia: Anesthesia method: Topical application Procedure details: Needle gauge: 22 G Ultrasound guidance: no Approach: Posterior Steroid injected: yes Specimen collected: no Post-procedure details: Dressing: Adhesive bandage Procedure completion: Tolerated Result [facility] Charito Marlow MD IN CLINIC/BEDSIDE ORDERABLES Fin al Result * High Sensitivity Troponin I (10/29/2024 7:50 AM EDT) Only the most recent of2 resultswithin the time period is included. TROPONIN I HIGH SENSITIVITY <2.7 <3.5 - 17.0 ng/L [facility] Comment:The Aburto high sens itivity Troponin-I results should beused in conjunction with other diagnostic information suchas ECG, clinical observations and information, and patientsymptoms to aid in the diagnosis of [place]. 10/29/2024 7:50 AM EDT 10/29/2024 7:54 AM EDT us Generic External Data Provider LAB BLOOD ORDERAB LES Final Result Performing Organization Address City/State/[facility] Co de Phone Number [facility] [address] [place] [phone] * CT Head w/o Contrast (10/29/2024 7:04 AM EDT) Anatomical Region Laterality Modality Head, Neck Computed Tomogra phy 10/29/2024 7:04 AM EDT Narrative 10/29/2024 8:31 AM EDT [place] [address] [address] Scan Report Signed Patient: Esperanza Werner MR#: [id number] 9 : 1970 Acct:[id number] Age/Sex: 54 / F ADM Date: 10/29/24 Loc: HO.ED Attending Dr: Ordering Physician: Manuel Martinez MD Date of Service: 10/29/24 Procedure(s): CT head/brain wo IV con Accession Number(s): [id number] cc: Nikki Crain MD; Manuel Martinez MD Report Number: [id number]: Total DLP = 609.00 mGy-cm EXAMINATION: CT HEAD WITHOUT IV CONTRAST HISTORY: YAN. TECHNIQUE: Unenhanced helical CT of the head was performed per standard departmental protocol. Coronal and sagittal reformats of the head were also evaluated. One or more of the following techniques was used for dose reduction: Automated exposure control, adjustment of the mA and/or kV according to patient size, use of iterative reconstruction technique. DLP: 609 mGy-cm COMPARISON: Comparison is made with the prior examination dated 12/05/2022. FINDINGS: BRAIN: The brain parenchyma is unremarkable. There is normal frederick/white differentiation. The ventricular system is normal in size and configuration. There is no mass effect or midline shift. No intra- or extra-axial fluid collections are identified. SINUSES: The visualized paranasal sinuses are clear. The mastoid air cells and middle ear cavities are well pneumatized. ORBITS: The visualized orbits are unremarkable. BONES/SOFT TISSUES: The extracranial soft tissues are unremarkable. The calvarium is intact. No suspicious lytic or sclerotic lesions. CT/CT head/brain wo IV con IMPRESSION: No acute intracranial abnormality. Electronically signed by: Neil Ruiz MD 10/29/2024 08:28 AM EDT RP Dictated By: Neil Ruiz MD Signed By: <Electronically signed by Neil uRiz MD in OV> 10/29/24827 DD/ 3 TD/TT: 10/29/2417 Part[employer] Making Machine Operator: Procedure Note Donotuseinterpreter, Image - 10/29/[address] [place] [address] [address] Scan Report Signed Patient: Esperanza Werner#: [id number] 9 : 1970Acct:[id number] Age/Sex: 54 / FADM Date: 10/29/24 Loc: HO.ED Attending Dr: Ordering Physician: Manuel Martinez MD Date of Service: 10/29/24 Procedure(s): CT head/brain wo IV con Accession Number(s): [id number] cc: Nikki Crain MD; Manuel Martinez MD Report Number: [id number]: Total DLP = 609.00 mGy-cm EXAMINATION: CT HEAD WITHOUT IV CONTRAST HISTORY: YAN. TECHNIQUE: Unenhanced helical CT of the head was performed per standard departmental protocol. Coronal and sagittal reformats of the head were also evaluated. One or more of the following techniques was used for dose reduction: Automated exposure control, adjustment of the mA and/or kV according to patient size, use of iterative reconstruction technique. DLP: 609 mGy-cm COMPARISON: Comparison is made with the prior examination dated 12/05/2022. FINDINGS: BRAIN: The brain parenchyma is unremarkable. There is normal frederick/white differentiation. The ventricular system is normal in size and configuration. There is no mass effect or midline shift. No intra- or extra-axial fluid collections are identified. SINUSES: The visualized paranasal sinuses are clear. The mastoid air cells and middle ear cavities are well pneumatized. ORBITS: The visualized orbits are unremarkable. BONES/SOFT TISSUES: The extracranial soft tissues are unremarkable. The calvarium is intact. No suspicious lytic or sclerotic lesions. CT/CT head/brain wo IV con IMPRESSION: No acute intracranial abnormality. Electronically signed by: Neil Ruiz MD 10/29/2024 08:28 AM EDT RP Dictated By: Neil Ruiz MD Signed By: <Electronically signed by Neil Ruiz MD in OV> 10/29/2428 DD/ 0704 TD/TT: 10/29/24 0817 Partition Making Machine Operator: [facility] External Provider IM CT PROCEDURES Final Result * Strep A Nucleic Acid (10/29/2024 5:56 AM EDT) IDNOW SERIAL# [id number] [facility] Strep A Nucleic Acid Negative Negative [facility] Comment:All test results mus t be correlated with clinical findings.This test has not been evaluated for monitoring treatment ofinfection.Additional follow-up testing using the culture method isrequired if the result is negative and clinical symptomspersist, or in the event of an acute rheumatic feveroutbreak. 10/29/2024 5:56 AM EDT 10/29/2024 5:58 AM EDT us Generic External Data Provider LAB MICROBIOLOGY - GENERAL ORDERABLES Final Result [facility] [address] [place] [phone] * XR Chest 1 View (10/29/2024 5:19 AM EDT) Anatomical Region Laterality Modality Chest Radiographic Martha ging 10/29/2024 5:19 AM EDT Narrative 10/29/2024 5:21 AM EDT [place] [address] XRay Report Signed Patient: Esperanza Werner MR#: [id number] 9 : 1970 Acct:[id number] Age/Sex: 54 / F ADM Date: 10/29/24 Loc: HO.ED Attending Dr: Ordering Physician: Generic ED Physician Date of Service: 10/29/24 Procedure(s): XR chest 1V Accession Number(s): [id number] cc: Nikki Crain MD; Generic ED Physician CLINICAL HISTORY: chest pain sob 1 view chest x-ray Comparison: 11/12/2023 Findings: Portions of the exam are obscured by overlying material. No consolidation or effusion. Normal size heart. No acute fracture. IMPRESSION: 1. No acute findings. This document has been electronically signed by: Constantine Diane MD on 10/29/2024 05:19:05 Dictated By: Constantine Diane MD Signed By: <Electronically signed by Constantine Diane MD in OV> 10/29/24519 DD/ 8 TD/TT: 10/29/24518 Partition Making Machine Operator: Procedure Note Donotuseinterpreter, Image - 10/29/2024 [place] [address] XRay Report Signed Patient: Esperanza WernerMR#: [id number] 9 : 1970Acct:[id number] Age/Sex: 54 / FADM Date: 10/29/24 Loc: HO.ED Attending Dr: Ordering Physician: Generic ED Physician Date of Service: 10/29/24 Procedure(s): XR chest 1V Accession Number(s): [id number] cc: Nikki Crain MD; Generic ED Physician CLINICAL HISTORY: chest pain sob 1 view chest x-ray Comparison: 11/12/2023 Findings: Portions of the exam are obscured by overlying material. No consolidation or effusion. Normal size heart. No acute fracture. IMPRESSION: 1. No acute findings. This document has been electronically signed by: Constantine Diane MD on 10/29/2024 05:19:05 Dictated By: Constantine Diane MD Signed By: <Electronically signed by Constantine Diane MD in OV> 10/29/24519 DD/ 8 TD/TT: 10/29/24518 Partition Making Machine Operator: [facility] External Provider IMG XR PROCEDURES Final Result * SARS-CoV-2 RNA, Influenza A/B, and RSV RNA, Ql NAAT (10/29/2024 4:29 AM EDT) Influenza A PCR NEGATIVE Negative [facility] Influenza B PCR NEGATIVE Negative [facility] Resp Syncy Virus RNA Qual PCR NEGATIVE Negative [facility] SARS COV2 PCR NEGATIVE Negative [facility] Comment:All test results mus t be correlated with clinical findings.Negative results do not preclude SARS-CoV2, influenza Avirus, influenza B virus and/or RSV infectionand should not be used as the sole basis for treatment orother patient management decisions. Negative results must becombined with clinical observations, patient history, andepidemiological information.This test has not been evaluated for monitoring treatment ofinfection.This test has been authorized by the FDA under an EmergencyUse Authorization (EUA) for use by authorized laboratories.Testing performed on the [employer] GeneXpert utilizingreal-time RT-PCR.All SARS CoV2 and positive influenza A/B results arereported to [facility]. 10/29/2024 4:29 AM EDT 10/29/2024 4:33 AM EDT us Generic External Data Provider LAB MICROBIOLOGY - GENERAL ORDERABLES Final Result [facility] [address] [place] [phone] * (ABNORMAL) Comprehensive Metabolic Panel (10/29/2024 4:29 AM EDT) Sodium 138 135 - 145 mmol/L [facility] Potassium 4.0 3.3 - 5.1 mmol/L [facility] Chloride 105 96 - 108 mmol/L [facility] Carbon Dioxide 21(L) 22 - 29 mmol/L [facility] Anion Gap 16 12 - 20 [facility] Urea Nitrogen (BUN) 11 9 - 16 mg/dL [facility] Creatinine, Serum 0.54 0.5 - 1.4 mg/dL [facility] Creatinine Clr Calc Pharmacy 92.6 [facility] Comment:Provided height and weight: 149.86 cm,61.235 kg.eGFR (calculated from the MDRD study equation) and eCrCl(calculated from the Cockcroft-Gault equation) are based ondifferent parameters and may not yield comparable results.If eCrCl result is absurd, please check patient'sheight/weight. Estimated Glomerular Filt Rate >60 [facility] Comment:Chronic Kidney Disea se: Estimated GFR < 60 mL/min/1.69v2Ohoycc Kidney Disease: Estimated GFR < 15 mL/min/1.73m2 Glucose 215(H) 60 - 115 mg/dL [facility] Calcium 9.3 8.4 - 10.2 mg/dL [facility] Bilirubin, Total 0.2 0.0 - 1.0 mg/dL [facility] Aspartate Amino Transferase 34(H) 5 - 31 U/L [facility] Alanine Aminotransferase 62(H) 0 - 31 U/L [facility] Total Protein 7.3 6.5 - 8.0 g/dL [facility] Albumin Level 4.7 3.5 - 5.0 g/dL [facility] Alkaline Phosphatase 124(H) 39 - 117 U/L [facility] 10/29/2024 4:29 AM EDT 10/29/2024 4:33 AM EDT us Generic External Data Provider LAB BLOOD ORDERAB LES Final Result Performing Organization Address [facility]/ZIP Co de Phone Number [facility] [address] [place] [phone] * Vitamin D, 25-Hydroxy, Total, Immunoassay (10/19/2024 8:34 AM EDT) Vitamin D 25-OH Total 82.4 >30 ng/mL [facility] Comment: Health Based Reference Values*< 20 ng/mL Niapoyytx22-33 ng/mL Insufficient> 30 ng/mL Sufficient*Jerry MATUTE. N Engl J Med. 2007;357:266-280There is no well-established upper level of normal vitamin Dlevels. Some laboratories use 50 ng/mL as an upper limit ofnormal. However, toxicity is patient-dependent and may occurat any level. Careful correlation with the patient'spresentation is necessary and, if there is concern forvitamin D toxicity, treatment should be consideredirrespective of the serum level.Care must be taken in interpreting Vitamin D results fromdifferent laboratories and methodologies. Published datademonstrated that results from patients undergoinghemodialysis may show a negative bias when tested withvarious automated 25-OH vitamin D assays when compared toLC-MS/MS.When testing samples from patients whose predominant form ofVitamin D is Vitamin D2, such as patients receiving VitaminD2 supplementation, results that are subtherapeutic shouldbe confirmed with another method such as LC-MS/MS. Blood Venous blood specimen / Unknown 10/19/2024 8:34 AM EDT 10/19/2024 11:08 AM EDT us Nikki Crain MD LAB BLOOD ORDERABLES Final Re sult Performing Organization Address [facility]/ZIP Co de Phone Number [facility] [address] [place] [phone] * Vitamin B12/Folate, Serum Panel (10/19/2024 8:34 AM EDT) Vitamin B12 263 200 - 900 pg/mL [facility] Comment:NORMAL 200-900 PG/ML INDETERMINATE 160-199 PG/ML DEFICIENT < 160 PG/ML Folate 11.9 > or = 4.0 ng/mL [facility] Comment:Reference Values:> o r = 4.0 ng/mL< 4.0 ng/mL suggests folate deficiency Methotrexate, aminopterin and folinic acid(leucovorin) are chemotherapeutic agents whose molecularstructures are similar to folate; therefore, the Architectfolate assay cannot be used for patients using these drugs. Blood Venous blood specimen / Unknown 10/19/2024 8:34 AM EDT 10/19/2024 11:08 AM EDT Nikki Crain MD LAB BLOOD ORDERABLES Final Re sult Performing Organization Address City/[facility]/ZIP Co de Phone Number [facility] [address] [place] [phone] * TSH W/Reflex to FT4 (10/19/2024 8:34 AM EDT) Pathologist [facility] TSH reflex Free T4 3.05 0.32 - 4.0 uIU/mL [facility] Blood Venous blood specimen / Unknown 10/19/2024 8:34 AM EDT 10/19/2024 11:08 AM EDT Nikki Crain MD LAB BLOOD ORDERABLES Final Re sult Performing Organization Address City/[facility]/ZIP Co de Phone Number [facility] [address] [place] [phone] * Sed Rate by Tano Baugh (10/19/2024 8:34 AM EDT) Pathologist [facility] Erythrocyte Sedimentation Rate 10 0 - 20 MM/HR [facility] Comment:Patients with polycy themia and many hemoglobin abnormalitiesmay have depressed sed rates whereas patients with anemiamay have elevated sed rates. Blood Venous blood specimen / Unknown 10/19/2024 8:34 AM EDT 10/19/2024 11:08 AM EDT Nikki Crain MD LAB BLOOD ORDERABLES Final Re sult Performing Organization Address [facility] Co de Phone Number [facility] [address] [place] [phone] * Vitamin B1 (10/19/2024 8:34 AM EDT) Vitamin B1 16 8 - 30 nmol/L [facility] Comment:Vitamin supplementat ion within 24 hours prior toblood draw may affect the accuracy of the results.This test was developed and its analytical performancecharacteristics have been determined by [employer] [place], [place]. It hasnot been cleared or approved by the U.S. Food and DrugAdministration. This assay has been validated pursuantto the CLIA regulations and is used for clinicalpurposes.THIS TEST WAS PERFORMED AT:[employer] [place] [address]EDUQQUYROGELIO CAZARES MD,PHD Blood Venous blood specimen / Unknown 10/19/2024 8:34 AM EDT 10/19/2024 11:00 AM EDT Nikki Crain MD LAB BLOOD ORDERABLES Final Re sult Performing Organization Address [facility] Co de Phone Number [facility] [address] [place] [phone] * Vitamin B6 (10/19/2024 8:34 AM EDT) Vitamin B6 18.9 2.1 - 21.7 ng/mL [facility] Comment:Vitamin supplementat ion within 24 hours prior toblood draw may affect the accuracy of the results.This test was developed and its analytical performancecharacteristics have been determined by [employer] [place], [place]. It hasnot been cleared or approved by the U.S. Food and DrugAdministration. This assay has been validated pursuantto the CLIA regulations and is used for clinicalpurposes.THIS TEST WAS PERFORMED AT:[employer] [place] [address]AYGMHIYROGELIO CAZARES MD,PHD Blood Venous blood specimen / Unknown 10/19/2024 8:34 AM EDT 10/19/2024 11:00 AM EDT Nikki Crain MD LAB BLOOD ORDERABLES Final Re sult [facility] [address] [place] [phone] * (ABNORMAL) POCT A1C (10/16/2024 9:53 AM EDT) Hemoglobin A1C 6.9(A) 4.0 - 6.0 % QC Media Lot # Comment:[id number] Lot# Expiration Date Comment:05/16/2026 Blood 10/16/2024 9:53 AM EDT Nikki Crain MD POINT OF CARE TEST ENTER/EDIT ORDERABLES Final Result * XR Shoulder 2+ Views Left (09/21/2024 9:34 AM EDT) Anatomical Region Laterality Modality Upper Extremities, Shoulder Left Radi ographic Imaging 09/21/2024 9:34 AM EDT Narrative 09/21/2024 9:36 AM EDT [address] [address] XRay Report Signed Patient: Esperanza Werner MR#: [id number] 9 : 1970 Acct:[id number] Age/Sex: 54 / F ADM Date: 09/20/24 Loc: HO.XRAY Attending Dr: Nikki Crain MD Ordering Physician: Nikki Crain MD Date of Service: 09/20/24 Procedure(s): XR shoulder LT min 2V Accession Number(s): [id number] cc: Nikki Crain MD CLINICAL HISTORY: chronic left shoulder pain 4 view left shoulder Comparison: None Findings: No fractures or dislocations. No significant loss of joint space or osteophytes. No erosions. No radiopaque foreign body. IMPRESSION: 1. No acute findings This document has been electronically signed by: Constantine Diane MD on 09/21/2024 09:34:37 Dictated By: Constantine Diane MD Signed By: <Electronically signed by Constantine Diane MD in OV> 09/21/24934 DD/ 3 TD/TT: 09/21/24933 Partition Making Machine Operator: Procedure Note Donotuseinterpreter, Image - 09/21/2024 [place] [address] XRay Report Signed Patient: Denise Werner#: [id number] 9 : 1970Acct:[id number] Age/Sex: 54 / FADM Date: 09/20/24 Loc: XRAY Attending Dr: Nikki Crain MD Ordering Physician: Nikki Crain MD Date of Service: 09/20/24 Procedure(s): XR shoulder LT min 2V Accession Number(s): [id number] cc: Nikki Crian MD CLINICAL HISTORY: chronic left shoulder pain 4 view left shoulder Comparison: None Findings: No fractures or dislocations. No significant loss of joint space or osteophytes. No erosions. No radiopaque foreign body. IMPRESSION: 1. No acute findings This document has been electronically signed by: Constantine Diane MD on 09/21/2024 09:34:37 Dictated By: Constantine Diane MD Signed By: <Electronically signed by Constantine Diane MD in OV> 09/21/24934 DD/ 3 TD/TT: 09/21/24 0934 Partition Making Machine Operator: Nikki Crain MD IMG XR PROCEDURES Edited Resu lt - Final * Hm Colonoscopy (07/15/2023) Colonoscopy Normal Normal us Nikki Crain MD HEALTH MAINTENANCE Final Resu lt * (ABNORMAL) Lipid Panel, Standard (06/15/2023 8:17 AM EST) Triglycerides 110 <150 mg/dL [facility] Comment:Desirable Triglyceri de: less than 150 mg/dLBorderline High Triglyceride 150-199 mg/dLHigh Triglyceride: 200-499 mg/dLVery High Triglyceride: greater than or equal to 5OO mg/dL Cholesterol 132 <200 mg/dL [facility] Comment:Desirable Cholestero l: less than 200 mg/dLBorderline High Cholesterol: 200-239 mg/dLHigh Cholesterol: greater than 239 mg/dL LDL Cholesterol Calculated 73 <100 mg/dL [facility] Comment:Desirable LDL: less than 100 mg/dLNear Optimal/Above Optimal LDL: 110- 129 mg/dLBorderline High LDL: 130-159 mg/dLHigh LDL: 160-189 mg/dLVery High LDL: greater than or equal to 190 mg/dL HDL Cholesterol 37(L) >40 mg/dL [facility] Comment:Desirable HDL: great er than 40 mg/dL Note: This HDL assay may give artificially low results in patients with liver disease. Blood Venous blood specimen / Unknown 06/15/2023 8:17 AM EST 06/15/2023 2:37 PM EST Nikki Crain MD LAB BLOOD ORDERABLES Final Re sult [facility] [address] [place] [phone] * HIV-1 RNA, Quantitative, Real-Time PCR with Reflex to Genotype (RTI, PI, Integrase) (10/08/2022 8:53 AM EDT) HIV 1 RNA, QN PCR NOT DETECTED copies/mL [facility], HIV 1 RNA, QN PCR NOT DETECTED Log copies/mL [facility], Comment: REFERENCE RANGE: NOT DETECTED copies/mL NOT DETECTED Log copies/mL This test was performed using Real-Time Polymerase Chain Reaction. Reportable range is 20 to 10,000,000 copies/mL (1.30-7.00 Log copies/mL). 10/08/2022 8:53 AM EDT 10/08/2022 8:53 AM EDT us Nikki Crain MD LAB BLOOD ORDERABLES Final Re sult [facility] [address], [place] [address] [facility], [address] [place] [address] * (ABNORMAL) Hepatitis Panel, General (10/08/2022 8:53 AM EDT) Hepatitis A Antibody Total NON-REACT ART NON-REACT [employer] [place] [employer] Comment: For additional information, please refer to http://education.Personal Web Systems/faq/NKG877 (This link is being provided for informational/ educational purposes only.) Hepatitis B Surface Antibody QL REACTIVE( A) NON-REACT [facility] Hepatitis B Surface Ag NON-REACT ART NON-REACT ART [employer] [facility] Hepatitis B Core Antibody Total NON-REACT ART NON-REACT ART [employer] [facility] Hepatitis C Antibody NON-REACT ART NON-REACT ART [employer] [place] [employer] [place] Index <0.02 <1.00 [employer] [place] [employer] Comment: HCV antibody was non-reactive. There is no laboratory evidence of HCV infection. In most cases, no further action is required. However, if recent HCV exposure is suspected, a test for HCV RNA (test code 70901) is suggested. For additional information please refer to http://education.[employer]/faq/VTP03z8 (This link is being provided for informational/ educational purposes only.) 10/08/2022 8:53 AM EDT 10/08/2022 8:53 AM EDT Nikki Crain MD LAB BLOOD ORDERABLES Final Re sult Performing Organization Address City/[facility]/ZIP Co de Phone Number [facility] [address], [place] [address] [employer] [facility] [address] [place] [address] * ALBUMIN, RANDOM URINE W/CREATININE (08/24/2021 8:02 AM EDT) Microalbumin Urine 1.3 See Note: mg/dL [facility] Comment: Reference Range: Reference Range Not established Microalb/Creat Ratio 11 <30 mcg/mg creat [facility] Comment: The ADA defines abnormalities in albumin excretion as follows: Albuminuria Category Result (mcg/mg creatinine) Normal to Mildly increased <30 Moderately increased 30-299 Severely increased > OR = 300 The ADA recommends that at least two of three specimens collected within a 3-6 month period be abnormal before considering a patient to be within a diagnostic category. Creatinine, Urine 122 20 - 275 mg/dL [facility] 08/24/2021 8:02 AM EDT Nikki Crain MD LAB URINE ORDERABLES Final Re sult Performing Organization Address [facility] Co de Phone Number [facility] [address] [place] [address], * THINPREP PAP (09/09/2020 3:04 PM EDT) Clinical Information: None given [facility] COMMENT SEE COMMENT [facility] Comment: EXPLANATORY NOTE: The Pap is a screening test for cervical cancer. It is not a diagnostic test and is subject to false negative and false positive results. It is most reliable when a satisfactory sample, regularly obtained, is submitted with relevant clinical findings and history, and when the Pap result is evaluated along with historic and current clinical information. Production Sampler : SEE COMMENT [facility] Comment: DCR, CT(ASCP) CT screening location: [address] [address] Interpretation/R esult: Negative for intraepithelial lesion or malignancy. [facility] LMP: NONE GIVEN [facility] Prev. BX: NONE GIVEN [facility] Prev. PAP: NONE GIVEN [facility] SOURCE: None given [facility] Statement Of Adequacy: SEE COMMENT [facility] Comment: Satisfactory for evaluation. Endocervical/transformation zone component present. Age and/or menstrual status not provided 09/09/2020 3:04 PM EDT us Haley Pnea CNM LAB PATHOLOGY ORDERABLES Final Result [facility] [address] * HPV E6/E7 RFLX BRENDA 16 18/45 (07/02/2020 3:05 PM EST) HPV mRNA E6/E7 rflx Not Detected Not Detected [facility] Comment: Methodology: Assisted Living Director-Mediated Amplification This assay detects E6/E7 viral messenger RNA (mRNA) from 14 high-risk HPV types (16,18,31,33,35,39,45,51,52,56,58,59,66,68). The analytical performance characteristics of this assay have been determined by [employer]. The modifications have not been cleared or approved by the FDA. This assay has been validated pursuant to the CLIA regulations and is used for clinical purposes. For additional information, please refer to http://education.[employer]AddonTV/faq/IOM532r2 (This link if provided for information/ educational purposes only.) THIS TEST WAS PERFORMED AT: [employer] [address] [place] [address],[place] [address] OMER KOCH MD 07/02/2020 3:05 PM EST Joseph Jiang MD HISTORICAL/NON ORDERABLE LABS Fi nal Result [facility] [address] from Last 3 Months or Most Recently Relevant to Health Maintenance Insurance [facility] C3 Care Teams Dry Mixer Relationship Specialty Start Date End Date Nikki Crain MD [address] [place] [address] PCP - General Family Medicine 04/25/18
--- OUTSIDE RECORDS SUMMARY | 2024-12-17 19:07 | XMS_ITS | Clinical Summary ---
Author Organization [email or web address] [facility] ity Address [address] [place] [address] Care Team Providers Care Automotive Technician Instructor Name Role Phone Unavailable Primary Care Provider [...] Procedure Name Priority Date/Time Associated Diagnosis Comments [facility] SCREENING DIGITAL Routine 09/11/2021 2:35 PM EDT Encounter for screening mammogram for malignant neoplasm of breast from Last 3 Months or Most Recently Relevant to Health Maintenance Results * [facility] SCREENING DIGITAL (09/11/2021 2:35 PM EDT) Anatomical Region Laterality Modality Mammography 09/11/2021 12:5 0 PM EDT Narrative 09/11/2021 2:35 PM EDT [facility] Diagnostic Imaging Department [address] [place] [address] Patient: ESPERANZA LEVINE./Age/Sex: 1970 - 51 - F Unit#: [id number] Location/Status: [facility]Ordering Site: [facility] Ordering Physician: RILEY CRAIN [facility] Screening Digital - 09/11/21 - 1315 EXAM: [facility] Screening Digital EXAM DATE AND TIME: 09/11/2021 1:15 PM HISTORY: Annual screening mammography COMPARISON: 12/14/2019 through 10/16/2012 TECHNIQUE: CC and MLO views of both breasts were obtained using full field digital mammography. Bilateral digital breast tomosynthesis was performed in the MLO projection. Computer aided detection with the [employer] 7.2-H was employed. TISSUE DENSITY: c. The [...] Routine screening mammogram BILATERAL in 1 year. [id number], [id number] 3342F, 7025F Dictating Physician: ALICIA BOWEN MD Electronically Signed by: ALICIA BOWEN MD Dic Date/Time: 09/11/21 143 Sign date/Time: 09/11/21 143 Procedure Note Radha Bowen MD - 04/14/2022 [facility] Diagnostic Imaging Department [address] [place], [place] [id number] Patient: ESPERANZA LEVINE./Age/Sex: 1970 - 51 - F Unit#: [id number] Location/Status: [facility] CLI Mnemonic/Ordering Site: [facility] Ordering Physician: RILEY CRAIN [facility] Screening Digital - 09/11/21 - 1315 EXAM: [facility] Screening Digital EXAM DATE AND TIME: 09/11/2021 1:15 PM HISTORY: Annual screening mammography COMPARISON: 12/14/2019 through 10/16/2012 TECHNIQUE: CC and MLO views of both breasts were obtained using fullfield digital mammography. Bilateral digital breast tomosynthesis was performedin the MLO projection. Computer aided detection with the [employer] Solutionsas employed. TISSUE DENSITY: c. The breasts are [...] Routine screening mammogram BILATERAL in 1 year. 58877, 43718 3342F, 7025F Dictating Physician: ALICIA BOWEN MD Electronically Signed by: ALICIA BOWEN MD Dic Date/Time: 09/11/21 1431 Sign date/Time: 09/11/21 1435 us Riley Crain MD IMG BI PROCEDURES Final Resul t from Last 3 Months or Most Recently Relevant to Health Maintenance
--- OUTSIDE RECORDS SUMMARY | 2024-12-17 19:07 | XMS_ITS | Encounter Summary ---
Author Organization [employer] Address [address] [facility] 7t [place] [address] Care Team Providers Care Gang Saw Operator Name Role Phone Nikki Crain MD Primary Care Provider [phone] Reason for Visit * Reason Comments Med Refill Encounter Details Date Type Department Care Team ([facility] st Contact Info) Description 10/13/2023 Refill [facility] MED & PEDS [address] [place], [place] [phone] Anay Jamil MD [address] [place] [address] Social History Tobacco Use Types Packs/Day Years [...] What is your housing situation today? I have vangie anderson 02/18/[address] you li ve. Do you have problems with any of the following? None of the above 02/18/2023 Food Insecurity Answer Date Recorded Within the past 12 months, y ou worried that your food would run out before you got money to buy more: Often true 02/18/2023 Within the past 12 months,th e food you bought just didn't last and you didn't have enough money to get more: Often true Transportation Answer Date Recorded In the past 12 months, has l ack of transportation kept you from medical appts, meetings, work or from getting things needed for daily living? No 02/18/2023 Utilities Answer Date Recorded In the past 12 months, has t he electric, gas, oil or water company threatened to shut off services in your home? No 02/18/2023 Depression Answer Date Recorded Patient Health Questionnaire-2 Score 2 06/02/2023 Comments Unknown Sex and Gender Information Value Date Recorded Sex Assigned at Female 02/22/2022 10:16 AM EDT Legal Sex Female 10:16 AM EDT Gender Identity Female 02/22/2022 10:16 AM EDT Sexual Orientation Straight 02/22/2022 10 :16 AM EDT documented as of this encounter Plan of Treatment Upcoming Encounters Date Type Department Care Team (Late st Contact Info) Description 12/18/2024 1:15 PM EDT Office Visit [facility] OPT[facility]ET[facility] [address] [place] [address] TarkaDanita, OD [address] [place] [address] 01/04/2025 11:00 AM EDT Clinical Support [facility] CHC MED & PEDS [address] [place] [address] documented as of this encounter Visit Diagnoses Not on filedocumented in this encounter Additional Health Concerns Assessment Noted Time PHQ-9 Depression Total Score: 6 06/02/19 24 10:53 AM EST documented as of this encounter Care Teams Gang Saw Operator Relationship Specialty Start Date End Date Nikki Crain MD [address] [place] [address] PCP - General Family Medicine 04/25/18 documented as of this encounter
--- OUTSIDE RECORDS SUMMARY | 2024-12-17 19:07 | XMS_ITS | Encounter Summary ---
Author Organization [employer] Address [address] [facility] 7 [place] [address] Care Team Providers Care Geological Drafter Name Role Phone Nikki Crain MD Primary Care Provider [phone] Reason for Visit * Reason Comments Med Refill Encounter Details Date Type Department Care Team ([facility] st Contact Info) Description 09/13/2024 Refill [facility] CHC MED & PEDS [address] [place], [place] [phone] Cornell Millan MD [address] [place] [address] Gastroesophageal reflux disease without esophagitis; Diabetes mellitus without complication ([facility]) Social History Tobacco Use Types Packs/Day Years [...] with others, in a hotel, in a fdc, living outside on the street, on a [...] Description 12/18/2024 1:15 PM EDT Office Visit [facility] OPTOMETRY [address] [place] [address] Danita Gillette, OD [address] [place] [address] 01/04/2025 11:00 AM EDT Clinical Support [facility] CHC MED & PEDS [address] [place] [address] documented as of this encounter Visit Diagnoses Diagnosis Gastroesophageal reflux disease without esophagitis Esophageal reflux Diabetes mellitus without complication (CMS/[facility]) Type II or unspecified type diabetes mellitus without mention of complication, not stated as uncontrolled documented in this encounter Additional Health Concerns Assessment Noted Time PHQ-9 Depression Total Score: 6 06/02/19 24 10:53 AM EST documented as of this encounter Care Teams Geological Drafter Relationship Specialty Start Date End Date Nikki Crain MD [address] [place] [address] PCP - General Family Medicine 04/25/18 documented as of this encounter
--- OUTSIDE RECORDS SUMMARY | 2024-12-17 19:07 | XMS_ITS | Encounter Summary ---
Author Organization [employer] Address [address] [facility] 7 [place] [address] Care Team Providers Care Ultra Sound Technician Name Role Phone Nikki Crain MD Primary Care Provider [phone] Reason for Visit * Reason Onset Date Comments Medication Question 06/20/2024 Encounter Details Date Type Department Care Team ([facility] st Contact Info) Description 06/20/2024 Telephone [facility] [address] [place] [address] Nikki Crain MD [address] [place] [address] Medication Question Social History Tobacco Use Types [...] with others, in a hotel, in a long-term, living outside on the street, on a [...] Description 12/18/2024 1:15 PM EDT Office Visit [facility] OPT[facility] [address] [place] [address] Danita Gillette, OD [address] [place] [address] 01/04/2025 11:00 AM EDT Clinical Support [facility] CHC MED & PEDS [address] [place] [address] documented as of this encounter Visit Diagnoses Not on filedocumented in this encounter Additional Health Concerns Assessment Noted Time PHQ-9 Depression Total Score: 6 06/02/19 24 10:53 AM EST documented as of this encounter Care Teams Ultra Sound Technician Relationship Specialty Start Date End Date Nikki Crain MD [address] [place] [address] PCP - General Family Medicine 04/25/18 documented as of this encounter
--- OUTSIDE RECORDS SUMMARY | 2024-12-17 19:07 | XMS_ITS | Encounter Summary ---
Author Organization [employer] Address [address] [facility] 7t [place] [address] Care Team Providers Care Flash Developer Name Role Phone Nikki Crain MD Primary Care Provider [phone] Reason for Visit * Reason Comments Med Refill Encounter Details Date Type Department Care Team ([facility] st Contact Info) Description 06/30/2023 Refill [facility] CHC MED & PEDS [address] [place], [place] [phone] Nikki Crain MD 505 [place] [address] Iron deficiency anemia, unspecified iron deficiency anemia type Social History Tobacco Use Types Packs/Day Years [...] Description 12/18/2024 1:15 PM EDT Office Visit [facility] OPTOMETRY [address] [place] [address] Danita Gillette, OD [address] [place] [address] 01/04/2025 11:00 AM EDT Clinical Support [facility] CHC MED & PEDS [address] [place] [address] documented as of this encounter Visit Diagnoses Diagnosis Iron deficiency anemia, unspecified iron deficiency anemia type documented in this encounter Additional Health Concerns Assessment Noted Time PHQ-9 Depression Total Score: 6 06/02/19 24 10:53 AM EST documented as of this encounter Care Teams Flash Developer Relationship Specialty Start Date End Date Nikki Crain MD [address] [place] [address] PCP - General Family Medicine 04/25/18 documented as of this encounter
--- OUTSIDE RECORDS SUMMARY | 2024-12-17 19:07 | XMS_ITS | Encounter Summary ---
Author Organization [employer] Address [address] [place] [address] 7 [place] [address] Care Team Providers Care Document Processing Specialist Name Role Phone Nikki Crain MD Primary Care Provider [phone] Reason for Visit * Reason Onset Date Comments Referral 11/19/2024 Encounter Details Date Type Department Care Team ([facility] Contact Info) Description 11/19/2024 Telephone C [facility] MED & PEDS [address] [place], [place] [phone] Nikki Crain MD [address] [place] [address] Referral Social History Tobacco Use Types Packs/Day Years [...] with others, in a hotel, in a halfway, living outside on the street, on a [...] encounter Miscellaneous Notes * Telephone Encounter - Hood Barreto - 11/19/2024 10:28 AM EDT tc from pt requesting a referal to get a biopsy done. Any questions contact pt at [phone] documented in this encounter Plan of Treatment Upcoming Encounters Date Type Department Care Team ([facility] Contact Info) Description 12/18/2024 1:15 PM EDT Office Visit [facility] OPTOMETRY [address] [place] [address] Danita Gillette, OD [address] [place] [address] 01/04/2025 11:00 AM EDT Clinical Support [facility] CHC MED & PEDS [address] [place], [place] [phone] documented as of this encounter Visit Diagnoses Not on filedocumented in this encounter Additional Health Concerns Assessment Noted Time PHQ-9 Depression Total Score: 6 06/02/19 24 10:53 AM EST documented as of this encounter Care Teams Document Processing Specialist Relationship Specialty Start Date End Date Nikki Crain MD [address] [place] [address] PCP - General Family Medicine 04/25/18 documented as of this encounter
--- OUTSIDE RECORDS SUMMARY | 2024-12-17 19:07 | XMS_ITS | Encounter Summary ---
Author Organization [employer] Address [address] [place] [address] [place] [address] Care Team Providers Care Auto Service Advisor Name Role Phone Nikki Crain MD Primary Care Provider [phone] Encounter Details Date Type Department Care Team ([facility] Contact Info) Description 10/29/2022 Orders Only [facility] CHC MED & PEDS [address] [place], [place] [phone] Nikki Crain MD [address] [place] [address] Social History Tobacco Use Types Packs/Day Years Used Date Smoking Tobacco: Never Smokeless Tobacco: Never Alcohol Use Standard Drinks/Week Comments Never 0 (1 standard drink = 0.6 oz pur e alcohol) Comments Unknown Sex and Gender Information Value Date Recorded Sex Assigned at Female 02/22/2022 10:16 AM EDT Legal Sex Female 10:16 AM EDT Gender Identity Female 02/22/2022 10:16 AM EDT Sexual Orientation Straight 02/22/2022 10 :16 AM EDT COVID-19 Exposure Response Date Recorded In the last 10 days, have yo u been in contact with someone who was confirmed or suspected to have Coronavirus/COVID-19? No / Unsure 10/07/2022 3:29 PM EDT documented as of this encounter Plan of Treatment Upcoming Encounters Date Type Department Care Team ([facility] Contact Info) Description 12/18/2024 1:15 PM EDT Office Visit [facility] OPTOMETRY [address] [place] [address] Danita Gillette, OD [address] [place] [address] 01/04/2025 11:00 AM EDT Clinical Support [facility] CHC MED & PEDS [address] [place] [address] documented as of this encounter Visit Diagnoses Not on filedocumented in this encounter Care Teams Auto Service Advisor Relationship Specialty Start Date End Date Nikki Crain MD [address] [place] [address] PCP - General Family Medicine 04/25/18 documented as of this encounter
--- OUTSIDE RECORDS SUMMARY | 2024-12-17 19:07 | XMS_ITS | Encounter Summary ---
Author Organization [employer] Address [address] [place] [address] [place] [address] Care Team Providers Care Top Distribution Executive Name Role Phone Nikki Crain MD Primary Care Provider [phone] Reason for Visit * Reason Comments Med Refill Encounter Details Date Type Department Care Team ([facility] Contact Info) Description 11/29/2022 Refill [facility] CHC MED & PEDS [address] [place], [place] [phone] Nikki Crain MD [address] [place] [address] Diabetes mellitus without complication ([facility]) Social History Tobacco Use Types Packs/Day Years [...] Upcoming Encounters Date Type Department Care Team ([facility] Contact Info) Description 12/18/2024 1:15 PM EDT Office Visit [facility] OPTOMETRY [address] [place] [address] TarkaDanita, OD [address] [place] [address] 01/04/2025 11:00 AM EDT Clinical Support [facility] CHC MED & PEDS [address] [place] [address] documented as of this encounter Visit Diagnoses Diagnosis Diabetes mellitus without complication (CMS/HCC) Type II or unspecified type diabetes mellitus without mention of complication, not stated as uncontrolled documented in this encounter Care Teams Top Distribution Executive Relationship Specialty Start Date End Date Nikki Crain MD [address] [place] [address] PCP - General Family Medicine 04/25/18 documented as of this encounter
--- OUTSIDE RECORDS SUMMARY | 2024-12-17 19:08 | XMS_ITS | Encounter Summary ---
Author Organization [employer] Address [address] [facility] 7 [place] [address] Care Team Providers Care Crop Or Grain Farmworker Name Role Phone Nikki Crain MD Primary Care Provider [phone] Reason for Visit * Reason Onset Date Comments Created in error 11/17/2023 Encounter Details Date Type Department Care Team ([facility] Contact Info) Description 11/17/2023 Telephone [facility] [address] [place] [address] Nikki Crain MD [address] [place] [address] Created in error Social History Tobacco Use Types Packs/Day Years [...] Description 12/18/2024 1:15 PM EDT Office Visit [facility] OPT[facility]ET[facility] [address] [place] [address] TarkaDanita, OD [address] [place] [address] 01/04/2025 11:00 AM EDT Clinical Support [facility] CHC MED & PEDS [address] [place] [address] documented as of this encounter Visit Diagnoses Not on filedocumented in this encounter Additional Health Concerns Assessment Noted Time PHQ-9 Depression Total Score: 6 06/02/19 24 10:53 AM EST documented as of this encounter Care Teams Crop Or Grain Farmworker Relationship Specialty Start Date End Date Nikki Crain MD [address] [place] [address] PCP - General Family Medicine 04/25/18 documented as of this encounter
--- OUTSIDE RECORDS SUMMARY | 2024-12-17 19:08 | XMS_ITS | Encounter Summary ---
Author Organization [employer] Address [address] [facility] [place] [address] [place] [address] Care Team Providers Care Reading Teacher Name Role Phone Nikki Crain MD Primary Care Provider Reason for Visit * Reason Comments Med Refill Encounter Details Date Type Department Care Team ([facility] st Contact Info) Description 06/18/2023 Refill [facility] [address] [place], [place] [phone] Nikki Crain MD [address] [place] [address] Iron deficiency anemia, unspecified iron deficiency anemia [...] Description 12/18/2024 1:15 PM EDT Office Visit [facility] [address] [place] [address] Danita Gillette, OD [address] [place] [address] 01/04/2025 11:00 AM EDT Clinical Support [facility] [address] [place] [address] documented as of this encounter Visit Diagnoses Diagnosis Iron deficiency anemia, unspecified iron deficiency anemia type documented in this encounter Additional Health Concerns Assessment Noted Time PHQ-9 Depression Total Score: 6 06/02/19 24 10:53 AM EST documented as of this encounter Care Teams Reading Teacher Relationship Specialty Start Date End Date Nikki Crain MD [address] [place] [address] PCP - General Family Medicine 04/25/18 documented as of this encounter
--- OUTSIDE RECORDS SUMMARY | 2024-12-17 19:08 | XMS_ITS | Patient Health Record ---
Author Organization [facility] Address [address] [place] [address] Care Team Providers Care Hops Farmworker Name Role Phone Paras BROTHERS, Nikki Primary Care Provider Neil Manley Unavailable [phone] Allergies Allergen (clinical drug ingredient) Drug/Non Drug Allergy documented on EMR Reaction Allergy Type Onset Date Status tramadol Tramadol Unknown Drug Allergy Active Reason For Referral No Information Medications Medication SIG (Take, Route, Frequency, Duration) Notes Start Date End Date Status MiraLax (colon prep) 17 GM/SCOOP 1 238 Gm bottle mixed with Gatorade or Crystal Light Orally begin at 5:00 p.m. the day before the procedure for 1 day 04/19/2023 Active Vitamin C 1000 MG TAKE ONE TABLET IN T HE MORNING AND EVENING FOR iron absorbtion Oral for 90 Active Glimepiride 4 MG TAKE ONE TABLET EVER Y EVENING Oral for 90 K219,Unavaila ble Active Ozempic (0.25 or 0.5 MG/DOSE) 2 MG/3ML INJECT 0..5 MG SUBCUTANEOUSLY ONCE A WEEK Subcutaneous for 28 E119,Unavaila ble Active Dulcolax (colon prep) 5 MG take at 3:00 p.m and 7:00p.m. Orally two tablets twice a day for one day for 1 day 04/19/2023 Active Vitamin D3 50 MCG (1999 UT) TAKE ONE CAPSULE IN THE MORNING AND EVENING Oral for 90 E559,Unavaila ble Active Fish Oil Active Albuterol Sulfate (2.5 MG/3ML) 0.083% USE ONE AMPULE USING A NEBULIZER THREE TIMES DAILY NEEDED Inhalation for 10 Active Pramipexole Dihydrochloride 0.25 MG 1 tablet Orally Once a day for 30 day(s) Active Dicyclomine HCl 10 MG TAKE ONE CAPSULE T HREE TIMES DAILY IN THE MORNING, EVENING AND BEDTIME Oral for 30 Active Pregabalin 200 MG TAKE ONE CAPSULE THR EE TIMES DAILY IN THE MORNING, EVENING AND BEDTIME Oral for 30 Active Omeprazole 40 MG TAKE ONE CAPSULE K[place] RY MORNING Oral for 90 K219,Unavaila ble Active FeroSul 325 (65 Fe) MG TAKE ONE TABLET E VERY MORNING Oral for 90 D509,Unavaila ble Active metFORMIN HCl ER 500 MG TAKE TWO TABLETS TWICE DAILY IN THE MORNING AND EVENING WITH MEALS Oral for 30 E119,Unavaila ble Active Social History Tobacco Use: Social History Observation Description Date Details (start date - stop date) Never Smoker NA - NA Tobacco Use/Smoking Question Answer Notes Patient is a nonsmoker Alcohol Screen Question Answer Notes Did you have a drink containing alcohol in the p ast year? No Points 0 Interpretation Negative Section Notes: No sig. 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 Problem Diverticular disease of colon (447091537) Diverticulosis of large intestine without perforation or abscess without bleeding (K57.30) Active confirmed Problem 38270524 Infectious colit is (A09) Active confirmed Problem 589389553 Gastroesophageal reflux disease, unspecified whether esophagitis present (K21.9) Active confirmed Problem Gastroesophageal reflux disease (disorder) (351171412) Chronic GERD (K21.9) Active confirmed Plan Of Treatment Pending Test Test Name Order Date Pathology 07/15/2023 Future Test Test Name Order Date UPPER GI ENDOSCOPY 04/19/2023 COLONOSCOPY 04/19/2023 Insurance Providers Payer Name Payer Address Payer Phone Subscriber Number Group Number Insured Name Patient Relationship to Insured Coverage Start Date Coverage End Date [employer] [place] [address] [place] [phone] [id number] CLARE LEVINE Self - patient is the insured Medical (General) History Medical History History ICD Code Asthma NIDDM Fibromyalgia Denies PR,CVA,renal disease Restless leg syndrome [place] [facility] [place] or presumed infectious colitis, although no specific pathogen was identified Surgical History Surgery Date(Month/Year) Appendectomy Cholecystectomy LEFT CARPAL TUNNEL CATARACTS
== END 2024-12-17 19:20 | disposition left against medical advice (07) ==
PROVIDERS: Physician Assistant Medical; Emergency Provider Emergency Medicine
DX: R51.9 Headache, unspecified (principal); Z79.899 Other long term (current) drug therapy
CPT/HCPCS: 36415; 80053; 83735; 84484; 85025; 93005; 99281; 99283

== ENCOUNTER 2024-12-17 20:24 | Emergency (ER) | payer MEDICAID, SELFPAY ==
--- NOTE | 2024-12-17 | ECG_ITS ---
Test Reason : CHEST PAIN Blood Pressure : */* mmHG Vent. Rate : 88 BPM Atrial Rate : 88 BPM P-R Int : 160 ms QRS Dur : 82 ms QT Int : 372 ms P-R-T Axes : 48 49 52 degrees QTcB Int : 450 ms Normal sinus rhythm Normal ECG When compared with ECG of 29-Oct-2024 03:49, No significant change was found Referred By: Generic ED Physician Electronically Signed By: MAGGIE TELLEZ
[2024-12-17 20:25] VITALS: BP 123/79; PULSE 87; RESP 16; TEMP 36.3; O2SAT 97; BMI 26.3
--- NOTE | 2024-12-17 20:44 | ED.CHESTPAIN ---
HPI - Chest Pain General Chief Complaint: Chest Pain Stated Complaint: CP, Headache Time Seen by Provider: 12/17/24 23:42 Source: patient and historical interpreter Mode of arrival: ambulatory Limitations: language barrier History of Present Illness ED Provider: Dr. Doreen Desouza Related Data Home Medications ?Medication ?Instructions ?Recorded ?Confirmed albuterol sulfate 2.5 mg/3 mL 2.5 mg inhalation TID PRN 12/06/22 07/15/23 (0.083 %) solution for nebulization Shortness Of Breath Or Wheezing albuterol sulfate 90 mcg/actuation 2 puff inhalation QID PRN 12/06/22 07/15/23 aerosol inhaler (Ventolin HFA) Shortness Of Breath Or Wheezing ascorbic acid (vitamin C) 1,000 mg 1,000 mg PO BID 12/06/22 07/15/23 tablet cholecalciferol (vitamin D3) 50 50 mcg PO BID 12/06/22 07/15/23 mcg (2,000 unit) capsule dicyclomine 10 mg capsule 10 mg PO TID 12/06/22 07/15/23 ferrous sulfate 325 mg (65 mg 325 mg PO QAM 12/06/22 07/15/23 iron) tablet (FeroSul) fluticasone propionate 220 1 puff inhalation BID 12/06/22 07/15/23 mcg/actuation HFA aerosol inhaler (Flovent HFA) glimepiride 4 mg tablet 4 mg PO QPM 12/06/22 07/15/23 metformin 500 mg tablet,extended 1,000 mg PO BID 12/06/22 07/15/23 release 24 hr naproxen 500 mg tablet 500 mg PO BID PRN Pain 12/06/22 07/15/23 omeprazole 40 mg capsule,delayed 40 mg PO QAM 12/06/22 07/15/23 release pramipexole 0.5 mg tablet 0.5 mg PO BEDTIME 12/06/22 07/15/23 pregabalin 200 mg capsule 200 mg PO TID 12/06/22 07/15/23 semaglutide 0.25 mg or 0.5 mg (2 0.5 mg subcut FR 12/06/22 07/15/23 mg/3 mL) subcutaneous pen injector (Ozempic) Previous Rx's ?Medication ?Instructions ?Recorded sulfamethoxazole 800 1 tab PO BID 7 days #14 tabs 04/07/23 mg-trimethoprim 160 mg tablet (Bactrim DS) azithromycin 250 mg tablet See Rx Instructions PO .COMPLEX #6 11/12/23 tabs prednisone 20 mg tablet 40 mg (2 x 20 mg) PO DAILY 3 days 11/12/23 #6 tabs amoxicillin 500 mg capsule 500 mg PO Q8H #20 caps 10/29/24 benzonatate 200 mg capsule 200 mg PO BID PRN cough #14 caps 10/29/24 oxycodone 5 mg tablet 5 mg PO Q8H PRN pain #9 tabs 11/18/24 Allergies Allergy/AdvReac Type Severity Reaction Status Date / Time tramadol (TRAMADOL) Allergy Unknown RASH , rash Verified 12/17/24 20:28 [facility] Past Medical History Medical History Restless leg syndrome Asthma Cholecystitis Fibromyalgia Diabetes HTN (hypertension) Surgical History History of appendectomy Social History Social History Alcohol intake: current Alcohol intake frequency: does not drink Patient Tobacco Use Status: Never used Tobacco Advance Directives: No Advance Directives Information Provided: Yes Do you have a plan to hurt others: No Plan service: No Gender identity: Female Physical Exam Vital Signs: Vital Signs: Last Vital Signs Temp 97.4 F 12/17/24 20:25 Pulse 87 12/17/24 20:25 Resp 16 12/17/24 20:25 BP 123/79 12/17/24 20:25 Pulse Ox 97 12/17/24 20:25 O2 Del Method Room Air 12/17/24 20:25 BMI result Body Mass Index 26.3 Course Course Course Narrative: Patient is a 54 year old assigned female at presenting to the emergency department with a headache, burning pain in her head, and chest pain. Patient was here earlier this evening for just a headache and left without completing treatment. Detailed physical exam and review of systems are deferred to the livestock counter. EKG ordered as labs were completed earlier. Patient placed back in the waiting room pending room availability and results. Reevaluation(s) Reevaluation #1: Attempted evaluation however, patient is not in the room. I suspect she left without treatment completion. Time: 23:56 Medical Decision Making Lab Data Labs: Lab Results 12/17/24 Range/Units 21:11 Troponin I High Sens < 2.7 (<3.5-17.0) ng/L Discharge Plan Discharge Clinical Impression: Headache Patient Disposition: Left W/O Completing Treatment Prescriptions: No Action azithromycin 250 mg tablet See Rx Instructions .ROUTE .COMPLEX Qty: 6 0RF Rx Instructions: For 250 mg dose pack: take 500 mg today (day 1), then 250 mg for 4 days (days 2-5) prednisone 20 mg tablet 40 mg PO DAILY 3 Days Qty: 6 0RF amoxicillin 500 mg capsule 500 mg PO Q8H Qty: 20 0RF benzonatate 200 mg capsule 200 mg PO BID PRN (Reason: cough) Qty: 14 0RF oxycodone 5 mg tablet 5 mg PO Q8H PRN (Reason: pain) Qty: 9 0RF Rx Instructions: Partial Fill upon patient request. ascorbic acid (vitamin C) 1,000 mg tablet 1,000 mg PO BID albuterol sulfate 2.5 mg /3 mL (0.083 %) solution for nebulization 2.5 mg inhalation TID PRN (Reason: Shortness Of Breath Or Wheezing) omeprazole 40 mg capsule,delayed release(DR/EC) 40 mg PO QAM pramipexole 0.5 mg tablet 0.5 mg PO BEDTIME ferrous sulfate [FeroSul] 325 mg (65 mg iron) tablet 325 mg PO QAM glimepiride 4 mg tablet 4 mg PO QPM fluticasone propionate [Flovent HFA] 220 mcg/actuation HFA aerosol inhaler 1 puff INHALATION BID albuterol sulfate [Ventolin HFA] 90 mcg/actuation HFA aerosol inhaler 2 puff inhalation QID PRN (Reason: Shortness Of Breath Or Wheezing) metformin 500 mg tablet extended release 24 hr 1,000 mg PO BID dicyclomine 10 mg capsule 10 mg PO TID naproxen 500 mg tablet 500 mg PO BID PRN (Reason: Pain) Rx Instructions: take with food pregabalin 200 mg capsule 200 mg PO TID cholecalciferol (vitamin D3) 50 mcg (2,000 unit) capsule 50 mcg PO BID Ozempic 0.25 mg or 0.5 mg (2 mg/3 mL) pen injector 0.5 mg subcut FR sulfamethoxazole-trimethoprim [Bactrim DS] 800-160 mg tablet 1 tab PO BID 7 Days Qty: 14 0RF
[2024-12-17 21:50] LABS: Troponin-I High Sensitivity < 2.7 ng/L (<3.5-17.0)
--- NOTE | 2024-12-17 23:30 | PC.NURSE ---
Assumed care of patient at 23:00. During safe change of shift report patient noted to be in her room. This RN attempted to complete nursing assessment at 23:30 and 23:45, patient was not found in her room. Patient left ED without alerting ED staff.
== END 2024-12-18 00:30 | disposition left against medical advice (07) ==
PROVIDERS: Physician Assistant Medical; Emergency Provider Emergency Medicine; PCP Pediatrics
DX: R51.9 Headache, unspecified (principal); R07.89 Other chest pain; Z79.899 Other long term (current) drug therapy
CPT/HCPCS: 36415; 84484; 93005; 99283

== ENCOUNTER → 2024-12-17 20:39 | Outpatient (BNV) | payer MEDICAID, SELFPAY | PROVIDERS: Emergency Provider Emergency Medicine; PCP Pediatrics; Visit Provider Internal Medicine | DX: R07.9 Chest pain, unspecified (principal) | CPT/HCPCS: 93010 ==

== ENCOUNTER 2025-01-17 10:51 | Emergency (ER) | payer MEDICAID, SELFPAY ==
[2025-01-17 11:17] VITALS: BP 118/73; PULSE 95; RESP 18; TEMP 36.4; O2SAT 97; BMI 26.6
--- NOTE | 2025-01-17 11:19 | ED.HA ---
HPI - Headache General Chief Complaint: Headache Stated Complaint: Migraine Time Seen by Provider: 01/17/25 11:17 Source: patient, family and conference interpreter Mode of arrival: ambulatory Limitations: no limitations and language barrier History of Present Illness ED Provider: HPI Narrative: 54-year-old woman with longstanding history of migraines, states has been having a migraine for the past 3 months, she was seen here October [address] of the brain done, then she came to the ER again in October but left without being seen because the waiting time for her was over 4 hours, she went to see her PCP and was started on sumatriptan and states that has not been helping, as the headache continued, she called her PCP and reportedly was told to come to the ER for head x-rays , she describes this is a pain radiating from the back up to the front on bilateral temples without visual changes, no fevers or chills no current nausea no vomiting no weakness in upper or lower extremities, she is not on control pills. She states occasionally she will have nausea and vomiting associated with this sometimes. Related Data Home Medications ?Medication ?Instructions ?Recorded ?Confirmed albuterol sulfate 2.5 mg/3 mL 2.5 mg inhalation TID PRN 12/06/22 07/15/23 (0.083 %) solution for nebulization Shortness Of Breath Or Wheezing albuterol sulfate 90 mcg/actuation 2 puff inhalation QID PRN 12/06/22 07/15/23 aerosol inhaler (Ventolin HFA) Shortness Of Breath Or Wheezing ascorbic acid (vitamin C) 1,000 mg 1,000 mg PO BID 12/06/22 07/15/23 tablet cholecalciferol (vitamin D3) 50 50 mcg PO BID 12/06/22 07/15/23 mcg (2,000 unit) capsule dicyclomine 10 mg capsule 10 mg PO TID 12/06/22 07/15/23 ferrous sulfate 325 mg (65 mg 325 mg PO QAM 12/06/22 07/15/23 iron) tablet (FeroSul) fluticasone propionate 220 1 puff inhalation BID 12/06/22 07/15/23 mcg/actuation HFA aerosol inhaler (Flovent HFA) glimepiride 4 mg tablet 4 mg PO QPM 12/06/22 07/15/23 metformin 500 mg tablet,extended 1,000 mg PO BID 12/06/22 07/15/23 release 24 hr naproxen 500 mg tablet 500 mg PO BID PRN Pain 12/06/22 07/15/23 omeprazole 40 mg capsule,delayed 40 mg PO QAM 12/06/22 07/15/23 release pramipexole 0.5 mg tablet 0.5 mg PO BEDTIME 12/06/22 07/15/23 pregabalin 200 mg capsule 200 mg PO TID 12/06/22 07/15/23 semaglutide 0.25 mg or 0.5 mg (2 0.5 mg subcut FR 12/06/22 07/15/23 mg/3 mL) subcutaneous pen injector (Ozempic) Previous Rx's ?Medication ?Instructions ?Recorded sulfamethoxazole 800 1 tab PO BID 7 days #14 tabs 04/07/23 mg-trimethoprim 160 mg tablet (Bactrim DS) azithromycin 250 mg tablet See Rx Instructions PO .COMPLEX #6 11/12/23 tabs prednisone 20 mg tablet 40 mg (2 x 20 mg) PO DAILY 3 days 11/12/23 #6 tabs amoxicillin 500 mg capsule 500 mg PO Q8H #20 caps 10/29/24 benzonatate 200 mg capsule 200 mg PO BID PRN cough #14 caps 10/29/24 oxycodone 5 mg tablet 5 mg PO Q8H PRN pain #9 tabs 11/18/24 qrzbiupoeu-iibumgfwqgkxp-zzrdbdmx 1 cap PO Q8H PRN headache 3 days 01/17/25 50 mg-300 mg-40 mg capsule #10 caps (Fioricet) Allergies Allergy/AdvReac Type Severity Reaction Status Date / Time tramadol (TRAMADOL) Allergy Unknown RASH , rash Verified 01/17/25 11:21 [facility] Past Medical History Medical History Restless leg syndrome Asthma Cholecystitis Fibromyalgia Diabetes HTN (hypertension) Surgical History History of appendectomy Social History Social History Alcohol intake: current Alcohol intake frequency: does not drink Patient Tobacco Use Status: Never used Tobacco Smoked in Last 30 Days: No Use of substances other than those prescribed or required for medical reasons: No Advance Directives: No Advance Directives Information Provided: Yes Do you have a plan to hurt others: No Plan Patient : No service: No Gender identity: Female Physical Exam Vital Signs: Vital Signs: Last Vital Signs Temp 97.5 F 01/17/25 11:17 Pulse 95 01/17/25 13:15 Resp 14 01/17/25 13:15 BP 93/64 01/17/25 13:15 Pulse Ox 97 01/17/25 13:15 O2 Del Method Room Air 01/17/25 13:15 BMI result Body Mass Index 26.6 Const: Other: Gen: ?Overall well-appearing patient HEENT: Pupils 3 mm reactive bilaterally, non cloudy cornea, no tenderness along the temporal arteries and there are no palpable cords Neck: Supple, no LAD CV: RRR, no obvious murmurs appreciated Resp: ?No wheezing rales rhonchi no stridor moving air well Abd: ?Bowel sounds are present, no tenderness no rebound no rigidity MSK: FROM, strength 5/5 all extremities Skin: Warm, dry, intact, Neuro: ?Alert and oriented x3, moving upper and lower extremities symmetrically, no obvious facial asymmetry noted, no dysmetria noted upper or lower extremities, no nystagmus vertical or horizontal Course Course Course Narrative: This is an RME: Additional HPI, ROS, PE not included below will be deferred to primary provider. RME assessment and note performed by: Abi Baires PA-C This is a 54-year-old female, with a past medical history of diabetes, who presents emergency department with concerns of headache for the last 3 days. She has has a constant headache for the last 3 days, she denies any fevers, chills. She is neurologically intact with no focal deficits on examination. History of headaches however she states that this is stronger than her typical headaches. Her primary care sent over sumatriptan which he has been taking with minimal relief. She is not on anticoagulation. Medications Administered Discontinued Medications Generic Name Dose Route Start Last Admin Trade Name Freq PRN Reason Stop Dose Admin Diazepam 4 mg 01/17/25 11:41 01/17/25 11:59 Diazepam 10 Mg/2 Ml Cartridge IVPUSH 01/17/25 11:42 4 mg STAT STA Administration Sodium Chloride 1,000 mls @ 999 mls/hr 01/17/25 11:45 01/17/25 12:59 Ns IV 01/17/25 12:45 Infused .Q1H1M SHERRIE Infusion Ketorolac Tromethamine 15 mg 01/17/25 11:41 01/17/25 11:58 Ketorolac Tromethamine 15 Mg/Ml Vial IVPUSH 01/17/25 11:42 15 mg ONCE ONE Administration Methylprednisolone Sodium Succinate 125 mg 01/17/25 11:41 01/17/25 11:59 Methylprednisolone Sod Succ 125 Mg/2 Ml Vial IVPUSH 01/17/25 11:42 125 mg ONCE ONE Administration Metoclopramide HCl 10 mg 01/17/25 11:41 01/17/25 11:58 Metoclopramide Hcl 10 Mg/2 Ml Vial IVPUSH 01/17/25 11:42 10 mg ONCE ONE Administration Medical Decision Making Medical Decision Making MDM Narrative: 11:52 AM 01/17/2025 (Dr. Jaime Santos): Patient is presenting for a headache that has been going on for the past 3 months, she was seen for this in October and then came in in November but left representing on the behest of her PCP reportedly for what sounds like a repeat CT brain, patient has no atypical features no neurologic deficits no trauma, she did have a CT almost 2-1/2 months ago which was negative, there is really no clinical utility for repeating CT, and I had a shared decision-making with the patient and her partner regarding not repeating CT, if a study that patient needs would be outpatient brain MRI of the were any other concerns at this point patient has had multiple imaging her head included that is placing her at increased risk for radiation induced oncology. Patient states she feels comfortable with this and was given on negative report from her CT brain from 10/29/2024. With that said she has no fevers or chills nothing to suspect encephalitis bacterial or infectious this is a prolonged course, she did have an LP by Dr. Pinto'bry 2 years ago when she presented with a recurrent headache. That was negative Other considerations include multiple sclerosis outpatient brain MRI would be indicated. I plan to medicate patient for pain re-evaluate and discharged home with the additional medications. I will add on inflammatory markers though my suspicion for temporal arteritis is low. But this is the 1 started that I think would have some clinical utility at this time. Solu-Medrol will be added to patient's treatment as it has been shown to decrease bounce back in migraine headaches, and not for presumed giant cell arteritis. 2:51 PM 01/17/2025 (Dr. Jaime Santos): I have kept an eye on the patient she has been sleeping, she just woke up and she is completely headache free, I am hoping that this was a breakthrough for her and I will discharge home with Fioricet as well Differential Diagnosis Differential Diagnoses: The differential diagnosis associated with the presentation includes (Subarachnoid hemorrhage, cavernous venous thrombosis, acute angle closure glaucoma, temporal arteritis, meningitis, migraine headache, tension headache) Admission/Observation Consideration of admission/observation: Escalation of care including admission/observation considered Lab Data MDM Lab Attestation statement: I reviewed the patient's lab results. 01/17/25 11:38 01/17/25 11:38 Labs: Lab Results 01/17/25 01/17/25 Range/Units 11:38 12:38 WBC 11.5 H (4.8-10.8) X10*3/uL RBC 4.52 (4.20-5.50) X10*6/uL Hgb 13.3 (12.0-16.0) g/dl Hct 42.3 (37.0-47.0) % MCV 93.6 (80.0-98.0) fL MCH 29.4 (27.0-33.0) pg MCHC 31.4 (31.0-35.0) g/dl RDW 14.4 (11.0-16.0) % Plt Count 354 (160-400) X10*3/uL MPV 10.9 (9.4-12.3) fL Immature Gran % (Auto) 0.3 (0.0-0.4) % Neut % (Auto) 72.2 (45-73) % Lymph % (Auto) 19.2 L (20-40) % [place] % (Auto) 7.0 (2-11) % Eos % (Auto) 0.7 (0-4) % Baso % (Auto) 0.6 (0-2) % Lymph # (Auto) 2.2 (1.2-4.9) X10*3/uL [place] # (Auto) 0.8 (0.1-1.2) X10*3/uL Eos # (Auto) 0.1 (0.0-0.4) X10*3/uL Baso # (Auto) 0.1 (0.0-0.2) X10*3/uL Abs Immat Gran (auto) 0.03 (0.00-0.03) X10*3/uL Absolute Neuts (auto) 8.3 (2.0-8.3) x10*3/uL Absolute Nucleated RBC 0.000 (0.0-0.012) X10*3/uL Nucleated RBC % (auto) 0.0 (0.0-0.2) /100WBC ESR Cancelled 17 Sodium 139 (135-145) mmol/L Potassium 4.2 (3.3-5.1) mmol/L Chloride 107 (96-108) mmol/L Carbon Dioxide 22 (22-29) mmol/L Anion Gap 14 (12-20) BUN 8 L (9-16) mg/dL Creatinine 0.52 (0.5-1.4) mg/dL Estim Creat Clear Calc 95.0 Estimated GFR > 60 Random Glucose 129 H (60-115) mg/dL Calcium 9.2 D (8.4-10.2) mg/dL Magnesium 2.1 (1.6-2.6) mg/dL Total Bilirubin 0.2 (0.0-1.0) mg/dL Direct Bilirubin < 0.2 (0.0-0.5) mg/dL AST 26 (5-31) U/L ALT 32 H (0-31) U/L Alkaline Phosphatase 105 (39-117) U/L C-Reactive Protein 1.38 H (< or = 0.50) mg/dL Total Protein 7.1 (6.5-8.0) g/dL Albumin 4.4 (3.5-5.0) g/dL COVID-19 (FRANKY) Negative (Negative) COVID-19 Clin Com See Note Influenza Type A (JEANNE) Negative (Negative) Influenza Type B (JEANNE) Negative (Negative) Influenza A & B Note See Note Radiology Impression Discussion of test interpretation with radiology: I have reviewed the radiologist's reading. (CT from 10/29/2024 negative) Tests considered The following testing was considered but not selected: CT brain Prescription Management I considered prescription management with: Pain Medication Chronic Conditions Patient?s care impacted by: Other (Migraines) Critical Care Time Critical Care Time Critical Care Time: Yes Total Critical Care Time: 45 Attestation: Time is exclusive of separately billable procedures. Time includes: direct patient care, patient reassessment, coordination of patient care, interpretation of data (laboratory data, pulse oximetry, arterial blood gases and chest xrays), review of patient's medical records, medical consultation and documentation of patient care. Procedures excluded from critical care time: central intravenous line placement and electrocardiography. Discharge Plan Discharge Clinical Impression: Bad headache Patient Disposition: Home, Self-Care Instructions: General Headache (ED) Additional Instructions: Please continue with sumatriptan and use Fioricet only if sumatriptan is not helping, you can also continue ibuprofen and Tylenol, I did send referral to your PCP I believe that you need an outpatient MRI of the brain, referral for Neurology to help manage your migraines as you have had in the past, we spoke about repeating CAT scan today but if you have had CAT scan that was negative on October 29 we both decided that is reasonable and likely a better idea to not repeat CAT scan as not to expose her to radiation repeatedly. You were given medications for headache with resolution of the symptoms, continues to stay hydrated, avoid screen time, worsening symptoms concerns come back to the ER otherwise please follow up with the PCP. Prescriptions: New owubgzvfyt-fdumdrhbwwxnj-vgsd [Fioricet] 50-300-40 mg capsule 1 cap PO Q8H PRN (Reason: headache) 3 Days Qty: 10 0RF No Action azithromycin 250 mg tablet See Rx Instructions .ROUTE .COMPLEX Qty: 6 0RF Rx Instructions: For 250 mg dose pack: take 500 mg today (day 1), then 250 mg for 4 days (days 2-5) prednisone 20 mg tablet 40 mg PO DAILY 3 Days Qty: 6 0RF amoxicillin 500 mg capsule 500 mg PO Q8H Qty: 20 0RF benzonatate 200 mg capsule 200 mg PO BID PRN (Reason: cough) Qty: 14 0RF oxycodone 5 mg tablet 5 mg PO Q8H PRN (Reason: pain) Qty: 9 0RF Rx Instructions: Partial Fill upon patient request. ascorbic acid (vitamin C) 1,000 mg tablet 1,000 mg PO BID albuterol sulfate 2.5 mg /3 mL (0.083 %) solution for nebulization 2.5 mg inhalation TID PRN (Reason: Shortness Of Breath Or Wheezing) omeprazole 40 mg capsule,delayed release(DR/EC) 40 mg PO QAM pramipexole 0.5 mg tablet 0.5 mg PO BEDTIME ferrous sulfate [FeroSul] 325 mg (65 mg iron) tablet 325 mg PO QAM glimepiride 4 mg tablet 4 mg PO QPM fluticasone propionate [Flovent HFA] 220 mcg/actuation HFA aerosol inhaler 1 puff INHALATION BID albuterol sulfate [Ventolin HFA] 90 mcg/actuation HFA aerosol inhaler 2 puff inhalation QID PRN (Reason: Shortness Of Breath Or Wheezing) metformin 500 mg tablet extended release 24 hr 1,000 mg PO BID dicyclomine 10 mg capsule 10 mg PO TID naproxen 500 mg tablet 500 mg PO BID PRN (Reason: Pain) Rx Instructions: take with food pregabalin 200 mg capsule 200 mg PO TID cholecalciferol (vitamin D3) 50 mcg (2,000 unit) capsule 50 mcg PO BID Ozempic 0.25 mg or 0.5 mg (2 mg/3 mL) pen injector 0.5 mg subcut FR sulfamethoxazole-trimethoprim [Bactrim DS] 800-160 mg tablet 1 tab PO BID 7 Days Qty: 14 0RF Referrals: Nikki Crain MD [Primary Care Provider, Medical] - 2 weeks Referral Note: Patient needs an outpatient brain MRI, has had CT in October that was negative, currently something Triptan provided Fioricet she needs a referral to Neurology to manage his symptoms Clinical Impression: Bad headache Print Language: Danish
[2025-01-17 11:26] VITALS: BP 118/42; PULSE 97; RESP 18; O2SAT 96
--- NOTE | 2025-01-17 11:32 | PC.NURSE ---
54 F presents to ED with headache/migraine front of head to back of head/neck, 9/10 pain x 3-4 months, has not gotten better, some dizziness like the room is spinning, dizziness. Pt seen previously but the headache continues. A+OX4, calm, cooperative. Pt sts some nausea but no vomitting. Pt ambulates without difficulty.
[2025-01-17 11:54] LABS: MANUAL DIFF FLAG NO
[2025-01-17] MEDS: diazePAM 10 MG/2 ML CARTRIDGE 4 MG IVPUSH (11:59)
[2025-01-17 12:08] LABS: Hematocrit 42.3 % (37.0-47.0); Hemoglobin 13.3 g/dl (12.0-16.0); Imm Gran Abs Auto 0.03 X10*3/uL (0.00-0.03); Imm Gran Pct Auto 0.3 % (0.0-0.4); Lymphocytes Absolute Auto 2.2 X10*3/uL (1.2-4.9); Mean Corpuscular HGB Conc 31.4 g/dl (31.0-35.0); Mean Corpuscular Hemoglobin 29.4 pg (27.0-33.0); Mean Corpuscular Volume 93.6 fL (80.0-98.0); NRBC Abs Auto 0.000 X10*3/uL (0.0-0.012); NRBC Pct Auto 0.0 /100WBC (0.0-0.2); Platelet Count 354 X10*3/uL (160-400); Red Blood Count 4.52 X10*6/uL (4.20-5.50); White Blood Count 11.5 X10*3/uL (4.8-10.8)
[2025-01-17 12:13] LABS: COVID-19 Test Negative (Negative); IDNOW Serial# 55D5AD1C
[2025-01-17 12:14] LABS: IDNOW Serial# 58CA691E; Influenza B2 Negative (Negative)
[2025-01-17 12:16] LABS: Alanine Aminotransferase 32 U/L (0-31); Albumin Level 4.4 g/dL (3.5-5.0); Alkaline Phosphatase 105 U/L (39-117); Anion Gap 14 (12-20); Aspartate Amino Transferase 26 U/L (5-31); Blood Urea Nitrogen 8 mg/dL (9-16); Calcium 9.2 mg/dL (8.4-10.2); Carbon Dioxide 22 mmol/L (22-29); Chloride 107 mmol/L (96-108); Creatinine Clr Calc Pharmacy 95.0; Estimated Glomerular Filt Rate > 60; Magnesium 2.1 mg/dL (1.6-2.6); Potassium 4.2 mmol/L (3.3-5.1); Sodium 139 mmol/L (135-145); Total Protein 7.1 g/dL (6.5-8.0)
--- NOTE | 2025-01-17 12:53 | PC.NURSE ---
Pt appears a lot more comfortable after recieving medications. Pts pain is now like a 2/10.
[2025-01-17 13:15] VITALS: BP 93/64; PULSE 95; RESP 14; O2SAT 97
[2025-01-17 14:53] LABS: Glucose, Whole Blood 152 mg/dL (60-115)
[2025-01-17 15:05] VITALS: BP 99/59; PULSE 93; RESP 18; O2SAT 96
[2025-01-17 15:08] VITALS: BP 99/59; PULSE 93; RESP 18; TEMP -17.7; TEMP 0; O2SAT 96
--- OUTSIDE RECORDS SUMMARY | 2025-01-17 16:43 | XMS_ITS | Patient Health Record ---
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 Problem Diverticular disease of colon (347471616) Diverticulosis of large intestine without perforation or abscess without bleeding (K57.30) Active confirmed Problem 47690345 Infectious colit is (A09) Active confirmed Problem 394853085 Gastroesophageal reflux disease, unspecified whether esophagitis present (K21.9) Active confirmed Problem Gastroesophageal reflux disease (disorder) (028105979) Chronic GERD (K21.9) Active confirmed Plan Of Treatment Pending Test Test Name Order Date Pathology 07/15/2023 Future Test Test Name Order Date UPPER GI ENDOSCOPY 04/19/2023 COLONOSCOPY 04/19/2023 Insurance Providers Payer Name Payer Address Payer Phone Subscriber Number Group Number Insured Name Patient Relationship to Insured Coverage Start Date Coverage End Date [place] [address] [place] [address] [id number] CLARE LEVINE Self - patient is the insured Medical (General) History Medical History History ICD Code Asthma NIDDM Fibromyalgia Denies DE,CVA,renal disease Restless leg syndrome Hospitalized 11/[address] [facility] f or presumed infectious colitis, although no specific pathogen was identified Surgical History Surgery Date(Month/Year) Appendectomy Cholecystectomy LEFT CARPAL TUNNEL CATARACTS
--- OUTSIDE RECORDS SUMMARY | 2025-01-17 16:43 | XMS_ITS | Clinical Summary ---
Author Organization [facility] Address [address] [address] Phone Care Team Providers Care Copying Machine Repairer Name Role Phone Nikki Crain MD Primary Care Provider [phone] Allergies Active Allergy Reactions Criticality Noted Date [...] 01/25/2018 ZOSTER VACCINES (1 of 2) 01/25/2018 INFLUENZA VACCINE (#1) 2024 COVID-19 VACCINE (2023-2 5 season) 2024 Adult Td,Tdap Booster 06/16/2026 06/16/2016 HEPATITIS A [...] Medical Devices Not on file Care Teams Copying Machine Repairer Relationship Specialty Start Date End Date Nikki Crain MD [address] [place] [id number] PCP - General Internal Medicine 03/11/23 Additional Source Comments The information contained in this document represents components of the legal health record. It is not the complete legal health record.[facility]
== END 2025-01-17 15:09 | disposition home or self-care (01) ==
PROVIDERS: Physician Assistant Medical; Emergency Provider Emergency Medicine; PCP Pediatrics
DX: R51.9 Headache, unspecified (principal); R11.0 Nausea; Z11.52 Encounter for screening for COVID-19; Z79.899 Other long term (current) drug therapy
CPT/HCPCS: 36415; 80048; 80076; 82947; 83735; 85025; 85652; 86140; 87502; 87635; 96361; 96374; 96375; 99284; 99285; J1885; J2765; J2919; J3360

== ENCOUNTER 2025-02-21 09:51 | Outpatient (REF) | payer MEDICAID, SELFPAY ==
--- NOTE | ~2025-02-21 | MR_ITS ---
EXAMINATION: MR BRAIN WITHOUT CONTRAST CLINICAL INFORMATION: Chronic migraines. COMPARISON: Correlated to CT dated October 29, 2024. TECHNIQUE: MRI of the brain was obtained using routine sequences without contrast. FINDINGS: No restricted diffusion. No acute intracranial hemorrhage, mass effect, midline shift, hydrocephalus or herniation. Gonsales-white matter differentiation is normal. Bilateral, a few scattered, nonspecific, subcortical and deep white matter hyperintense T2 FLAIR signal foci involving centrum semiovale and alfaro radiata both hemispheres. Posterior cranial fossa contents demonstrated no signal abnormality or mass effect. Normal position of the cerebellar tonsils. Sellar/suprasellar region is normal. Flow-void signal within the main cerebral vessels is normal. No air-fluid levels in the paranasal sinuses. MR/MR head/brain wo con IMPRESSION: Nonspecific white matter T2 FLAIR signal which could be seen patients with migraines No acute brain abnormality.. Electronically signed by: Paul De La Cruz MD 02/21/2025 10:46 AM EDT
--- OUTSIDE RECORDS SUMMARY | 2025-02-21 11:37 | XMS_ITS | Encounter Summary ---
Author Organization [employer] Address [address] [facility] 7 [place] [address] Care Team Providers Care Infectious Disease Physician Name Role Phone Nikki Crain MD Primary Care Provider [phone] Reason for Visit * Reason Onset Date Comments Created in error 11/17/2023 Encounter Details Date Type Department Care Team ([facility] Contact Info) Description 11/17/2023 Telephone [facility] [address] [place] [address] Nikki Crain MD [address] [place] [address] Created in error Social History Tobacco Use [...] Care Team (Late st Contact Info) Description 03/04/2025 10:00 AM EST Clinical Support [facility] [address] [place] [address] documented as of this encounter Visit Diagnoses Not on filedocumented in this encounter Additional Health Concerns Assessment Noted Time PHQ-9 Depression Total Score: 6 06/02/19 24 10:53 AM EST documented as of this encounter Care Teams Infectious Disease Physician Relationship Specialty Start Date End Date Nikki Crain MD [address] [place] [address] PCP - General Family Medicine 04/25/18 documented as of this encounter
--- OUTSIDE RECORDS SUMMARY | 2025-02-21 11:37 | XMS_ITS | Encounter Summary ---
Author Organization [employer] Address [address] [facility] 7t [place] [address] Care Team Providers Care Process Checker Name Role Phone Nikki Crain MD Primary Care Provider [phone] Reason for Visit * Reason Comments Med Refill Encounter Details Date Type Department Care Team ([facility] st Contact Info) Description 06/30/2023 Refill [facility] PEDS [address] [place], [place] [phone] Nikki Crain MD [address] [place] [address] Iron deficiency anemia, unspecified iron deficiency anemia [...] Upcoming Encounters Date Type Department Care Team ([facility] st Contact Info) Description 03/04/2025 10:00 AM EST Clinical Support [facility] [address] [place] [address] documented as of this encounter Visit Diagnoses Diagnosis Iron deficiency anemia, unspecified iron deficiency anemia type documented in this encounter Additional Health Concerns Assessment Noted Time PHQ-9 Depression Total Score: 6 06/02/19 24 10:53 AM EST documented as of this encounter Care Teams Process Checker Relationship Specialty Start Date End Date Nikki Crain MD [address] [place] [address] PCP - General Family Medicine 04/25/18 documented as of this encounter
--- OUTSIDE RECORDS SUMMARY | 2025-02-21 11:37 | XMS_ITS | Encounter Summary ---
Author Organization [employer] Address [address] [facility] [address] [place] [address] Care Team Providers Care Data Collector Name Role Phone Nikki Crain MD Primary Care Provider [phone] Reason for Visit * Reason Comments Med Refill Encounter Details Date Type Department Care Team ([facility] st Contact Info) Description 06/18/2023 Refill [facility] [address] [place], [place] [phone] Nikki Crain MD [address] [place] [address] Iron deficiency anemia, unspecified iron deficiency anemia [...] Upcoming Encounters Date Type Department Care Team ([facility] st Contact Info) Description 03/04/2025 10:00 AM EST Clinical Support [facility] MED & PEDS [address] [place] [address] documented as of this encounter Visit Diagnoses Diagnosis Iron deficiency anemia, unspecified iron deficiency anemia type documented in this encounter Additional Health Concerns Assessment Noted Time PHQ-9 Depression Total Score: 6 06/02/19 24 10:53 AM EST documented as of this encounter Care Teams Data Collector Relationship Specialty Start Date End Date Nikki Crain MD [address] [place] [address] PCP - General Family Medicine 04/25/18 documented as of this encounter
--- OUTSIDE RECORDS SUMMARY | 2025-02-21 11:37 | XMS_ITS | Encounter Summary ---
Author Organization [employer] Address [address] [facility] [address] [place] [address] Care Team Providers Care Surfboard Maker Name Role Phone Nikki Crain MD Primary Care Provider [phone] Reason for Visit * Reason Onset Date Comments Medication Question 06/20/2024 Encounter Details Date Type Department Care Team ([facility] st Contact Info) Description 06/20/2024 Telephone [facility] [address] [place] [address] Nikki Crain MD [address] [place] [address] Medication Question Social History Tobacco Use Types [...] with others, in a hotel, in a group home, living outside on the street, on a [...] Description 03/04/2025 10:00 AM EST Clinical Support [facility] [address] [place] [address] documented as of this encounter Visit Diagnoses Not on filedocumented in this encounter Additional Health Concerns Assessment Noted Time PHQ-9 Depression Total Score: 6 06/02/19 24 10:53 AM EST documented as of this encounter Care Teams Surfboard Maker Relationship Specialty Start Date End Date Nikki Crain MD [address] [place] [address] PCP - General Family Medicine 04/25/18 documented as of this encounter
--- OUTSIDE RECORDS SUMMARY | 2025-02-21 11:37 | XMS_ITS | Clinical Summary ---
Author Organization [facility] Address [address] [address] Phone Care Team Providers Care Test Analyst Name Role Phone Nikki Crain MD Primary Care Provider Allergies Active Allergy Reactions Criticality Noted Date [...] 01/25/2018 INFLUENZA VACCINE (#1) 2024 COVID-19 VACCINE ( - 2024-2 6 season) 2024 Adult Td,Tdap Booster 06/16/2026 06/16/2016 RSV VACCINE (1 - 1-dose 75+ series) 01/25/2043 HEPATITIS A VACCINES Aged Out No long [...] Medical Devices Not on file Care Teams Test Analyst Relationship Specialty Start Date End Date Nikki Crain MD [address] [place] [address] PCP - General Internal Medicine 03/11/23 Additional Source Comments The information contained in this document represents components of the legal health record. It is not the complete legal health record.[facility]
--- OUTSIDE RECORDS SUMMARY | 2025-02-21 11:37 | XMS_ITS | Encounter Summary ---
Author Organization [employer] Address [address] [facility] [address] [place] [address] Care Team Providers Care Caddymaster Name Role Phone Nikki Crain MD Primary Care Provider [phone] Reason for Visit * Reason Comments Med Refill Encounter Details Date Type Department Care Team ([facility] st Contact Info) Description 10/13/2023 Refill [facility] MED & PEDS [address] [place], [place] [phone] Anay Jamil MD [address] [place] [address] Social History Tobacco Use Types Packs/Day Years [...] Upcoming Encounters Date Type Department Care Team ([facility] st Contact Info) Description 03/04/2025 10:00 AM EST Clinical Support [facility] CH[facility] MED & PEDS [address] [place] [address] documented as of this encounter Visit Diagnoses Not on filedocumented in this encounter Additional Health Concerns Assessment Noted Time PHQ-9 Depression Total Score: 6 06/02/19 24 10:53 AM EST documented as of this encounter Care Teams Caddymaster Relationship Specialty Start Date End Date Nikki Crain MD [address] [place] [address] PCP - General Family Medicine 04/25/18 documented as of this encounter
--- OUTSIDE RECORDS SUMMARY | 2025-02-21 11:38 | XMS_ITS | Patient Health Record ---
Author Organization [facility] Address [address] [place] [address] Care Team Providers Care Admission Liaison Name Role Phone Paras BROTHERS, Nikki Primary Care Provider Neil Manley Unavailable [phone] Allergies Allergen (clinical drug ingredient) Drug/Non Drug [...] at 5:00 p.m. the day before the procedure; Duration: 1 day 04/19/2023 Active Vitamin C 1000 MG TAKE ONE TABLET IN T HE MORNING AND EVENING FOR iron absorbtion Oral; Duration: 90 Active Glimepiride 4 MG TAKE ONE TABLET EVER Y EVENING Oral; Duration: K219,Unavaila ble Active Ozempic (0.25 or 0.5 MG/DOSE) 2 MG/3ML INJECT 0..5 MG SUBCUTANEOUSLY ONCE A WEEK Subcutaneous; Duration: 28 E119,Unavaila ble Active Dulcolax (colon prep) 5 MG take at 3:00 p.m and 7:00p.m. Orally two tablets twice a day for one day; Duration: 1 day 04/19/2023 Active Vitamin D3 50 MCG (1999) TAKE ONE CAPSULE IN THE MORNING AND EVENING Oral; Duration: E559,Unavaila ble Active Fish Oil Active Albuterol Sulfate (2.5 MG/3ML) 0.083% USE ONE AMPULE USING A NEBULIZER THREE TIMES DAILY NEEDED Inhalation; Duration: 10 Active Pramipexole Dihydrochloride 0.25 MG 1 tablet Orally Once a day; Duration: 30 day(s) Active Dicyclomine HCl 10 MG TAKE ONE CAPSULE T HREE TIMES DAILY IN THE MORNING, EVENING AND BEDTIME Oral; Duration: 30 Active Pregabalin 200 MG TAKE ONE CAPSULE THR EE TIMES DAILY IN THE MORNING, EVENING AND BEDTIME Oral; Duration: 30 Active Omeprazole 40 MG TAKE ONE CAPSULE KATIUSKA RY MORNING Oral; Duration: 90 K219,Unavaila ble Active FeroSul 325 (65 Fe) MG TAKE ONE TABLET E VERY MORNING Oral; Duration: 90 D509,Unavaila ble Active metFORMIN HCl ER 500 MG TAKE TWO TABLETS TWICE DAILY IN THE MORNING AND EVENING WITH MEALS Oral; Duration: 30 E119,Unavaila ble Active Social History Tobacco [...] Problem Status W/U Status Risk Notes Problem Colon cancer screening (657910323) Colon cancer screening (Z12.11) Active confirmed Problem 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 Problem Diverticular disease of colon (402067650) Diverticulosis of large intestine without perforation or abscess without bleeding (K57.30) Active confirmed Problem Infectious colitis (78467646) Infectious colitis (A09) Active confirmed Problem Gastroesophageal reflux disease (912890980) Gastroesophageal reflux disease, unspecified whether esophagitis present (K21.9) Active confirmed Problem Gastroesophageal reflux disease (disorder) (373598494) Chronic GERD (K21.9) Active confirmed Plan Of Treatment Pending Test Test Name Order Date Pathology 07/15/2023 Future Test Test Name Order Date UPPER GI ENDOSCOPY 04/19/2023 COLONOSCOPY 04/19/2023 Insurance Providers Payer Name Payer Address Payer Phone Subscriber Number Group Number Insured Name Patient Relationship to Insured Coverage Start Date Coverage End Date [place] [address] [place] [id number] RHINA LEVINECY Self - patient is the insured Medical (General) History Medical History History ICD Code Asthma NIDDM Fibromyalgia Denies [place],CVA,renal disease Restless leg syndrome Hospitalized 11/2022 at [facility] f or presumed infectious colitis, although no specific pathogen was identified Surgical History Surgery Date(Month/Year) Appendectomy Cholecystectomy LEFT CARPAL TUNNEL CATARACTS
--- OUTSIDE RECORDS SUMMARY | 2025-02-21 11:38 | XMS_ITS | Encounter Summary ---
Author Organization [employer] Address [address] [place] [address] 7 [place] [address] Care Team Providers Care Plastic Fabricator Name Role Phone Nikki Crain MD Primary Care Provider [phone] Reason for Visit * Reason Onset Date Comments Referral 01/01/2025 Encounter Details Date Type Department Care Team ([facility] Contact Info) Description 01/01/2025 Telephone [facility] CHC MED & PEDS [address] [place], [place] [phone] Nikki Crain MD [address] [place] [address] Referral Social History Tobacco Use Types Packs/Day Years Used Date Smoking Tobacco: Never Passive Smoke Exposure: Never Smokeless Tobacco: Never Alcohol Use Standard [...] with others, in a hotel, in a custodial, living outside on the street, on a [...] encounter Miscellaneous Notes * Telephone Encounter - Aby Staley - 01/01/2025 3:25 PM EDT Referral faxed to [facility] for review. Letter mailed to patient with information. * Telephone Encounter - Hood Barreto - 01/01/2025 10:12 AM EDT Tc from pt requesting for a referral to be sent to [facility] Fur Polisher. Any questions contact pt at [phone] documented in this encounter Plan of Treatment Upcoming Encounters Date Type Department Care Team (Late st Contact Info) Description 03/04/2025 10:00 AM EST Clinical Support [facility] MED & PEDS [address] [place] [address] documented as of this encounter Visit Diagnoses Not on filedocumented in this encounter Additional Health Concerns Assessment Noted Time PHQ-9 Depression Total Score: 6 06/02/19 24 10:53 AM EST documented as of this encounter Care Teams Plastic Fabricator Relationship Specialty Start Date End Date Nikki Crain MD [address] [place] [id number] PCP - General Family Medicine 04/25/18 documented as of this encounter
--- OUTSIDE RECORDS SUMMARY | 2025-02-21 11:38 | XMS_ITS | Encounter Summary ---
Author Organization [employer] Address [address] [place] [address] 7 [place] [address] Care Team Providers Care Paper Reeler Name Role Phone Nikki Crain MD Primary Care Provider [phone] Reason for Visit * Reason Onset Date Comments Referral 11/19/2024 Encounter Details Date Type Department Care Team ([facility] Contact Info) Description 11/19/2024 Telephone C CHC MED & PEDS [address] [place], [place] [phone] Nikki Crain MD [address] [place] [address] Referral Social History Tobacco Use Types Packs/Day [...] with others, in a hotel, in a fci, living outside on the street, on a [...] biopsy done. Any questions contact pt at [phone] documented in this encounter Plan of Treatment Upcoming Encounters Date Type Department Care Team ([facility] st Contact Info) Description 03/04/2025 10:00 AM EST Clinical Support [facility] CHC MED & PEDS [address] [place] [address] documented as of this encounter Visit Diagnoses Not on filedocumented in this encounter Additional Health Concerns Assessment Noted Time PHQ-9 Depression Total Score: 6 06/02/19 24 10:53 AM EST documented as of this encounter Care Teams Paper Reeler Relationship Specialty Start Date End Date Nikki Crain MD [address] [place] [address] PCP - General Family Medicine 04/25/18 documented as of this encounter
--- OUTSIDE RECORDS SUMMARY | 2025-02-21 11:38 | XMS_ITS | Encounter Summary ---
Author Organization [employer] Address [address] [place] [address] [place] [address] Care Team Providers Care Shaft Tender Name Role Phone Nikki Crain MD Primary Care Provider [phone] Reason for Visit * Reason Comments Med Refill Encounter Details Date Type Department Care Team ([facility] Contact Info) Description 11/29/2022 Refill [facility] MED & PEDS [address] [place], [place] [phone] Nikki Crain MD [address] [place] [address] Diabetes mellitus without complication (CMS/HCC) Social History Tobacco Use Types Packs/Day Years [...] Upcoming Encounters Date Type Department Care Team ([facility] Contact Info) Description 03/04/2025 10:00 AM EST Clinical Support [facility] MED & PEDS [address] [place] [address] documented as of this encounter Visit Diagnoses Diagnosis Diabetes mellitus without complication (HCC) Type II or unspecified type diabetes mellitus without mention of complication, not stated as uncontrolled documented in this encounter Care Teams Shaft Tender Relationship Specialty Start Date End Date Nikki Crain MD [address] [place] [id number] PCP - General Family Medicine 04/25/18 documented as of this encounter
--- OUTSIDE RECORDS SUMMARY | 2025-02-21 11:38 | XMS_ITS | Clinical Summary ---
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 Flovent HFA 220 MCG/ACT inhaler INHALE 1 PUFF TWICE DAILY. RINSE MOUTH AFTER USE 12 g 5 09/07/19 23 Active witch marco a-glycerin (Tucks) pad Apply topically if needed for irritation. 50 each 3 06/02/19 24 Active FREESTYLE LITE test stripIndication s:Diabetes mellitus without complication (HCC) TEST BLOOD SUGAR TWICE DAILY 100 strip 11 12/24/19 24 Active Ventolin HFA 108 (90 Base) MCG/ACT inhaler INHALE TWO PUFFS EVERY 4 HOURS NEEDED 18 g 11 12/24/19 24 Active cholecalciferol VITAMIN D (Vitamin D-3) 50 MCG (2000 UT) capsuleIndicati ons:Vitamin D deficiency TAKE ONE CAPSULE IN THE MORNING AND EVENING 180 capsule 3 02/14/20 24 Active naproxen (Naprosyn) 500 MG tablet TAKE ONE TABLET TWICE DAILY WITH FOOD NEEDED 60 tablet 11 02/23/20 24 Active acetaminophen (Tylenol) 500 MG tablet Take 2 tablets (1,000 mg) by mouth every 6 (six) hours if needed for moderate pain or fever for up to 25 doses. 40 tablet 04/02/20 24 Active pramipexole (Mirapex) 0.25 MG tablet 1 tablet in the morning. Active omeprazole (PriLOSEC) [address] capsuleIndicati ons:Gastroesoph ageal reflux disease without esophagitis,Bladimir betes mellitus without complication (HCC) Take 1 capsule (40 mg) by mouth in the morning. 90 capsule 2 09/14/19 25 Active Arnuity Ellipta 200 MCG/ACT inhaler INHALE 1 PUFF DAILY AT THE SAME TIME EACH DAY, RINSE MOUTH AFTER USE 30 each 10/10/19 25 Active glimepiride (Amaryl) 4 MG tabletIndicatio ns:Gastroesopha geal reflux disease without esophagitis,Bladimir betes mellitus without complication (HCC) TAKE ONE TABLET EVERY EVENING 90 tablet 1 10/16/19 25 Active semaglutide (Ozempic) 2 MG/1.5ML solution pen-injector [...] 25 Active cyanocobalamin (Vitamin B-12) 1000 MCG/ML injectionIndica tions:B12 deficiency Inject 1 mL (1,000 mcg) into the muscle every 30 (thirty) days. 1 mL 10/24/19 25 Active rosuvastatin (Crestor) 5 MG tablet TAKE ONE TABLET EVERY MORNING 90 tablet 11/10/19 25 Active Ascorbic Acid (vitamin C) 1000 MG tablet TAKE ONE TABLET IN THE MORNING AND EVENING WITH iron 180 tablet 11/10/19 25 Active metFORMIN XR (Glucophage-XR) 500 MG 24 hr tabletIndicatio ns:Diabetes mellitus without complication (HCC) TAKE TWO TABLETS TWICE DAILY IN THE MORNING AND EVENING 360 tablet 11/10/19 25 Active albuterol (2.5 MG/3ML) 0.083% nebulizer solution USE ONE AMPULE USING A NEBULIZER THREE TIMES DAILY NEEDED 90 mL 3 11/22/19 25 Active pregabalin (Lyrica) 200 MG capsule TAKE ONE CAPSULE THREE TIMES DAILY IN THE MORNING, EVENING AND BEDTIME 90 capsule 3 12/05/19 25 Active pramipexole (Mirapex) 0.5 MG tablet TAKE ONE TABLET EVERY NIGHT AT BEDTIME 90 tablet 1 01/10/20 25 Active estradiol (Climara) 0.0375 MG/24HR Place 1 patch on the skin 1 (one) time per week. 4 patch 11 01/25/20 25 026 Active butalbital-acet aminophen-caffe ine (Fioricet) 50-300-40 MG capsule Take 1 capsule by mouth every 8 (eight) hours if needed for headaches. 30 capsule 01/25/20 25 Active progesterone 100 MG capsule TAKE ONE CAPSULE EVERY MORNING 30 capsule 11 02/05/20 25 Active dicyclomine (Bentyl) 10 MG capsuleIndicati ons:Gastroesoph ageal reflux disease without esophagitis,Bladimir betes mellitus without complication (HCC) TAKE ONE CAPSULE THREE TIMES DAILY IN THE MORNING, EVENING AND BEDTIME 90 capsule 3 02/05/20 25 Active SUMAtriptan (Imitrex) 25 MG tablet TAKE 1 TABLET BY MOUTH 1 TIME NEEDED FOR MIGRAINE FOR UP TO 9 DOSES. MAY REPEAT DOSE ONCE IN 2 HOURS IF NO RELIEF. DO NOT EXCEED 2 DOSES IN 24 HOURS. 9 tablet 2 02/13/20 25 Active progesterone 100 MG capsule Take 1 capsule (100 mg) by mouth Once per day. 30 capsule 11 02/23/20 24 025 Discontinued estradiol (Climara) 0.05 MG/24HR APPLY 1 PATCH TOPICALLY EVERY WEEK,X90 DAYS 02/07/20 24 025 Discontinued dicyclomine (Bentyl) 10 MG capsuleIndicati ons:Gastroesoph ageal reflux disease without esophagitis,Bladimir betes mellitus without complication (HCC) TAKE ONE CAPSULE THREE TIMES DAILY IN THE MORNING, EVENING AND BEDTIME 90 capsule 3 10/10/19 25 025 Discontinued estradiol (Climara) 0.0375 MG/24HR Place 1 patch on the skin 1 (one) time per week. 4 patch 11 10/17/19 25 025 Discontinued(Re order (will not trigger notification to Pharmacy)) SUMAtriptan (Imitrex) 25 MG tablet TAKE 1 TABLET BY MOUTH 1 (ONE) TIME NEEDED FOR MIGRAINE FOR UP TO 9 DOSES. MAY REPEAT DOSE ONCE IN 2 HOURS IF NO RELIEF. DO NOT EXCEED 2 DOSES IN 24 HOURS. 9 tablet 01/16/20 25 025 Discontinued butalbital-acet aminophen-caffe ine (Fioricet) 50-300-40 MG capsule Take 1 capsule by mouth every 8 (eight) hours if needed. 01/18/20 025 Discontinued(Re order (will not trigger notification to Pharmacy)) Hospital, Clinic, or Other Facility Administered Medication Ordered Dose Route Frequency Start Date End Date Status cyanocobalamin (Vitamin B-12) injection 1,000 mcgIndications:B12 deficiency 1000 mcg IM Every 30 days 10/24/2024 Active cyanocobalamin (Vitamin B-12) injection 1,000 mcgIndications:Benign neoplasm of stomach 1000 mcg IM Once 02/04/2025 02/04/2025 Ended Active Problems Problem Noted Date Diagnosed Date Abnormal ultrasound 01/24/2025 Acute intractable headache 01/24/2025 Acute wrist pain 01/24/2025 Anemia 01/24/2025 Arthritis of carpometacarpal (CMC) joint of left thumb 01/24/2025 Arthritis of carpometacarpal (CMC) joint of righ t thumb 01/24/2025 Blister of finger 01/24/2025 Pain of left middle finger 01/24/2025 Asthma exacerbation 01/24/2025 Atypical chest pain 01/24/2025 Chest wall pain 01/24/2025 Benign neoplasm of stomach 01/24/2025 Bilateral hand numbness 01/24/2025 Carpal tunnel syndrome of left wrist 01/24/2025 Carpal tunnel syndrome of right wrist 01/24/2025 Colitis 01/24/2025 Infectious colitis 01/24/2025 Diverticular disease of colon 01/24/2025 Epigastric pain 01/24/2025 Hoarseness 01/24/2025 Menorrhagia with irregular cycle 01/24/2025 Menorrhagia 01/24/2025 Pneumonia 01/24/2025 Post-menopausal bleeding 01/24/2025 Vaginal bleeding 01/24/2025 Radial styloid tenosynovitis (de quervain) 01/24 Colon cancer screening 01/24/2025 Screening mammogram, encounter for 01/24/2025 Well woman exam 01/24/2025 Bronchitis 01/24/2025 Sepsis (CMS/HCC) 01/24/2025 Tachycardia 01/24/2025 Diabetes 01/24/2025 Type 2 diabetes mellitus 01/24/2025 Fibromyalgia 01/24/2025 Acid reflux 01/24/2025 Obesity 01/24/2025 IKER (generalized anxiety disorder) 01/24/2025 Postmenopausal disorder 06/02/2023 Cortical senile cataract of right eye 03/29/2022 Diabetes mellitus without complication 0 Kidney stone 09/28/2017 Anxiety 03/11/2015 Gastric reflux 03/11/2015 Primary fibromyalgia syndrome 03/11/2015 Rosacea 03/11/2015 Protruded lumbar disc 08/02/2013 Moderate major depression ([facility]) 08/01/2012 Constipation 11/05/2011 Disorder of skeletal muscle 11/05/2011 Gastroesophageal reflux disease 11/05/2011 Chronic laryngitis 11/05/2011 Seasonal allergic rhinitis 11/05/2011 Encounters * This document contains information received from the source organization and may not represent a complete record from that organization. Date Type Department Care Team Description 02/11/2025 Refill [facility] [address] [place] [address] Nikki Crain MD 02/04/2025 10:00 AM EDT Clinical Support [facility] [address] [place] [address] Sarai Mir RN Benign neoplasm of stomach 02/04/2025 Travel 02/03/2025 Refill [facility] [address] [place] [address] Nikki Crain MD Gastroesophageal reflux disease without esophagitis; Diabetes mellitus without complication (HCC) 02/01/2025 Orders Only [facility] [address] [place] [address] Nikki Crain MD Migraine without status migrainosus, not intractable, unspecified migraine type (Primary Dx); New persistent daily headache 01/31/2025 Telephone [facility] [address] [place] [address] Nikki Crain MD New MRI order 01/30/2025 Orders Only [facility] [address] [place] [address] Nikki Crain MD New persistent daily headache (Primary Dx) 01/29/2025 Telephone [facility] [address] [place] [address] Nikki Crain MD Referral 01/24/2025 2:00 PM EDT Office Visit [facility] [address] [place] [address] Nikki Crain MD Migraine without status migrainosus, not intractable, unspecified migraine type (Primary Dx); Diabetes mellitus without complication (HCC); New persistent daily headache 01/24/2025 Travel 01/22/2025 Telephone [facility] [address] [place] [address] Nikki Crain MD Nurse Triage 01/22/2025 Telephone [facility] [address] [place] [address] Nikki Crain MD Medication Question 01/17/2025 Orders Only GENERIC EXTERNAL DATA DEPARTMENT Provider, Generic External Data 01/14/2025 Refill [facility] [address] [place] [address] Hood Couch MD 01/09/2025 Refill [facility] [address] [place] [address] Nikki Crian MD 01/08/2025 Telephone [facility] [address] [place] [address] scan order 01/04/2025 11:00 AM EDT Clinical Support [facility] [address] [place] [address] Sarai Mir RN Postmenopausal disorder; Diabetes mellitus without complication (CMS/HCC) 01/04/2025 Travel 01/01/2025 9:15 AM EDT Office Visit [facility] [address] [place] [address] Tarka, Danita, OD Dry eyes, bilateral (Primary Dx); Left posterior capsular opacification 01/01/2025 Telephone [facility] [address] [place] [address] Nikki Crain MD Referral 01/01/2025 Travel 12/20/2024 Telephone [facility] [address] [place] [address] Nikki Crain MD 12/19/2024 Telephone [facility] [address] [place] [phone] Nikki Crain MD Medication Question 12/18/2024 2:00 PM EDT Office Visit [facility] [address] [place] [phone] Name, MD Hood Migraine without status migrainosus, not intractable, unspecified migraine type (Primary Dx) 12/18/2024 Travel 12/06/2024 11:15 AM EDT Office Visit [facility] [address] [place] [address] Nikki Crain MD DUB (dysfunctional uterine bleeding) (Primary Dx); Endometrial thickening on ultrasound 12/06/2024 Travel 12/04/[address] [address] Nikki Crain MD 12/03/2024 10:15 AM EDT Clinical Support [facility] [address] [place] [phone] Sarai Mir RN Vitamin D deficiency 12/03/2024 Travel 11/27/2024 Patient Outreach [address] [address] Nikki Crain MD Pre-visit Planning (SDOH screening completed on 05/15/24 ) 11/21/[address] [address] Nikki Crain MD Appointment Request 11/21/2024 Refill [facility] [address] [place] [address] Nikki Crain MD from Last 3 Months Immunizations Immunization Administration [...] Answer Date Recorded Patient Health Questionnaire-9 Score 12 01/25/2025 Patient Health Questionnaire-9 Score 12 01/25/2025 Last PHQ-9: Questionnaire Data Not on file 1 Housing Stability Answer Date Recorded What is your housing situation today? I do not have housing (Staying with others, in a hotel, in a [place], living outside on the street, on a [...] Answer Date Recorded Patient Health Questionnaire-2 Score 5 01/25/2025 Internet Access Answer Date Recorded Internet Access [...] Sign Reading Time Taken Comments Blood Pressure 108/76 01/24/2025 1:47 PM EDT Pulse 100 01/24/2025 1:47 PM EDT Temperature 36.3 C (97.4 F) 01/24/2025 1:47 PM EDT Respiratory Rate 12 01/24/2025 1:47 PM EDT Oxygen Saturation 97% 01/24/2025 1:47 PM EDT Inhaled Oxygen Concentration - - Weight 60.8 kg (134 lb) 01/24/2025 1:47 PM EDT Height 149.9 cm (4' 11 ) 01/24/2025 1:47 PM EDT Body Mass Index 27.06 01/24/2025 1:47 PM EDT Plan of Treatment Upcoming Encounters Date Type Department Care Team (Late st Contact Info) Description 03/04/2025 10:00 AM EST Clinical Support [facility] [address] [place] [address] Health Maintenance Due Date Last Done Comments CT Colonography 1968 FIT DNA/Cologuard 1968 FIT 1968 FOBT 1968 Sigmoidoscopy 1968 Disability Screening 1968 Alcohol/Substance Use Screening 1980 Hepatitis B Vaccines (1 of 3 - 19+ 3-dose series) 01/25/1987 Pneumococcal Vaccine: 50+ Years (1 of 2 - PCV) 01/25/1987 Mammogram 2008 Diabetes: Urine Protein Screening 08/24/2022 08/24/2021 Diabetes: Foot Exam 06/02/2024 06/02/2023, 06/02/2023, 06/02/2023, Additional history exists Lipid Panel 06/15/2024 06/15/2023, 08/24/2021 COVID-19 Vaccine ( season) 2024 12/18/2020, 10/21/2020 Influenza Vaccine (#1) 2024 2, 04/02/2021, 03/25/2020, Additional history exists SDOH Screening 05/15/2025 05/15/2024 Diabetes: Hemoglobin A1C 07/25/2025 025, 10/16/2024, 05/22/2024, Additional history exists Depression Monitoring 07/26/2025 01/25/2025, 025 Cervical Cancer Screening 09/09/2025 HPV/Cotest 09/09/2025 07/02/2020, 07/02/2020 Pap Smear 09/09/2025 09/09/2020 Tobacco Screening 01/24/2026 01/24/2025 DTaP/Tdap/Td Vaccines (2 - Td or Tdap) 06/16/2026 06/16/2016 Eye Exam 01/01/2027 01/01/2025, 11/02/2024 Colonoscopy 07/14/2033 07/15/2023 Colorectal Cancer Screening [...] Procedure Name Priority Date/Time Associated Diagnosis Comments MR BRAIN WO CONTRAST Routine 02/21/2025 10:01 AM EDT New persistent daily headache POCT GLUCOSE Routine 01/24/2025 1:50 PM EDT Diabetes mellitus without complication (HCC) POCT GLYCATED HEMOGLOBIN, TOTAL Routine 01/24/2025 1:50 PM EDT Diabetes mellitus without complication (HCC) GLUCOSE, WHOLE BLOOD Routine 01/17/2025 2:50 PM EDT SED RATE BY MODIFIED WESTERGREN Routine 01/17/2025 12:38 PM EDT C-REACTIVE PROTEIN Routine 01/17/2025 11 :38 AM EDT MAGNESIUM Routine 01/17/2025 11:38 AM EDT BASIC METABOLIC PANEL Routine 01/17/2025 11:38 AM EDT HEPATIC FUNCTION PANEL Routine 01/17/2025 11:38 AM EDT COVID-19 ID NOW (BRIONES) Routine 01/17/2025 11:38 AM EDT CBC WITH AUTO DIFFERENTIAL Routine 01/17/2025 11:38 AM EDT INFLUENZA A B2 ID NOW (BRIONES) Routine 01/17/2025 11:38 AM EDT HM COLONOSCOPY Routine 07/15/2023 LIPID PANEL, STANDARD [...] Recently Relevant to Health Maintenance Results * MR Brain w/o Contrast (02/21/2025 10:01 AM EDT) Anatomical Region Laterality Modality Brain Magnetic Resonan ce 02/21/2025 10:0 1 AM EDT Narrative 02/21/2025 10:49 AM EDT [place] [address] Magnetic Resonance Report Signed Patient: Esperanza Werner MR#: [id number] 9 : 1970 Acct:[id number] Age/Sex: 55 / F ADM Date: 02/21/25 Loc: HO.MRI Attending Dr: Nikki Crain MD Ordering Physician: Nikki Crain MD Date of Service: 02/21/25 Procedure(s): MR head/brain wo con Accession Number(s): [id number] cc: Nikki Crain MD Reason for Exam: chronic migraines despite treatment and prophylaxis EXAMINATION: MR BRAIN WITHOUT CONTRAST CLINICAL INFORMATION: Chronic migraines. COMPARISON: Correlated to CT dated October 29, 2024. TECHNIQUE: MRI of the brain was obtained using routine sequences without contrast. FINDINGS: No restricted diffusion. No acute intracranial hemorrhage, mass effect, midline shift, hydrocephalus or herniation. Gonsales-white matter differentiation is normal. Bilateral, a few scattered, nonspecific, subcortical and deep white matter hyperintense T2 FLAIR signal foci involving centrum semiovale and alfaro radiata both hemispheres. Posterior cranial fossa contents demonstrated no signal abnormality or mass effect. Normal position of the cerebellar tonsils. Sellar/suprasellar region is normal. Flow-void signal within the main cerebral vessels is normal. No air-fluid levels in the paranasal sinuses. MR/MR head/brain wo con IMPRESSION: Nonspecific white matter T2 FLAIR signal which could be seen patients with migraines No acute brain abnormality.. Electronically signed by: Paul De La Cruz MD 02/21/2025 10:46 AM EDT Dictated By: Paul Bermudez MD Signed By: <Electronically signed by Paul Hampton MD in OV> 02/21/25 1046 DD/ 1001 TD/TT: 02/21/25 1017 Raise Drill Operator: Procedure Note Donotuseinterpreter, Image - 02/21/2025 [place] [address] Magnetic Resonance Report Signed Patient: Denise Werner#: [id number] 9 : 1970Acct:[id number] Age/Sex: 55 / FADM Date: 02/21/25 Loc: HO.MRI Attending Dr: Nikki Crain MD Ordering Physician: Nikki Crain MD Date of Service: 02/21/25 Procedure(s): MR head/brain wo con Accession Number(s): [id number] cc: Nikki Crain MD Reason for Exam: chronic migraines despite treatment and prophylaxis EXAMINATION: MR BRAIN WITHOUT CONTRAST CLINICAL INFORMATION: Chronic migraines. COMPARISON: Correlated to CT dated October 29, 2024. TECHNIQUE: MRI of the brain was obtained using routine sequences without contrast. FINDINGS: No restricted diffusion. No acute intracranial hemorrhage, mass effect, midline shift, hydrocephalus or herniation. Gonsales-white matter differentiation is normal. Bilateral, a few scattered, nonspecific, subcortical and deep white matter hyperintense T2 FLAIR signal foci involving centrum semiovale and alfaro radiata both hemispheres. Posterior cranial fossa contents demonstrated no signal abnormality or mass effect. Normal position of the cerebellar tonsils. Sellar/suprasellar region is normal. Flow-void signal within the main cerebral vessels is normal. No air-fluid levels in the paranasal sinuses. MR/MR head/brain wo con IMPRESSION: Nonspecific white matter T2 FLAIR signal which could be seen patients with migraines No acute brain abnormality.. Electronically signed by: Paul De La Cruz MD 02/21/2025 10:46 AM EDT RP Dictated By: Paul Bermudez MD Signed By: <Electronically signed by Paul Hampton MDin OV> 02/21/25 1046 DD/ 1001 TD/TT: 02/21/25 1017 Raise Drill Operator: us Nikki Crain MD IMG MRI PROCEDURES Final Resu lt * (ABNORMAL) POCT A1c (01/24/2025 1:50 PM EDT) Hemoglobin A1C 6.9(A) 4.0 - 5.7 % QC Media Lot # Comment:[id number] Lot# Expiration Date Comment:08/16/2026 Blood 01/24/2025 1:50 PM EDT us Nikki Crain MD POINT OF CARE TEST ENTER/EDIT ORDERABLES Final Result * POCT glucose manually resulted (01/24/2025 1:50 PM EDT) Glucose Blood, POC 97 60 - 200 mg/dL QC Media Lot # Comment:[id number] Lot# Expiration Date Comment:04/13/2025 Blood Capillary blood specimen / Unknown 01/24/2025 1:50 PM EDT us Nikki Crain MD POINT OF CARE TEST ENTER/EDIT ORDERABLES Final Result * (ABNORMAL) Glucose, Whole Blood (01/17/2025 2:50 PM EDT) Glucose, Whole Blood 152(H) 60 - 115 mg/dL [facility] Comment:METER #: [id number] 01/17/2025 2:50 PM EDT 01/17/2025 2:53 PM EDT us Generic External Data Provider LAB BLOOD ORDERAB LES Final Result [facility] [address] [place] [phone] * Sed Rate by Modified Danaren (01/17/2025 12:38 PM EDT) Erythrocyte Sedimentation Rate 17 0 - 20 MM/HR [facility] Comment:Patients with polycy themia and many hemoglobin abnormalitiesmay have depressed sed rates whereas patients with anemiamay have elevated sed rates. 01/17/2025 12:3 8 PM EDT 01/17/2025 12:40 PM EDT us Generic External Data Provider LAB BLOOD ORDERAB LES Final Result Performing Organization Address [facility] de Phone Number [facility] [address] [place] [phone] * Influenza A B2 ID NOW (Briones) (01/17/2025 11:38 AM EDT) Pathologist [facility] IDNOW SERIAL# [id number] [facility] Influenza A Negative Negative [facility] Influenza B2 Negative Negative [facility] Influenza A B2 Note See Note [facility] Comment:The Briones ID NOW In fluenza A B2 test is used for thequalitative detection of influenza A and B from patientswith signs and symptoms of respiratory infection.Negative results do not preclude influenza virus infectionand should not be used as the sole basis for diagnosis,treatment or other patient management decisions.There is a risk of false negative results due to thepresence of variants in the viral targets of the assay, lowlevels of virus in the specimen and co- infection withRespiratory Syncytial Virus. 01/17/2025 11:3 8 AM EDT 01/17/2025 11:53 AM EDT us Generic External Data Provider LAB MICROBIOLOGY - GENERAL ORDERABLES Final Result Performing Organization Address [facility] Co de Phone Number [facility] [address] [place] [phone] * COVID-19 ID NOW (BRIONES) (01/17/2025 11:38 AM EDT) IDNOW SERIAL# [id number] [facility] COVID-19 TEST Negative Negative [facility] COVID-19 NOTE See Note [facility] Comment: Results are for the identification of SARS-CoV2 RNA. TheSARS-CoV2 RNA is generally detectable in respiratory samplesduring the acute phase of infection. Positive results areindicative of the presence of SARS-CoV-2 RNA; clinicalcorrelation with patient history and other diagnosticinformation is necessary to determine patient infectionstatus. Positive results do not rule out bacterial infectionor co- infection with other viruses.Testing facilities within the [facility] and [facility] are required to report all positive results tothe appropriate public health authorities.Negative results should be treated as presumptive and, ifinconsistent with clinical signs and symptoms or necessaryfor patient management, should be tested with differentauthorized or cleared molecular tests. Negative results donot preclude SARS-CoV2 RNA infection and should not be usedas the sole basis for patient management decisions. Negativeresults should be considered in the context of a patient'srecent exposures, history and the presence of clinical signsand symptoms consistent with COVID-19.This test has been authorized by the FDA under an EmergencyUse Authorization (EUA) for use by authorized laboratories.Testing performed on the [facility]iones ID NOW utilizing NAAT. 01/17/2025 11:3 8 AM EDT 01/17/2025 11:53 AM EDT us Generic External Data Provider LAB MOLECULAR BLADIMIR GNOSTICS ORDERABLES Final Result [facility] [address] [place], [place] [phone] * (ABNORMAL) CBC auto differential (01/17/2025 11:38 AM EDT) White Blood Count 11.5(H) 4.8 - 10.8 X10*3/uL [facility] Red Blood Count 4.52 4.20 - 5.50 X10*6/uL [facility] Hemoglobin 13.3 12.0 - 16.0 g/dl [facility] Hematocrit 42.3 37.0 - 47.0 % [facility] Mean Corpuscular Volume 93.6 80.0 - 98.0 fL [facility] Mean Corpuscular Hemoglobin 29.4 27.0 - 33.0 pg [facility] Mean Corpuscular HGB Conc 31.4 31.0 - 35.0 g/dl [facility] Red Cell Distribution Width 14.4 11.0 - 16.0 % [facility] Platelet Count 354 160 - 400 X10*3/uL [facility] Mean Platelet Volume 10.9 9.4 - 12.3 fL [facility] Neutrophils Percent Auto 72.2 45 - 73 % [facility] Imm Gran Pct Auto 0.3 0.0 - 0.4 % [facility] Lymphocytes Percent Auto 19.2(L) 20 - 40 % [facility] Monocytes Percent Auto 7.0 2 - 11 % [facility] Eosinophils Percent Auto 0.7 0 - 4 % [facility] Basophils Percent Auto 0.6 0 - 2 % [facility] NRBC Pct Auto 0.0 0.0 - 0.2 /100WBC [facility] Neutrophils Absolute Auto 8.3 2.0 - 8.3 x10*3/uL [facility] Imm Gran Abs Auto 0.03 0.00 - 0.03 X10*3/uL [facility] Lymphocytes Absolute Auto 2.2 1.2 - 4.9 X10*3/uL [facility] Monocytes Absolute Auto 0.8 0.1 - 1.2 X10*3/uL [facility] Eosinophils Absolute Auto 0.1 0.0 - 0.4 X10*3/uL [facility] Basophils Absolute Auto 0.1 0.0 - 0.2 X10*3/uL [facility] NRBC Abs Auto 0.000 0.0 - 0.012 X10*3/uL [facility] 01/17/2025 11:3 8 AM EDT 01/17/2025 11:53 AM EDT Generic External Data Provider LAB BLOOD ORDERAB LES Final Result Performing Organization Address [facility] de Phone Number [facility] [address] [place] [phone] * (ABNORMAL) C-reactive Protein (01/17/2025 11:38 AM EDT) C Reactive Protein 1.38(H) < or = 0.50 mg/dL [facility] 01/17/2025 11:3 8 AM EDT 01/17/2025 11:53 AM EDT Generic External Data Provider LAB BLOOD ORDERAB LES Final Result Performing Organization Address [facility] Phone Number [facility] [address] [place] [phone] * Magnesium (01/17/2025 11:38 AM EDT) Pathologist [facility] Magnesium 2.1 1.6 - 2.6 mg/dL [facility] 01/17/2025 11:3 8 AM EDT 01/17/2025 11:53 AM EDT Generic External Data Provider LAB BLOOD ORDERAB LES Final Result Performing Organization Address [facility] de Phone Number [facility] [address] [place] [address] [phone] * (ABNORMAL) Hepatic Function Panel (01/17/2025 11:38 AM EDT) Bilirubin, Total 0.2 0.0 - 1.0 mg/dL [facility] Bilirubin, Direct <0.2 0.0 - 0.5 mg/dL [facility] Aspartate Amino Transferase 26 5 - 31 U/L [facility] Alanine Aminotransferase 32(H) 0 - 31 U/L [facility] Total Protein 7.1 6.5 - 8.0 g/dL [facility] Albumin Level 4.4 3.5 - 5.0 g/dL [facility] Alkaline Phosphatase 105 39 - 117 U/L [facility] 01/17/2025 11:3 8 AM EDT 01/17/2025 11:53 AM EDT us Generic External Data Provider LAB BLOOD ORDERAB LES Final Result [facility] [address] [place] [address] [phone] * (ABNORMAL) Basic Metabolic Panel (01/17/2025 11:38 AM EDT) Sodium 139 135 - 145 mmol/L [facility] Potassium 4.2 3.3 - 5.1 mmol/L [facility] Chloride 107 96 - 108 mmol/L [facility] Carbon Dioxide 22 22 - 29 mmol/L [facility] Anion Gap 14 12 - 20 [facility] Urea Nitrogen (BUN) 8(L) 9 - 16 mg/dL [facility] Creatinine, Serum 0.52 0.5 - 1.4 mg/dL [facility] Creatinine Clr Calc Pharmacy 95.0 [facility] Comment:Provided height and weight: 149.86 cm,59.8 kg.eGFR (calculated from the MDRD study equation) and eCrCl(calculated from the Cockcroft-Gault equation) are based ondifferent parameters and may not yield comparable results.If eCrCl result is absurd, please check patient'sheight/weight. Estimated Glomerular Filt Rate >60 [facility] Comment:Chronic Kidney Disea se: Estimated GFR < 60 mL/min/1.87b0Rtruvy Kidney Disease: Estimated GFR < 15 mL/min/1.73m2 Glucose 129(H) 60 - 115 mg/dL [facility] Calcium 9.2 8.4 - 10.2 mg/dL [facility] 01/17/2025 11:3 8 AM EDT 01/17/2025 11:53 AM EDT us Generic External Data Provider LAB BLOOD ORDERAB LES Final Result [facility] [address] [place] [address] [phone] * Hm Colonoscopy (07/15/2023) Colonoscopy Normal Normal us Nikki Crain MD HEALTH MAINTENANCE Final Resu lt * (ABNORMAL) Lipid Panel, Standard (06/15/2023 8:17 AM EST) Triglycerides 110 <150 mg/dL [facility] Comment:Desirable Triglyceri de: less than 150 mg/dLBorderline High Triglyceride 150-199 mg/dLHigh Triglyceride: 200-499 mg/dLVery High Triglyceride: greater than or equal to 5OO mg/dL Cholesterol 132 <200 mg/dL [facility] Comment:Desirable Cholestero l: less than 200 mg/dLBorderline High Cholesterol: 200-239 mg/dLHigh Cholesterol: greater than 239 mg/dL LDL Cholesterol Calculated 73 <100 mg/dL [facility] Comment:Desirable LDL: less than 100 mg/dLNear Optimal/Above Optimal LDL: 110- 129 mg/dLBorderline High LDL: 130-159 mg/dLHigh LDL: 160-189 mg/dLVery High LDL: greater than or equal to 190 mg/dL HDL Cholesterol 37(L) >40 mg/dL [facility] Comment:Desirable HDL: great er than 40 mg/dL Note: This HDL assay may give artificially low results in patients with liver disease. Blood Venous blood specimen / Unknown 06/15/2023 8:17 AM EST 06/15/2023 2:37 PM EST us Nikki Crain MD LAB BLOOD ORDERABLES Final Re sult Performing Organization Address City/[facility]/ZIP Co de Phone Number [facility] [address] [place] [address] [phone] * HIV-1 RNA, Quantitative, Real-Time PCR with Reflex to Genotype (RTI, PI, Integrase) (10/08/2022 8:53 AM EDT) HIV 1 RNA, QN PCR NOT DETECTED copies/mL [facility], HIV 1 RNA, QN PCR NOT DETECTED Log copies/mL [facility], Comment: REFERENCE RANGE: NOT DETECTED copies/mL NOT DETECTED Log copies/mL This test was performed using Real-Time Polymerase Chain Reaction. Reportable range is 20 to 10,000,000 copies/mL (1.30-7.00 Log copies/mL). 10/08/2022 8:53 AM EDT 10/08/2022 8:53 AM EDT Nikki Crain MD LAB BLOOD ORDERABLES Final Re sult [facility] [address], [place] [address], [address] [place] [address] * (ABNORMAL) Hepatitis Panel, General (10/08/2022 8:53 AM EDT) Hepatitis A Antibody Total NON-REACT ART NON-REACT ART [facility] Comment: For additional information, please refer to http://education.[employer]/faq/MXC100 (This link is being provided for informational/ educational purposes only.) Hepatitis B Surface Antibody QL REACTIVE( A) NON-REACT ART [facility] Hepatitis B Surface Ag NON-REACT ART NON-REACT ART [facility] Hepatitis B Core Antibody Total NON-REACT ART NON-REACT ART [facility] Hepatitis C Antibody NON-REACT ART NON-REACT ART [facility] Index <0.02 <1.00 [facility] Comment: HCV antibody was non-reactive. There is no laboratory evidence of HCV infection. In most cases, no further action is required. However, if recent HCV exposure is suspected, a test for HCV RNA (test code 06844) is suggested. For additional information please refer to http://education.[employer]/faq/ORZ72j9 (This link is being provided for informational/ educational purposes only.) 10/08/2022 8:53 AM EDT 10/08/2022 8:53 AM EDT Nikki Crain MD LAB BLOOD ORDERABLES Final Re sult Performing Organization Address City/[facility]/ZIP Co de Phone Number [facility] [address], [place] [address] [facility] [address] [place] [address] * ALBUMIN, RANDOM URINE W/CREATININE (08/24/2021 8:02 [...] [facility] 08/24/2021 8:02 AM EDT us Nikki Crain MD LAB URINE ORDERABLES Final Re sult Performing Organization Address [facility]/ZIP Co de Phone Number [facility] [address] [place] [address], * THINPREP PAP (09/09/2020 3:04 PM EDT) [...] along with historic and current clinical information. Adult Day Care Worker : SEE COMMENT [facility] Comment: DCR, CT(ASCP) CT screening location: [place] [address] Interpretation/R esult: Negative for intraepithelial lesion or malignancy. [facility] LMP: NONE GIVEN [facility] Prev. BX: NONE [facility]IVEN [facility] Prev. PAP: NONE GIVEN [facility] SOURCE: None given [facility] Statement Of Adequacy: SEE COMMENT [facility] Comment: Satisfactory for evaluation. Endocervical/transformation zone component present. Age and/or menstrual status not provided 09/09/2020 3:04 PM EDT Haley Pena [employer] LAB PATHOLOGY ORDERABLES Final Result [facility] [address] * HPV E6/E7 RFLX BRENDA 16 18/45 (07/02/2020 3:05 PM EST) HPV mRNA E6/E7 rflx Not Detected Not Detected [facility] Comment: Methodology: Roll Panner-Mediated Amplification This assay detects E6/E7 viral messenger RNA (mRNA) from 14 high-risk HPV types (16,18,31,33,35,39,45,51,52,56,58,59,66,68). The analytical performance characteristics of this assay have been determined by [facility]. The modifications have not been cleared or approved by the FDA. This assay has been validated pursuant to the CLIA regulations and is used for clinical purposes. For additional information, please refer to http://education.[employer]/faq/ANJ151l9 (This link if provided for information/ educational purposes only.) THIS TEST WAS PERFORMED AT: [facility] [address] [place] [address],[place] [address] OMER KOCH MD 07/02/2020 3:05 PM EST Joseph Jiang MD HISTORICAL/NON ORDERABLE LABS Fi nal Result [facility] [address] [place] [address], from Last 3 Months or Most Recently Relevant to Health Maintenance Insurance [employer] Care Teams Game Breeding Farm Manager Relationship Specialty Start Date End Date Nikki Crain MD [address] [place] [phone] PCP - General Family Medicine 04/25/18
--- OUTSIDE RECORDS SUMMARY | 2025-02-21 11:38 | XMS_ITS | Encounter Summary ---
Author Organization [employer] Address [address] [place] [address] 7 [place] [address] Care Team Providers Care Diesel Mechanic Apprentice Name Role Phone Nikki Crain MD Primary Care Provider [phone] Encounter Details Date Type Department Care Team ([facility] Contact Info) Description 10/29/2022 Orders Only [facility] [address] [place] [address] Nikki Crain MD [address] [place] [address] Social History Tobacco Use Types Packs/Day Years [...] Upcoming Encounters Date Type Department Care Team ([facility] Contact Info) Description 03/04/2025 10:00 AM EST Clinical Support [facility] [address] [place] [address] documented as of this encounter Visit Diagnoses Not on filedocumented in this encounter Care Teams Diesel Mechanic Apprentice Relationship Specialty Start Date End Date Nikki Crain MD [address] [place] [phone] PCP - General Family Medicine 04/25/18 documented as of this encounter
--- OUTSIDE RECORDS SUMMARY | 2025-02-21 11:38 | XMS_ITS | Encounter Summary ---
Author Organization [employer] Address [address] [facility] 7 [place] [address] Care Team Providers Care Fbi Profiler Name Role Phone Nikki Crain MD Primary Care Provider [phone] Reason for Visit * Reason Comments Med Refill Encounter Details Date Type Department Care Team ([facility] st Contact Info) Description 09/13/2024 Refill [facility] [address] [place], [place] [phone] Cornell Millan MD [address] [place] [address] Gastroesophageal reflux disease without esophagitis; Diabetes mellitus without complication ([facility]) Social History Tobacco Use Types Packs/Day Years [...] with others, in a hotel, in a detention, living outside on the street, on a [...] Upcoming Encounters Date Type Department Care Team ([facility] st Contact Info) Description 03/04/2025 10:00 AM EST Clinical Support [facility] [address] [place] [address] documented as of this encounter Visit Diagnoses Diagnosis Gastroesophageal reflux disease without esophagitis Esophageal reflux Diabetes mellitus without complication (HCC) Type II or unspecified type diabetes mellitus without mention of complication, not stated as uncontrolled documented in this encounter Additional Health Concerns Assessment Noted Time PHQ-9 Depression Total Score: 6 06/02/19 24 10:53 AM EST documented as of this encounter Care Teams Fbi Profiler Relationship Specialty Start Date End Date Nikki Crain MD [address] [place] [address] PCP - General Family Medicine 04/25/18 documented as of this encounter
--- OUTSIDE RECORDS SUMMARY | 2025-02-21 11:38 | XMS_ITS | Encounter Summary ---
Author Organization [employer] Address [address] [facility] 7 [place] [address] Care Team Providers Care Knockout Machine Operator Name Role Phone Nikki Crain MD Primary Care Provider [phone] Reason for Visit * Reason Onset Date Comments Medication Question 12/19/2024 Encounter Details Date Type Department Care Team ([facility] st Contact Info) Description 12/19/2024 Telephone [facility] MED[facility] [address] [place] [address] Nikki Crain MD [address] [place] [address] Medication Question Social History Tobacco Use Types [...] * Telephone Encounter - Hood Barreto - 12/20/2024 9:35 AM EDT Tc from pt requesting a call back regarding prior message. Contact pt at [phone] * Telephone Encounter - Harry العراقي - 12/19/2024 9:49 AM EDT Tc from pt requesting call back stating medication sent from yesterday's visit for migraine is not providing any real relief and she would like an alternative. Please contact pt at [phone]. (Libyan Speaker) documented in this encounter Plan of Treatment Upcoming Encounters Date Type Department Care Team ([facility] st Contact Info) Description 03/04/2025 10:00 AM EST Clinical Support [facility] [address] [place] [address] documented as of this encounter Visit Diagnoses Not on filedocumented in this encounter Additional Health Concerns Assessment Noted Time PHQ-9 Depression Total Score: 6 06/02/19 24 10:53 AM EST documented as of this encounter Care Teams Knockout Machine Operator Relationship Specialty Start Date End Date Nikki Crain MD [address] [place] [address] PCP - General Family Medicine 04/25/18 documented as of this encounter
--- OUTSIDE RECORDS SUMMARY | 2025-02-21 11:38 | XMS_ITS | Clinical Summary ---
Author Organization [employer] [facility] ity Address [address] [place] [address] Care Team Providers Care Tracer Lathe Set Up Operator Name Role Phone Unavailable Primary Care Provider Unavailabl e Social History Tobacco Use Types Packs/Day Years Used Date Smoking Tobacco: Never Assessed Comments Unknown Sex and Gender Information Value Date Recorded Sex Assigned at Not on file Legal Sex Female 1:33 AM EST Gender Identity Not on file Sexual Orientation Not on file Plan of Treatment Health Maintenance Due Date Last Done Comments Colorectal Cancer Screening: Colonoscopy 1970 DTaP,Tdap,and Td Vaccines (1 - Tdap) 01/25/1987 Hepatitis B Vaccines (1 of 3 - 19+ 3-dose series) 01/25/1987 Cervical Cancer Screening: P ap Smear 01/25/1989 Pneumococcal Vaccine: 50+ Years (1 of 1 - PCV) 01/25/2018 Zoster Vaccines (1 of 2) 01/25/2018 HIV Screening 03/28/2022 Hepatitis C Screening 03/28/2022 Social Influencers of Health Screening 03/28/2022 Breast Cancer Screening 09/12/2023 09/12/19 22, 12/14/2019, 07/12/2018 Depression Screening 04/25/2024 COVID-19 Vaccine ( - 2023-2 5 season) 2024 Influenza Vaccine (#1) 2024 RSV Immunization Adult Patients (1 - 1-dose 75+ series) 01/25/2043 HIB Vaccines Aged Out No longer eligi [...] Procedure Name Priority Date/Time Associated Diagnosis Comments [facility] SCREENING DIGITAL Routine 09/11/2021 2:35 PM EDT Encounter for screening mammogram for malignant neoplasm of breast from Last 3 Months or Most Recently Relevant to Health Maintenance Results * [facility] SCREENING DIGITAL (09/11/2021 2:35 PM EDT) Anatomical Region Laterality Modality Mammography 09/11/2021 12:5 0 PM EDT Narrative 09/11/2021 2:35 PM EDT [facility] Diagnostic Imaging Department [address] [place] [address] Patient: ESPERANZA LEVINE D.O.B./Age/Sex: 1970 - 51 - F Unit#: [id number] Location/Status: [facility] CLI Mnemonic/Ordering Site: [facility] Ordering Physician: [place] CRAIN [facility] Screening Digital - 09/11/21 1315 EXAM: [facility] Screening Digital EXAM DATE AND TIME: 09/11/2021 1:15 PM HISTORY: Annual screening mammography COMPARISON: 12/14/2019 through 10/16/2012 TECHNIQUE: CC and MLO views of both breasts were obtained using full field digital mammography. Bilateral digital breast tomosynthesis was performed in the MLO projection. Computer aided detection with the Image[employer]ack 7.2-H was employed. TISSUE DENSITY: c. The [...] Routine screening mammogram BILATERAL in 1 year. [address], [id number], 7025F Dictating Physician: ALICIA BOWEN MD Electronically Signed by: ALICIA BOWEN MD Dic Date/Time: 09/11/21 1431 Sign date/Time: 09/11/21 143 Procedure Note Radha Bowen MD - 04/14/2022 [facility] Diagnostic Imaging Department [address] [place] [address] Patient: ESPERANZA LEVINE/Age/Sex: 1970 - 51 - F Unit#: [id number] Location/Status: [facility]/REG CLI Mnemonic/Ordering Site: [facility] Ordering Physician: [place] CRAIN [facility] Screening Digital - 09/11/21 - 1315 EXAM: [facility] Screening Digital EXAM DATE AND TIME: 09/11/2021 1:15 PM HISTORY: Annual screening mammography COMPARISON: 12/14/2019 through 10/16/2012 TECHNIQUE: CC and MLO views of both breasts were obtained using fullfield digital mammography. Bilateral digital breast tomosynthesis was performedin the MLO projection. Computer aided detection with the [employer] employed. TISSUE DENSITY: c. The breasts are [...] Routine screening mammogram BILATERAL in 1 year. [address]90, [id number] 3342F, 7025F Dictating Physician: ALICIA BOWEN MD Electronically Signed by: ALICIA BOWEN MD Dic Date/Time: 09/11/21 1431 Sign date/Time: 09/11/21 1435 us [place] Crain MD IMG BI PROCEDURES Final Resul t from Last 3 Months or Most Recently Relevant to Health Maintenance
== END 2025-02-21 09:52 | disposition home or self-care (01) ==
LOC: HO.MRI 09:51
PROVIDERS: PCP Pediatrics; Visit Provider Pediatrics
DX: G44.52 New daily persistent headache (NDPH) (principal)
CPT/HCPCS: 70551

== ENCOUNTER → 2025-02-21 09:55 | Outpatient (BNV) | payer MEDICAID, SELFPAY | PROVIDERS: PCP Pediatrics; Visit Provider Radiology Diagnostic Radiology | DX: G43.719 Chronic migraine without aura, intractable, without status migrainosus (principal) | CPT/HCPCS: 70551 ==

== ENCOUNTER 2025-03-15 14:17 | Outpatient (REF) | payer MEDICAID, SELFPAY ==
--- OUTSIDE RECORDS SUMMARY | 2025-03-15 09:00 | XMS_ITS | Encounter Summary ---
Author Organization [employer] Address [address] [place] [address] 7 [place] [address] Care Team Providers Care Early Childhood Teacher Name Role Phone Nikki Crain MD Primary Care Provider [phone] Reason for Visit * Reason Comments Vaginal Itching Encounter Details Date Type Department Care Team ([facility] st Contact Info) Description 03/15/2025 9:00 AM EST Office Visit [facility] [address] [place] [address] Lenny Barreto FNP [address] [place] [address] Ashley albicans infection (Primary Dx); Vaginal itching Social History Tobacco Use Types Packs/Day Years [...] AM EDT documented as of this encounter Last Filed Vital Signs Vital Sign Reading Time Taken Comments Blood Pressure 132/84 03/15/2025 9:12 AM EST Pulse 88 03/15/2025 9:12 AM EST Temperature 36.6 C (97.9 F) 03/15/2025 9:12 AM EST Respiratory Rate 16 03/15/2025 9:12 AM EST Oxygen Saturation - - Inhaled Oxygen Concentration - - Weight 61.2 kg (135 lb) 03/15/2025 9:12 AM EST Height 149.9 cm (4' 11 ) 03/15/2025 9:12 AM EST Body Mass Index 27.27 03/15/2025 9:12 AM EST documented in this encounter Progress Notes * Lenny Barreto, MALKA - 03/15/2025 9:00 AM EST Esperanza Werner is a 55 y.o. female who presents for a acute visit for vaginal irritation. X 3 weeks without discharge; pt endorses slight burning on urination. Pt denies vaginal discharge, internal pain. Pt states she is not currently sexually active. Pt endorses trying two different OTC products that were vaginal lubricants. Problem List[1] Allergies[2] Review of Systems Constitutional: Negative for fever. Gastrointestinal: Negative for abdominal pain. Genitourinary: Positive for dysuria. Negative for urgency and vaginal discharge. Vitals: 03/15/25 0912 BP: 132/84 BP Location: Right leg Patient Position: Sitting BP Cuff Size: Adult Pulse: 88 Resp: 16 Temp: 97.9 ??F (36.6 ??C) TempSrc: Oral Weight: 135 lb (61.2 kg) Height: 4' 11 (1.499 m) Physical Exam Exam conducted with a rn provider relations present. Constitutional: Appearance: Normal appearance. HENT: Head: Normocephalic. Nose: Nose normal. Eyes: Conjunctiva/sclera: Conjunctivae normal. Pulmonary: Effort: Pulmonary effort is normal. Breath sounds: No wheezing. Abdominal: General: Bowel sounds are normal. Palpations: Abdomen is soft. Tenderness: There is no abdominal tenderness. There is no right CVA tenderness or left CVA tenderness. Genitourinary: Comments: Labial erythema; Rear Load Truck Driver present: MALKA Blackwood Musculoskeletal: General: Normal range of motion. Cervical back: Neck supple. Right lower leg: No edema. Left lower leg: No edema. Skin: General: Skin is warm. Capillary Refill: Capillary refill takes less than 2 seconds. Neurological: General: No focal deficit present. Mental Status: She is alert and oriented to person, place, and time. Psychiatric: Mood and Affect: Mood normal. Behavior: Behavior normal. Component Ref Range & Units (hover) 09:57 (03/15/25) 1 mo ago (01/24/25) 1 mo ago (01/24/25) 4 mo ago (10/30/24) 5 mo ago (10/16/24) 5 mo ago (10/16/24) 9 mo ago (05/22/24) 9 mo ago (05/22/24) Color, UA Light Yellow Clarity, UA Clear Glucose, UA Negative Bilirubin, UA Negative Ketones, UA Negative Spec Grav, UA 1.010 Blood, UA Negative pH, UA 6.0 Protein, UA Negative Urobilinogen, UA 0.2 Leukocytes, UA Negative Nitrite, UA Negative Appearance, UA clear QC Media Lot # [id number] CM CM [id number] CM CM [id number] [id number] Lot# Expiration Date 302,026 Vaginal mucosa appeared irritated. In-clinic microscopy showed possible hyphae. No clue cells present. Assessment & Plan Vaginal itching Orders: Chlamydia/N. Gonorrhoeae RNA, TMA, Vaginal Bacterial Vaginosis Panel POCT urinalysis dipstick manually resulted (CPT 60458) Culture, Urine, Routine; Future Ashley albicans infection Prescribed fluconazole 150 mg PO x1. Orders: fluconazole (Diflucan) 150 MG tablet; Take 1 tablet (150 mg) by mouth 1 (one) time for 1 dose. Scant evidence of hyphae on microscopy; if culture does not return ashley, will consider contact dermatitis or low estrogen. Pt instructed to return to PCP if symptoms do not resolve in the next 3 days. Advised pt not to useOTC vaginal products, which could cause irritation. Do not use laundry detergent with scents or color. As we discussed, we will contact you if we need to change medications after your labs result. Current Medications[3] Follow up if symptoms worsen or fail to improve. [facility] MA[facility]GER SPA Attestation MANAGER SPA Resident Attestation: Patient was seen and evaluated by Lenny MCCALLP, in collaboration with Brittney Austin MANAGER SPA who has reviewed my assessment and plan. I, Brittney Austin MANAGER SPA , have reviewed the resident's note and agree with the assessment & plan of care as documented above. Visit Conducted in: Mongolian Translation by: Provided by [employer] Phone Service ID # [id number] [1] Patient Active Problem List Diagnosis Anxiety Constipation Diabetes mellitus without complication (HCC) Disorder of skeletal muscle Gastric reflux Gastroesophageal reflux disease Kidney stone Primary fibromyalgia syndrome Protruded lumbar disc Rosacea Chronic laryngitis Cortical senile cataract of right eye Seasonal allergic rhinitis Postmenopausal disorder Abnormal ultrasound Acute intractable headache Acute wrist pain Anemia Arthritis of carpometacarpal (CMC) joint of left thumb Arthritis of carpometacarpal (CMC) joint of right thumb Blister of finger Pain of left middle finger Asthma exacerbation Atypical chest pain Chest wall pain Benign neoplasm of stomach Bilateral hand numbness Carpal tunnel syndrome of left wrist Carpal tunnel syndrome of right wrist Colitis Infectious colitis Diverticular disease of colon Epigastric pain Hoarseness Menorrhagia with irregular cycle Menorrhagia Pneumonia Post-menopausal bleeding Vaginal bleeding Radial styloid tenosynovitis (de quervain) Colon cancer screening Screening mammogram, encounter for Well woman exam Bronchitis Sepsis (CMS/HCC) (HCC) Tachycardia Diabetes (HCC) Type 2 diabetes mellitus (HCC) Fibromyalgia Acid reflux Obesity IKER (generalized anxiety disorder) Moderate major depression (CMS/HCC) (HCC) [2] Allergies Allergen Reactions Tramadol Rash Other reaction(s): Hives / Skin Rash Other Reaction(s): RASH , rash, Unknown [3] Current Outpatient Medications: acetaminophen (Tylenol) 500 MG tablet, Take 2 tablets (1,000 mg) by mouth every 6 (six) hours if needed for moderate pain or fever for up to 25 doses., Disp: 40 tablet, Rfl: 0 albuterol (2.5 MG/3ML) 0.083% nebulizer solution, USE ONE AMPULE USING A NEBULIZER THREE TIMES DAILY NEEDED, Disp: 90 mL, Rfl: 3 Arnuity Ellipta 200 MCG/ACT inhaler, INHALE 1 PUFF DAILY AT THE SAME TIME EACH DAY, RINSE MOUTH AFTER USE, Disp: 30 each, Rfl: 5 Ascorbic Acid (vitamin C) 1000 MG tablet, TAKE ONE TABLET IN THE MORNING AND EVENING WITH iron, Disp: 180 tablet, Rfl: 1 dvdknamdyr-vsrdekfbyaumq-keimaklk (Fioricet) 50-300-40 MG capsule, Take 1 capsule by mouth every 8 (eight) hours if needed for headaches., Disp: 30 capsule, Rfl: 0 cholecalciferol VITAMIN D (Vitamin D-3) 50 MCG (2000 UT) capsule, TAKE ONE CAPSULE IN THE MORNING AND EVENING, Disp: 180 capsule, Rfl: 3 cyanocobalamin (Vitamin B-12) 1000 MCG/ML injection, Inject 1 mL (1,000 mcg) into the muscle every 30 (thirty) days., Disp: 1 mL, Rfl: 11 dicyclomine (Bentyl) 10 MG capsule, TAKE ONE CAPSULE THREE TIMES DAILY IN THE MORNING, EVENING AND BEDTIME, Disp: 90 capsule, Rfl: 3 estradiol (Climara) 0.0375 MG/24HR, Place 1 patch on the skin 1 (one) time per week., Disp: 4 patch, Rfl: 11 Flovent HFA 220 MCG/ACT inhaler, INHALE 1 PUFF TWICE DAILY. RINSE MOUTH AFTER USE, Disp: 12 g, Rfl:5 FREESTYLE LITE test strip, TEST BLOOD SUGAR TWICE DAILY, Disp: 100 strip, Rfl: 11 glimepiride (Amaryl) 4 MG tablet, TAKE ONE TABLET EVERY EVENING, Disp: 90 tablet, Rfl: 1 meloxicam (Mobic) 15 MG tablet, Take 1 tablet (15 mg) by mouth Once per day., Disp: 30 tablet, Rfl:11 metFORMIN XR (Glucophage-XR) 500 MG 24 hr tablet, TAKE TWO TABLETS TWICE DAILY IN THE MORNING AND EVENING, Disp: 360 tablet, Rfl: 1 naproxen (Naprosyn) 500 MG tablet, TAKE ONE TABLET TWICE DAILY WITH FOOD NEEDED, Disp: 60 tablet, Rfl: 11 omeprazole (PriLOSEC) [address] capsule, Take 1 capsule (40 mg) by mouth in the morning., Disp: 90 capsule, Rfl: 2 pramipexole (Mirapex) 0.25 MG tablet, 1 tablet in the morning., Disp: , Rfl: pramipexole (Mirapex) 0.5 MG tablet, TAKE ONE TABLET EVERY NIGHT AT BEDTIME, Disp: 90 tablet, Rfl: 1 pregabalin (Lyrica) 200 MG capsule, TAKE ONE CAPSULE THREE TIMES DAILY IN THE MORNING, EVENING AND BEDTIME, Disp: 90 capsule, Rfl: 3 progesterone 100 MG capsule, TAKE ONE CAPSULE EVERY MORNING, Disp: 30 capsule, Rfl: 11 rosuvastatin (Crestor) 5 MG tablet, TAKE ONE TABLET EVERY MORNING, Disp: 90 tablet, Rfl: 1 semaglutide (Ozempic) 2 MG/1.5ML solution pen-injector, Inject 1 mg under the skin 1 (one) time perweek., Disp: 2 each, Rfl: 12 SUMAtriptan (Imitrex) 25 MG tablet, TAKE 1 TABLET BY MOUTH 1 TIME NEEDED FOR MIGRAINE FOR UP TO 9 DOSES. MAY REPEAT DOSE ONCE IN 2 HOURS IF NO RELIEF. DO NOT EXCEED 2 DOSES IN 24 HOURS., Disp: 9 tablet, Rfl: 2 triamcinolone (Kenalog) 0.1 % oral paste, Apply to tongue lesion bid prn., Disp: 5 g, Rfl: 3 Ventolin HFA 108 (90 Base) MCG/ACT inhaler, INHALE TWO PUFFS EVERY 4 HOURS NEEDED, Disp: 18 g, Rfl: 11 witch marco a-glycerin (Tucks) pad, Apply topically if needed for irritation., Disp: 50 each, Rfl: 3 fluconazole (Diflucan) 150 MG tablet, Take 1 tablet (150 mg) by mouth 1 (one) time for 1 dose., Disp: 1 tablet, Rfl: 0 Current Facility-Administered Medications: cyanocobalamin (Vitamin B-12) injection 1,000 mcg, 1,000 mcg, Intramuscular, q30 days, Nikki Crain MD, 1,000 mcg at 10/30/24 1518 documented in this encounter Plan of Treatment Upcoming Encounters Date Type Department Care Team (Late st Contact Info) Description 03/29/2025 9:00 AM EST Office Visit [facility] & PED[facility] [address] [place] [address] Nikki Crain MD [address] [place] [address] 04/01/2025 11:00 AM EST Nurse Only [facility] [address] [place] [address] Scheduled Orders Name Type Priority Associated Diagnoses Orde r Schedule Chlamydia/N. Gonorrhoeae RNA, TMA, Vaginal Microbiology Routine Vaginal itching Ordered: 03/15/2025 Bacterial Vaginosis Panel Microbiology Routine Vaginal itching Ordered: 03/15/2025 Culture, Urine, Routine Microbiology Routine Vaginal itching Expected: 03/15/2025 (Approximate), Expires: 03/15/2026 documented as of this encounter Goals Goal Patient Goal Type Associated Problems Recent Progress Patient-Stated? Author Help patients manage their type 2 diabetes Care Plan Help patients manage their type 2 diabetes No Val Mac [place] Patient has chronic kidney disease Care Plan Patient has chronic kidney disease No Val Mac [place] Patient has chronic kidney disease Care Plan Patient has chronic kidney disease Aleja London RN documented as of this encounter Procedures Procedure Name Priority Date/Time Associated Diagnosis Comments POCT URINALYSIS DIPSTICK Routine 03/15/2025 9:57 AM EST Vaginal itching documented in this encounter Results * POCT urinalysis dipstick manually resulted (CPT 71859) (03/15/2025 9:57 AM EST) Color, UA Light Yellow Clarity, UA Clear Glucose, UA Negative Bilirubin, UA Negative Ketones, UA Negative Spec Grav, UA 1.010 Blood, UA Negative Negative, None Detected pH, UA 6.0 Protein, UA Negative Urobilinogen, UA 0.2 Leukocytes, UA Negative Negative, Rare, Trace Nitrite, UA Negative Negative, None Detected Appearance, UA clear QC Media Lot # [id number] Lot# Expiration Date , Urine (Urine, Random) 03/15/2025 9:57 AM EST Lenny Barreto DUMPING MACHINE OPERATOR POINT OF CARE TEST ENTER/EDIT ORDERABLES Final Result documented in this encounter Visit Diagnoses Diagnosis Ashley albicans infection- Primary Vaginal itching Pruritus of genital organs documented in this encounter Additional Health Concerns Active Problems Noted Date Diagnosed Date Help patients manage their type 2 diabetes 03/15 Patient has chronic kidney disease 03/15/2025 Patient has chronic kidney disease 03/15/2025 Assessment Noted Time PHQ-9 Depression Total Score: 12 025 8:29 AM EDT documented as of this encounter Care Teams Early Childhood Teacher Relationship Specialty Start Date End Date Nikki Crain MD [address] [place] [address] PCP - General Family Medicine 04/25/18 documented as of this encounter
--- OUTSIDE RECORDS SUMMARY | 2025-03-15 14:35 | XMS_ITS | Encounter Summary ---
Author Organization [employer] Address [address] [facility] 7 [place] [address] Care Team Providers Care Videotape Recording Engineer Name Role Phone Nikki Crain MD Primary Care Provider [phone] Reason for Visit * Reason Onset Date Comments Medication Question 06/20/2024 Encounter Details Date Type Department Care Team ([facility] Contact Info) Description 06/20/2024 Telephone [facility] [address] [place] [address] Nikki Crain MD [address] [place] [address] Medication Question Social History Tobacco Use Types [...] with others, in a hotel, in a senior care, living outside on the street, on a [...] Description 03/29/2025 9:00 AM EST Office Visit [facility] [address] [place] [address] Nikki Crain MD [address] [place] [address] 04/01/2025 11:00 AM EST Nurse Only [facility] [address] [place] [address] documented as of this encounter Visit Diagnoses Not on filedocumented in this encounter Additional Health Concerns Assessment Noted Time PHQ-9 Depression Total Score: 6 06/02/19 24 10:53 AM EST documented as of this encounter Care Teams Videotape Recording Engineer Relationship Specialty Start Date End Date Nikki Crain MD [address] [place] [address] PCP - General Family Medicine 04/25/18 documented as of this encounter
--- OUTSIDE RECORDS SUMMARY | 2025-03-15 14:35 | XMS_ITS | Encounter Summary ---
Author Organization [employer] Address [address] [facility] 7t [place] [address] Care Team Providers Care Volleyball Coach Name Role Phone Nikki Crain MD Primary Care Provider [phone] Reason for Visit * Reason Comments Med Refill Encounter Details Date Type Department Care Team ([facility] st Contact Info) Description 06/18/2023 Refill [facility]EDS [address] [place], [place] [phone] Nikki Crain MD [address] [place] [address] Iron deficiency anemia, unspecified iron deficiency anemia [...] Upcoming Encounters Date Type Department Care Team ([facility] st Contact Info) Description 03/29/2025 9:00 AM EST Office Visit [facility] [address] [place] [address] Nikki Crain MD [address] [place] [address] 04/01/2025 11:00 AM EST Nurse Only [facility] MED & PEDS [address] [place] [address] documented as of this encounter Visit Diagnoses Diagnosis Iron deficiency anemia, unspecified iron deficiency anemia type documented in this encounter Additional Health Concerns Assessment Noted Time PHQ-9 Depression Total Score: 6 06/02/19 24 10:53 AM EST documented as of this encounter Care Teams Volleyball Coach Relationship Specialty Start Date End Date Nikki Crain MD [address] [place] [address] PCP - General Family Medicine 04/25/18 documented as of this encounter
--- OUTSIDE RECORDS SUMMARY | 2025-03-15 14:35 | XMS_ITS | Encounter Summary ---
Author Organization [employer] Address [address] [place] [address] 7 [place] [address] Care Team Providers Care Rice Field Worker Name Role Phone Nikki Crain MD Primary Care Provider [phone] Reason for Visit * Reason Onset Date Comments Patient Education 03/15/2025 Encounter Details Date Type Department Care Team ([facility] Contact Info) Description 03/15/2025 Telephone [facility] [address] [place] [address] Lenny Barreto FNP [address] [place] [address] Patient Education Social History Tobacco Use Types Packs/Day Years [...] encounter Miscellaneous Notes * Telephone Encounter - Aleja Galaviz RN - 03/15/2025 11:12 AM EST TC placed to pt via [employer] cement crusher operator ([employer] ID#[id number]) to inform and advise of below provider message.Advised pt per provider, advised not to use OTC vaginal products which could cause irritation. Advised pt not to use laundry detergent with scents or colors. Advised team to contact her if medications need to change after labs are resulted. Pt verbalized understanding and denies questions at this time. ----- Message from Lenny Barreto sent at 03/15/2025 10:58 AM EST ----- Please contact patient and let her know the following: Do not to use OTC vaginal products, which could cause irritation. Do not use laundry detergent with scents or color. As we discussed, we will contact you if we need to change medications after your labs result. documented in this encounter Plan of Treatment Upcoming Encounters Date Type Department Care Team (Late st Contact Info) Description 03/29/2025 9:00 AM EST Office Visit [facility] MED & PEDS [address] [place] [address] Nikki Crain MD [address] [place] [address] 04/01/2025 11:00 AM EST Nurse Only [facility] PED[facility] [address] [place] [address] documented as of this encounter Goals Goal [...] London RN documented as of this encounter Visit Diagnoses Not on filedocumented in this encounter Additional Health Concerns Active Problems Noted Date Diagnosed Date Help patients manage their type 2 diabetes 03/15 Patient has chronic kidney disease 03/15/2025 Patient has chronic kidney disease 03/15/2025 Assessment Noted Time PHQ-9 Depression Total Score: 12 025 8:29 AM EDT documented as of this encounter Care Teams Rice Field Worker Relationship Specialty Start Date End Date Nikki Crain MD [address] [place] [address] PCP - General Family Medicine 04/25/18 documented as of this encounter
--- OUTSIDE RECORDS SUMMARY | 2025-03-15 14:35 | XMS_ITS | Encounter Summary ---
Author Organization [employer] Address [address] [facility] 7t [place] [address] Care Team Providers Care Cork Tipper Name Role Phone Nikki Crain MD Primary Care Provider [phone] Encounter Details Date Type Department Care Team (Latest Contact Info) Description 03/15/2025 Travel Social History Tobacco Use Types Packs/Day Years [...] with others, in a hotel, in a usp, living outside on the street, on a [...] the past 12 months, has t he [employer], gas, oil or water company threatened to [...] Description 03/29/2025 9:00 AM EST Office Visit [facility] MED & PEDS [address] [place] [address] Nikki Crain MD [address] [place] [address] 04/01/2025 11:00 AM EST Nurse Only [facility] PED[facility] [address] [place] [address] documented as of this encounter Goals Goal [...] documented as of this encounter Care Teams Cork Tipper Relationship Specialty Start Date End Date Nikki Crain MD [address] [place] [address] PCP - General Family Medicine 04/25/18 documented as of this encounter
--- OUTSIDE RECORDS SUMMARY | 2025-03-15 14:35 | XMS_ITS | Clinical Summary ---
Author Organization [facility] Address [address] [address] Phone Care Team Providers Care Rotary Furnace Tender Name Role Phone Nikki Crain MD Primary Care Provider [phone] Allergies Active Allergy Reactions Criticality Noted Date [...] Medical Devices Not on file Care Teams Rotary Furnace Tender Relationship Specialty Start Date End Date Nikki Crain MD [address] [place] [address] PCP - General Internal Medicine 03/11/23 Additional Source Comments The information contained in this document represents components of the legal health record. It is not the complete legal health record.[facility]
--- OUTSIDE RECORDS SUMMARY | 2025-03-15 14:35 | XMS_ITS | Encounter Summary ---
Author Organization [employer] Address [address] [facility] 7t [place] [address] Care Team Providers Care Brothel Keeper Name Role Phone Nikki Crain MD Primary Care Provider [phone] Reason for Visit * Reason Comments Med Refill Encounter Details Date Type Department Care Team ([facility] st Contact Info) Description 03/11/2025 Refill [facility] PEDS [address] [place], [place] [phone] Charito Marlow MD [address] [place], [place] [phone] Diabetes mellitus without complication (HCC) Social History Tobacco Use Types Packs/Day Years [...] Description 03/29/2025 9:00 AM EST Office Visit [facility] PED[facility] [address] [place] [address] Nikki Crain MD [address] [place] [address] 04/01/2025 11:00 AM EST Nurse Only [facility] [address] [place] [address] documented as of this encounter Visit Diagnoses Diagnosis Diabetes mellitus without complication (HCC) Type II or unspecified type diabetes mellitus without mention of complication, not stated as uncontrolled documented in this encounter Additional Health Concerns Assessment Noted Time PHQ-9 Depression Total Score: 12 025 8:29 AM EDT documented as of this encounter Care Teams Brothel Keeper Relationship Specialty Start Date End Date Nikki Crain MD [address] [place] [address] PCP - General Family Medicine 04/25/18 documented as of this encounter
--- OUTSIDE RECORDS SUMMARY | 2025-03-15 14:35 | XMS_ITS | Encounter Summary ---
Author Organization [employer] Address [address] [facility] 7t [place] [address] Care Team Providers Care Semiconductor Lab Technician Name Role Phone Nikki Crain MD Primary Care Provider [phone] Reason for Visit * Reason Comments Med Refill Encounter Details Date Type Department Care Team ([facility] st Contact Info) Description 10/13/2023 Refill [facility] MED & PEDS [address] [place], [place] [phone] Anay Jamil MD [address] [place] [address] Social History Tobacco Use Types Packs/Day Years [...] Description 03/29/2025 9:00 AM EST Office Visit [facility] MED & PEDS [address] [place] [address] Nikki Crain MD [address] [place] [address] 04/01/2025 11:00 AM EST Nurse Only [facility] MED & PEDS [address] [place] [address] documented as of this encounter Visit Diagnoses Not on filedocumented in this encounter Additional Health Concerns Assessment Noted Time PHQ-9 Depression Total Score: 6 06/02/19 24 10:53 AM EST documented as of this encounter Care Teams Semiconductor Lab Technician Relationship Specialty Start Date End Date Nikki Crain MD [address] [place] [address] PCP - General Family Medicine 04/25/18 documented as of this encounter
--- OUTSIDE RECORDS SUMMARY | 2025-03-15 14:35 | XMS_ITS | Encounter Summary ---
Author Organization [employer] Address [address] [facility] 7 [place] [address] Care Team Providers Care Fluoroscope Operator Name Role Phone Nikki Crain MD Primary Care Provider [phone] Reason for Visit * Reason Onset Date Comments Created in error 11/17/2023 Encounter Details Date Type Department Care Team ([facility] Contact Info) Description 11/17/2023 Telephone [facility] MEDICINE [address] [place] [address] Nikki Crain MD [address] [place] [address] Created in error Social History Tobacco Use [...] Description 03/29/2025 9:00 AM EST Office Visit [facility] MED & PEDS [address] [place] [address] Nikki Crain MD [address] [place] [address] 04/01/2025 11:00 AM EST Nurse Only [facility] [address] [place] [address] documented as of this encounter Visit Diagnoses Not on filedocumented in this encounter Additional Health Concerns Assessment Noted Time PHQ-9 Depression Total Score: 6 06/02/19 24 10:53 AM EST documented as of this encounter Care Teams Fluoroscope Operator Relationship Specialty Start Date End Date Nikki Crain MD [address] [place] [address] PCP - General Family Medicine 04/25/18 documented as of this encounter
--- OUTSIDE RECORDS SUMMARY | 2025-03-15 14:35 | XMS_ITS | Encounter Summary ---
Author Organization [employer] Address [address] [facility] 7t [place] [address] Care Team Providers Care Drawer In Jacquard Loom Name Role Phone Nikki Crain MD Primary Care Provider [phone] Reason for Visit * Reason Comments Med Refill Encounter Details Date Type Department Care Team ([facility] st Contact Info) Description 06/30/2023 Refill [facility] [address] [place], [place] [phone] Nikki Crain MD [address] [place] [address] Iron deficiency anemia, unspecified iron deficiency anemia [...] Upcoming Encounters Date Type Department Care Team ([facility] st Contact Info) Description 03/29/2025 9:00 AM EST Office Visit [facility] & PEDS [address] [place] [address] Nikki Crain MD [address] [place] [address] 04/01/2025 11:00 AM EST Nurse Only [facility] [address] [place] [address] documented as of this encounter Visit Diagnoses Diagnosis Iron deficiency anemia, unspecified iron deficiency anemia type documented in this encounter Additional Health Concerns Assessment Noted Time PHQ-9 Depression Total Score: 6 06/02/19 24 10:53 AM EST documented as of this encounter Care Teams Drawer In Jacquard Loom Relationship Specialty Start Date End Date Nikki Crain MD [address] [place] [address] PCP - General Family Medicine 04/25/18 documented as of this encounter
--- OUTSIDE RECORDS SUMMARY | 2025-03-15 14:36 | XMS_ITS | Encounter Summary ---
Author Organization [employer] Address [address] [facility] 7 [place] [address] Care Team Providers Care Administrative Intern Name Role Phone Nikki Crain MD Primary Care Provider [phone] Reason for Visit * Reason Onset Date Comments Medication Question 12/19/2024 Encounter Details Date Type Department Care Team ([facility] st Contact Info) Description 12/19/2024 Telephone [facility] MEDICINE [address] [place] [address] Nikki Crain MD [address] [place] [address] Medication Question Social History Tobacco Use Types [...] back regarding prior message. Contact pt at [phone] * Telephone Encounter - Harry العراقي - 12/19/2024 9:49 AM EDT Tc from pt requesting call back stating medication sent from yesterday's visit for migraine is not providing any real relief and she would like an alternative. Please contact pt at [phone]. (Iraqi Speaker) documented in this encounter Plan of Treatment Upcoming Encounters Date Type Department Care Team ([facility] st Contact Info) Description 03/29/2025 9:00 AM EST Office Visit [facility] MED & PEDS [address] [place], [place] [phone] Nikki Crain MD [address] [place], [place] [phone] 04/01/2025 11:00 AM EST Nurse Only [facility] MED & PEDS [address] [place] [address] documented as of this encounter Visit Diagnoses Not on filedocumented in this encounter Additional Health Concerns Assessment Noted Time PHQ-9 Depression Total Score: 6 06/02/19 24 10:53 AM EST documented as of this encounter Care Teams Administrative Intern Relationship Specialty Start Date End Date Nikki Crain MD [address] [place] [address] PCP - General Family Medicine 04/25/18 documented as of this encounter
--- OUTSIDE RECORDS SUMMARY | 2025-03-15 14:36 | XMS_ITS | Encounter Summary ---
Author Organization [employer] Address [address] [facility] 7 [place] [address] Care Team Providers Care Ibm Bpm Developer Name Role Phone Nikki Crain MD Primary Care Provider [phone] Reason for Visit * Reason Comments Med Refill Encounter Details Date Type Department Care Team ([facility] st Contact Info) Description 09/13/2024 Refill [facility] [address] [place], [place] [phone] Cornell Millan MD [address] [place] [address] Gastroesophageal reflux disease without esophagitis; Diabetes mellitus without complication ([facility]) Social History Tobacco Use Types Packs/Day [...] with others, in a hotel, in a jail, living outside on the street, on a [...] Upcoming Encounters Date Type Department Care Team ([facility] st Contact Info) Description 03/29/2025 9:00 AM EST Office Visit [facility] MED & PEDS [address] [place] [address] Nikki Crain MD [address] [place] [address] 04/01/2025 11:00 AM EST Nurse Only [facility] MED & PEDS [address] [place] [address] documented as of this encounter Visit Diagnoses Diagnosis Gastroesophageal reflux disease without esophagitis Esophageal reflux Diabetes mellitus without complication (HCC) Type II or unspecified type diabetes mellitus without mention of complication, not stated as uncontrolled documented in this encounter Additional Health Concerns Assessment Noted Time PHQ-9 Depression Total Score: 6 06/02/19 24 10:53 AM EST documented as of this encounter Care Teams Ibm Bpm Developer Relationship Specialty Start Date End Date Nikki Crain MD [address] [place] [address] PCP - General Family Medicine 04/25/18 documented as of this encounter
--- OUTSIDE RECORDS SUMMARY | 2025-03-15 14:36 | XMS_ITS | Encounter Summary ---
Author Organization [email or web address] Address [address] [place] [address] 7 [place] [address] Care Team Providers Care Building Services Coordinator Name Role Phone Nikki Crain MD Primary Care Provider [phone] Reason for Visit * Reason Onset Date Comments Referral 01/01/2025 Encounter Details Date Type Department Care Team ([facility] Contact Info) Description 01/01/2025 Telephone [facility] MED & PEDS [address] [place], [place] [phone] Nikki Crain MD [address] [place] [address] Referral Social History Tobacco Use Types Packs/Day [...] 01/01/2025 3:25 PM EDT Referral faxed to [facility] for review. Letter mailed to patient with information. * Telephone Encounter - Hood Barreto - 01/01/2025 10:12 AM EDT Tc from pt requesting for a referral to be sent to [facility] Party Plan Sales Consultant. Any questions contact pt at [phone] documented in this encounter Plan of Treatment Upcoming Encounters Date Type Department Care Team ([facility] st Contact Info) Description 03/29/2025 9:00 AM EST Office Visit [facility] MED & PEDS [address] [place] [address] Nikki Crain MD [address] [place] [address] 04/01/2025 11:00 AM EST Nurse Only [facility] MED & PEDS [address] [place] [address] documented as of this encounter Visit Diagnoses Not on filedocumented in this encounter Additional Health Concerns Assessment Noted Time PHQ-9 Depression Total Score: 6 06/02/19 24 10:53 AM EST documented as of this encounter Care Teams Building Services Coordinator Relationship Specialty Start Date End Date Nikki Crain MD [address] [place] [address] PCP - General Family Medicine 04/25/18 documented as of this encounter
--- OUTSIDE RECORDS SUMMARY | 2025-03-15 14:36 | XMS_ITS | Clinical Summary ---
Author Organization [employer] [facility] ity Address [address] [place] [address] Care Team Providers Care Lithographic Press Operator Name Role Phone Unavailable Primary Care [...] Depression Screening 04/25/2024 COVID-19 Vaccine ( - 2024-2 6 season) 2024 Influenza Vaccine (#1) 2024 RSV [...] Procedure Name Priority Date/Time Associated Diagnosis Comments [facility] SCREENING DIGITAL Routine 09/11/2021 2:35 PM EDT Encounter for screening mammogram for malignant neoplasm of breast from Last 3 Months or Most Recently Relevant to Health Maintenance Results * [facility] SCREENING DIGITAL (09/11/2021 2:35 PM EDT) Anatomical Region Laterality Modality Mammography 09/11/2021 12:5 0 PM EDT Narrative 09/11/2021 2:35 PM EDT [facility] Diagnostic Imaging Department [address] [place] [address] Patient: ESPERANZA LEVINE D.O.B./Age/Sex: 1970 - 51 - F Unit#: [id number] Location/Status: [facility] CLI Mnemonic/Ordering Site: [facility] Ordering Physician: RILEY CRAIN [facility] Screening Digital - 09/11/21 1315 EXAM: [facility] Screening Digital EXAM DATE AND TIME: 09/11/2021 1:15 PM HISTORY: Annual screening mammography COMPARISON: 12/14/2019 through 10/16/2012 TECHNIQUE: CC and MLO views of both breasts were obtained using full field digital mammography. Bilateral digital breast tomosynthesis was performed in the MLO projection. Computer aided detection with the Idea Shower 7.2-H was employed. TISSUE DENSITY: c. The [...] Routine screening mammogram BILATERAL in 1 year. 65089, [id number] 3342F, 7025F Dictating Physician: ALICIA BOEWN MD Electronically Signed by: ALICIA BOWEN MD Dic Date/Time: 09/11/21 1431 Sign date/Time: 09/11/21 143 Procedure Note Radha Bowen MD - 04/14/2022 [facility] Diagnostic Imaging Department [address] [place] [address] Patient: ESPERANZA LEVINE/Age/Sex: 1970 - 51 - F Unit#: [id number] Location/Status: [facility]/REG CLI Mnemonic/Ordering Site: [facility] Ordering Physician: RILEY CRAIN [facility] Screening Digital - 09/11/21 - 1315 EXAM: [facility] Screening Digital EXAM DATE AND TIME: 09/11/2021 1:15 PM HISTORY: Annual screening mammography COMPARISON: 12/14/2019 through 10/16/2012 TECHNIQUE: CC and MLO views of both breasts were obtained using fullfield digital mammography. Bilateral digital breast tomosynthesis was performedin the MLO projection. Computer aided detection with the DaisyBill.2-flipClassas employed. TISSUE DENSITY: c. The breasts are [...] Routine screening mammogram BILATERAL in 1 year. 74700, 03940 3342F, 7025F Dictating Physician: ALICIA BOWEN MD Electronically Signed by: ALICIA BOWEN MD Dic Date/Time: 09/11/21 1431 Sign date/Time: 09/11/21 1435 us Riley Crain MD IMG BI PROCEDURES Final Resul t from Last 3 Months or Most Recently Relevant to Health Maintenance
--- OUTSIDE RECORDS SUMMARY | 2025-03-15 14:36 | XMS_ITS | Encounter Summary ---
Author Organization [facility] [employer] Address [address] [place] [address] 7 [place] [address] Care Team Providers Care Account Management Specialist Name Role Phone Nikki Crain MD Primary Care Provider [phone] Encounter Details Date Type Department Care Team ([facility] Contact Info) Description 10/29/2022 Orders Only [facility] MED & PEDS [address] [place], [place] [phone] Nikki Crain MD [address] [place], [place] [phone] Social History Tobacco Use Types Packs/Day Years [...] Upcoming Encounters Date Type Department Care Team ([facility] Contact Info) Description 03/29/2025 9:00 AM EST Office Visit [facility] MED & PEDS [address] [place], [place] [phone] Nikki Crain MD [address] [place], [place] [phone] 04/01/2025 11:00 AM EST Nurse Only [facility] MED & PEDS [address] [place], [place] [phone] documented as of this encounter Visit Diagnoses Not on filedocumented in this encounter Care Teams Account Management Specialist Relationship Specialty Start Date End Date Nikki Crain MD [address] [place] [address] PCP - General Family Medicine 04/25/18 documented as of this encounter
--- OUTSIDE RECORDS SUMMARY | 2025-03-15 14:36 | XMS_ITS | Clinical Summary ---
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 50 each 3 06/02/19 24 Active Ventolin HFA 108 (90 Base) [...] morning. Active omeprazole (PriLOSEC) [address] capsuleIndicatio ns:Gastroesophag eal reflux disease without esophagitis,Diab etes mellitus without complication (HCC) Take 1 capsule (40 mg) by mouth in the morning. 90 capsule 2 09/14/19 25 Active Arnuity Ellipta 200 MCG/ACT inhaler INHALE 1 PUFF DAILY AT THE SAME TIME EACH DAY, RINSE MOUTH AFTER USE 30 each 5 10/10/19 25 Active glimepiride (Amaryl) 4 MG tabletIndication s:Gastroesophage al reflux disease without esophagitis,Diab etes mellitus without complication (HCC) TAKE ONE TABLET EVERY EVENING 90 tablet 1 10/16/19 25 Active semaglutide (Ozempic) 2 MG/1.5ML solution pen-injector Inject 1 mg under the skin 1 (one) time per week. 2 each 10/17/19 25 Active meloxicam (Mobic) 15 MG tablet Take 1 tablet (15 mg) by mouth Once per day. 30 tablet 11 10/17/19 25 026 Active triamcinolone (Kenalog) 0.1 [...] 24 hr tabletIndication s:Diabetes mellitus without complication (HCC) TAKE TWO TABLETS TWICE DAILY IN THE MORNING AND EVENING 360 tablet 11/10/19 25 Active albuterol (2.5 MG/3ML) 0.083% nebulizer solution USE ONE AMPULE USING A NEBULIZER THREE TIMES DAILY NEEDED 90 mL 11/22/19 25 Active pregabalin (Lyrica) 200 MG [...] 4 patch 11 01/25/20 25 026 Active butalbital-aceta minophen-caffein e (Fioricet) 50-300-40 MG capsule Take 1 capsule by mouth every 8 (eight) hours if needed for headaches. 30 capsule 01/25/20 25 Active progesterone 100 MG capsule TAKE ONE CAPSULE EVERY MORNING 30 capsule 11 02/05/20 25 Active dicyclomine (Bentyl) 10 MG capsuleIndicatio ns:Gastroesophag eal reflux disease without esophagitis,Diab etes mellitus without complication (HCC) TAKE ONE CAPSULE [...] HOURS. 9 tablet 2 02/13/20 25 Active FREESTYLE LITE test stripIndications :Diabetes mellitus without complication (HCC) TEST BLOOD SUGAR TWICE DAILY 100 strip 11 03/12/20 25 Active fluconazole (Diflucan) 150 MG tabletIndication s:Ariana albicans infection Take 1 tablet (150 mg) by mouth 1 (one) time for 1 dose. 1 tablet 03/15/20 25 025 Active FREESTYLE LITE test stripIndications :Diabetes mellitus without complication (HCC) TEST BLOOD SUGAR TWICE DAILY 100 strip 11 12/24/19 24 025 Discontinued Hospital, Clinic, or Other Facility Administered Medication Ordered Dose Route Frequency Start Date End Date Status cyanocobalamin (Vitamin B-12) injection 1,000 mcgIndications:B12 deficiency 1000 mcg IM Every 30 days 10/24/2024 Active cyanocobalamin (Vitamin B-12) injection 1,000 mcgIndications:Benign neoplasm of stomach 1000 mcg IM Once 03/04/2025 03/04/2025 Ended Active Problems Problem Noted Date Diagnosed [...] Protruded lumbar disc 08/02/2013 Moderate major depression (CMS/HCC) 08/01/2012 Constipation 11/05/2011 Disorder of skeletal muscle 11/05/2011 Gastroesophageal reflux disease 11/05/2011 Chronic laryngitis 11/05/2011 Seasonal allergic rhinitis 11/05/2011 Encounters * This document contains information received from the source organization and may not represent a complete record from that organization. Date Type Department Care Team Description 03/15/2025 9:00 AM EST Office Visit [facility] [address] [place] [phone] Lenny Barreto FNP Ariana albicans infection (Primary Dx); Vaginal itching 03/15/[address] [address] Lenny Barreto FNP Patient Education 03/15/2025 Travel 03/11/2025 Refill [facility] [address] [place] [address] Charito Marlow MD Diabetes mellitus without complication (HCC) 03/04/2025 10:00 AM EST Clinical Support [facility] [address] [place] [address] Sarai Mir RN Benign neoplasm of stomach 03/04/2025 Travel 02/21/2025 Results Follow-Up [facility] [address] [place] [address] Nikki Crain MD MR Brain w/o Contrast 02/11/2025 Refill [facility] [address] [place] [phone] Nikki Crain MD 02/04/2025 10:00 AM EDT Clinical Support [facility] [address] [place] [address] Sarai Mir RN Benign neoplasm of stomach 02/04/2025 Travel 02/03/2025 Refill [facility] [address] [place] [address] Nikki Crain MD Gastroesophageal reflux disease without esophagitis; Diabetes mellitus without complication (HCC) 02/01/2025 Orders Only [facility] [address] [place] [address] Nikki Crain MD Migraine without status migrainosus, not intractable, unspecified migraine type (Primary Dx); New persistent daily headache 01/31/2025 Telephone [facility] [address] [place] [phone] Nikki Crain MD New MRI order 01/30/2025 Orders Only [facility] [address] [place] [address] Nikki Crain MD New persistent daily headache (Primary Dx) 01/29/2025 Telephone [facility] [address] [place] [address] Nikki Crain MD Referral 01/24/2025 2:00 PM EDT Office Visit [facility] [address] [place] [address] Nikki Crain MD Migraine without status migrainosus, not intractable, unspecified migraine type (Primary Dx); Diabetes mellitus without complication (HCC); New persistent daily headache 01/24/2025 Travel 01/22/2025 Telephone [facility] [address] [place] [address] Nikki Crain MD Nurse Triage 01/22/2025 Telephone [facility] [address] [place] [address] Nikki Crain MD Medication Question 01/17/2025 Orders Only GENERIC EXTERNAL DATA DEPARTMENT Provider, Generic External Data 01/14/2025 Refill [facility] [address] [place] [address] Hood Couch MD 01/09/2025 Refill [facility] [address] [place] [address] Nikki Crain MD 01/08/2025 Telephone [facility] [address] [place] [address] scan order 01/04/2025 11:00 AM EDT Clinical Support [facility] [address] [place] [address] Sarai Mir RN Postmenopausal disorder; Diabetes mellitus without complication (CMS/HCC) 01/04/2025 Travel 01/01/2025 9:15 AM EDT Office Visit [facility] [address] [place] [address] TarDanita johnston, OD Dry eyes, bilateral (Primary Dx); Left posterior capsular opacification 01/01/2025 Telephone [facility] [address] [place] [address] Nikki Crain MD Referral 01/01/2025 Travel 12/20/2024 Telephone [facility] [address] [place] [address] Nikki Crain MD 12/19/2024 Telephone [facility] [address] [place] [address] Nikki Crain MD Medication Question 12/18/2024 2:00 PM EDT Office Visit [facility] [address], [place] [phone] Name, MD Hood Migraine without status migrainosus, not intractable, unspecified migraine type (Primary Dx) 12/18/2024 Travel from Last 3 Months Immunizations Immunization Administration [...] 16 03/15/2025 9:12 AM EST Oxygen Saturation 97% 01/24/2025 1:47 PM EDT Inhaled Oxygen Concentration - - Weight 61.2 kg (135 lb) 03/15/2025 9:12 AM EST Height 149.9 cm (4' 11 ) 03/15/2025 9:12 AM EST Body Mass Index 27.27 03/15/2025 9:12 AM EST Plan of Treatment Upcoming Encounters Date Type Department Care Team (Late st Contact Info) Description 03/29/2025 9:00 AM EST Office Visit [facility] [address] [place], [place] [phone] Nikki Crain MD [address] [place] [address] 04/01/2025 11:00 AM EST Nurse Only [facility] [address] [place] [address] Health Maintenance Due Date Last Done Comments CT Colonography 1968 FIT DNA/Cologuard 1968 FIT 1968 FOBT 1968 Sigmoidoscopy 1970 Disability Screening 1968 Alcohol/Substance Use Screening 1980 Hepatitis B Vaccines (1 of 3 - 19+ 3-dose series) 01/25/1987 Pneumococcal Vaccine: 50+ Years (1 of 2 - PCV) 01/25/1987 RSV Patients and Patients Aged 60 years or older (1 - Risk 50-74 years 1-dose series) 01/25/2018 Diabetes: Urine Protein Screening 08/24/2022 08/24/2021, 08/24/2021 Diabetes: Foot Exam 06/02/2024 06/02/2023, 06/02/2023, 06/02/2023, Additional history exists Lipid Panel 06/15/2024 06/15/2023, 08/24/2021 Mammogram 06/16/2024 06/16/2022 COVID-19 Vaccine ( season) 2024 12/18/2020, 10/21/2020 Influenza Vaccine (#1) 2024 , 04/02/2021, 03/25/2020, Additional history exists SDOH Screening 05/15/2025 05/15/2024 Diabetes: Hemoglobin A1C 07/25/2025 025, 10/16/2024, 05/22/2024, Additional history exists Depression Monitoring 07/26/2025 01/25/2025, 025 Cervical Cancer Screening 09/09/2025 HPV/Cotest 09/09/2025 07/02/2020, 07/02/2020 Pap Smear 09/09/2025 09/09/2020 Tobacco Screening 03/15/2026 03/15/2025 DTaP/Tdap/Td Vaccines (2 - Td or Tdap) 06/16/2026 06/16/2016 Eye Exam 01/01/2027 01/01/2025, 11/02/2024 Colonoscopy 07/14/2033 07/15/2023, 07/15/2023 Colorectal Cancer Screening 07/14/2033 Zoster Vaccines Completed 04/02/2021, 10/17/2020 HIV Screening [...] on patient's age to complete this topic Goals Goal Patient Goal Type Associated Problems Recent Progress Patient-Stated? 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 Procedure Name Priority Date/Time Associated Diagnosis Comments POCT URINALYSIS DIPSTICK Routine 03/15/2025 9:57 AM EST Vaginal itching MR BRAIN WO CONTRAST Routine 02/21/2025 10:01 [...] Recently Relevant to Health Maintenance Results * POCT urinalysis dipstick manually resulted (CPT 57961) (03/15/2025 9:57 AM EST) Color, UA Light Yellow Clarity, UA Clear Glucose, UA Negative Bilirubin, UA Negative Ketones, UA Negative Spec Grav, UA 1.010 Blood, UA Negative Negative, None Detected pH, UA 6.0 Protein, UA Negative Urobilinogen, UA 0.2 Leukocytes, UA Negative Negative, Rare, Trace Nitrite, UA Negative Negative, None Detected Appearance, UA clear QC Media Lot # [id number] Lot# Expiration Date Urine (Urine, Random) 03/15/2025 9:57 AM EST Lenny Barreto 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 POINT OF CARE TEST ENTER/EDIT ORDERABLES Final Result * MR Brain w/o Contrast (02/21/2025 10:01 AM EDT) Anatomical Region Laterality Modality Brain Magnetic Resonan ce 02/21/2025 10:0 1 AM EDT Narrative 02/21/2025 10:49 AM EDT [place] [address] Magnetic Resonance Report Signed Patient: Esperanza Werner MR#: [id number] 9 : 1970 Acct:[id number] Age/Sex: 55 / F ADM Date: 02/21/25 Loc: HO.MRI Attending Dr: Nikki Crain MD Ordering Physician: Nikki Crain MD Date of Service: 02/21/25 Procedure(s): MR head/brain wo con Accession Number(s): [id number] cc: Nikki Crain MD Reason for Exam: [...] 02/21/25 1046 DD/ 1001 TD/TT: 02/21/25 1017 Education Professional: Procedure Note Donotuseinterpreter, Image - 02/21/2025 [place] [address] Magnetic Resonance Report Signed Patient: Denise Werner#: [id number] 9 : 1970Acct:[id number] Age/Sex: 55 / FADM Date: 02/21/25 Loc: HO.MRI Attending Dr: Nikki Crain MD Ordering Physician: Nikki Crain MD Date of Service: 02/21/25 Procedure(s): MR head/brain wo con Accession Number(s): [id number] cc: iNkki Crain MD Reason for Exam: chronic migraines [...] 02/21/25 1046 DD/ 1001 TD/TT: 02/21/25 1017 Education Professional: Nikki Crain MD IMG MRI PROCEDURES Final Resu lt * (ABNORMAL) POCT A1c (01/24/2025 1:50 PM EDT) Hemoglobin A1C 6.9(A) 4.0 - 5.7 % QC Media Lot # Comment:[id number] Lot# Expiration Date Comment:08/16/2026 Blood 01/24/2025 1:50 PM EDT Nikki Crain MD POINT OF CARE TEST ENTER/EDIT ORDERABLES Final Result * POCT glucose manually resulted (01/24/2025 1:50 PM EDT) Glucose Blood, POC 97 60 - 200 mg/dL QC Media Lot # Comment:[id number] Lot# Expiration Date Comment:04/13/2025 Blood Capillary blood specimen / Unknown 01/24/2025 1:50 PM EDT us Nikki Crain MD POINT OF CARE TEST ENTER/EDIT ORDERABLES Final Result * (ABNORMAL) Glucose, Whole Blood (01/17/2025 2:50 PM EDT) Glucose, Whole Blood 152(H) 60 - 115 mg/dL [facility] Comment:METER #: [id number] 01/17/2025 2:50 PM EDT 01/17/2025 2:53 PM EDT Generic External Data Provider LAB BLOOD ORDERAB LES Final Result Performing Organization Address [facility] Co de Phone Number [facility] [address] [place] [phone] * Sed Rate by Modified Westergren (01/17/2025 12:38 PM EDT) [facility] Erythrocyte Sedimentation Rate 17 0 - 20 MM/HR [facility] Comment:Patients with polycy themia and many hemoglobin abnormalitiesmay have depressed sed rates whereas patients with anemiamay have elevated sed rates. 01/17/2025 12:3 8 PM EDT 01/17/2025 12:40 PM EDT Generic External Data Provider LAB BLOOD ORDERAB LES Final Result Performing Organization Address [facility] de Phone Number [facility] [address] [place] [phone] * Influenza A B2 ID NOW (Briones) (01/17/2025 11:38 AM EDT) IDNOW SERIAL# [id number] [facility] Influenza A Negative Negative [facility] Influenza B2 Negative Negative [facility] Influenza A B2 Note See Note [facility] Comment:The Briones ID NOW In [...] LAB MICROBIOLOGY - GENERAL ORDERABLES Final Result [facility] [address] [place] [address] [phone] * COVID-19 ID NOW (EchoFirst) (01/17/2025 11:38 AM EDT) IDNOW SERIAL# [id number] [facility] COVID-19 TEST Negative Negative [facility] COVID-19 NOTE See Note [facility] Comment: Results are for the identification of SARS-CoV2 RNA. TheSARS-CoV2 RNA is generally detectable in respiratory samplesduring the acute phase of infection. Positive results areindicative of the presence of SARS-CoV-2 RNA; clinicalcorrelation with patient history and other diagnosticinformation is necessary to determine patient infectionstatus. Positive results do not rule out bacterial infectionor co- infection with other viruses.Testing facilities within the [facility] and [facility] are required to report all positive results [...] LAB MOLECULAR BLADIMIR GNOSTICS ORDERABLES Final Result [facility] [address] [place] [address] [phone] * (ABNORMAL) CBC auto differential (01/17/2025 11:38 AM EDT) White Blood Count 11.5(H) 4.8 - 10.8 X10*3/uL [facility] Red Blood Count 4.52 4.20 - 5.50 X10*6/uL [facility] Hemoglobin 13.3 12.0 - 16.0 g/dl [facility] Hematocrit 42.3 37.0 - 47.0 % [facility] Mean Corpuscular Volume 93.6 80.0 - 98.0 fL [facility] Mean Corpuscular Hemoglobin 29.4 27.0 - 33.0 pg [facility] Mean Corpuscular HGB Conc 31.4 31.0 - 35.0 g/dl [facility] Red Cell Distribution Width 14.4 11.0 - 16.0 % [facility] Platelet Count 354 160 - 400 X10*3/uL [facility] Mean Platelet Volume 10.9 9.4 - 12.3 fL [facility] Neutrophils Percent Auto 72.2 45 - 73 % [facility] Imm Gran Pct Auto 0.3 0.0 - 0.4 % [facility] Lymphocytes Percent Auto 19.2(L) 20 - 40 % [facility] Monocytes Percent Auto 7.0 2 - 11 % [facility] Eosinophils Percent Auto 0.7 0 - 4 % [facility] Basophils Percent Auto 0.6 0 - 2 % [facility] NRBC Pct Auto 0.0 0.0 - 0.2 /100WBC [facility] Neutrophils Absolute Auto 8.3 2.0 - 8.3 x10*3/uL [facility] Imm Gran Abs Auto 0.03 0.00 - 0.03 X10*3/uL [facility] Lymphocytes Absolute Auto 2.2 1.2 - 4.9 X10*3/uL [facility] Monocytes Absolute Auto 0.8 0.1 - 1.2 X10*3/uL [facility] Eosinophils Absolute Auto 0.1 0.0 - 0.4 X10*3/uL [facility] Basophils Absolute Auto 0.1 0.0 - 0.2 X10*3/uL [facility] NRBC Abs Auto 0.000 0.0 - 0.012 X10*3/uL [facility] 01/17/2025 11:3 8 AM EDT 01/17/2025 11:53 AM EDT us Generic External Data Provider LAB BLOOD ORDERAB LES Final Result Performing Organization Address [facility] de Phone Number [facility] [address] [place] [phone] * (ABNORMAL) C-reactive Protein (01/17/2025 11:38 AM EDT) C Reactive Protein 1.38(H) < or = 0.50 mg/dL [facility] 01/17/2025 11:3 8 AM EDT 01/17/2025 11:53 AM EDT Generic External Data Provider LAB BLOOD ORDERAB LES Final Result Performing Organization Address [facility] de Phone Number [facility] [address] [place] [phone] * Magnesium (01/17/2025 11:38 AM EDT) Magnesium 2.1 1.6 - 2.6 mg/dL [facility] 01/17/2025 11:3 8 AM EDT 01/17/2025 11:53 AM EDT us Generic External Data Provider LAB BLOOD ORDERAB LES Final Result Performing Organization Address [facility] Co de Phone Number [facility] [address] [place] [address] [phone] * (ABNORMAL) Hepatic Function Panel (01/17/2025 11:38 AM EDT) [facility] Bilirubin, Total 0.2 0.0 - 1.0 mg/dL [facility] Bilirubin, Direct <0.2 0.0 - 0.5 mg/dL [facility] Aspartate Amino Transferase 26 5 - 31 U/L [facility] Alanine Aminotransferase 32(H) 0 - 31 U/L [facility] Total Protein 7.1 6.5 - 8.0 g/dL [facility] Albumin Level 4.4 3.5 - 5.0 g/dL [facility] Alkaline Phosphatase 105 39 - 117 U/L [facility] 01/17/2025 11:3 8 AM EDT 01/17/2025 11:53 AM EDT Generic External Data Provider LAB BLOOD ORDERAB LES Final Result [facility] [address] [place] [address] [phone] * (ABNORMAL) Basic Metabolic Panel (01/17/2025 11:38 AM EDT) [facility] Sodium 139 135 - 145 mmol/L [facility] Potassium 4.2 3.3 - 5.1 mmol/L [facility] Chloride 107 96 - 108 mmol/L [facility] Carbon Dioxide 22 22 - 29 mmol/L [facility] Anion Gap 14 12 - 20 [facility] Urea Nitrogen (BUN) 8(L) 9 - 16 mg/dL [facility] Creatinine, Serum 0.52 0.5 - 1.4 mg/dL [facility] Creatinine Clr Calc Pharmacy 95.0 [facility] Comment:Provided height and weight: 149.86 cm,59.8 kg.eGFR (calculated from the MDRD study equation) and eCrCl(calculated from the Cockcroft-Gault equation) are based ondifferent parameters and may not yield comparable results.If eCrCl result is absurd, please check patient'sheight/weight. Estimated Glomerular Filt Rate >60 [facility] Comment:Chronic Kidney Disea se: Estimated GFR < 60 mL/min/1.20u1Vqxxor Kidney Disease: Estimated GFR < 15 mL/min/1.73m2 Glucose 129(H) 60 - 115 mg/dL [facility] Calcium 9.2 8.4 - 10.2 mg/dL [facility] 01/17/2025 11:3 8 AM EDT 01/17/2025 11:53 AM EDT us Generic External Data Provider LAB BLOOD ORDERAB LES Final Result [facility] [address] [place] [phone] * Hm Colonoscopy (07/15/2023) Colonoscopy Normal Normal us Nikki Crain MD HEALTH MAINTENANCE Final Resu lt * (ABNORMAL) Lipid Panel, Standard (06/15/2023 8:17 AM EST) Triglycerides 110 <150 mg/dL [facility] Comment:Desirable Triglyceri de: less than 150 mg/dLBorderline High Triglyceride 150-199 mg/dLHigh Triglyceride: 200-499 mg/dLVery High Triglyceride: greater than or equal to 5OO mg/dL Cholesterol 132 <200 mg/dL [facility] Comment:Desirable Cholestero l: less than 200 mg/dLBorderline High Cholesterol: 200-239 mg/dLHigh Cholesterol: greater than 239 mg/dL LDL Cholesterol Calculated 73 <100 mg/dL [facility] Comment:Desirable LDL: less than 100 mg/dLNear Optimal/Above Optimal LDL: 110- 129 mg/dLBorderline High LDL: 130-159 mg/dLHigh LDL: 160-189 mg/dLVery High LDL: greater than or equal to 190 mg/dL HDL Cholesterol 37(L) >40 mg/dL [facility] Comment:Desirable HDL: great er than 40 mg/dL Note: This HDL assay may give artificially low results in patients with liver disease. Blood Venous blood specimen / Unknown 06/15/2023 8:17 AM EST 06/15/2023 2:37 PM EST Nikki Crain MD LAB BLOOD ORDERABLES Final Re sult Performing Organization Address [facility] Co de Phone Number [facility] [address] [place] [phone] * HIV-1 RNA, Quantitative, Real-Time PCR with Reflex to Genotype (RTI, PI, Integrase) (10/08/2022 8:53 AM EDT) Pathologist [facility] HIV 1 RNA, QN PCR NOT DETECTED copies/mL [facility], HIV 1 RNA, QN PCR NOT DETECTED Log copies/mL [facility], Comment: REFERENCE RANGE: NOT DETECTED copies/mL NOT DETECTED Log copies/mL This test was performed using Real-Time Polymerase Chain Reaction. Reportable range is 20 to 10,000,000 copies/mL (1.30-7.00 Log copies/mL). 10/08/2022 8:53 AM EDT 10/08/2022 8:53 AM EDT Nikki Crain MD LAB BLOOD ORDERABLES Final Re sult Performing Organization Address City/[facility]/ZIP Co de Phone Number [facility] [address], [place] [address] [facility], [address] [place] [address] * (ABNORMAL) Hepatitis Panel, General (10/08/2022 8:53 AM EDT) Pathologist [facility] Hepatitis A Antibody Total NON-REACT ART NON-REACT ART [facility] Comment: For additional information, please refer to http://education.[employer]/faq/EJQ109 (This link is being provided for informational/ educational purposes only.) Hepatitis B Surface Antibody QL REACTIVE( A) NON-REACT ART [facility] [place] [employer] Hepatitis B Surface Ag NON-REACT ART NON-REACT ART [facility] [place] [employer] Hepatitis B Core Antibody Total NON-REACT ART NON-REACT ART [facility] [place] [employer] Hepatitis C Antibody NON-REACT ART NON-REACT ART [facility] [place] [employer] Index <0.02 <1.00 [facility] [place] [employer] Comment: HCV antibody was non-reactive. There is no laboratory evidence of HCV infection. In most cases, no further action is required. However, if recent HCV exposure is suspected, a test for HCV RNA (test code 55759) is suggested. For additional information please refer to http://P[employer]/faq/MVK27m2 (This link is being provided for informational/ educational purposes only.) 10/08/2022 8:53 AM EDT 10/08/2022 8:53 AM EDT us Nikki Crain MD LAB BLOOD ORDERABLES Final Re sult [facility] [address], [place] [address] [facility] [place] [employer] [address] [place] [address] * ALBUMIN, RANDOM URINE W/CREATININE (08/24/2021 8:02 [...] Re sult Performing Organization Address [facility] de Phone Number [facility] [address] [place] [address], * THINPREP PAP (09/09/2020 3:04 PM EDT) [...] along with historic and current clinical information. Parimutuel Ticket Cashier : SEE COMMENT [facility] Comment: DCR, CT(ASCP) CT screening location: [place] [address] Interpretation/R esult: Negative for intraepithelial lesion or malignancy. [facility] LMP: NONE GIVEN [facility] Prev. BX: NONE GIVEN [facility] Prev. PAP: NONE GIVEN [facility] SOURCE: None given [facility] Statement Of Adequacy: SEE COMMENT [facility] Comment: Satisfactory for evaluation. Endocervical/transformation zone component present. Age and/or menstrual status not provided 09/09/2020 3:04 PM EDT us Haley Pena CNM LAB PATHOLOGY ORDERABLES Final Result Performing Organization Address [facility] Co de Phone Number [facility] [address] [place] [address], * HPV E6/E7 RFLX BRENDA 16 18/45 (07/02/2020 3:05 PM EST) HPV mRNA E6/E7 rflx Not Detected Not Detected [facility] Comment: Methodology: Social Science Research Assistant-Mediated Amplification This assay detects E6/E7 viral messenger RNA (mRNA) from 14 high-risk HPV types (16,18,31,33,35,39,45,51,52,56,58,59,66,68). The analytical performance characteristics of this assay have been determined by [facility]. The modifications have not been cleared or approved by the FDA. This assay has been validated pursuant to the CLIA regulations and is used for clinical purposes. For additional information, please refer to http://education.[employer]/faq/MUO052z5 (This link if provided for information/ educational purposes only.) THIS TEST WAS PERFORMED AT: [employer] [address] [place] [address] [address],[place] [address] OMER KOCH MD 07/02/2020 3:05 PM EST us Joseph Jiang MD HISTORICAL/NON ORDERABLE LABS Fi nal Result [facility] [address] from Last 3 Months or Most Recently Relevant to Health Maintenance Additional Health Concerns Active Problems Noted Date Diagnosed Date Help patients manage their type 2 diabetes 03/15 Patient has chronic kidney disease 03/15/2025 Patient has chronic kidney disease 03/15/2025 Insurance [facility] C3 Care Teams 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
--- OUTSIDE RECORDS SUMMARY | 2025-03-15 14:36 | XMS_ITS | Encounter Summary ---
Author Organization [employer] Address [address] [place] [address] 7 [place] [address] Care Team Providers Care Hydrologic Engineer Name Role Phone Nikki Crain MD Primary Care Provider [phone] Reason for Visit * Reason Comments Med Refill Encounter Details Date Type Department Care Team ([facility] Contact Info) Description 11/29/2022 Refill [facility] [address] [place] [address] Nikki Crain MD [address] [place] [address] Diabetes mellitus without complication ([facility]) Social History Tobacco Use Types [...] Upcoming Encounters Date Type Department Care Team ([facility] Contact Info) Description 03/29/2025 9:00 AM EST Office Visit [facility] [address] [place] [address] Nikki Crain MD [address] [place] [address] 04/01/2025 11:00 AM EST Nurse Only [facility] [address] [place] [address] documented as of this encounter Visit Diagnoses Diagnosis Diabetes mellitus without complication (HCC) Type II or unspecified type diabetes mellitus without mention of complication, not stated as uncontrolled documented in this encounter Care Teams Hydrologic Engineer Relationship Specialty Start Date End Date Nikki Crain MD [address] [place] [address] PCP - General Family Medicine 04/25/18 documented as of this encounter
--- OUTSIDE RECORDS SUMMARY | 2025-03-15 14:36 | XMS_ITS | Patient Health Record ---
Author Organization [facility] Address [address] [place] [address] Care Team Providers Care Qual Field Manager Name Role Phone Paras BROTHERS, Nikki Primary Care Provider Neil Manley Unavailable [phone] Allergies Allergen (clinical drug ingredient) Drug/Non Drug Allergy documented on EMR Reaction Allergy Type Onset Date Status tramadol Tramadol Unknown Drug Allergy Active Reason For Referral No Information Medications Medication SIG (Take, Route, Frequency, Duration) Notes Start Date End Date Status MiraLax (colon prep) 17 GM/SCOOP Powder 1 238 Gm bottle mixed with Gatorade or Crystal Light Orally begin at 5:00 p.m. the day before the procedure; Duration: 1 day 04/19/2023 Active Vitamin C 1000 MG Tablet TAKE ONE TABLET IN THE MORNING AND EVENING FOR iron absorbtion Oral; Duration: 90 Active Glimepiride 4 MG Tablet TAKE ONE TABLET EVERY EVENING Oral; Duration: K219,Unavaila ble Active Ozempic (0.25 or 0.5 MG/DOSE) 2 MG/3ML Solution Pen-injector INJECT 0..5 MG SUBCUTANEOUSLY ONCE A WEEK Subcutaneous; Duration: 28 E119,Unavaila ble Active Dulcolax (colon prep) 5 MG Tablet Delayed Release take at 3:00 p.m and 7:00p.m. Orally two tablets twice a day for one day; Duration: 1 day 04/19/2023 Active Vitamin D3 50 MCG (1999 UT) Capsule TAKE ONE CAPSULE IN THE MORNING AND EVENING Oral; Duration: 90 E559,Unavaila ble Active Fish Oil Active Albuterol Sulfate (2.5 MG/3ML) 0.083% Nebulization Solution USE ONE AMPULE USING A NEBULIZER THREE TIMES DAILY NEEDED Inhalation; Duration: 10 Active Pramipexole Dihydrochloride 0.25 MG Tablet 1 tablet Orally Once a day; Duration: 30 day(s) Active Dicyclomine HCl 10 MG Capsule TAKE ONE CAPSULE THREE TIMES DAILY IN THE MORNING, EVENING AND BEDTIME Oral; Duration: 30 Active Pregabalin 200 MG Capsule TAKE ONE CAPSULE THREE TIMES DAILY IN THE MORNING, EVENING AND BEDTIME Oral; Duration: 30 Active Omeprazole 40 MG Capsule Delayed Release TAKE ONE CAPSULE EVERY MORNING Oral; Duration: 90 K219,Unavaila ble Active FeroSul 325 (65 Fe) MG Tablet TAKE ONE TABLET EVERY MORNING Oral; Duration: 90 D509,Unavaila ble Active metFORMIN HCl ER 500 MG Tablet Extended Release 24 Hour TAKE TWO TABLETS TWICE DAILY IN THE MORNING AND EVENING WITH MEALS Oral; Duration: 30 E119,Unavaila ble Active Social History Tobacco Use: Social History Observation Description Date Details (start date - stop date) Never Smoker NA - NA Social History Drugs/Alcohol: Social Info Question Answer Notes Alcohol Screen Did you have a drink containing alcohol in the past year? No Points 0 Interpretation Negative Tobacco Use: Social Info Question Answer Notes Tobacco Use/Smoking Patient is a nonsmoker Additional Details Category Social Info Options Details Miscellaneous: Marital status: Occupation: disabled Section Notes: No sig. 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 Problem Diverticular disease of colon (438230703) Diverticulosis of large intestine without perforation or abscess without bleeding (K57.30) Active confirmed Problem Infectious colitis (80231755) Infectious colitis (A09) Active confirmed Problem Gastroesophageal reflux disease (457211981) Gastroesophageal reflux disease, unspecified whether esophagitis present (K21.9) Active confirmed Problem Gastroesophageal reflux disease (disorder) (987336299) Chronic GERD (K21.9) Active confirmed Plan Of Treatment Pending Test Test Name Order Date Pathology 07/15/2023 Future Test Test Name Order Date UPPER GI ENDOSCOPY 04/19/2023 COLONOSCOPY 04/19/2023 Insurance Providers Payer Name Payer Address Payer Phone Subscriber Number Group Number Insured Name Patient Relationship to Insured Coverage Start Date Coverage End Date MEDICAID [facility] [address] [place] [phone] [id number] CLARE LEVINE Self - patient is the insured Medical (General) History Medical History History ICD Code Asthma NIDDM Fibromyalgia Denies MT,CVA,renal disease Restless leg syndrome Hospitalized 11/2022 at [facility] f or presumed infectious colitis, although no specific pathogen was identified Surgical History Surgery Date(Month/Year) Appendectomy Cholecystectomy LEFT CARPAL TUNNEL CATARACTS
--- OUTSIDE RECORDS SUMMARY | 2025-03-15 14:36 | XMS_ITS | Encounter Summary ---
Author Organization [employer] Address [address] [place] [address] [address] [place] [address] Care Team Providers Care Supervisor Home Restoration Service Name Role Phone Nikki Crain MD Primary Care Provider [phone] Reason for Visit * Reason Onset Date Comments Referral 11/19/2024 Encounter Details Date Type Department Care Team ([facility] Contact Info) Description 11/19/2024 Telephone C [facility] [address] [place], [place] [phone] Nikki Crain MD [address] [place] [address] Referral Social History Tobacco Use Types Packs/Day [...] biopsy done. Any questions contact pt at [phone] documented in this encounter Plan of Treatment Upcoming Encounters Date Type Department Care Team ([facility] Contact Info) Description 03/29/2025 9:00 AM EST Office Visit [facility] [address] [place] [address] Nikki Crain MD [address] [place] [address] 04/01/2025 11:00 AM EST Nurse Only [facility] [address] [place] [address] documented as of this encounter Visit Diagnoses Not on filedocumented in this encounter Additional Health Concerns Assessment Noted Time PHQ-9 Depression Total Score: 6 06/02/19 24 10:53 AM EST documented as of this encounter Care Teams Supervisor Home Restoration Service Relationship Specialty Start Date End Date Nikki Crain MD [address] [place] [id number] PCP - General Family Medicine 04/25/18 documented as of this encounter
[2025-03-15 15:35] LABS: Bacterial Vaginosis PCR NEGATIVE (Negative); Candida Group PCR NOT DETECTED (Not Detect); Candida glab krusei PCR NOT DETECTED (Not Detect); Trichomonas vaginalis PCR NOT DETECTED (Not Detect)
[2025-03-15 16:04] LABS: CT PCR NOT DETECTED (Not Detect.); NG PCR NOT DETECTED (Not Detect.)
== END 2025-03-15 14:18 | disposition home or self-care (01) ==
LOC: HO.LNP 14:17
DX: N89.8 Other specified noninflammatory disorders of vagina (principal); Z20.2 Contact with and (suspected) exposure to infections with a predominantly sexual mode of transmission
CPT/HCPCS: 81515; 87086; 87491; 87591